=== PATIENT | male | born 1945 | race Caucasian/White ===

== ENCOUNTER 2016-11-15 14:59 | Inpatient (IN) | payer OTHER, MEDICARE ==
[~2016-11-15] VITALS: Ht 180.3 cm; Wt 62.0 kg
[~2016-11-15 14:59] MED LIST: ALBUAER19 INH; AZIT250T PO; CHOL100027 PO; DLR500 PO; MONT1TAB3 PO; OXGN; PANT40TA PO; SYMIN160 INH; TIOTCAP INH
[2016-11-15] MEDS ORDERED: ALBU18002 INH (15:41)
[2016-11-15] MEDS ORDERED: ESCI1TAB10 PO (15:41)
[2016-11-15] MEDS ORDERED: SPRIN/30 INH (15:41)
[2016-11-15] MEDS ORDERED: PRLSR20 PO (15:41)
[2016-11-15] MEDS ORDERED: CHN/1 PO (15:41)
[2016-11-15 15:47] LABS: BASO % 0.4 %; BASO ABS # 0.05 K/uL (0-0.2); COMPLETE YES; EOS % 1.1 %; HEMATOCRIT 39.4 % (42-52); IG% 0.3 %; LYMPH % 3.9 %; LYMPH ABS # 0.51 K/uL (1.2-3.4); MEAN CELL VOLUME 91.6 fL (80-100); MEAN CORPUSCULAR HEMOGLOBIN 30.7 pg (25-34); MEAN CORPUSCULAR HGB CONC 33.5 g/dl (32-36); MEAN PLATELET VOLUME 9.3 fL (7.4-10.4); MONO % 7.9 %; NEUT % 86.4 %; PLATELET COUNT 273 K/uL (130-400); WHITE BLOOD COUNT 12.97 K/uL (4.8-10.8)
--- NOTE | 2016-11-15 15:51 | EMERGENCY ROOM VISIT NOTE ---
History Report prepared by Scribe: Divine Hernandez Under the Supervision of: Dr. Caridad Moody D.O. First contact with patient: 15:18 Chief Complaint: WEAKNESS Stated Complaint: WEAKNESS,LACK OF BALANCE,COPD Nursing Triage Summary: Pt states his heart rate is always high in the 140s. "I went to get up this AM and couldnt get up. I was really really dizzy. I fell back down onto the bed. " B/L leg pain. Denies injury. "I get the shakes." Hx of COPD, denies cardiac history. History of Present Illness The patient is a 71 year old male who presents to the Emergency Room with complaints of worsening weakness. He is accompanied by his and daughter. He reports he got up to use the bathroom this morning and was so weak he was unable to get up. He felt dizzy and "fell back down onto the bed". The patient complains of "burning" bilateral leg pain. He denies any recent injury. He denies any difficulty urinating or recent constipation or diarrhea. His daughter reports his heart rate is "always fast" as it's 133 on exam. The patient is febrile on exam and his daughter states he has had cold symptoms for the past few days including a cough, but refused to go to the doctor. The patient also complains of a cough. He has a history of COPD and his family states he uses Oxygen at home. Source of History: patient, family Onset: [employer] Position: other (global) Quality: other (weakness) Timing: worsening Associated Symptoms: + fevers, + cough, No diarrhea, No urinary symptoms Review of Systems See HPI for pertinent positives & negatives. A total of 10 systems reviewed and were otherwise negative. Past Medical & Surgical Medical Problems: (1) COPD (chronic obstructive pulmonary disease) (2) COPD exacerbation Social History Smoking Status: Former Smoker Alcohol Use: occasionally Drug Use: none Marital Status: Housing Status: lives alone Occupation Status: employed Current/Historical Medications Scheduled Budesonide/Formoterol Fumarate (Symbicort 160/4.5 Inhaler), 2 PUFFS INH BID Escitalopram Oxalate (Lexapro), 20 MG PO DAILY Home O2 Therapy (Oxygen), 4 LITER NA PRN Montelukast Sodium (Singulair), 10 MG PO DAILY Omeprazole (Prilosec), 20 MG PO DAILY Roflumilast (Daliresp), 500 MCG PO DAILY Tiotropium [place] (Spiriva [place]), 1 CAP INH DAILY Varenicline (Chantix), 1 MG PO DAILY Scheduled PRN Albuterol Sulfate (Proair Respiclick), 2 PUFFS INH QID PRN for SOB/Wheezing Allergies Coded Allergies: No Known Allergies (Unverified , 07/28/15) Physical Exam Vital Signs Date Time Temp Pulse Resp B/P (MAP) Pulse Ox O2 Delivery O2 Flow Rate FiO2 11/15/16 18:38 105 25 93/51 97 Nasal Cannula 4.0 11/15/16 18:10 115 24 101/63 97 Nasal Cannula 4.0 11/15/16 18:03 Nasal Cannula 4.0 11/15/16 17:33 122 24 93/53 94 Nasal Cannula 4.0 11/15/16 15:55 95 Nasal Cannula 4.0 11/15/16 15:54 134 27 129/68 98 Nasal Cannula 4.0 11/15/16 15:33 135 25 114/80 96 Room Air 11/15/16 15:11 38.7 147 20 116/67 91 Nasal Cannula 4.0 Physical Exam HEENT: Head - normocephalic and atraumatic Pupils are equal, round, and reactive to light. Extraocular eye muscles are intact, and sclera are anicteric. Nose - moist nasal mucosa without discharge. Mouth - dry buccal mucosa. Oropharynx is nonerythematous and there is no tonsillar exudate or edema noted. Neck: Supple; no JVD, nuchal rigidity, cervical lymphadenopathy. Heart: Tachycardic heart rate, regular rhythm. There is a normal S1 and S2 with no murmurs, clicks, or gallops appreciated. Lungs: Very minimal air exchange in the lungs, no wheezes, rales, or rhonchi. Abdomen: Soft, completely nontender, nondistended, with good bowel sounds. There are no palpable pulsatile masses or hepatosplenomegaly. There is no guarding, rigidity, or rebound noted. Extremities: No evidence of cyanosis, clubbing, or edema. There are easily palpable peripheral pulses. Skin: Skin is dry with poor turgor. Warm, no rashes. Medical Decision & Procedures ER Provider Diagnostic Interpretation: Radiology results as stated below per my review and the radiologist's interpretation: CHEST ONE VIEW PORTABLE CLINICAL HISTORY: Sepsis COMPARISON STUDY: Chest radiograph February 21, 2016. FINDINGS: Severe emphysema is noted. Cardiomediastinal silhouette remains normal. There is no pneumothorax or pleural effusion. There may be minimal opacity within the medial right lung base. IMPRESSION: 1. Possible mild airspace opacity within the medial right lower lung. 2. Severe emphysema. Electronically signed by: Leonid Og M.D. 11/15/2016 5:01 PM Laboratory Results 11/15/16 15:35 Red Blood Count 4.30, Mean Corpuscular Volume 91.6, Mean Corpuscular Hemoglobin 30.7, Mean Corpuscular Hemoglobin Concent 33.5, Mean Platelet Volume 9.3, Neutrophils (%) (Auto) 86.4, Lymphocytes (%) (Auto) 3.9, Monocytes (%) (Auto) 7.9, Eosinophils (%) (Auto) 1.1, Basophils (%) (Auto) 0.4, Neutrophils # (Auto) 11.20, Lymphocytes # (Auto) 0.51, Monocytes # (Auto) 1.03, Eosinophils # (Auto) 0.14, Basophils # (Auto) 0.05 11/15/16 15:35 Test 11/15/16 15:35 11/15/16 15:46 White Blood Count 12.97 K/uL (4.8-10.8) Red Blood Count 4.30 M/uL (4.7-6.1) Hemoglobin 13.2 g/dL (14.0-18.0) Hematocrit 39.4 % (42-52) Mean Corpuscular Volume 91.6 fL (80-100) Mean Corpuscular Hemoglobin 30.7 pg (25-34) Mean Corpuscular Hemoglobin Concent 33.5 g/dl (32-36) Platelet Count 273 K/uL (130-400) Mean Platelet Volume 9.3 fL (7.4-10.4) Neutrophils (%) (Auto) 86.4 % Lymphocytes (%) (Auto) 3.9 % Monocytes (%) (Auto) 7.9 % Eosinophils (%) (Auto) 1.1 % Basophils (%) (Auto) 0.4 % Neutrophils # (Auto) 11.20 K/uL (1.4-6.5) Lymphocytes # (Auto) 0.51 K/uL (1.2-3.4) Monocytes # (Auto) 1.03 K/uL (0.11-0.59) Eosinophils # (Auto) 0.14 K/uL (0-0.5) Basophils # (Auto) 0.05 K/uL (0-0.2) RDW Standard Deviation 43.3 fL (36.4-46.3) RDW Coefficient of Variation 12.9 % (11.5-14.5) Immature Granulocyte % (Auto) 0.3 % Immature Granulocyte # (Auto) 0.04 K/uL (0.00-0.02) Prothrombin Time 10.6 SECONDS (9.0-12.0) Prothromb Time International Ratio 1.0 (0.9-1.1) Activated Partial Thromboplast Time 31.9 SECONDS (21.0-31.0) Partial Thromboplastin Ratio 1.2 Anion Gap 5.0 mmol/L (3-11) Est Creatinine Clear Calc Drug Dose 53.1 ml/min Estimated GFR () 77.9 Estimated GFR (Non- 67.2 BUN/Creatinine Ratio 13.0 (10-20) Calcium Level 9.2 mg/dl (8.5-10.1) Total Bilirubin 0.8 mg/dl (0.2-1) Aspartate Amino Transf (AST/SGOT) 9 U/L (15-37) Alanine Aminotransferase (ALT/SGPT) 16 U/L (12-78) Alkaline Phosphatase 69 U/L (45-117) Total Protein 6.9 gm/dl (6.4-8.2) Albumin 3.1 gm/dl (3.4-5.0) Globulin 3.8 gm/dl (2.5-4.0) Albumin/Globulin Ratio 0.8 (0.9-2) Bedside Lactic Acid Venous 1.57 mmol/L (0.90-1.70) Laboratory results per my review. Medications Administered Medications (Trade) Dose Ordered Sig/Suyapa Route Start Time Stop Time Status Last Admin Dose Admin Acetaminophen (Tylenol Tab) 1,000 mg NOW STAT PO 11/15/16 16:04 11/15/16 16:05 DC 11/15/16 16:53 1,000 MG Sodium Chloride 1,000 ml @ 250 mls/hr Q4H STAT IV 11/15/16 16:39 11/15/16 20:38 11/15/16 16:39 250 MLS/HR Sodium Chloride 500 ml @ 999 mls/hr Q31M STAT IV 11/15/16 16:39 11/15/16 17:09 DC 11/15/16 16:39 999 MLS/HR Piperacillin Sod/ Tazobactam Sod (Zosyn Iv) 3.375 gm NOW STAT IV 11/15/16 17:30 11/15/16 17:32 DC 11/15/16 18:08 3.375 GM Levofloxacin (Levaquin / D5W) 750 mg NOW ONCE IV 11/15/16 17:30 11/15/16 17:32 DC 11/15/16 18:37 750 MG Procedure Acetaminophen PO. NSS IV. Levaquin IV. Zosyn IV. ECG Indication: weakness Rate (beats per minute): 137 Rhythm: sinus tachycardia Findings: no acute ischemic change, no ectopy ED Course 1539: Past medical records reviewed. The patient was evaluated in room C7. A complete history and physical exam was performed. A septic protocol was performed. An IV lock was initiated. A twelve-lead EKG was obtained as described above. 1604: Acetaminophen 1000 mg PO. 1639: NSS 500 ml @ 999 mls/hr IV, NSS 1000 ml @ 250 mls/hr IV. 1710: I reevaluated the patient. He is asleep. His resting heart rate is down to 134. 1723: I discussed the patients case with Dr. Israel, [facility] Hospitalist. The patient will be further evaluated. 1728: The patient is awake and resting comfortably. I discussed my recommendation that he remain in the hospital for further evaluation and management and he and his family verbalized complete understanding and agreement. 1730: Levaquin 750 mg IV, Zosyn 3.375 gm IV. Medical Decision The patient is a 71 year old male who presents to the ED with weakness. The differential diagnoses considered include: COPD exacerbation, sepsis, pneumonia , bronchitis and UTI. Lab results show WBC is 12.9. Stable H&H. Glucose is 160. Normal renal function. Normal LFT's. Normal COAG's. Lactic acid is 1.5. This is a 71-year-old male patient who presents to the emergency department with fever and weakness. He has a history of COPD. He wears oxygen at home. He has had cold symptoms and a cough. Chest x-ray is concerning for a right- sided opacity. He does have leukocytosis, fever and tachycardia. He doesn't sepsis criteria. Otherwise, he seemed intimately stable. He appeared dehydrated on physical exam. He received IV crystalloid therapy. His resting heart rate came down nicely. He was started on IV antibiotics. The case is discussed with the [facility] Hospitalist and they will evaluate for further management. Medication Reconcilliation Current Medication List: was personally reviewed by me Blood Pressure Screening Patient's blood pressure: Normal blood pressure Blood pressure disposition: Did not require urgent referral Consults Time Called: 1715 Consulting Physician: Dr. Israel, [facility] Hospitalist Returned Call: 1723 I discussed the patients case with Dr. Israel [facility] Hospitalist. The patient will be further evaluated. Impression Primary Impression: Sepsis Additional Impression: Pneumonia involving right lung Scribe Attestation The scribe's documentation has been prepared under my direction and personally reviewed by me in its entirety. I confirm that the note above accurately reflects all work, treatment, procedures, and medical decision making performed by me. Departure Information Dispostion Being Evaluated By Hospitalist Referrals Bob Duke M.D. (PCP) Patient Instructions My [facility] Problem Qualifiers Primary Impression: Sepsis Sepsis type: sepsis due to unspecified organism Qualified Codes: A41.9 - Sepsis, unspecified organism Additional Impression: Pneumonia involving right lung Pneumonia type: due to unspecified organism Lung location: middle lobe of lung Qualified Codes: J18.1 - Lobar pneumonia, unspecified organism
[2016-11-15 15:56] LABS: PARTIAL THROMBOPLASTIN RATIO 1.2; PROTHROMBIN TIME (PATIENT) 10.6 SECONDS (9.0-12.0)
[2016-11-15 16:03] LABS: CALCIUM 9.2 mg/dl (8.5-10.1); CREATININE 1.1 mg/dl (0.60-1.40); POTASSIUM 3.9 mmol/L (3.5-5.1)
[2016-11-15] MEDS ORDERED: ACETAMINOPHEN 500 MG TAB PO STA (16:04)
[2016-11-15 16:06] LABS: ALB/GLOB RATIO 0.8 (0.9-2)
[2016-11-15] MEDS ORDERED: SODIUM CHLORIDE 0.9% 500ML 500 ML IV STA (16:39)
[2016-11-15] MEDS ORDERED: SODIUM CHLORIDE 0.9% 1000ML 1,000 ML IV STA (16:39)
--- NOTE | 2016-11-15 17:03 | DIAGNOSTIC IMAGING REPORT ---
CHEST ONE VIEW PORTABLE CLINICAL HISTORY: Sepsis COMPARISON STUDY: Chest radiograph February 21, 2016. FINDINGS: Severe emphysema is noted. Cardiomediastinal silhouette remains normal. There is no pneumothorax or pleural effusion. There may be minimal opacity within the medial right lung base. IMPRESSION: 1. Possible mild airspace opacity within the medial right lower lung. 2. Severe emphysema. Electronically signed by: Leonid Og M.D. 11/15/2016 5:01 PM Dictated Date/Time: 11/15/2016 4:59 PM
[2016-11-15] MEDS ORDERED: DAPTOmycin IV 400 MG in SODIUM CHLORIDE 0.9% 50ML 50 ML IV STA (17:06)
[2016-11-15] MEDS ORDERED: IMIPENEM/CILASTATIN IV 500 MG in DEXTROSE 5% 100ML 100 ML IV STA (17:06)
[2016-11-15] MEDS ORDERED: PIPERACILLIN/TAZOBACTAM 3.375 GM/100ML D5W IV STA (17:30)
[2016-11-15] MEDS ORDERED: LEVAQUIN 750MG / 150ML D5W IV ONE (17:30)
[2016-11-15 18:03] VITALS: BMI 18.8
[2016-11-15 20:29] VITALS: Ht 180.3 cm; Wt 62.0 kg
[2016-11-15] MEDS ORDERED: MAGNESIUM HYDROXIDE SUSP 30 ML UDC PO PRN (20:30)
[2016-11-15] MEDS ORDERED: ZOLPIDEM TARTRATE 5 MG TAB PO PRN (20:30)
[2016-11-15] MEDS ORDERED: ALUMINUM/MAGNESIUM/SIMETH (MAALOX MAX) 30 ML UDC PO PRN (20:30)
[2016-11-15] MEDS ORDERED: POLYETHYLENE (MIRALAX) 17 GM PACK PO PRN (20:30)
[2016-11-15 20:40] LABS: URINE APPEARANCE CLEAR (CLEAR); URINE BILIRUBIN NEG (NEG); URINE COLOR YELLOW; URINE EPITHELIAL CELL AUTO 0-5 /lpf (0-5); URINE NITRITE NEG (NEG); URINE PH 6.5 (4.5-7.5); URINE SPECIFIC GRAVITY 1.013 (1.000-1.030); UROBILINOGEN NEG (NEG); ZZUR CULT IF INDIC CLEAN CATCH NO
[2016-11-15 20:41] LABS: MANUAL MICROSCOPIC REQUIRED? NO; REVIEW REQ? NO
[2016-11-15] MEDS ORDERED: CEFTRIAXONE SOD INJ 1 GM ADDVIAL ONE (20:50)
[2016-11-15] MEDS ORDERED: AZITHROMYCIN 500 MG / D5W 250 ML IV STA ×2 (21:01)
[2016-11-15] MEDS: SODIUM CHLORIDE 0.9% 1000ML 1,000 ML IV SCH (22:13)
[2016-11-15] MEDS: BUDESONIDE/FORMOTEROL FUMARATE 160/4.5 60 PUFFS/INHALER INH SCH (22:14)
[2016-11-15] MEDS: HEPARIN SOD 5000 UNIT/0.5 ML CARP SQ SCH (22:27)
[2016-11-15] MEDS ORDERED: CEFTRIAXONE SOD INJ 1 GM in DEXTROSE 5% ADD-VANTAGE 50ML 50 ML IV SCH (22:30)
[2016-11-15 22:33] VITALS: O2SAT 91
[2016-11-15 22:34] VITALS: BP 122/73; PULSE 109; TEMP 36.9; O2SAT 91
[2016-11-15 22:42] LABS: URINE APPEARANCE CLEAR (CLEAR); URINE BILIRUBIN NEG (NEG); URINE COLOR YELLOW; URINE NITRITE NEG (NEG); URINE SPECIFIC GRAVITY 1.012 (1.000-1.030); UROBILINOGEN NEG (NEG); ZZUR CULT IF INDIC CLEAN CATCH NO
[2016-11-15 22:47] LABS: MANUAL MICROSCOPIC REQUIRED? NO; REVIEW REQ? NO
[2016-11-16] VITALS (16 sets, daily range): BP systolic 104–119; BP diastolic 61–69; PULSE 87–133; TEMP 36.8–39.5; O2SAT 88–99
--- NOTE | 2016-11-16 01:19 | HISTORY & PHYSICAL EXAMINATION ---
DATE OF ADMISSION: 11/15/2016 CHIEF COMPLAINT: Severe generalized weakness. HISTORY OF PRESENT ILLNESS: The patient is a 71-year-old man with a history of COPD, chronic respiratory failure on 4 liters oxygen at home, who presented to the ED with his and daughter. The patient reported that he went to sleep at night feeling good, but then when he woke up in the morning he could not get out of bed from generalized weakness. He stated that his had to assist him to go to the bathroom and keep walking with him to the bathroom. He denies any symptoms suggestive for an infection, denies any cough or wheezing, but yet in the ED his heart rate was about 130 and he had a temperature of 38.7. All his review of systems was negative except for generalized weakness. He also denied any fever or chills despite of this very high temperature which makes me question the validity of the review of systems with him. His chest x-ray though did show some possible airspace opacity within the medial right lower lung , also illustrated the severe emphysema. He will be admitted for further evaluation and management. REVIEW OF SYSTEMS: As per HPI, all systems have been reviewed and were negative except for generalized weakness. He denies any headache, double vision or blurry vision. Denies any chest pain or palpitations. Denies any cough, wheezing or shortness of breath. Denies any diarrhea or blood in the stool. Denies any burning sensation in the urine or blood. Denies any focal weakness, tingling or numbness. Rest of the review of systems is negative. PAST MEDICAL HISTORY: COPD, chronic respiratory failure on home oxygen, depression and GERD. SOCIAL HISTORY: Former smoker. He denies any current smoking or drinking. FAMILY HISTORY: Noncontributory. CURRENT MEDICATIONS: 1. Symbicort two puffs b.i.d. 2. Lexapro daily. 3. Home oxygen 4 liters. 4. Singulair 10 mg daily. 5. Omeprazole 20 mg daily. 6. Daliresp 500 mcg p.o. daily. 7. Spiriva 1 cap inhalation daily. 8. Chantix and p.r.n. albuterol ProAir inhaler. ALLERGIES: No known allergy. PHYSICAL EXAMINATION: VITAL SIGNS: Temperature 38.7; heart rate is 147 on admission, currently is about 110; respiration is 25; blood pressure 101/63 and pulse ox is 97% on 4 liters. GENERAL: The patient appears to be thin, not in acute distress. HEENT: No jaundice. No pallor with mucous membranes. NECK: Supple. HEART: S1, S2, tachycardic. No gallop, rub or murmur. LUNGS: Decreased air entry bilaterally due to his significant emphysema, but was not able to appreciate any active wheezing right now or rhonchi. ABDOMEN: Soft, nontender, nondistended, no swelling. No hernia. EXTREMITIES: No cyanosis, clubbing or edema. SKIN: No rash on exposed skin area. NEUROLOGIC: Awake, alert, oriented to time, place and person. Moves all extremities. Sensation is intact. Cranial nerves II-XII appear to be intact. PSYCHIATRIC: Very pleasant, normal process of thinking, appropriate affect. IMAGING: As mentioned in HPI. LABORATORY DATA: White blood cell count 12.9, hemoglobin 13.2 and platelets 273. BUN 14, creatinine 1.1. Sodium 136, potassium is 3.9. ASSESSMENT: A 71-year-old man, who presented to the ED with severe weakness and sepsis. Despite of completely negative review of systems he was found to have right lower lobe opacity. 1. Sepsis present on admission, secondary to below. 2. Right lower lobe opacity, possible pneumonia. 3. Sinus tachycardia, possibly secondary to the sepsis. 4. Severe chronic obstructive pulmonary disease. 5. Depression, currently stable on Lexapro. 6. Gastroesophageal reflux disease, on omeprazole. 7. Borderline hypotensive. PLAN: 1. Admit patient to telemetry. 2. Initiate ceftriaxone/azithromycin antibiotics. 3. Obtain procalcitonin to confirm bacterial infection. 4. Obtain urine legionella. Obtain sputum culture. If possible, the patient can be induced. 5. IV fluid hydration. 6. Obtain UA, urine culture and blood culture to rule out other underlying causes of the patient's sepsis. 7. Giving him his lack of any cough and lack of any shortness of breath more than his baseline, would like to proceed with CT of chest without contrast to rule out any mass at that site. Also, the patient is a former smoker and appears to be very thin and cachectic. 8. Obtain labs for a.m. 9. Continue home medications as appropriate. 10. We will use Xopenex and Atrovent inhalers due to the tachycardia. 11. GI and DVT prophylaxis. MTDD
[2016-11-16] MEDS: ACETAMINOPHEN 325 MG TAB PO PRN ×2 (04:26→14:50)
[2016-11-16] MEDS: LEVALBUTEROL 0.63MG/3 ML NEB INH SCH ×4 (07:21→22:30)
[2016-11-16] MEDS: IPRATROPIUM BROMIDE NEB SOLN 0.02% 2.5 ML VIAL INH SCH ×4 (07:21→22:30)
[2016-11-16 08:14] LABS: BASO % 0.3 %; BASO ABS # 0.03 K/uL (0-0.2); COMPLETE YES; EOS % 2.6 %; HEMATOCRIT 35.6 % (42-52); IG% 0.2 %; LYMPH % 7.5 %; LYMPH ABS # 0.81 K/uL (1.2-3.4); MEAN CELL VOLUME 92.2 fL (80-100); MEAN CORPUSCULAR HEMOGLOBIN 30.6 pg (25-34); MEAN CORPUSCULAR HGB CONC 33.1 g/dl (32-36); MEAN PLATELET VOLUME 9.6 fL (7.4-10.4); MONO % 8.9 %; NEUT % 80.5 %; PLATELET COUNT 226 K/uL (130-400); RED BLOOD COUNT 3.86 M/uL (4.7-6.1); WHITE BLOOD COUNT 10.83 K/uL (4.8-10.8)
[2016-11-16] MEDS: PANTOprazole SOD 40 MG TAB PO SCH (08:36)
[2016-11-16] MEDS: ESCITALOPRAM OXALATE 20 MG TAB PO SCH (08:36)
[2016-11-16] MEDS: ROFLUMILAST 500 MCG TAB PO SCH (08:36)
[2016-11-16] MEDS: MONTELUKAST SOD 10 MG TAB PO SCH (08:37)
[2016-11-16] MEDS: BUDESONIDE/FORMOTEROL FUMARATE 160/4.5 60 PUFFS/INHALER INH SCH ×2 (08:37→20:55)
[2016-11-16 08:38] LABS: BUN/CREATININE RATIO 13.4 (10-20); CALCIUM 8.7 mg/dl (8.5-10.1); CREATININE 0.86 mg/dl (0.60-1.40); MAGNESIUM 1.9 mg/dl (1.8-2.4); POTASSIUM 4.3 mmol/L (3.5-5.1)
[2016-11-16 08:41] LABS: ALB/GLOB RATIO 0.7 (0.9-2); PHOSPHORUS 2.9 mg/dl (2.5-4.9)
--- NOTE | 2016-11-16 09:34 | DIAGNOSTIC IMAGING REPORT ---
(CHEST) THORAX WITHOUT CT DOSE: 223.02 mGy.cm HISTORY: Emphysema RLL density without cough, possible mass TECHNIQUE: Multiaxial CT images of the chest were performed without contrast. A dose lowering technique was utilized adhering to the principles of ALARA. COMPARISON: 11/12/2015 FINDINGS: Diffuse emphysematous change. Fibrotic and interstitial changes throughout both mid to upper lungs. Potential developing right middle lobe and right perihilar bronchiectatic change. Trace amount of right basilar pleural fluid. Mildly progressive bibasilar atelectatic change. No significant mediastinal or hilar adenopathy. Interval focal consolidative infiltrate medial aspect right upper lobe adjacent to the anterior mediastinum measuring 4 x 2.5 cm. Follow-up to resolution is suggested. IMPRESSION: 1. Interval development of a consolidated infiltrate versus lesion right upper lobe immediately adjacent to the anterior mediastinum. 2. This measures 4 x 2.5 cm and potentially represents consolidative infiltrate versus developing mass. 3. Progressive bronchiectatic change medial aspect right upper lobe. 4. Small right pleural effusion with mildly progressive basilar segmental atelectatic change 5. Close follow-up to complete resolution is suggested to exclude any possibility of a neoplastic process. 6. Stable emphysematous change The above report was generated using voice recognition software. It may contain grammatical, syntax or spelling errors. Electronically signed by: El Ortega M.D. 11/16/2016 9:32 AM Dictated Date/Time: 11/16/2016 9:27 AM
[2016-11-16] MEDS: HEPARIN SOD 5000 UNIT/0.5 ML CARP SQ SCH ×2 (10:26→21:02)
[2016-11-16] MEDS: SODIUM CHLORIDE 0.9% 1000ML 1,000 ML IV SCH ×2 (13:21→22:11)
--- NOTE | 2016-11-16 15:00 | Pulmonary Consultation ---
History General Date of Service: Nov 16, 2016. Stated Complaint: Pneumonia Involving Right Lung HPI The patient is a 71 year old male who presents to [facility] with complaints of Pneumonia Involving Right Lung. The patient's primary care provider is Bob Duke M.D.. CC: Right upper lobe infiltrate vs. mass and COPD exacerbation HPI: 71-year-old gentleman with very severe COPD chronically on 4 L nasal oxygen and an FEV1 of 20% predicted. He was in his normal state of health when he went to sleep last night but upon awakening he was so weak he was unable to get out of bed. He currently denies any active signs of infection but in the emergency room his VS where: 38.7, Hr: 147, RR: 25 and SaO2: 97 on 4L. At the time of my interview the patient notes continued dyspnea at rest with mild increase in mucus production but no signs of acute infection. He denied: Fever, chills, hemoptysis, intentional weight loss, night sweats, pleurisy or classic cardiac chest pain. Current workup EKG: Sinus tachycardia: Rate 137 WBC: [id number] PLT: [id number] PT: 10.6 aPTT: 31.9 INR: 1.0 T Pro: 6.1 ALB: 2.5 UA: WNL BUN/Cr: 12/0.86 Troponin: <0.015 Pending: Legionella urine antigen Mycoplasma pneumonia Radiology CXR: opacification RLL medial segment, severe emphysematous changes, right hilar fullness CT Chest compared to 11/12/2015 and 07/29/15 Development of infiltrative process tight upper lobe anterior (RB3) subsegment Progressive posterior bilateral pleural thickening versus rounded atelectasis Decreased left sided pleural thickening from 07/29/2015 New small right-sided pleural effusion Mediastinal and left hemithorax intraparenchymal calcifications no acute changes Previous Work-Up Spirometry (10/13/16) Pre- Post % Change FEV1/FVC: 36 FEV1: 0.71/20% 0.92/26% +29 FVC: 1.96/42% 2.37/51% +21 Microbiology: Blood (07/24/2015) Coag-negative staph one out of 2 Expectorated sputum (02/21/16) no acid-fast bacilli (02/22/16) no acid-fast bacilli (02/23/16) no acid-fast bacilli QuantiFERON Gold a 08/10/2015 Positive Medications #1 Azithromycin 500 mg daily #2 Ceftriaxone 1 g daily #3 Montelukast 10 mg daily #4 Daliresp 500 g daily #5 Protonix 40 mg daily #6 Xopenex/Atrovent nebulizer every 8 hours #7 Heparin subcutaneous 5000 units twice daily #8 Symbicort 160/4.5 puffs twice a day Historian: patient, EMS Review of Systems Constitutional: reports: malaise, weakness Eyes: reports: no symptoms ENT: reports: no symptoms Cardiovascular: reports: as stated in HPI Respiratory: reports: as stated in HPI Gastrointestinal: reports: no symptoms, other (chronically poor appetite) Genitourinary - Male: reports: no symptoms Musculoskeletal: reports: no symptoms Integumentary: reports: no symptoms Neurologic: reports: no symptoms Psychiatric: reports: no symptoms Endocrine: no symptoms Hematologic / Lymphatic: no symptoms Allergic / Immunologic: no symptoms Past Medical History Past Medical History: 1. Abnormal weight loss 2. Allergic rhinitis 3. Benign prostatic hypertrophy without urinary obstruction 4. 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 Chronic respiratory failure 6. Esophageal reflux 7. Explosive personality disorder 8. Granulomatous lung disease 9. Hearing loss 10. Hypoxia 11. Increased urinary frequency 12. Irritability 13. Lightheadedness 14. Respiratory failure with hypoxia 15. Vitamin D deficiency 16. Ataxic gait 17. History of orthostatic hypotension 18. History of vertigo 19. Latent tuberculosis Past Surgical History: no surgical history Family History 1. Family history of Diverticulitis Of Colon 2. Family history of Hypertension Social History Tobacco: Recently quit currently using Chantix Marital History - Currently Hx Tobacco Use In Past Year?: No Smoking Status: Former Smoker Marital status: Housing status: lives with family Occupational Status: employed History of MDRO History of MDRO: No Allergies Coded Allergies: No Known Allergies (Unverified , 07/28/15) Current Medications Reported Home Medications Medications Dose Route/Sig Max Daily Dose Days Date Category Chantix (Varenicline) 1 Mg Tab 1 Mg PO DAILY 11/15/16 Reported Prilosec (Omeprazole) 20 Mg Capcr 20 Mg PO DAILY 11/15/16 Reported Lexapro (Escitalopram Oxalate) 20 Mg Tab 20 Mg PO DAILY 11/15/16 Reported Spiriva Handihaler (Tiotropium [place]) 30 Puff/540 Mcg Aerp 1 Cap INH DAILY 11/15/16 Reported Proair Respiclick (Albuterol Sulfate) 108 Mcg/Act Aer 2 Puffs INH QID PRN 11/15/16 Reported Daliresp (Roflumilast) 500 Mcg Tab 500 Mcg PO DAILY 07/31/15 Rx Oxygen Gas 4 Liter NA PRN 07/28/15 Reported Symbicort 160/4.5 Inhaler (Budesonide/Formoterol Fumarate) 120 Puffs/ Aero 2 Puffs INH BID 04/03/12 Reported Singulair (Montelukast Sodium) 10 Mg Tab 10 Mg PO DAILY 04/03/12 Reported Physical Physical Exam Vital Signs: Date Time Temp Pulse Resp B/P (MAP) Pulse Ox O2 Delivery O2 Flow Rate FiO2 11/16/16 12:00 98 Nasal Cannula 4.0 11/16/16 11:15 37.7 106 18 109/66 (80) 96 11/16/16 08:16 98 Nasal Cannula 4.0 11/16/16 08:16 98 Nasal Cannula 4.0 11/16/16 07:43 36.9 87 20 108/66 (80) 98 11/16/16 07:21 103 20 98 Nasal Cannula 4.0 11/16/16 05:50 36.9 11/16/16 04:18 37.9 110 20 106/67 (80) 99 Nasal Cannula 4.0 11/16/16 04:18 108 11/16/16 04:00 91 Nasal Cannula 4.0 11/16/16 03:01 37.2 122 11/16/16 00:00 91 Nasal Cannula 4.0 11/15/16 22:34 36.9 109 22 122/73 (89) 91 Nasal Cannula 4.0 11/15/16 22:33 91 Nasal Cannula 4.0 11/15/16 21:40 38.7 101 20 102/68 99 11/15/16 20:29 20 11/15/16 20:01 102/68 11/15/16 19:59 101 25 99 11/15/16 19:05 96/65 11/15/16 18:59 105 24 11/15/16 18:38 105 25 93/51 97 Nasal Cannula 4.0 11/15/16 18:10 115 24 101/63 97 Nasal Cannula 4.0 11/15/16 18:03 Nasal Cannula 4.0 11/15/16 17:33 122 24 93/53 94 Nasal Cannula 4.0 11/15/16 15:55 95 Nasal Cannula 4.0 11/15/16 15:54 134 27 129/68 98 Nasal Cannula 4.0 11/15/16 15:33 135 25 114/80 96 Room Air 11/15/16 15:11 38.7 147 20 116/67 91 Nasal Cannula 4.0 General Appearance: cachetic Head: NORMOCEPHALIC, ATRAUMATIC Eyes: PERRLA, NO DISCHARGE, EOMI, SCLERAE NORMAL ENT: NORMAL EAR EXAM, NORMAL NASAL EXAM, NORMAL MOUTH EXAM, NORMAL THROAT EXAM , NORMAL DENTAL EXAM Neck: NORMAL RANGE OF MOTION, NO TENDERNESS, TRACHEA MIDLINE, NO STRIDOR Respiratory: other (decreased breath sounds bilaterally minimal air movement) Cardiovasular: REGULAR RATE/RHYTHM, NORMAL S1S2, NO M/G/R, NO MURMUR Abdomen: NON TENDER, NORMAL BOWEL SOUNDS, NO REBOUND, NO MASSES, NO GUARDING, NO ORGANOMEGALY Genitourinary - Male: EXTERNAL GENITALIA NORMAL Back: NORMAL INSPECTION, NO MIDLINE TENDERNESS, NO CVA TENDERNESS, NO PARAVERTEBRAL TTP Upper Extremities: NO EDEMA, NO DEFORMITY, NORMAL ROM Lower Extremities: NO EDEMA, NO DEFORMITY, NORMAL ROM Pulses: carotid (R) (2+), carotid (L) (2+), posterior tibial (R) (2+), posterior tibial (L) Neuro: ALERT, ORIENTED x 3, NORMAL MOTOR EXAM Reflexes: biceps (R) (2+), bicpes (L) (2+), achilles (R) (2+), achilles (L) (2+ ) Babinski Testing: right (downgoing), left (downgoing) Psychiatric: NORMAL AFFECT, NO SUICIDAL IDEATION Diagnostics Labs Results Past 24 Hours Test 11/15/16 15:35 11/15/16 15:46 11/15/16 20:15 11/15/16 22:20 Range/Units White Blood Count 12.97 4.8-10.8 K/uL Red Blood Count 4.30 4.7-6.1 M/uL Hemoglobin 13.2 14.0-18.0 g/dL Hematocrit 39.4 42-52 % Mean Corpuscular Volume 91.6 80-100 fL Mean Corpuscular Hemoglobin 30.7 25-34 pg Mean Corpuscular Hemoglobin Concent 33.5 32-36 g/dl Platelet Count 273 130-400 K/uL Mean Platelet Volume 9.3 7.4-10.4 fL Neutrophils (%) (Auto) 86.4 % Lymphocytes (%) (Auto) 3.9 % Monocytes (%) (Auto) 7.9 % Eosinophils (%) (Auto) 1.1 % Basophils (%) (Auto) 0.4 % Neutrophils # (Auto) 11.20 1.4-6.5 K/uL Lymphocytes # (Auto) 0.51 1.2-3.4 K/uL Monocytes # (Auto) 1.03 0.11-0.59 K/uL Eosinophils # (Auto) 0.14 0-0.5 K/uL Basophils # (Auto) 0.05 0-0.2 K/uL RDW Standard Deviation 43.3 36.4-46.3 fL RDW Coefficient of Variation 12.9 11.5-14.5 % Immature Granulocyte % (Auto) 0.3 % Immature Granulocyte # (Auto) 0.04 0.00-0.02 K/uL Prothrombin Time 10.6 9.0-12.0 SECONDS Prothromb Time International Ratio 1.0 0.9-1.1 Activated Partial Thromboplast Time 31.9 21.0-31.0 SECONDS Partial Thromboplastin Ratio 1.2 Sodium Level 136 136-145 mmol/L Potassium Level 3.9 3.5-5.1 mmol/L Chloride Level 99 98-107 mmol/L Carbon Dioxide Level 32 21-32 mmol/L Anion Gap 5.0 3-11 mmol/L Blood Urea Nitrogen 14 7-18 mg/dl Creatinine 1.10 0.60-1.40 mg/dl Est Creatinine Clear Calc Drug Dose 53.1 ml/min Estimated GFR () 77.9 Estimated GFR (Non- 67.2 BUN/Creatinine Ratio 13.0 10-20 Random Glucose 160 70-99 mg/dl Calcium Level 9.2 8.5-10.1 mg/dl Total Bilirubin 0.8 0.2-1 mg/dl Aspartate Amino Transf (AST/SGOT) 9 15-37 U/L Alanine Aminotransferase (ALT/SGPT) 16 12-78 U/L Alkaline Phosphatase 69 45-117 U/L Troponin I < 0.015 0-0.045 ng/ml Total Protein 6.9 6.4-8.2 gm/dl Albumin 3.1 3.4-5.0 gm/dl Globulin 3.8 2.5-4.0 gm/dl Albumin/Globulin Ratio 0.8 0.9-2 Bedside Lactic Acid Venous 1.57 0.90-1.70 mmol/L Urine Color YELLOW YELLOW Urine Appearance CLEAR CLEAR CLEAR Urine pH 6.5 6.0 4.5-7.5 Urine Specific [place] 1.013 1.012 1.000-1.030 Urine Protein NEG NEG NEG Urine Glucose (UA) NEG NEG NEG Urine Ketones TRACE NEG NEG Urine Occult Blood NEG NEG NEG Urine Nitrite NEG NEG NEG Urine Bilirubin NEG NEG NEG Urine Urobilinogen NEG NEG NEG Urine Leukocyte Esterase NEG NEG NEG Urine WBC (Auto) 0 0-5 /hpf Urine RBC (Auto) 0-4 0-4 /hpf Urine Hyaline Casts (Auto) 0 0-5 /lpf Urine Epithelial Cells (Auto) 0-5 0-5 /lpf Urine Bacteria (Auto) NEG NEG Test 11/16/16 07:34 Range/Units White Blood Count 10.83 4.8-10.8 K/uL Red Blood Count 3.86 4.7-6.1 M/uL Hemoglobin 11.8 14.0-18.0 g/dL Hematocrit 35.6 42-52 % Mean Corpuscular Volume 92.2 80-100 fL Mean Corpuscular Hemoglobin 30.6 25-34 pg Mean Corpuscular Hemoglobin Concent 33.1 32-36 g/dl Platelet Count 226 130-400 K/uL Mean Platelet Volume 9.6 7.4-10.4 fL Neutrophils (%) (Auto) 80.5 % Lymphocytes (%) (Auto) 7.5 % Monocytes (%) (Auto) 8.9 % Eosinophils (%) (Auto) 2.6 % Basophils (%) (Auto) 0.3 % Neutrophils # (Auto) 8.73 1.4-6.5 K/uL Lymphocytes # (Auto) 0.81 1.2-3.4 K/uL Monocytes # (Auto) 0.96 0.11-0.59 K/uL Eosinophils # (Auto) 0.28 0-0.5 K/uL Basophils # (Auto) 0.03 0-0.2 K/uL RDW Standard Deviation 43.8 36.4-46.3 fL RDW Coefficient of Variation 12.8 11.5-14.5 % Immature Granulocyte % (Auto) 0.2 % Immature Granulocyte # (Auto) 0.02 0.00-0.02 K/uL Sodium Level 139 136-145 mmol/L Potassium Level 4.3 3.5-5.1 mmol/L Chloride Level 101 98-107 mmol/L Carbon Dioxide Level 31 21-32 mmol/L Anion Gap 7.0 3-11 mmol/L Blood Urea Nitrogen 12 7-18 mg/dl Creatinine 0.86 0.60-1.40 mg/dl Est Creatinine Clear Calc Drug Dose 68.0 ml/min Estimated GFR () 101.1 Estimated GFR (Non- 87.2 BUN/Creatinine Ratio 13.4 10-20 Random Glucose 102 70-99 mg/dl Lactic Acid Level 1.0 0.4-2.0 mmol/L Calcium Level 8.7 8.5-10.1 mg/dl Phosphorus Level 2.9 2.5-4.9 mg/dl Magnesium Level 1.9 1.8-2.4 mg/dl Total Bilirubin 0.6 0.2-1 mg/dl Aspartate Amino Transf (AST/SGOT) 16 15-37 U/L Alanine Aminotransferase (ALT/SGPT) 17 12-78 U/L Alkaline Phosphatase 55 45-117 U/L Total Protein 6.1 6.4-8.2 gm/dl Albumin 2.5 3.4-5.0 gm/dl Globulin 3.6 2.5-4.0 gm/dl Albumin/Globulin Ratio 0.7 0.9-2 Microbiology Results 11/15/16 Blood Culture, Received Pending 11/15/16 Blood Culture, Received Pending 11/15/16 Urine Culture - Preliminary, Resulted NO GROWTH - LESS THAN 1,000 COLONIES/... Diagnostic Radiology CXR: opacification RLL medial segment, severe emphysematous changes, right hilar fullness CT Chest compared to 11/12/2015 and 07/29/15 Development of infiltrative process tight upper lobe anterior (RB3) subsegment Progressive posterior bilateral pleural thickening versus rounded atelectasis Decreased left sided pleural thickening from 07/29/2015 New small right-sided pleural effusion Mediastinal and left hemithorax intraparenchymal calcifications no acute changes EKG Sinus tachycardia: Rate 137 Impression Assessment and Plan 71-year-old male with acute on chronic respiratory insufficiency: #1 Respiratory Insufficiency: Patient is having acute COPD flare with a baseline FEV1 of 20%. I agree with the patient's current medical regimen. Also agree with continue baseline oxygen support as he is showing no signs of active failure/respiratory failure at this time. We'll have to continue to monitor this patient and if the shows notable regression I would then suggest we initiate noninvasive ventilation with BiPAP. #2 Right Upper Lobe Infiltrate vs. Mass: This could be an acute pneumonia process or possibly even primary lung carcinoma and a high risk patient. At this time the patient is too ill to undergo definitive evaluation. This can be readdressed daily but it appears at this time the most reasonable course of action is to repeat a high-resolution noncontrast CT of the chest in the next 6- 8 weeks to reevaluate this particular mass/infiltrate. #3 TB: The patient does have a diagnosis of latent TB based off positive QuantiFERON Gold and 3 negative expectorated sputum's performed February 2016. This new upper lobe mass/infiltrate could be conversion to active tuberculosis but the patient is not describing any active clinical signs of tuberculosis. I suggest that this time continue to clinically monitor this patient. This patient is a a baseline slightly increased risk of conversion to active tuberculosis as he is underweight and will be considered an active smoker. I still believe at this time though his risk of hepatitis secondary to active treatment still outweighs his risk of conversion to active tuberculosis and we should monitor this patient clinically and radiographically.
--- NOTE | 2016-11-16 16:22 | Progress Note ---
Subjective Date of Service: Nov 16, 2016. Subjective Pt evaluation today including: conversation w/ patient, physical exam, review of studies, conversation w/ solutions architect consultant, review of inpatient medication list Pain: no pain PO Intake: poor intake for several days Voiding: no voiding problems patient has been feeling ill for several days, poor appetite, shortness of breath pneumonia RUL seen on CT reviewed lab work and imaging this AM appreciate consult from Dr. Perez HR back into the 130's will give fluid bolus oxygen saturation goal is 90-92% Problem List Medical Problems: (1) COPD exacerbation Status: Acute (2) Hypoxemia Status: Acute (3) Hypoxia Status: Acute (4) Influenza Status: Acute (5) Pneumonia involving right lung Status: Acute (6) Respiratory distress Status: Acute (7) Sepsis Status: Acute Review of Systems Constitutional: + fever, + chills, + sweats, + weakness, + fatigue Respiratory: + cough, + shortness of breath, + dyspnea on exertion, + dyspnea at rest Abdomen: + problem reported (poor appetite) All Other Systems: Reviewed and Negative Medications Current Inpatient Medications Medications (Trade) Dose Ordered Sig/[place] Route Start Time Stop Time Status Last Admin Dose Admin Budesonide/ Formoterol Fumarate (Symbicort 160/ 4.5 Inh) 2 puffs BID INH 11/15/16 21:00 12/15/16 20:59 11/16/16 08:37 2 PUFFS Escitalopram Oxalate (Lexapro Tab) 20 mg DAILY PO 11/16/16 09:00 12/16/16 08:59 11/16/16 08:36 20 MG Montelukast Sodium (Singulair Tab) 10 mg DAILY PO 11/16/16 09:00 12/16/16 08:59 11/16/16 08:37 10 MG Roflumilast (Daliresp Tab) 500 mcg DAILY PO 11/16/16 09:00 12/16/16 08:59 11/16/16 08:36 500 MCG Pantoprazole Sodium (Protonix Tab) 40 mg DAILY PO 11/16/16 09:00 12/16/16 08:59 11/16/16 08:36 40 MG Heparin Sodium (Porcine) (Heparin Sq 5000 Unit/0.5ml) 5,000 unit Q12H SQ 11/15/16 22:00 12/15/16 21:59 11/16/16 10:26 5,000 UNIT Sodium Chloride 1,000 ml @ 100 mls/hr Q10H IV 11/15/16 20:24 12/15/16 20:23 11/16/16 13:21 100 MLS/HR Acetaminophen (Tylenol Tab) 650 mg Q4H PRN PO 11/15/16 20:30 12/15/16 20:29 11/16/16 14:50 650 MG Al Hydrox/Mg Hydrox/Simethicone (Maalox Max Susp) 15 ml Q4H PRN PO 11/15/16 20:30 12/15/16 20:29 Magnesium Hydroxide (Milk Of Magnesia Susp) 30 ml Q12H PRN PO 11/15/16 20:30 12/15/16 20:29 Zolpidem Tartrate (Ambien Tab) 5 mg HSZ PRN PO 11/15/16 20:30 12/15/16 20:29 Polyethylene (Miralax Powder Packet) 17 gm DAILY PRN PO 11/15/16 20:30 12/15/16 20:29 Azithromycin 500 mg/Dextrose 255 ml @ 170 mls/hr Q24H IV 11/16/16 21:00 11/22/16 20:59 Ipratropium [place] (Atrovent 0.02% 0.5MG/2.5ML Neb) 0.5 mg Q8R INH 11/16/16 00:00 12/16/16 00:00 11/16/16 16:11 0.5 MG Levalbuterol (Xopenex 0.63 Mg/ 3 Ml Neb) 0.63 mg Q8R INH 11/16/16 00:00 12/16/16 00:00 11/16/16 16:11 0.63 MG Ceftriaxone Sodium 1 gm/ Dextrose 50 ml @ 100 mls/hr DAILY@1999 IV 11/16/16 20:00 11/23/16 19:59 Objective Vital Signs Date Time Temp Pulse Resp B/P (MAP) Pulse Ox O2 Delivery O2 Flow Rate FiO2 11/16/16 16:11 118 26 88 Nasal Cannula 4.0 11/16/16 14:45 39.5 133 28 119/69 (86) 98 Nasal Cannula 4.0 11/16/16 12:00 98 Nasal Cannula 4.0 11/16/16 11:15 37.7 106 18 109/66 (80) 96 11/16/16 08:16 98 Nasal Cannula 4.0 11/16/16 08:16 98 Nasal Cannula 4.0 11/16/16 07:43 36.9 87 20 108/66 (80) 98 11/16/16 07:21 103 20 98 Nasal Cannula 4.0 11/16/16 05:50 36.9 11/16/16 04:18 37.9 110 20 106/67 (80) 99 Nasal Cannula 4.0 11/16/16 04:18 108 11/16/16 04:00 91 Nasal Cannula 4.0 11/16/16 03:01 37.2 122 11/16/16 00:00 91 Nasal Cannula 4.0 11/15/16 22:34 36.9 109 22 122/73 (89) 91 Nasal Cannula 4.0 11/15/16 22:33 91 Nasal Cannula 4.0 11/15/16 21:40 38.7 101 20 102/68 99 11/15/16 20:29 20 11/15/16 20:01 102/68 11/15/16 19:59 101 25 99 11/15/16 19:05 96/65 11/15/16 18:59 105 24 11/15/16 18:38 105 25 93/51 97 Nasal Cannula 4.0 11/15/16 18:10 115 24 101/63 97 Nasal Cannula 4.0 11/15/16 18:03 Nasal Cannula 4.0 11/15/16 17:33 122 24 93/53 94 Nasal Cannula 4.0 Physical Exam General Appearance: no apparent distress, + thin Eyes: normal inspection, EOMI, sclerae normal ENT: normal ENT inspection, hearing grossly normal, pharynx normal Neck: supple, no adenopathy, no JVD, trachea midline Respiratory/Chest: chest non-tender, no respiratory distress, no accessory muscle use, + decreased breath sounds Cardiovascular: no edema, no gallop, no JVD, no murmur, + tachycardia Abdomen: normal bowel sounds, non tender, soft, no organomegaly Extremities: normal range of motion, non-tender, normal inspection, no pedal edema, no calf tenderness, pelvis stable Neurologic/Psychiatric: testing coordinator II-XII nml as tested, no motor/sensory deficits, alert, normal mood/affect, oriented x 3 Skin: normal color, warm/dry, no rash Laboratory Results Last 24 Hours Test 11/15/16 20:15 11/15/16 22:20 11/16/16 07:34 Urine Color YELLOW YELLOW Urine Appearance CLEAR CLEAR Urine pH 6.5 6.0 Urine Specific [place] 1.013 1.012 Urine Protein NEG NEG Urine Glucose (UA) NEG NEG Urine Ketones TRACE NEG Urine Occult Blood NEG NEG Urine Nitrite NEG NEG Urine Bilirubin NEG NEG Urine Urobilinogen NEG NEG Urine Leukocyte Esterase NEG NEG Urine WBC (Auto) 0 /hpf Urine RBC (Auto) 0-4 /hpf Urine Hyaline Casts (Auto) 0 /lpf Urine Epithelial Cells (Auto) 0-5 /lpf Urine Bacteria (Auto) NEG White Blood Count 10.83 K/uL Red Blood Count 3.86 M/uL Hemoglobin 11.8 g/dL Hematocrit 35.6 % Mean Corpuscular Volume 92.2 fL Mean Corpuscular Hemoglobin 30.6 pg Mean Corpuscular Hemoglobin Concent 33.1 g/dl Platelet Count 226 K/uL Mean Platelet Volume 9.6 fL Neutrophils (%) (Auto) 80.5 % Lymphocytes (%) (Auto) 7.5 % Monocytes (%) (Auto) 8.9 % Eosinophils (%) (Auto) 2.6 % Basophils (%) (Auto) 0.3 % Neutrophils # (Auto) 8.73 K/uL Lymphocytes # (Auto) 0.81 K/uL Monocytes # (Auto) 0.96 K/uL Eosinophils # (Auto) 0.28 K/uL Basophils # (Auto) 0.03 K/uL RDW Standard Deviation 43.8 fL RDW Coefficient of Variation 12.8 % Immature Granulocyte % (Auto) 0.2 % Immature Granulocyte # (Auto) 0.02 K/uL Sodium Level 139 mmol/L Potassium Level 4.3 mmol/L Chloride Level 101 mmol/L Carbon Dioxide Level 31 mmol/L Anion Gap 7.0 mmol/L Blood Urea Nitrogen 12 mg/dl Creatinine 0.86 mg/dl Est Creatinine Clear Calc Drug Dose 68.0 ml/min Estimated GFR () 101.1 Estimated GFR (Non- 87.2 BUN/Creatinine Ratio 13.4 Random Glucose 102 mg/dl Lactic Acid Level 1.0 mmol/L Calcium Level 8.7 mg/dl Phosphorus Level 2.9 mg/dl Magnesium Level 1.9 mg/dl Total Bilirubin 0.6 mg/dl Aspartate Amino Transf (AST/SGOT) 16 U/L Alanine Aminotransferase (ALT/SGPT) 17 U/L Alkaline Phosphatase 55 U/L Total Protein 6.1 gm/dl Albumin 2.5 gm/dl Globulin 3.6 gm/dl Albumin/Globulin Ratio 0.7 Assessment and Plan 71 yo male with h/o severe COPD FEV1 of <20% and chronic hypoxia, presents with fatigue, malaise, poor appetite, fever/chills. Infiltrate in RUL seen on CT chest consistent with pneumonia - Sepsis due to pneumonia: Rocephin and Zithromax IV NSS at 100cc/hr, clinically dry appreciate pulmonary consult, will need follow up in 6-8 weeks for resolution of infiltrate - COPD exacerbation: nebulizers, antibiotics, Solu medrol 60mg IV now and 30mg IV q12 starting tomorrow saturation goal should be 90-92% - Chronic respiratory failure: currently stable on 4L which he wears at home - H/o latent TB: + Quantiferon gold in the past with negative sputums has fever chills and poor appetite could infiltrate in RUL be conversion to active TB pulmonary suggests following clinically, high risk for hepatitis with treatment, outweighs benefit currently - Poor appetite: thin, ongoing issue Solu Medrol may help and appetite will likely improve with treating pneumonia follow for improvement - Depression: Lexapro - GERD: omeprazole DVT prophylaxis: heparin q12
[2016-11-16] MEDS ORDERED: METHYLPREDNISOLONE IV 60 MG in SYRINGE 0 ML IV ONE (16:30)
[2016-11-16] MEDS ORDERED: ONDANSETRON INJ 2 MG/ML 2 ML VIAL IV PRN (16:45)
[2016-11-16] MEDS ORDERED: NURSING VERBAL MED ORDER ONE (16:45)
[2016-11-16] MEDS ORDERED: ONDANSETRON INJ 2 MG/ML 2 ML VIAL ONE (16:45)
[2016-11-16] MEDS ORDERED: SODIUM CHLORIDE 0.9% 500ML 500 ML IV ONE (17:00)
[2016-11-16] MEDS: CEFTRIAXONE SOD INJ 1 GM in DEXTROSE 5% ADD-VANTAGE 50ML 50 ML IV SCH (20:03)
[2016-11-16] MEDS: AZITHROMYCIN IV 500 MG in DEXTROSE 5% 250ML 250 ML IV SCH (20:55)
[2016-11-17] VITALS (10 sets, daily range): BP systolic 105–118; BP diastolic 58–67; PULSE 78–113; TEMP 36.5–37.3; O2SAT 90–99
[2016-11-17] MEDS: LEVALBUTEROL 0.63MG/3 ML NEB INH SCH ×3 (07:27→23:27)
[2016-11-17] MEDS: IPRATROPIUM BROMIDE NEB SOLN 0.02% 2.5 ML VIAL INH SCH ×3 (07:27→23:27)
[2016-11-17] MEDS: SODIUM CHLORIDE 0.9% 1000ML 1,000 ML IV SCH ×2 (08:04→20:41)
[2016-11-17] MEDS: BUDESONIDE/FORMOTEROL FUMARATE 160/4.5 60 PUFFS/INHALER INH SCH ×2 (08:05→20:42)
[2016-11-17] MEDS: ESCITALOPRAM OXALATE 20 MG TAB PO SCH (08:05)
[2016-11-17] MEDS: MONTELUKAST SOD 10 MG TAB PO SCH (08:05)
[2016-11-17] MEDS: PANTOprazole SOD 40 MG TAB PO SCH (08:05)
[2016-11-17] MEDS: ROFLUMILAST 500 MCG TAB PO SCH (08:05)
[2016-11-17] MEDS: HEPARIN SOD 5000 UNIT/0.5 ML CARP SQ SCH ×2 (08:06→21:33)
[2016-11-17] MEDS: METHYLPREDNISOLONE IV 30 MG in SYRINGE 0 ML IV SCH ×2 (08:07→20:43)
--- NOTE | 2016-11-17 14:22 | Progress Note ---
Subjective Date of Service: Nov 17, 2016. Subjective Pt evaluation today including: conversation w/ patient, physical exam, chart review, lab review Problem List Medical Problems: (1) COPD exacerbation Status: Acute (2) Hypoxemia Status: Acute (3) Hypoxia Status: Acute (4) Influenza Status: Acute (5) Pneumonia involving right lung Status: Acute (6) Respiratory distress Status: Acute (7) Sepsis Status: Acute Review of Systems Constitutional: No see HPI, No fever, No chills, No sweats, No weight loss, No weakness, No fatigue, No problem reported Eyes: No see HPI, No worsening of vision, No eye pain, No redness, No discharge , No diplopia, No problem reported ENT: No see HPI, No hearing loss, No unusual epistaxis, No nasal symptoms, No sore throat, No tinnitus, No dental problems, No trouble swallowing, No problem reported Respiratory: + shortness of breath, + dyspnea on exertion, No see HPI, No cough , No sputum, No wheezing, No dyspnea at rest, No hemoptysis, No problem reported Cardiac: No see HPI, No chest pain, No orthopnea, No PND, No edema, No claudication, No palpitations, No problem reported Abdomen: No see HPI, No pain, No nausea, No vomiting, No diarrhea, No constipation, No GI bleeding, No problem reported Musculoskeletal: No see HPI, No joint pain, No muscle pain, No swelling, No calf pain, No problem reported Neurologic: No see HPI, No memory loss, No paralysis, No weakness, No numbness/ tingling, No vertigo, No balance problems, No problem reported Psychiatric: No see HPI, No depression symptoms, No anhedonism, No anxiety, No insomnia, No substance abuse, No problem reported Heme: No see HPI, No abnormal bleeding/bruising, No clotting problems, No swollen lymph nodes, No night sweats, No problem reported Endo: No see HPI, No fatigue, No excessive thirst, No excessive urination, No problem reported Skin: No see HPI, No rash, No itch, No new/changing skin lesions, No color change, No bleeding, No problem reported Medications Current Inpatient Medications Medications (Trade) Dose Ordered Sig/Suyapa Route Start Time Stop Time Status Last Admin Dose Admin Budesonide/ Formoterol Fumarate (Symbicort 160/ 4.5 Inh) 2 puffs BID INH 11/15/16 21:00 12/15/16 20:59 11/17/16 08:05 2 PUFFS Escitalopram Oxalate (Lexapro Tab) 20 mg DAILY PO 11/16/16 09:00 12/16/16 08:59 11/17/16 08:05 20 MG Montelukast Sodium (Singulair Tab) 10 mg DAILY PO 11/16/16 09:00 12/16/16 08:59 11/17/16 08:05 10 MG Roflumilast (Daliresp Tab) 500 mcg DAILY PO 11/16/16 09:00 12/16/16 08:59 11/17/16 08:05 500 MCG Pantoprazole Sodium (Protonix Tab) 40 mg DAILY PO 11/16/16 09:00 12/16/16 08:59 11/17/16 08:05 40 MG Heparin Sodium (Porcine) (Heparin Sq 5000 Unit/0.5ml) 5,000 unit Q12H SQ 11/15/16 22:00 12/15/16 21:59 11/17/16 08:06 5,000 UNIT Sodium Chloride 1,000 ml @ 100 mls/hr Q10H IV 11/15/16 20:24 12/15/16 20:23 11/17/16 08:04 100 MLS/HR Acetaminophen (Tylenol Tab) 650 mg Q4H PRN PO 11/15/16 20:30 12/15/16 20:29 11/16/16 14:50 650 MG Al Hydrox/Mg Hydrox/Simethicone (Maalox Max Susp) 15 ml Q4H PRN PO 11/15/16 20:30 12/15/16 20:29 Magnesium Hydroxide (Milk Of Magnesia Susp) 30 ml Q12H PRN PO 11/15/16 20:30 12/15/16 20:29 Zolpidem Tartrate (Ambien Tab) 5 mg HSZ PRN PO 11/15/16 20:30 12/15/16 20:29 Polyethylene (Miralax Powder Packet) 17 gm DAILY PRN PO 11/15/16 20:30 12/15/16 20:29 Azithromycin 500 mg/Dextrose 255 ml @ 170 mls/hr Q24H IV 11/16/16 21:00 11/22/16 20:59 11/16/16 20:55 170 MLS/HR Ipratropium [place] (Atrovent 0.02% 0.5MG/2.5ML Neb) 0.5 mg Q8R INH 11/16/16 00:00 12/16/16 00:00 11/17/16 07:27 0.5 MG Levalbuterol (Xopenex 0.63 Mg/ 3 Ml Neb) 0.63 mg Q8R INH 11/16/16 00:00 12/16/16 00:00 11/17/16 07:27 0.63 MG Ceftriaxone Sodium 1 gm/ Dextrose 50 ml @ 100 mls/hr DAILY@2000 IV 11/16/16 20:00 11/23/16 19:59 11/16/16 20:03 100 MLS/HR Methylprednisolone Sodium Succinate 30 mg/Syringe 0.48 ml @ 1.5 mls/min Q12 IV 11/17/16 09:00 12/17/16 08:59 11/17/16 08:07 1.5 MLS/MIN Ondansetron HCl (Zofran Inj) 4 mg Q4H PRN IV 11/16/16 16:45 12/16/16 16:44 Objective Vital Signs Date Time Temp Pulse Resp B/P (MAP) Pulse Ox O2 Delivery O2 Flow Rate FiO2 11/17/16 12:12 37.3 105 16 105/58 (74) 90 11/17/16 12:00 Nasal Cannula 4.0 11/17/16 08:00 Nasal Cannula 4.0 11/17/16 07:41 36.7 106 16 115/67 (83) 96 11/17/16 07:27 113 18 99 Nasal Cannula 4.0 11/17/16 04:00 36.5 78 18 107/61 (76) 98 Room Air 11/17/16 04:00 91 Nasal Cannula 4.0 11/17/16 00:00 91 Nasal Cannula 4.0 11/16/16 23:35 36.8 108 20 108/62 (77) 94 Nasal Cannula 4.0 11/16/16 22:30 103 18 91 Nasal Cannula 4.0 11/16/16 20:01 37.3 100 18 104/61 (75) 93 Nasal Cannula 4.0 11/16/16 20:00 Nasal Cannula 4.0 11/16/16 16:11 118 26 88 Nasal Cannula 4.0 11/16/16 16:00 Nasal Cannula 4.0 11/16/16 16:00 38.1 11/16/16 14:45 39.5 133 28 119/69 (86) 98 Nasal Cannula 4.0 Physical Exam General Appearance: WD/WN, no apparent distress Eyes: normal inspection, EOMI ENT: normal ENT inspection, hearing grossly normal Neck: supple, no adenopathy Respiratory/Chest: chest non-tender, lungs clear, no accessory muscle use, + decreased breath sounds Cardiovascular: regular rate, rhythm, no edema, no gallop, no JVD, no murmur Abdomen: normal bowel sounds, non tender, soft, no organomegaly Extremities: normal range of motion, non-tender, normal inspection, no pedal edema Neurologic/Psychiatric: automation analyst II-XII nml as tested, no motor/sensory deficits, alert, normal mood/affect, oriented x 3 Skin: normal color, warm/dry, no rash Assessment and Plan A 71-year-old man, who presented to the ED with severe weakness and sepsis. Despite of completely negative review of systems he was found to have right lower lobe opacity. Assessment: 1. Sepsis present on admission, secondary to below. 2. Right lower lobe opacity, possible pneumonia. (can not clinically determine ) 3. Sinus tachycardia, possibly secondary to the sepsis, resolved 4. Severe chronic obstructive pulmonary disease / chronic hypoxic respiratory failure, currently at baseline O2 4L 5. Depression, currently stable on Lexapro. 6. Gastroesophageal reflux disease, on omeprazole. 7. Borderline hypotensive. PLAN: 1. continue telemetry. 2. continue ceftriaxone/azithromycin antibiotics. 3. pending procalcitonin to confirm bacterial infection. 4. pending urine legionella ad Mycoplasma IGM. failed to Obtain sputum culture. but blood and UCx are negative 5. continue IV fluid hydration. 6. Continue Xopenex and Atrovent inhalers / Continue home medications as appropriate. 7. CT chest showed right upper consolidation, pneumonia versus developing mass 4X2.5 CM, repeat high resolution CT chest in 6-8 weeks is very important to R/O mass 8. GI and DVT prophylaxis.
--- NOTE | 2016-11-17 15:06 | Pulmonology Progress Note ---
Pulmonary Progress Note Date of Service Nov 17, 2016. Attending Dr. George Subjective Patient was seen and examined at bedside today. He denies any fever, chills, cough, hemoptysis, chest pain, or shortness of breath. He has generalized weakness. Objective Vital signs reviewed. MAXIMUM TEMPERATURE of 37.3, blood pressure 105/58 to 115/ 67, pulse 78-1 13 bpm, respiratory rate 16-18, pulse ox 90-99% on 4 L nasal cannula. General Appearance: cachetic Head: NORMOCEPHALIC, ATRAUMATIC Eyes: PERRLA, NO DISCHARGE, EOMI, SCLERAE NORMAL ENT: NORMAL EAR EXAM, NORMAL NASAL EXAM, NORMAL MOUTH EXAM, NORMAL THROAT EXAM , NORMAL DENTAL EXAM Neck: NORMAL RANGE OF MOTION, NO TENDERNESS, TRACHEA MIDLINE, NO STRIDOR Respiratory: Pursed lip breathing, decreased breath sounds bilaterally, barrel chest Cardiovasular: REGULAR RATE/RHYTHM, NORMAL S1S2, NO M/G/R, NO MURMUR Abdomen: NON TENDER, NORMAL BOWEL SOUNDS, NO REBOUND, NO MASSES, NO GUARDING, NO ORGANOMEGALY Back: NORMAL INSPECTION, NO MIDLINE TENDERNESS, NO CVA TENDERNESS, NO PARAVERTEBRAL TTP Upper Extremities: NO EDEMA, NO DEFORMITY, NORMAL ROM Lower Extremities: NO EDEMA, NO DEFORMITY, NORMAL ROM Pulses: Dorsalis pedis pulses bilaterally 2+ Neuro: ALERT, ORIENTED x 3, NORMAL MOTOR EXAM Psychiatric: NORMAL AFFECT, NO SUICIDAL IDEATION Medications Azithromycin 500 mg daily, Ceftriaxone 1 g daily, montelukast 10 mg daily, Daliresp 500 g daily, Protonix 40 mg daily, Xopenex/Atrovent nebulizer every 8 hours, Heparin subcutaneous 5000 units twice daily, Symbicort 160/4.5 puffs twice a day Blood cultures from 11/15/2016 shows no growth to date Urine Legionella antigen from 11/15/2016pending Mycoplasma pneumonia IgM from 11/15/2016pending Radiology CXR: opacification RLL medial segment, severe emphysematous changes, right hilar fullness CT Chest compared to 11/12/2015 and 07/29/15 Development of infiltrative process tight upper lobe anterior (RB3) subsegment. Progressive posterior bilateral pleural thickening versus rounded atelectasis. Decreased left sided pleural thickening from 07/29/2015. New small right-sided pleural effusion. Mediastinal and left hemithorax intraparenchymal calcifications no acute changes. Previous Work-Up Spirometry (10/13/16) Pre- Post % Change FEV1/FVC: 36 FEV1: 0.71/20% 0.92/26% +29 FVC: 1.96/42% 2.37/51% +21 Microbiology: Blood (07/24/2015) Coag-negative staph one out of 2 Expectorated sputum (02/21/16) no acid-fast bacilli (02/22/16) no acid-fast bacilli (02/23/16) no acid-fast bacilli QuantiFERON Gold 12/14/2015Positive Assessment & Plan 71-year-old male with acute on chronic respiratory insufficiency: Respiratory Insufficiency most likely secondary to COPD exacerbation Right Upper Lobe Infiltrate vs. Mass LTBI Respiratory Insufficiency most likely secondary to COPD exacerbation: (Baseline FEV1 20%severe COPD) Continue his supplemental oxygen to maintain an SaO2 between 80-92%. If his clinical status should decompensate he may benefit from a trial of noninvasive positive pressure ventilation. Continue with bronchodilators with Xopenex and albuterol every 8 hours, Roflumilast, Symbicort, Singulair and corticosteroids. Right Upper Lobe Infiltrate vs. Mass: Well continue to treat as an acute pneumonic process. This could be a primary lung mass as patient is high-risk for malignancy. Repeat CT chest without contrast in 6-8 weeks to evaluate for interval resolution. Otherwise a full work up is warranted. LTBI: QuantiFERON Gold on 12/14/2015 with positive however patient has 3 negative AFB sputum done in February 2016. At this time my clinical suspicion of active pulmonary TB. The patient should continue to show signs to suggest reactivation of disease will further evaluate. Data Medications: Current Inpatient Medications Medications (Trade) Dose Ordered Sig/[place] Route Start Time Stop Time Status Last Admin Dose Admin Budesonide/ Formoterol Fumarate (Symbicort 160/ 4.5 Inh) 2 puffs BID INH 11/15/16 21:00 12/15/16 20:59 11/17/16 08:05 2 PUFFS Escitalopram Oxalate (Lexapro Tab) 20 mg DAILY PO 11/16/16 09:00 12/16/16 08:59 11/17/16 08:05 20 MG Montelukast Sodium (Singulair Tab) 10 mg DAILY PO 11/16/16 09:00 12/16/16 08:59 11/17/16 08:05 10 MG Roflumilast (Daliresp Tab) 500 mcg DAILY PO 11/16/16 09:00 12/16/16 08:59 11/17/16 08:05 500 MCG Pantoprazole Sodium (Protonix Tab) 40 mg DAILY PO 11/16/16 09:00 12/16/16 08:59 11/17/16 08:05 40 MG Heparin Sodium (Porcine) (Heparin Sq 5000 Unit/0.5ml) 5,000 unit Q12H SQ 11/15/16 22:00 12/15/16 21:59 11/17/16 08:06 5,000 UNIT Sodium Chloride 1,000 ml @ 100 mls/hr Q10H IV 11/15/16 20:24 12/15/16 20:23 11/17/16 08:04 100 MLS/HR Acetaminophen (Tylenol Tab) 650 mg Q4H PRN PO 11/15/16 20:30 12/15/16 20:29 11/16/16 14:50 650 MG Al Hydrox/Mg Hydrox/Simethicone (Maalox Max Susp) 15 ml Q4H PRN PO 11/15/16 20:30 12/15/16 20:29 Magnesium Hydroxide (Milk Of Magnesia Susp) 30 ml Q12H PRN PO 11/15/16 20:30 12/15/16 20:29 Zolpidem Tartrate (Ambien Tab) 5 mg HSZ PRN PO 11/15/16 20:30 12/15/16 20:29 Polyethylene (Miralax Powder Packet) 17 gm DAILY PRN PO 11/15/16 20:30 12/15/16 20:29 Azithromycin 500 mg/Dextrose 255 ml @ 170 mls/hr Q24H IV 11/16/16 21:00 11/22/16 20:59 11/16/16 20:55 170 MLS/HR Ipratropium [place] (Atrovent 0.02% 0.5MG/2.5ML Neb) 0.5 mg Q8R INH 11/16/16 00:00 12/16/16 00:00 11/17/16 07:27 0.5 MG Levalbuterol (Xopenex 0.63 Mg/ 3 Ml Neb) 0.63 mg Q8R INH 11/16/16 00:00 12/16/16 00:00 11/17/16 07:27 0.63 MG Ceftriaxone Sodium 1 gm/ Dextrose 50 ml @ 100 mls/hr DAILY@2000 IV 11/16/16 20:00 11/23/16 19:59 11/16/16 20:03 100 MLS/HR Methylprednisolone Sodium Succinate 30 mg/Syringe 0.48 ml @ 1.5 mls/min Q12 IV 11/17/16 09:00 12/17/16 08:59 11/17/16 08:07 1.5 MLS/MIN Ondansetron HCl (Zofran Inj) 4 mg Q4H PRN IV 11/16/16 16:45 12/16/16 16:44 Vital Signs: Date Time Temp Pulse Resp B/P (MAP) Pulse Ox O2 Delivery O2 Flow Rate FiO2 11/17/16 12:12 37.3 105 16 105/58 (74) 90 11/17/16 12:00 Nasal Cannula 4.0 11/17/16 08:00 Nasal Cannula 4.0 11/17/16 07:41 36.7 106 16 115/67 (83) 96 11/17/16 07:27 113 18 99 Nasal Cannula 4.0 11/17/16 04:00 36.5 78 18 107/61 (76) 98 Room Air 11/17/16 04:00 91 Nasal Cannula 4.0 11/17/16 00:00 91 Nasal Cannula 4.0 11/16/16 23:35 36.8 108 20 108/62 (77) 94 Nasal Cannula 4.0 11/16/16 22:30 103 18 91 Nasal Cannula 4.0 11/16/16 20:01 37.3 100 18 104/61 (75) 93 Nasal Cannula 4.0 11/16/16 20:00 Nasal Cannula 4.0 11/16/16 16:11 118 26 88 Nasal Cannula 4.0 11/16/16 16:00 Nasal Cannula 4.0 11/16/16 16:00 38.1
[2016-11-17] MEDS: CEFTRIAXONE SOD INJ 1 GM in DEXTROSE 5% ADD-VANTAGE 50ML 50 ML IV SCH (20:41)
[2016-11-17] MEDS: AZITHROMYCIN IV 500 MG in DEXTROSE 5% 250ML 250 ML IV SCH (21:31)
[2016-11-18] VITALS (10 sets, daily range): BP systolic 123–159; BP diastolic 61–83; PULSE 59–123; TEMP 36.5–37; O2SAT 90–98
[2016-11-18] MEDS: SODIUM CHLORIDE 0.9% 1000ML 1,000 ML IV SCH ×2 (05:05→17:14)
[2016-11-18 07:03] LABS: BASO % 0.1 %; BASO ABS # 0.01 K/uL (0-0.2); COMPLETE YES; HEMATOCRIT 32.2 % (42-52); IG% 0.1 %; LYMPH % 4.7 %; LYMPH ABS # 0.67 K/uL (1.2-3.4); MEAN CELL VOLUME 91.2 fL (80-100); MEAN CORPUSCULAR HEMOGLOBIN 30.6 pg (25-34); MEAN CORPUSCULAR HGB CONC 33.5 g/dl (32-36); MEAN PLATELET VOLUME 9.4 fL (7.4-10.4); NEUT % 90.1 %; PLATELET COUNT 299 K/uL (130-400); RED BLOOD COUNT 3.53 M/uL (4.7-6.1); WHITE BLOOD COUNT 14.36 K/uL (4.8-10.8)
[2016-11-18] MEDS: IPRATROPIUM BROMIDE NEB SOLN 0.02% 2.5 ML VIAL INH SCH ×3 (07:36→23:56)
[2016-11-18] MEDS: LEVALBUTEROL 0.63MG/3 ML NEB INH SCH ×3 (07:36→23:56)
[2016-11-18 07:37] LABS: BUN/CREATININE RATIO 17.5 (10-20); CREATININE 0.81 mg/dl (0.60-1.40); MAGNESIUM 1.8 mg/dl (1.8-2.4); POTASSIUM 4.1 mmol/L (3.5-5.1)
[2016-11-18 07:39] LABS: ALB/GLOB RATIO 0.7 (0.9-2)
[2016-11-18] MEDS: METHYLPREDNISOLONE IV 30 MG in SYRINGE 0 ML IV SCH ×2 (07:46→19:47)
[2016-11-18] MEDS: MONTELUKAST SOD 10 MG TAB PO SCH (07:47)
[2016-11-18] MEDS: ROFLUMILAST 500 MCG TAB PO SCH (07:47)
[2016-11-18] MEDS: BUDESONIDE/FORMOTEROL FUMARATE 160/4.5 60 PUFFS/INHALER INH SCH ×2 (07:47→19:46)
[2016-11-18] MEDS: ESCITALOPRAM OXALATE 20 MG TAB PO SCH (07:47)
[2016-11-18] MEDS: PANTOprazole SOD 40 MG TAB PO SCH (07:47)
[2016-11-18] MEDS: HEPARIN SOD 5000 UNIT/0.5 ML CARP SQ SCH ×2 (07:52→19:54)
[2016-11-18 10:05] LABS: LEGIONELLA ANTIGEN NOT DETECTED (NOT DETECTED)
--- NOTE | 2016-11-18 16:06 | Pulmonology Progress Note ---
Pulmonary Progress Note Date of Service Nov 18, 2016. Attending Dr. George Subjective Patient seen and examined at bedside. He states that he is almost back to baseline. Still having intermittent shortness of breath, denies any cough, or any chest pain. He was able to ambulate in hallways with assistance. Objective Vital signs reviewed. Temperature 36.8 MAXIMUM TEMPERATURE, blood pressure 123/61 to 157/66, pulse 69- 123, respiratory rate 16-18, SaO2 90-98% on 4 L nasal cannula. His cumulative balance is 5 L positive. General Appearance: cachetic Head: NORMOCEPHALIC, ATRAUMATIC Eyes: PERRLA, NO DISCHARGE, EOMI, SCLERAE NORMAL ENT: NORMAL EAR EXAM, NORMAL NASAL EXAM, NORMAL MOUTH EXAM, NORMAL THROAT EXAM , NORMAL DENTAL EXAM Neck: NORMAL RANGE OF MOTION, NO TENDERNESS, TRACHEA MIDLINE, NO STRIDOR Respiratory: Pursed lip breathing, decreased breath sounds bilaterally, barrel chest Cardiovasular: REGULAR RATE/RHYTHM, NORMAL S1S2, NO M/G/R, NO MURMUR Abdomen: NON TENDER, NORMAL BOWEL SOUNDS, NO REBOUND, NO MASSES, NO GUARDING, NO ORGANOMEGALY Back: NORMAL INSPECTION, NO MIDLINE TENDERNESS, NO CVA TENDERNESS, NO PARAVERTEBRAL TTP Upper Extremities: NO EDEMA, NO DEFORMITY, NORMAL ROM Lower Extremities: NO EDEMA, NO DEFORMITY, NORMAL ROM Pulses: Dorsalis pedis pulses bilaterally 2+ Neuro: ALERT, ORIENTED x 3, NORMAL MOTOR EXAM Psychiatric: NORMAL AFFECT, NO SUICIDAL IDEATION Medications He continued to Solu-Medrol 30 mg every 12 hours, azithromycin 500 every 24 hours, ceftriaxone 1 g daily, Daliresp 500 g daily, montelukast 10 mg daily, Atrovent/Xopenex inhaler every 8 hours, Symbicort 160 over 4.52 puffs twice a day Microbiology Blood cultures from 11/15/2016 shows no growth to date Urine Legionella antigen from 11/15/2016 not detected Mycoplasma pneumonia IgM from 11/15/2016pending Radiology CXR: opacification RLL medial segment, severe emphysematous changes, right hilar fullness CT Chest compared to 11/12/2015 and 07/29/15 Development of infiltrative process tight upper lobe anterior (RB3) subsegment. Progressive posterior bilateral pleural thickening versus rounded atelectasis. Decreased left sided pleural thickening from 07/29/2015. New small right-sided pleural effusion. Mediastinal and left hemithorax intraparenchymal calcifications no acute changes. Previous Work-Up Spirometry (10/13/16) Pre- Post % Change FEV1/FVC: 36 FEV1: 0.71/20% 0.92/26% +29 FVC: 1.96/42% 2.37/51% +21 Microbiology: Blood (07/24/2015) Coag-negative staph one out of 2 Expectorated sputum (02/21/16) no acid-fast bacilli (02/22/16) no acid-fast bacilli (02/23/16) no acid-fast bacilli QuantiFERON Gold 12/14/2015Positive Assessment & Plan 71-year-old male with acute on chronic respiratory insufficiency: Respiratory Insufficiency most likely secondary to COPD exacerbation Right Upper Lobe Infiltrate vs. Mass LTBI He appears to be clinically improving Continue his supplemental oxygen to maintain an SaO2 between 80-92%. I Continue with bronchodilators with Xopenex and albuterol every 8 hours, Roflumilast, Symbicort, Singulair and corticosteroids. Will continue to treat as an acute pneumonic process. This could be a primary lung mass as patient is high-risk for malignancy. Repeat CT chest without contrast in 6-8 weeks to evaluate for interval resolution. Otherwise a full work up is warranted for tissue biopsy. QuantiFERON Gold on 12/14/2015 with positive however patient has 3 negative AFB sputum done in February 2016. At this time my clinical suspicion of active pulmonary TB is low. The patient should continue to show signs to suggest reactivation of disease will further evaluate. Will sign off case at this time as patient appears to be back to his baseline respiratory status. Please feel free to contact me any further questions or concerns. Data Medications: Current Inpatient Medications Medications (Trade) Dose Ordered Sig/[place] Route Start Time Stop Time Status Last Admin Dose Admin Budesonide/ Formoterol Fumarate (Symbicort 160/ 4.5 Inh) 2 puffs BID INH 11/15/16 21:00 12/15/16 20:59 11/18/16 07:47 2 PUFFS Escitalopram Oxalate (Lexapro Tab) 20 mg DAILY PO 11/16/16 09:00 12/16/16 08:59 11/18/16 07:47 20 MG Montelukast Sodium (Singulair Tab) 10 mg DAILY PO 11/16/16 09:00 12/16/16 08:59 11/18/16 07:47 10 MG Roflumilast (Daliresp Tab) 500 mcg DAILY PO 11/16/16 09:00 12/16/16 08:59 11/18/16 07:47 500 MCG Pantoprazole Sodium (Protonix Tab) 40 mg DAILY PO 11/16/16 09:00 12/16/16 08:59 11/18/16 07:47 40 MG Heparin Sodium (Porcine) (Heparin Sq 5000 Unit/0.5ml) 5,000 unit Q12H SQ 11/15/16 22:00 12/15/16 21:59 11/18/16 07:52 5,000 UNIT Sodium Chloride 1,000 ml @ 100 mls/hr Q10H IV 11/15/16 20:24 12/15/16 20:23 11/18/16 05:05 100 MLS/HR Acetaminophen (Tylenol Tab) 650 mg Q4H PRN PO 11/15/16 20:30 12/15/16 20:29 11/16/16 14:50 650 MG Al Hydrox/Mg Hydrox/Simethicone (Maalox Max Susp) 15 ml Q4H PRN PO 11/15/16 20:30 12/15/16 20:29 Magnesium Hydroxide (Milk Of Magnesia Susp) 30 ml Q12H PRN PO 11/15/16 20:30 12/15/16 20:29 Zolpidem Tartrate (Ambien Tab) 5 mg HSZ PRN PO 11/15/16 20:30 12/15/16 20:29 Polyethylene (Miralax Powder Packet) 17 gm DAILY PRN PO 11/15/16 20:30 12/15/16 20:29 Azithromycin 500 mg/Dextrose 255 ml @ 170 mls/hr Q24H IV 11/16/16 21:00 11/22/16 20:59 11/17/16 21:31 170 MLS/HR Ipratropium [place] (Atrovent 0.02% 0.5MG/2.5ML Neb) 0.5 mg Q8R INH 11/16/16 00:00 12/16/16 00:00 11/18/16 15:22 0.5 MG Levalbuterol (Xopenex 0.63 Mg/ 3 Ml Neb) 0.63 mg Q8R INH 11/16/16 00:00 12/16/16 00:00 11/18/16 15:22 0.63 MG Ceftriaxone Sodium 1 gm/ Dextrose 50 ml @ 100 mls/hr DAILY@2000 IV 11/16/16 20:00 11/23/16 19:59 11/17/16 20:41 100 MLS/HR Methylprednisolone Sodium Succinate 30 mg/Syringe 0.48 ml @ 1.5 mls/min Q12 IV 11/17/16 09:00 12/17/16 08:59 11/18/16 07:46 1.5 MLS/MIN Ondansetron HCl (Zofran Inj) 4 mg Q4H PRN IV 11/16/16 16:45 12/16/16 16:44 I & O: 24-Hour Column 11/19/16 08:00 Intake Total 983 ml Output Total 900 ml Balance 83 ml Vital Signs: Date Time Temp Pulse Resp B/P (MAP) Pulse Ox O2 Delivery O2 Flow Rate FiO2 11/18/16 15:56 37.0 110 16 146/83 (104) 90 11/18/16 15:22 88 18 96 Nasal Cannula 4.0 11/18/16 14:14 90 11/18/16 12:00 Room Air 11/18/16 11:26 36.8 123 16 135/72 (93) 90 Nasal Cannula 4.0 11/18/16 08:00 Room Air 11/18/16 07:37 94 18 98 Nasal Cannula 4.0 11/18/16 07:07 36.8 108 16 157/66 (96) 95 Room Air 11/18/16 04:05 Room Air 11/18/16 00:15 36.5 59 18 123/61 (81) 96 Room Air 11/18/16 00:15 Room Air 11/17/16 23:27 83 18 97 Nasal Cannula 4.0 11/17/16 20:00 92 Nasal Cannula 4.0 11/17/16 19:47 36.9 106 17 118/66 (83) 92 Mask 4.0 11/17/16 16:06 36.5 96 18 112/67 (82) 96 11/17/16 16:00 4.0 Laboratory Results: Last 24 Hours Test 11/18/16 06:46 White Blood Count 14.36 K/uL Red Blood Count 3.53 M/uL Hemoglobin 10.8 g/dL Hematocrit 32.2 % Mean Corpuscular Volume 91.2 fL Mean Corpuscular Hemoglobin 30.6 pg Mean Corpuscular Hemoglobin Concent 33.5 g/dl Platelet Count 299 K/uL Mean Platelet Volume 9.4 fL Neutrophils (%) (Auto) 90.1 % Lymphocytes (%) (Auto) 4.7 % Monocytes (%) (Auto) 5.0 % Eosinophils (%) (Auto) 0.0 % Basophils (%) (Auto) 0.1 % Neutrophils # (Auto) 12.94 K/uL Lymphocytes # (Auto) 0.67 K/uL Monocytes # (Auto) 0.72 K/uL Eosinophils # (Auto) 0.00 K/uL Basophils # (Auto) 0.01 K/uL RDW Standard Deviation 43.3 fL RDW Coefficient of Variation 13.0 % Immature Granulocyte % (Auto) 0.1 % Immature Granulocyte # (Auto) 0.02 K/uL Sodium Level 144 mmol/L Potassium Level 4.1 mmol/L Chloride Level 107 mmol/L Carbon Dioxide Level 31 mmol/L Anion Gap 6.0 mmol/L Blood Urea Nitrogen 14 mg/dl Creatinine 0.81 mg/dl Est Creatinine Clear Calc Drug Dose 75.4 ml/min Estimated GFR () 103.6 Estimated GFR (Non- 89.4 BUN/Creatinine Ratio 17.5 Random Glucose 120 mg/dl Calcium Level 9.0 mg/dl Phosphorus Level 3.0 mg/dl Magnesium Level 1.8 mg/dl Total Bilirubin 0.2 mg/dl Aspartate Amino Transf (AST/SGOT) 10 U/L Alanine Aminotransferase (ALT/SGPT) 18 U/L Alkaline Phosphatase 53 U/L Total Protein 5.6 gm/dl Albumin 2.3 gm/dl Globulin 3.3 gm/dl Albumin/Globulin Ratio 0.7
[2016-11-18] MEDS: CEFTRIAXONE SOD INJ 1 GM in DEXTROSE 5% ADD-VANTAGE 50ML 50 ML IV SCH (19:38)
--- NOTE | 2016-11-18 20:28 | Progress Note ---
Subjective Date of Service: Nov 18, 2016. Subjective Pt evaluation today including: conversation w/ patient, physical exam, chart review, lab review, review of inpatient medication list Problem List Medical Problems: (1) COPD exacerbation Status: Acute (2) Hypoxemia Status: Acute (3) Hypoxia Status: Acute (4) Influenza Status: Acute (5) Pneumonia involving right lung Status: Acute (6) Respiratory distress Status: Acute (7) Sepsis Status: Acute Review of Systems Constitutional: No see HPI, No fever, No chills, No sweats, No weight loss, No weakness, No fatigue, No problem reported Eyes: No see HPI, No worsening of vision, No eye pain, No redness, No discharge , No diplopia, No problem reported ENT: No see HPI, No hearing loss, No unusual epistaxis, No nasal symptoms, No sore throat, No tinnitus, No dental problems, No trouble swallowing, No problem reported Respiratory: + cough, + shortness of breath, No see HPI, No sputum, No wheezing , No dyspnea on exertion, No dyspnea at rest, No hemoptysis, No problem reported Cardiac: No see HPI, No chest pain, No orthopnea, No PND, No edema, No claudication, No palpitations, No problem reported Abdomen: No see HPI, No pain, No nausea, No vomiting, No diarrhea, No constipation, No GI bleeding, No problem reported Musculoskeletal: No see HPI, No joint pain, No muscle pain, No swelling, No calf pain, No problem reported Male : No see HPI, No dysuria, No urinary frequency, No incontinence, No nocturia more than once/night, No slowing stream, No hematuria, No sexual dysfunction, No problem reported Neurologic: No see HPI, No memory loss, No paralysis, No weakness, No numbness/ tingling, No vertigo, No balance problems, No problem reported Psychiatric: No see HPI, No depression symptoms, No anhedonism, No anxiety, No insomnia, No substance abuse, No problem reported Heme: No see HPI, No abnormal bleeding/bruising, No clotting problems, No swollen lymph nodes, No night sweats, No problem reported Endo: No see HPI, No fatigue, No excessive thirst, No excessive urination, No problem reported Skin: No see HPI, No rash, No itch, No new/changing skin lesions, No color change, No bleeding, No problem reported Objective Vital Signs Date Time Temp Pulse Resp B/P (MAP) Pulse Ox O2 Delivery O2 Flow Rate FiO2 11/18/16 20:06 36.6 103 18 138/64 (88) 92 Room Air 11/18/16 16:00 Nasal Cannula 4.0 11/18/16 15:56 37.0 110 16 146/83 (104) 90 11/18/16 15:22 88 18 96 Nasal Cannula 4.0 11/18/16 14:14 90 11/18/16 12:00 Room Air 11/18/16 11:26 36.8 123 16 135/72 (93) 90 Nasal Cannula 4.0 11/18/16 08:00 Room Air 11/18/16 07:37 94 18 98 Nasal Cannula 4.0 11/18/16 07:07 36.8 108 16 157/66 (96) 95 Room Air 11/18/16 04:05 Room Air 11/18/16 00:15 36.5 59 18 123/61 (81) 96 Room Air 11/18/16 00:15 Room Air 11/17/16 23:27 83 18 97 Nasal Cannula 4.0 Physical Exam General Appearance: WD/WN, no apparent distress Eyes: normal inspection, EOMI ENT: normal ENT inspection, hearing grossly normal Neck: supple Respiratory/Chest: chest non-tender, + respiratory distress, + decreased breath sounds, + crackles, + wheezing Cardiovascular: regular rate, rhythm, no edema, no gallop Abdomen: normal bowel sounds, non tender, soft, no organomegaly Extremities: normal range of motion, non-tender, normal inspection, no pedal edema Neurologic/Psychiatric: striker out II-XII nml as tested, no motor/sensory deficits, alert, normal mood/affect, oriented x 3 Skin: normal color, warm/dry, no rash Laboratory Results Last 24 Hours Test 11/18/16 06:46 White Blood Count 14.36 K/uL Red Blood Count 3.53 M/uL Hemoglobin 10.8 g/dL Hematocrit 32.2 % Mean Corpuscular Volume 91.2 fL Mean Corpuscular Hemoglobin 30.6 pg Mean Corpuscular Hemoglobin Concent 33.5 g/dl Platelet Count 299 K/uL Mean Platelet Volume 9.4 fL Neutrophils (%) (Auto) 90.1 % Lymphocytes (%) (Auto) 4.7 % Monocytes (%) (Auto) 5.0 % Eosinophils (%) (Auto) 0.0 % Basophils (%) (Auto) 0.1 % Neutrophils # (Auto) 12.94 K/uL Lymphocytes # (Auto) 0.67 K/uL Monocytes # (Auto) 0.72 K/uL Eosinophils # (Auto) 0.00 K/uL Basophils # (Auto) 0.01 K/uL RDW Standard Deviation 43.3 fL RDW Coefficient of Variation 13.0 % Immature Granulocyte % (Auto) 0.1 % Immature Granulocyte # (Auto) 0.02 K/uL Sodium Level 144 mmol/L Potassium Level 4.1 mmol/L Chloride Level 107 mmol/L Carbon Dioxide Level 31 mmol/L Anion Gap 6.0 mmol/L Blood Urea Nitrogen 14 mg/dl Creatinine 0.81 mg/dl Est Creatinine Clear Calc Drug Dose 75.4 ml/min Estimated GFR () 103.6 Estimated GFR (Non- 89.4 BUN/Creatinine Ratio 17.5 Random Glucose 120 mg/dl Calcium Level 9.0 mg/dl Phosphorus Level 3.0 mg/dl Magnesium Level 1.8 mg/dl Total Bilirubin 0.2 mg/dl Aspartate Amino Transf (AST/SGOT) 10 U/L Alanine Aminotransferase (ALT/SGPT) 18 U/L Alkaline Phosphatase 53 U/L Total Protein 5.6 gm/dl Albumin 2.3 gm/dl Globulin 3.3 gm/dl Albumin/Globulin Ratio 0.7 Assessment and Plan A 71-year-old man, who presented to the ED with severe weakness and sepsis. Despite of completely negative review of systems he was found to have right lower lobe opacity. today 11/18 with PT today walk test showed O2 dropped to 83% on 5 L, it took patient long time to recover, discharge was held, increased solu medrol to 60mg IV q6Hr Assessment: 1. Sepsis present on admission, secondary to below. 2. Right lower lobe opacity, possible pneumonia. (can not clinically determine ) 3. Sinus tachycardia, possibly secondary to the sepsis, resolved 4. Severe chronic obstructive pulmonary disease / chronic hypoxic respiratory failure, currently at baseline O2 4L 5. Depression, currently stable on Lexapro. 6. Gastroesophageal reflux disease, on omeprazole. 7. Borderline hypotensive. PLAN: 1. continue telemetry. 2. continue ceftriaxone/azithromycin antibiotics. 3. pending procalcitonin to confirm bacterial infection. 4. pending urine legionella ad Mycoplasma IGM. failed to Obtain sputum culture. but blood and UCx are negative 5. continue IV fluid hydration. 6. Continue Xopenex and Atrovent inhalers / Continue home medications as appropriate. 7. CT chest showed right upper consolidation, pneumonia versus developing mass 4X2.5 CM, repeat high resolution CT chest in 6-8 weeks is very important to R/O mass 8. GI and DVT prophylaxis. 9. QuantiFeron Gold was positive in the past but AFB sputum was negative to TB X 3 will consult ID
[2016-11-18] MEDS: AZITHROMYCIN IV 500 MG in DEXTROSE 5% 250ML 250 ML IV SCH (20:55)
[2016-11-19] VITALS (10 sets, daily range): BP systolic 133–157; BP diastolic 72–85; PULSE 102–115; TEMP 36.5–37.2; O2SAT 92–99
[2016-11-19] MEDS: SODIUM CHLORIDE 0.9% 1000ML 1,000 ML IV SCH ×3 (02:41→22:39)
[2016-11-19] MEDS: METHYLPREDNISOLONE IV 60 MG in SYRINGE 0 ML IV SCH ×4 (02:41→19:58)
[2016-11-19 05:45] LABS: BASO % 0.1 %; BASO ABS # 0.01 K/uL (0-0.2); COMPLETE YES; HEMATOCRIT 34.6 % (42-52); IG% 0.3 %; LYMPH % 3.8 %; LYMPH ABS # 0.44 K/uL (1.2-3.4); MEAN CELL VOLUME 91.3 fL (80-100); MEAN CORPUSCULAR HEMOGLOBIN 30.3 pg (25-34); MEAN CORPUSCULAR HGB CONC 33.2 g/dl (32-36); MEAN PLATELET VOLUME 9.3 fL (7.4-10.4); NEUT % 91.8 %; PLATELET COUNT 320 K/uL (130-400); RED BLOOD COUNT 3.79 M/uL (4.7-6.1); WHITE BLOOD COUNT 11.63 K/uL (4.8-10.8)
[2016-11-19 06:17] LABS: ALB/GLOB RATIO 0.8 (0.9-2); BUN/CREATININE RATIO 17.8 (10-20); CALCIUM 8.6 mg/dl (8.5-10.1); CREATININE 0.73 mg/dl (0.60-1.40); MAGNESIUM 1.9 mg/dl (1.8-2.4)
[2016-11-19 06:20] LABS: PHOSPHORUS 3.5 mg/dl (2.5-4.9)
[2016-11-19] MEDS: LEVALBUTEROL 0.63MG/3 ML NEB INH SCH ×3 (07:59→23:53)
[2016-11-19] MEDS: IPRATROPIUM BROMIDE NEB SOLN 0.02% 2.5 ML VIAL INH SCH ×3 (07:59→23:53)
[2016-11-19] MEDS: HEPARIN SOD 5000 UNIT/0.5 ML CARP SQ SCH ×2 (08:14→22:46)
[2016-11-19] MEDS: ESCITALOPRAM OXALATE 20 MG TAB PO SCH (08:28)
[2016-11-19] MEDS: PANTOprazole SOD 40 MG TAB PO SCH (08:28)
[2016-11-19] MEDS: MONTELUKAST SOD 10 MG TAB PO SCH (08:28)
[2016-11-19] MEDS: BUDESONIDE/FORMOTEROL FUMARATE 160/4.5 60 PUFFS/INHALER INH SCH ×2 (08:28→22:40)
[2016-11-19] MEDS: ROFLUMILAST 500 MCG TAB PO SCH (08:28)
[2016-11-19] MEDS: AZITHROMYCIN 250 MG TAB PO SCH (17:23)
[2016-11-19] MEDS: CEFTRIAXONE SOD INJ 1 GM in DEXTROSE 5% ADD-VANTAGE 50ML 50 ML IV SCH (19:58)
[2016-11-20] VITALS (8 sets, daily range): BP systolic 124–160; BP diastolic 75–90; PULSE 105–113; TEMP 36.4–36.8; O2SAT 90–99
[2016-11-20] MEDS: METHYLPREDNISOLONE IV 60 MG in SYRINGE 0 ML IV SCH ×3 (02:02→14:19)
--- NOTE | 2016-11-20 06:16 | Progress Note ---
Subjective Date of Service: Nov 19, 2016. Subjective Pt evaluation today including: conversation w/ patient, physical exam, chart review, lab review, review of studies (CT chest), review of inpatient medication list Pain: denies PO Intake: fair Voiding: no voiding problems tele stable overnight states he feels no different than yesterday still with considerable dyspnea mild cough but nonproductive has been on 4 L NC O2 at home for about 1 year Problem List Medical Problems: (1) COPD exacerbation Status: Acute (2) Hypoxemia Status: Acute (3) Hypoxia Status: Acute (4) Influenza Status: Acute (5) Pneumonia involving right lung Status: Acute (6) Respiratory distress Status: Acute (7) Sepsis Status: Acute Review of Systems Constitutional: No fever Respiratory: + cough Cardiac: No chest pain Abdomen: No pain Objective Vital Signs Date Time Temp Pulse Resp B/P (MAP) Pulse Ox O2 Delivery O2 Flow Rate FiO2 11/19/16 20:01 37.2 102 18 144/80 (101) 92 Nasal Cannula 4.0 11/19/16 20:00 Nasal Cannula 4.0 11/19/16 16:00 93 Nasal Cannula 4.0 11/19/16 15:55 36.7 115 20 143/76 (98) 93 Nasal Cannula 4.0 11/19/16 15:28 113 18 94 Nasal Cannula 4.0 11/19/16 12:00 Room Air 11/19/16 11:30 36.8 110 16 133/72 (92) 97 Nasal Cannula 4.0 11/19/16 08:00 Room Air 11/19/16 07:59 108 18 99 Nasal Cannula 4.0 11/19/16 07:50 36.5 112 16 140/83 (102) 95 Nasal Cannula 4.0 11/19/16 04:50 36.5 107 20 154/84 (107) 95 Nasal Cannula 4.0 11/19/16 04:00 Nasal Cannula 4.0 11/19/16 00:00 Nasal Cannula 4.0 11/18/16 23:57 111 24 97 Nasal Cannula 4.0 11/18/16 23:32 36.8 116 22 159/82 (107) 93 Nasal Cannula 4.0 Physical Exam General Appearance: no apparent distress, + thin ENT: pharynx normal Neck: no JVD Respiratory/Chest: no respiratory distress, no accessory muscle use, + decreased breath sounds, + wheezing Cardiovascular: no gallop, no murmur, + tachycardia Abdomen: normal bowel sounds, non tender, soft, no organomegaly Extremities: + pedal edema (trace b/l ) Neurologic/Psychiatric: alert, oriented x 3 Laboratory Results Last 24 Hours Test 11/19/16 05:16 White Blood Count 11.63 K/uL Red Blood Count 3.79 M/uL Hemoglobin 11.5 g/dL Hematocrit 34.6 % Mean Corpuscular Volume 91.3 fL Mean Corpuscular Hemoglobin 30.3 pg Mean Corpuscular Hemoglobin Concent 33.2 g/dl Platelet Count 320 K/uL Mean Platelet Volume 9.3 fL Neutrophils (%) (Auto) 91.8 % Lymphocytes (%) (Auto) 3.8 % Monocytes (%) (Auto) 4.0 % Eosinophils (%) (Auto) 0.0 % Basophils (%) (Auto) 0.1 % Neutrophils # (Auto) 10.67 K/uL Lymphocytes # (Auto) 0.44 K/uL Monocytes # (Auto) 0.47 K/uL Eosinophils # (Auto) 0.00 K/uL Basophils # (Auto) 0.01 K/uL RDW Standard Deviation 43.9 fL RDW Coefficient of Variation 13.1 % Immature Granulocyte % (Auto) 0.3 % Immature Granulocyte # (Auto) 0.04 K/uL Sodium Level 144 mmol/L Potassium Level 4.0 mmol/L Chloride Level 107 mmol/L Carbon Dioxide Level 32 mmol/L Anion Gap 5.0 mmol/L Blood Urea Nitrogen 13 mg/dl Creatinine 0.73 mg/dl Est Creatinine Clear Calc Drug Dose 83.6 ml/min Estimated GFR () 108.2 Estimated GFR (Non- 93.3 BUN/Creatinine Ratio 17.8 Random Glucose 126 mg/dl Calcium Level 8.6 mg/dl Phosphorus Level 3.5 mg/dl Magnesium Level 1.9 mg/dl Total Bilirubin 0.1 mg/dl Aspartate Amino Transf (AST/SGOT) 13 U/L Alanine Aminotransferase (ALT/SGPT) 21 U/L Alkaline Phosphatase 54 U/L Total Protein 5.3 gm/dl Albumin 2.3 gm/dl Globulin 3.0 gm/dl Albumin/Globulin Ratio 0.8 Assessment and Plan 71yo male: 1. COPD with exacerbation - ongoing; no change in steroids today. cont aggressive pulmonary treatment. cont nebs, daliresp, inhalers, etc. 2. RUL pneumonia (vs mass) - cont rocephin/zithromax. slow improvement with this. may need biopsy in future if the infiltrate does not clear. 3. chronic hypoxic respiratory failure - o2 requirement is similar to at home. 4. DVT proph - heparin BID. 5. mild-moderate protein calorie malnutrition - ongoing. add boost add MVI PT, OT Continued [facility] stay due to: multiple IV medications needed
[2016-11-20] MEDS: LEVALBUTEROL 0.63MG/3 ML NEB INH SCH ×2 (07:10→15:48)
[2016-11-20] MEDS: IPRATROPIUM BROMIDE NEB SOLN 0.02% 2.5 ML VIAL INH SCH ×2 (07:10→15:48)
[2016-11-20] MEDS: MONTELUKAST SOD 10 MG TAB PO SCH (07:28)
[2016-11-20] MEDS: PANTOprazole SOD 40 MG TAB PO SCH (07:28)
[2016-11-20] MEDS: ROFLUMILAST 500 MCG TAB PO SCH (07:29)
[2016-11-20] MEDS: ESCITALOPRAM OXALATE 20 MG TAB PO SCH (07:29)
[2016-11-20] MEDS: BUDESONIDE/FORMOTEROL FUMARATE 160/4.5 60 PUFFS/INHALER INH SCH ×2 (07:30→20:25)
[2016-11-20] MEDS: BOOST VANILLA PO SCH ×6 (07:31→17:32)
[2016-11-20] MEDS: HEPARIN SOD 5000 UNIT/0.5 ML CARP SQ SCH ×2 (07:32→22:16)
[2016-11-20] MEDS: CEROVITE ADV FORMULA TAB PO SCH (08:31)
[2016-11-20] MEDS ORDERED: BISACODYL 10 MG SUPP PR STA (08:42)
[2016-11-20] MEDS: POLYETHYLENE (MIRALAX) 17 GM PACK PO SCH (10:02)
[2016-11-20] MEDS: AZITHROMYCIN 250 MG TAB PO SCH (17:31)
[2016-11-20] MEDS: CEFTRIAXONE SOD INJ 1 GM in DEXTROSE 5% ADD-VANTAGE 50ML 50 ML IV SCH (20:25)
--- NOTE | 2016-11-20 21:31 | DIAGNOSTIC IMAGING REPORT ---
CHEST 2 VIEWS ROUTINE CLINICAL HISTORY: Right upper lobe pneumonia. COPD. COMPARISON STUDY: Chest x-ray dated 11/15/2016, CT scan dated 11/16/2016 FINDINGS: The chest has an emphysematous configuration. There is no focal pulmonary consolidation. There are small bilateral pleural effusions. There is no failure. There is a 33 mm masslike opacity visualized in the lateral view anterior to the aortic arch. This corresponds to the mass / focal area of consolidation described on the recent chest CT. IMPRESSION: 1. Severe emphysema 2. Small bilateral pleural effusions 3. 33 mm masslike opacity visualized on the lateral view anterior to the aortic arch Electronically signed by: Dino Lion M.D. 11/20/2016 9:30 PM Dictated Date/Time: 11/20/2016 9:27 PM
[2016-11-21] VITALS (13 sets, daily range): BP systolic 106–150; BP diastolic 64–86; PULSE 98–116; TEMP 36.4–37; O2SAT 91–99
[2016-11-21] MEDS: METHYLPREDNISOLONE IV 60 MG in SYRINGE 0 ML IV SCH ×2 (02:02→14:49)
--- NOTE | 2016-11-21 05:07 | Progress Note ---
Subjective Date of Service: late entry for visit on Nov 20, 2016. Subjective Pt evaluation today including: conversation w/ patient, conversation w/ family (multiple, at bedside), physical exam, chart review, lab review, review of studies (cxr), review of inpatient medication list Pain: denies PO Intake: good appetite Voiding: no voiding problems tele stable overnight he feels modestly better today still no significant sputum production no dyspnea at rest, just dyspnea with exertion - that, too, seems better today states he had 2 bowel movements today Problem List Medical Problems: (1) COPD exacerbation Status: Acute (2) Hypoxemia Status: Acute (3) Hypoxia Status: Acute (4) Influenza Status: Acute (5) Pneumonia involving right lung Status: Acute (6) Respiratory distress Status: Acute (7) Sepsis Status: Acute Review of Systems Constitutional: No fever Cardiac: No chest pain, No orthopnea Abdomen: No pain, No constipation Objective Vital Signs Date Time Temp Pulse Resp B/P (MAP) Pulse Ox O2 Delivery O2 Flow Rate FiO2 11/21/16 04:00 Nasal Cannula 4.0 11/21/16 00:00 36.7 107 20 142/86 (104) 98 Nasal Cannula 4.0 11/21/16 00:00 98 18 98 Nasal Cannula 4.0 11/21/16 00:00 Nasal Cannula 4.0 11/20/16 20:30 36.8 113 18 160/90 (113) 93 Nasal Cannula 4.0 11/20/16 20:00 Nasal Cannula 4.0 11/20/16 16:12 36.6 111 20 147/87 (107) 90 Nasal Cannula 4.0 11/20/16 16:00 93 Nasal Cannula 4.0 11/20/16 15:48 110 18 93 Nasal Cannula 4.0 11/20/16 12:00 Nasal Cannula 4.0 11/20/16 11:23 36.7 112 16 124/75 (91) 99 Nasal Cannula 4.0 11/20/16 08:00 Nasal Cannula 4.0 11/20/16 07:42 36.8 105 16 137/76 (96) 94 Nasal Cannula 4.0 11/20/16 07:10 113 18 97 Nasal Cannula 4.0 Physical Exam General Appearance: no apparent distress, + cachetic, + thin ENT: pharynx normal Neck: no JVD Respiratory/Chest: lungs clear, no respiratory distress, no accessory muscle use, + pertinent finding (no rales, rhonchi, or wheeze; just decreased throughout) Cardiovascular: no gallop, + tachycardia Abdomen: normal bowel sounds, non tender, soft, no organomegaly Extremities: + pedal edema (trace, in feet) Neurologic/Psychiatric: alert, oriented x 3 Assessment and Plan 71yo male: 1. COPD with exacerbation - slowly improving. wean steroids to q12h dosing. cont pulmonary toilet, nebs, abx, daliresp, etc. 2. RUL pneumonia (vs mass) - cont rocephin/zithromax. repeat cxr today stable. slow improvement with this. suspect we can switch to PO abx tomorrow. today is day #6 of IV abx therapy (started on 11/15). 3. chronic hypoxic respiratory failure - o2 requirement is similar to at home but oxygen needs w/ ambulation will need to be assessed at discharge. 4. DVT proph - heparin BID. 5. mild-moderate protein calorie malnutrition - ongoing. added boost and [facility]VI PT, OT - cleared to return home family updated at bedside today Continued [facility] stay due to: multiple IV medications needed Discharge planning: home
[2016-11-21] MEDS: LEVALBUTEROL 0.63MG/3 ML NEB INH SCH ×4 (07:22→23:29)
[2016-11-21] MEDS: IPRATROPIUM BROMIDE NEB SOLN 0.02% 2.5 ML VIAL INH SCH ×4 (07:22→23:29)
[2016-11-21] MEDS: BOOST VANILLA PO SCH ×6 (08:01→17:08)
[2016-11-21] MEDS: BUDESONIDE/FORMOTEROL FUMARATE 160/4.5 60 PUFFS/INHALER INH SCH ×2 (08:02→21:32)
[2016-11-21] MEDS: ESCITALOPRAM OXALATE 20 MG TAB PO SCH (08:03)
[2016-11-21] MEDS: MONTELUKAST SOD 10 MG TAB PO SCH (08:03)
[2016-11-21] MEDS: POLYETHYLENE (MIRALAX) 17 GM PACK PO SCH (08:03)
[2016-11-21] MEDS: ROFLUMILAST 500 MCG TAB PO SCH (08:03)
[2016-11-21] MEDS: PANTOprazole SOD 40 MG TAB PO SCH (08:03)
[2016-11-21] MEDS: CEROVITE ADV FORMULA TAB PO SCH (08:03)
[2016-11-21] MEDS: HEPARIN SOD 5000 UNIT/0.5 ML CARP SQ SCH ×2 (08:04→21:34)
[2016-11-21] MEDS: LEVOFLOXACIN 750 MG TAB PO SCH (12:22)
[2016-11-21] MEDS: GUAIFENESIN 600 MG TABCR PO SCH (21:32)
[2016-11-22] VITALS (12 sets, daily range): BP systolic 112–134; BP diastolic 68–81; PULSE 74–118; TEMP 36.4–37.1; O2SAT 90–98
[2016-11-22] MEDS ORDERED: METHYLPREDNISOLONE IV 30 MG in SYRINGE 0 ML IV SCH (02:00)
--- NOTE | 2016-11-22 06:42 | Progress Note ---
Subjective Date of Service: late entry for visit Nov 21, 2016. Subjective Pt evaluation today including: conversation w/ patient, physical exam, chart review Pain: none PO Intake: excellent Voiding: no voiding problems tele - sinus tach only "I feel better" anxious to go home essentially no cough no dyspnea at rest dyspnea with exertion is approaching is typical amount of PEÑA no new issues Problem List Medical Problems: (1) COPD exacerbation Status: Acute (2) Hypoxemia Status: Acute (3) Hypoxia Status: Acute (4) Influenza Status: Acute (5) Pneumonia involving right lung Status: Acute (6) Respiratory distress Status: Acute (7) Sepsis Status: Acute Review of Systems Constitutional: No fever Respiratory: No cough, No sputum Cardiac: No chest pain, No orthopnea Abdomen: No pain Objective Vital Signs Date Time Temp Pulse Resp B/P (MAP) Pulse Ox O2 Delivery O2 Flow Rate FiO2 11/22/16 04:31 36.7 74 16 134/76 (95) 96 11/22/16 04:00 Nasal Cannula 4.0 11/22/16 00:00 Nasal Cannula 4.0 11/21/16 23:29 101 16 96 Nasal Cannula 4.0 11/21/16 23:20 37.0 104 18 144/76 (98) 94 Nasal Cannula 4.0 11/21/16 20:00 Nasal Cannula 4.0 11/21/16 19:50 36.7 116 18 137/83 (101) 91 Nasal Cannula 4.0 11/21/16 16:00 95 Nasal Cannula 4.0 11/21/16 15:34 36.4 115 16 115/74 (88) 98 Room Air 11/21/16 15:11 110 18 96 Nasal Cannula 4.0 11/21/16 12:03 36.8 100 17 106/64 (78) 94 11/21/16 12:00 96 Nasal Cannula 4.0 11/21/16 08:07 36.5 99 17 131/76 (94) 93 11/21/16 08:00 98 Nasal Cannula 4.0 11/21/16 07:22 102 18 98 Nasal Cannula 4.0 Physical Exam General Appearance: no apparent distress, + cachetic ENT: pharynx normal (no thrush) Neck: no JVD Respiratory/Chest: no respiratory distress, no accessory muscle use, + wheezing (minimal, airation fair today) Cardiovascular: no edema, no gallop, no murmur, + tachycardia Abdomen: normal bowel sounds, non tender, soft, no organomegaly Extremities: no pedal edema Neurologic/Psychiatric: alert, oriented x 3 Assessment and Plan 71yo male: 1. COPD with exacerbation - improved. wean steroids to 30mg IV q12h; anticipate over to prednisone tomorrow. cont pulmonary toilet, nebs, abx, daliresp, etc. 2. RUL pneumonia (vs mass) - change to levaquin today. day #7/10 of abx. stable. cxr yesterday PM stable. will need repeat CT scan 4-6 weeks to reassess for malignancy. 3. chronic hypoxic respiratory failure - o2 requirement is similar to at home but oxygen needs w/ ambulation will need to be assessed at discharge. 4. DVT proph - heparin BID. 5. mild-moderate protein calorie malnutrition - ongoing. added boost and [facility] PT, OT - cleared to return home d/c tomorrow? Thursday? progressing Continued [facility] stay due to: multiple IV medications needed Discharge planning: home
[2016-11-22] MEDS: IPRATROPIUM BROMIDE NEB SOLN 0.02% 2.5 ML VIAL INH SCH ×3 (07:17→19:40)
[2016-11-22] MEDS: LEVALBUTEROL 0.63MG/3 ML NEB INH SCH ×3 (07:17→19:40)
[2016-11-22] MEDS: PANTOprazole SOD 40 MG TAB PO SCH (08:01)
[2016-11-22] MEDS: MONTELUKAST SOD 10 MG TAB PO SCH (08:01)
[2016-11-22] MEDS: BUDESONIDE/FORMOTEROL FUMARATE 160/4.5 60 PUFFS/INHALER INH SCH ×2 (08:01→21:23)
[2016-11-22] MEDS: ESCITALOPRAM OXALATE 20 MG TAB PO SCH (08:01)
[2016-11-22] MEDS: POLYETHYLENE (MIRALAX) 17 GM PACK PO SCH (08:01)
[2016-11-22] MEDS: ROFLUMILAST 500 MCG TAB PO SCH (08:01)
[2016-11-22] MEDS: CEROVITE ADV FORMULA TAB PO SCH (08:01)
[2016-11-22] MEDS: GUAIFENESIN 600 MG TABCR PO SCH ×2 (08:02→21:24)
[2016-11-22] MEDS: BOOST VANILLA PO SCH ×6 (08:13→17:42)
[2016-11-22] MEDS: LEVOFLOXACIN 750 MG TAB PO SCH (12:30)
[2016-11-22] MEDS: HEPARIN SOD 5000 UNIT/0.5 ML CARP SQ SCH ×2 (12:31→21:27)
[2016-11-22 13:28] LABS: URINE APPEARANCE CLEAR (CLEAR); URINE BILIRUBIN NEG (NEG); URINE COLOR YELLOW; URINE NITRITE NEG (NEG); URINE SPECIFIC GRAVITY 1.016 (1.000-1.030); UROBILINOGEN NEG (NEG)
[2016-11-22 13:35] LABS: MANUAL MICROSCOPIC REQUIRED? NO; REVIEW REQ? NO
--- NOTE | 2016-11-22 20:50 | Progress Note ---
Subjective Date of Service: Nov 22, 2016. Subjective Pt evaluation today including: conversation w/ patient, conversation w/ family ( by phone), physical exam, chart review, lab review, review of inpatient medication list Pain: dysuria - started today PO Intake: very good Voiding: no incontinence c/o urinary frequency, urgency, and dysuria but no foul-smelling urine was able to do his AM grooming without his O2 and felt ok denies any cough feels he is at baseline Problem List Medical Problems: (1) COPD exacerbation Status: Acute (2) Hypoxemia Status: Acute (3) Hypoxia Status: Acute (4) Influenza Status: Acute (5) Pneumonia involving right lung Status: Acute (6) Respiratory distress Status: Acute (7) Sepsis Status: Acute Review of Systems Constitutional: No fever, No chills Respiratory: + dyspnea on exertion, No cough, No sputum, No wheezing, No shortness of breath Cardiac: No chest pain, No orthopnea Abdomen: No pain, No nausea, No vomiting, No diarrhea Objective Vital Signs Date Time Temp Pulse Resp B/P (MAP) Pulse Ox O2 Delivery O2 Flow Rate FiO2 11/22/16 20:13 36.6 118 18 115/81 (92) 90 Nasal Cannula 4.0 11/22/16 20:00 96 Nasal Cannula 4.0 11/22/16 19:40 110 16 96 Nasal Cannula 4.0 11/22/16 16:00 95 Nasal Cannula 4.0 11/22/16 15:22 36.8 108 18 112/72 (85) 97 Nasal Cannula 4.0 11/22/16 14:33 114 16 96 Nasal Cannula 4.0 11/22/16 12:00 94 Nasal Cannula 4.0 11/22/16 11:01 36.4 112 18 123/68 (86) 94 Nasal Cannula 4.0 11/22/16 08:00 95 Nasal Cannula 4.0 11/22/16 07:22 37.1 118 18 127/79 (95) 98 Nasal Cannula 4.0 11/22/16 07:18 104 16 98 Nasal Cannula 4.0 11/22/16 04:31 36.7 74 16 134/76 (95) 96 11/22/16 04:00 Nasal Cannula 4.0 11/22/16 00:00 Nasal Cannula 4.0 11/21/16 23:29 101 16 96 Nasal Cannula 4.0 11/21/16 23:20 37.0 104 18 144/76 (98) 94 Nasal Cannula 4.0 Physical Exam General Appearance: no apparent distress, + cachetic, + thin ENT: pharynx normal Neck: no JVD Respiratory/Chest: no respiratory distress, no accessory muscle use, + pertinent finding (no rales or wheezes; airation improved) Cardiovascular: no gallop, no murmur, + tachycardia Abdomen: normal bowel sounds, non tender, soft, no organomegaly Extremities: no pedal edema Neurologic/Psychiatric: alert, oriented x 3 Laboratory Results Last 24 Hours Test 11/22/16 13:00 Urine Color YELLOW Urine Appearance CLEAR Urine pH 7.0 Urine Specific [place] 1.016 Urine Protein NEG Urine Glucose (UA) NEG Urine Ketones NEG Urine Occult Blood NEG Urine Nitrite NEG Urine Bilirubin NEG Urine Urobilinogen NEG Urine Leukocyte Esterase NEG Assessment and Plan 71yo male: 1. COPD with exacerbation - again improved. stop IV steroids; change to prednisone 40mg daily and taper over 2 weeks. cont pulmonary toilet, nebs, abx, daliresp, etc. 2. RUL pneumonia (vs mass) - continue levaquin. day #8/10 of abx. stable. will need repeat CT scan 4-6 weeks to reassess for malignancy. 3. chronic hypoxic respiratory failure - o2 requirement is similar to at home but oxygen needs w/ ambulation will need to be assessed at discharge. 4. DVT proph - heparin BID. 5. mild-moderate protein calorie malnutrition - ongoing. boost and MVI 6. dysuria/frequency/etc - u/a checked - normal. PVR checked - 42cc. will check RONNELL in am to r/o prostatitis. PT, OT - cleared to return home d/c tomorrow updated Discharge planning: home
[2016-11-22 21:58] LABS: BUN/CREATININE RATIO 23.7 (10-20); CALCIUM 8.8 mg/dl (8.5-10.1); CREATININE 1.2 mg/dl (0.60-1.40); MAGNESIUM 2.2 mg/dl (1.8-2.4); POTASSIUM 4.5 mmol/L (3.5-5.1)
[2016-11-23] VITALS (8 sets, daily range): BP systolic 105–112; BP diastolic 64–70; PULSE 102–111; TEMP 36.6–36.7; O2SAT 95–100
[2016-11-23] MEDS: IPRATROPIUM BROMIDE NEB SOLN 0.02% 2.5 ML VIAL INH SCH (07:15)
[2016-11-23] MEDS: LEVALBUTEROL 0.63MG/3 ML NEB INH SCH (07:15)
[2016-11-23] MEDS: BOOST VANILLA PO SCH ×2 (08:31)
[2016-11-23] MEDS: BUDESONIDE/FORMOTEROL FUMARATE 160/4.5 60 PUFFS/INHALER INH SCH (08:31)
[2016-11-23] MEDS: PANTOprazole SOD 40 MG TAB PO SCH (08:32)
[2016-11-23] MEDS: GUAIFENESIN 600 MG TABCR PO SCH (08:32)
[2016-11-23] MEDS: CEROVITE ADV FORMULA TAB PO SCH (08:32)
[2016-11-23] MEDS: ESCITALOPRAM OXALATE 20 MG TAB PO SCH (08:32)
[2016-11-23] MEDS: MONTELUKAST SOD 10 MG TAB PO SCH (08:32)
[2016-11-23] MEDS: ROFLUMILAST 500 MCG TAB PO SCH (08:32)
[2016-11-23] MEDS: POLYETHYLENE (MIRALAX) 17 GM PACK PO SCH (08:34)
[2016-11-23] MEDS ORDERED: CNT PO (10:28)
[2016-11-23] MEDS ORDERED: PRED10TA PO (10:28)
[2016-11-23] MEDS ORDERED: IPRASOL4 INH (10:28)
[2016-11-23] MEDS ORDERED: LVQ750 PO (10:28)
[2016-11-23] MEDS ORDERED: NYSS5 PO (10:46)
--- NOTE | 2016-11-23 10:53 | Discharge Instructions ---
Discharge Instructions Date of Service Nov 23, 2016. Admission Reason for Admission: Pneumonia Involving Right Lung Discharge Discharge Diagnosis / Problem: COPD exacerbation & right-sided pneumonia Discharge Goals Goal(s): Learn about illness, Diagnostic testing, Therapeutic intervention Activity Recommendations Activity Limitations: as noted below (as tolerated) As you recover from your hospitalization please avoid heavy exertional activity , exposure to hot weather outside, etc. . Instructions / Follow-Up Instructions / Follow-Up From Dr. Najera - 1. right-sided pneumonia - * you have 1 more day of antibiotics * please take levaquin (levofloxacin) on 11/24/16 - this is your final dose 2. COPD exacerbation/flare - * please take a 12-day prednisone taper * begin this on 11/24/16 * please use your nebulizer machine (duonebs) 4 times a day scheduled for the next week or so as you recover from your illness * you may take [id number] mucinex up to 1200mg twice a day as needed for cough/congestion * continue your oxygen - * 4 liters with sleep/rest * 5 liters with any activity 3. thrush (yeast infection in mouth) - * take nystatin solution - 5 cc 4 times a day for 10 days * swish, gargle, and then swallow each time 4. abnormal CAT scan of lungs - * you will need a repeat CAT scan of your lungs in about 6 weeks to ensure the right upper lobe lung abnormality (thought to be pneumonia) is fully resolved 5. Please DO NOT SMOKE with your oxygen at home !! 6. Follow-up - * see Dr. Duke as scheduled on 11/25/16 * see Dr. Packer, lung doctor, in about 1 week 7. Return to [facility] if - * you develop fever over 100.5 degrees * your breathing worsens despite antibiotics, steroids, your nebs, etc. * you are requiring more oxygen than typical * your oxygen levels are less than 88% despite your oxygen * you see blood in your spit Current Hospital Diet Patient's current hospital diet: Regular Diet Discharge Diet Recommended Diet: Regular Diet Procedures Procedures Performed: CAT scan of lung showing right upper lobe pneumonia (vs other process). Pending Studies Studies pending at discharge: no Medical Emergencies . Who to Call and When: Medical Emergencies: If at any time you feel your situation is an emergency, please call 911 immediately. . Non-Emergent Contact Non-Emergency issues call your: Primary Care Provider Call Non-Emergent contact if: temperature is above 100.5, you have any medication questions . . "Provider Documentation" section prepared by Josue Najera. . VTE Core Measure Inpt VTE Proph given/why not?: Unfractionated heparin SQ
[2016-11-23] MEDS: LEVOFLOXACIN 750 MG TAB PO SCH (11:57)
--- NOTE | 2016-11-26 23:41 | Discharge Summary ---
Discharge Summary Date of Service Nov 26, 2016. Discharge Summary Admission Date: Nov 15, 2016 at 20:31 Discharge Date: Nov 23, 2016 Discharge Disposition: Home Principal Diagnosis: COPD with exacerbation Problems/Secondary Diagnoses: 1. RUL pneumonia and/or mass 2. GERD 3. depression 4. chronic hypoxic respiratory failure on home O2 5. mild-moderate protein calorie malnutrition 6. thrush Procedures: 1. CT chest - IMPRESSION: 1. Interval development of a consolidated infiltrate versus lesion right upper lobe immediately adjacent to the anterior mediastinum. 2. This measures 4 x 2.5 cm and potentially represents consolidative infiltrate versus developing mass. 3. Progressive bronchiectatic change medial aspect right upper lobe. 4. Small right pleural effusion with mildly progressive basilar segmental atelectatic change 5. Close follow-up to complete resolution is suggested to exclude any possibility of a neoplastic process. 6. Stable emphysematous change Consultations: 1. PT, OT 2. pulmonary - Otf Perez MD Medication Reconciliation New Medications: Ipratropium-Albuterol (Duoneb) 3 Ml Nebu 1 TREATMENT INH Q6H, #1 BOX 2 Refills Nystatin (Nystatin) 5 Ml Susp 5 ML PO QID for 10 Days, #200 ML 1 Refill swish and swallow Prednisone Tab (Prednisone) 10 Mg Tab 10 MG PO DIRECTED, #30 TAB 0 Refills start 11/24/16: 4 tabs po QD x 3 days, then 3 tabs po QD x 3 days, 2 tabs po QD x 3 days, 1 tab po QD x 3 days. Levofloxacin (Levofloxacin) 750 Mg Tab 750 MG PO once on 11/24/16 for 1 Day, #1 TAB 0 Refills Multivitamins/Minerals (Certavite/Antioxidants) 1 Tab Tab 1 TAB PO QAM, #90 TAB 3 Refills Continued Medications: Albuterol Sulfate (Proair Respiclick) 108 Mcg/Act Aer 2 PUFFS INH QID PRN for SOB/Wheezing Budesonide/Formoterol Fumarate (Symbicort 160/4.5 Inhaler) 120 Puffs/ Aero 2 PUFFS INH BID, INHALER Escitalopram Oxalate (Lexapro) 20 Mg Tab 20 MG PO DAILY Home O2 Therapy (Oxygen) Gas 4 LITER NA PRN Montelukast Sodium (Singulair) 10 Mg Tab 10 MG PO DAILY, TAB Omeprazole (Prilosec) 20 Mg Capcr 20 MG PO DAILY Roflumilast (Daliresp) 500 Mcg Tab 500 MCG PO DAILY, #30 TAB Tiotropium [place] (Spiriva Handihaler) 30 Puff/540 Mcg Aerp 1 CAP INH DAILY Varenicline (Chantix) 1 Mg Tab 1 MG PO DAILY Referrals At Discharge Follow up Referrals: Flotation Tank Operator Referral - Within 1 Week with Jaden Packer, DO Discharge Exam Physical Exam: General Appearance: no apparent distress, + cachetic ENT: + pertinent finding (possible early thrush in oral cavity) Neck: no JVD Respiratory/Chest: no respiratory distress, no accessory muscle use, + pertinent finding (airation fair, decreased BS throughout; no crackles or rhonchi; minimal end-exp wheeze) Cardiovascular: no gallop, no murmur, normal peripheral pulses, + tachycardia Abdomen / GI: normal bowel sounds, non tender, soft, no organomegaly, + pertinent finding (RONNELL - prostate mildly enlarged but smooth, not boggy, not tender, no nodules) Extremities: + pedal edema (trace b/l ) Neurologic/Psychiatric: alert, oriented x 3 Skin: no rash Hospital Course HISTORY OF PRESENT ILLNESS: The patient is a 71-year-old man with a history of COPD, chronic respiratory failure on 4 liters oxygen at home, who presented to the ED with his and daughter. The patient reported that he went to sleep at night feeling good, but then when he woke up in the morning he could not get out of bed from generalized weakness. He stated that his had to assist him to go to the bathroom and keep walking with him to the bathroom. He denies any symptoms suggestive for an infection, denies any cough or wheezing, but yet in the ED his heart rate was about 130 and he had a temperature of 38.7. All his review of systems was negative except for generalized weakness. His chest x-ray showed some possible airspace opacity within the right lung along with emphysematous changes. HOSPITAL COURSE: The patient underwent a CT of the chest due to reported weight loss and progressive pulmonary symptoms. This demonstrated a large consolidated RUL pneumonia vs mass. He was treated for pneumonia with IV antibiotics, and his COPD flare was treated with IV steroids, nebs, and supportive care. He made gradual improvement in all pulmonary symptoms while hospitalized. At discharge his O2 sats were stable on NC O2. He will continue 4 liters of NC O2 at rest/sleep and 5 liters with activity. He was seen in consult by pulmonary who recommended a repeat CT chest in about 4 -6 weeks to ensure that the RUL lung findings are not due to malignancy. He follows with Dr. Jaden Packer from the pulmonary division for his chronic respiratory failure. At discharge he will complete 2 more days of oral antibiotic and take a prolonged prednisone taper. He was also advised to use his nebulizers more frequently as he transitions home. Close follow-up with his PCP and inletter is recommended as he remains at high risk of readmission. Other issues addressed - 1. thrush - will complete nystatin solution course. 2. complaint of dysuria - u/a and urine culture x 2 were both negative. RONNELL showed no evidence of prostatitis. Total Time Spent: Greater than 30 minutes This includes examination of the patient, discharge planning, medication reconciliation, and communication with other providers. Discharge Instructions Please refer to the electronic Patient Visit Report (Discharge Instructions) for additional information. Follow-Up 1. see Dr. Duke, PCP, within 3-[address] Packer, pulmonary, in 1-2 weeks Additional Copies To Jaden Packer DO; Bob Duke M.D.
== END 2016-11-23 12:30 | disposition home or self-care (01) | DRG 871 ==
LOC: C.EDB 15:01 → C.MED 20:31 → ENRESERV 20:44 → EDBEDREQ 20:49
PROVIDERS: ADMIT Internal Medicine; ATTEND Internal Medicine
DX: A41.9 Sepsis, unspecified organism (principal); J18.9 Pneumonia, unspecified organism; J44.1 Chronic obstructive pulmonary disease with (acute) exacerbation; J96.11 Chronic respiratory failure with hypoxia; B37.0 Candidal stomatitis; E44.0 Moderate protein-calorie malnutrition; F32.9 Major depressive disorder, single episode, unspecified; K21.9 Gastro-esophageal reflux disease without esophagitis; E55.9 Vitamin D deficiency, unspecified; R91.8 Other nonspecific abnormal finding of lung field; J30.9 Allergic rhinitis, unspecified; F60.3 Borderline personality disorder; Z86.11 Personal history of tuberculosis; Z83.79 Family history of other diseases of the digestive system; Z99.81 Dependence on supplemental oxygen; Z82.49 Family history of ischemic heart disease and other diseases of the circulatory system; R30.0 Dysuria

== ENCOUNTER → 2017-01-23 | Outpatient (CLI) | payer OTHER, MEDICARE ==
[~2017-01-23] MED LIST changes: +ALBU18002 INH; -ALBUAER19 INH; -AZIT250T PO; +CHN/1 PO; -CHOL100027 PO; +CNT PO; +ESCI1TAB10 PO; +IPRASOL4 INH; +LVQ750 PO; +NYSS5 PO; -PANT40TA PO; +PRED10TA PO; +PRLSR20 PO; +SPRIN/30 INH; -TIOTCAP INH
--- NOTE | 2017-01-23 10:10 | DIAGNOSTIC IMAGING REPORT ---
CT OF THE CHEST WITHOUT IV CONTRAST CLINICAL HISTORY: Abnormal CT scan. Community-acquired pneumonia. COMPARISON STUDY: Chest CTs July 29, 2015 and November 16, 2016. CT DOSE: 220.92 mGy.cm TECHNIQUE: Axial images of the chest were obtained without IV contrast. Images were reviewed in the axial, sagittal, and coronal planes. IV contrast was not administered for this examination. A dose lowering technique was utilized adhering to the principles of ALARA. FINDINGS: No enlarged axillary, mediastinal or hilar lymph nodes are present. A 2.6 x 1.5 cm water attenuation focus along the anterior pericardium anterior to the main pulmonary artery is unchanged since earlier studies. This may reflect a pericardial cyst and is benign. The central airways are patent. There is severe emphysema. No pneumothorax or pleural effusion is present. Biapical scarring is noted. There has been near complete resolution of the right upper lobe consolidation shown on exam of November 16, 2016 with minimal residual scarring. There are no suspicious pulmonary nodules. No pneumothorax or pleural effusion is present. Several hepatic cysts are noted. There are calcified granulomas within the spleen. IMPRESSION: 1. Near complete resolution of the right upper lobe consolidation since CT of November 16, 2016 with minimal residual opacity suggestive of scarring. 2. Severe emphysema. 3. No acute intrathoracic findings. Electronically signed by: Leonid Og M.D. 01/23/2017 10:08 AM Dictated Date/Time: 01/23/2017 9:54 AM
== END | disposition home or self-care (01) ==
LOC: C.CTS 08:48
PROVIDERS: ATTEND Internal Medicine Pulmonary Disease
DX: J18.9 Pneumonia, unspecified organism (principal); R93.8 Abnormal findings on diagnostic imaging of other specified body structures; J43.9 Emphysema, unspecified

== ENCOUNTER 2017-04-23 02:46 | Inpatient (IN) | payer OTHER, MEDICARE ==
[~2017-04-23] VITALS: Ht 175.3 cm; Wt 58.9 kg
[2017-04-23] VITALS (9 sets, daily range): BP systolic 111–132; BP diastolic 62–71; PULSE 84–147; TEMP 36.6–36.9; O2SAT 86–99; BMI 20.5
--- NOTE | 2017-04-23 02:58 | EMERGENCY ROOM VISIT NOTE ---
History Report prepared by Maggy: Ritchie Encarnacion Under the Supervision of: Dr. Mauro Ríos M.D. First contact with patient: 02:49 Chief Complaint: SHORTNESS OF BREATH Stated Complaint: SHORT OF BREATH History of Present Illness The patient is a 71 year old male with a history of COPD who presents to the Emergency Room via EMS with complaints of worsening shortness of breath over the past 2 days. He states that he has been having trouble catching his breath. Per the nursing staff, the patient was given Solu-Medrol, a nebulizer, and an albuterol on the way here, and the patient is feeling somewhat better. The patient adds that he has had a runny nose. He says that he has a bit of a cough. The patient notes that his has pneumonia. He denies any chest pain. Source of History: patient, nursing staff Onset: Over past 2 days Position: other (global - sob) Quality: other (has COPD) Timing: worsening Modifying Factors (Relieving): other (nebulizer, albuterol. Solu-Medrol) Associated Symptoms: + cough (mild), No chest pain Note: Associated symptoms: Runny nose. Review of Systems See HPI for pertinent positives & negatives. A total of 10 systems reviewed and were otherwise negative. Past Medical & Surgical Medical Problems: (1) COPD (chronic obstructive pulmonary disease) (2) COPD exacerbation (3) Respiratory infection Family History Family history omitted secondary to patient's advanced age. Social History Smoking Status: Former Smoker Alcohol Use: occasionally Drug Use: none Marital Status: Housing Status: lives alone Occupation Status: employed Current/Historical Medications Scheduled Budesonide/Formoterol Fumarate (Symbicort 160/4.5 Inhaler), 2 PUFFS INH BID Cholecalciferol (Vitamin D3), 2,000 UNITS PO DAILY Escitalopram Oxalate (Lexapro), 20 MG PO DAILY Home O2 Therapy (Oxygen), 4 LITER NA PRN Ipratropium-Albuterol (Duoneb), 1 TREATMENT INH Q6H Lorazepam (Lorazepam), 0.5 MG PO HS Montelukast Sodium (Singulair), 10 MG PO DAILY Multiple Vitamins W/ Minerals (Certavite/Antioxidants), 1 TAB PO DAILY Roflumilast (Daliresp), 500 MCG PO DAILY Tiotropium [place] (Spiriva Handihaler), 1 CAP INH DAILY Scheduled PRN Albuterol Sulfate (Proair Respiclick), 2 PUFFS INH QID PRN for SOB/Wheezing Allergies Coded Allergies: No Known Allergies (Unverified , 04/23/17) Physical Exam Vital Signs Date Time Temp Pulse Resp B/P (MAP) Pulse Ox O2 Delivery O2 Flow Rate FiO2 04/23/17 04:00 139/69 04/23/17 03:46 139 31 100 Nebulizer 7.0 04/23/17 03:16 131 29 98 Nebulizer 7.0 04/23/17 03:00 111/76 04/23/17 02:57 93 Nasal Cannula 4.0 04/23/17 02:54 143 04/23/17 02:54 131/77 04/23/17 02:53 37.2 138 27 131/77 93 Nasal Cannula 4.0 04/23/17 02:52 139/73 04/23/17 02:51 129/91 04/23/17 02:50 168/89 Physical Exam GENERAL: Patient is ill appearing and in moderate distress. HEENT: No acute trauma, normocephalic atraumatic, mucous membranes dry, no nasal congestion, no scleral icterus. NECK: No stridor, no adenopathy, no meningismus, trachea is midline. LUNGS: Dyspneic and tachypneic. Minimal air movement. Severe emphysematous chest. HEART: Tachycardic rate and regular rhythm. No murmurs, rubs, gallops appreciated. ABDOMEN: Soft, nontender, bowel sounds positive, no masses appreciated, no peritonitis. BACK: No midline tenderness, no CVA tenderness EXTREMITIES: Normal motion all extremities, no cyanosis, no edema. NEUROLOGIC: Alert and oriented, no acute motor or sensory deficits, no focal weakness, cranial nerves grossly intact. SKIN: No rash, no jaundice, no diaphoresis. Medical Decision & Procedures ER Provider Diagnostic Interpretation: X ray results are stated below per my interpretation: Chest: 1 view: Severe emphysematous changes, mild perihilar inflammation. Laboratory Results 04/23/17 03:11 Red Blood Count 4.21, Mean Corpuscular Volume 93.6, Mean Corpuscular Hemoglobin 31.4, Mean Corpuscular Hemoglobin Concent 33.5, Mean Platelet Volume 9.7, Neutrophils (%) (Auto) 83.7, Lymphocytes (%) (Auto) 5.6, Monocytes (%) (Auto) 10.0, Eosinophils (%) (Auto) 0.1, Basophils (%) (Auto) 0.2, Neutrophils # (Auto ) 13.16, Lymphocytes # (Auto) 0.88, Monocytes # (Auto) 1.57, Eosinophils # (Auto ) 0.01, Basophils # (Auto) 0.03 04/23/17 03:11 Test 04/23/17 03:00 04/23/17 03:11 Influenza Type A (RT-PCR) Neg for Influ A (NEG) Influenza Type A Antigen Neg for Influ A (NEG) Influenza Type B Antigen Neg for Influ B (NEG) Influenza Type B (RT-PCR) Neg for Influ B (NEG) White Blood Count 15.71 K/uL (4.8-10.8) Red Blood Count 4.21 M/uL (4.7-6.1) Hemoglobin 13.2 g/dL (14.0-18.0) Hematocrit 39.4 % (42-52) Mean Corpuscular Volume 93.6 fL (80-100) Mean Corpuscular Hemoglobin 31.4 pg (25-34) Mean Corpuscular Hemoglobin Concent 33.5 g/dl (32-36) Platelet Count 265 K/uL (130-400) Mean Platelet Volume 9.7 fL (7.4-10.4) Neutrophils (%) (Auto) 83.7 % Lymphocytes (%) (Auto) 5.6 % Monocytes (%) (Auto) 10.0 % Eosinophils (%) (Auto) 0.1 % Basophils (%) (Auto) 0.2 % Neutrophils # (Auto) 13.16 K/uL (1.4-6.5) Lymphocytes # (Auto) 0.88 K/uL (1.2-3.4) Monocytes # (Auto) 1.57 K/uL (0.11-0.59) Eosinophils # (Auto) 0.01 K/uL (0-0.5) Basophils # (Auto) 0.03 K/uL (0-0.2) RDW Standard Deviation 44.2 fL (36.4-46.3) RDW Coefficient of Variation 13.0 % (11.5-14.5) Immature Granulocyte % (Auto) 0.4 % Immature Granulocyte # (Auto) 0.06 K/uL (0.00-0.02) Arterial Blood pH 7.36 (7.35-7.45) Arterial Blood Partial Pressure CO2 54 mmHg (35-46) Arterial Blood Partial Pressure O2 67 mm/Hg (80-95) Arterial Blood HCO3 30 mmol/L (19-24) Arterial Blood Oxygen Saturation 93.0 % (90-95) Arterial Blood Base Excess 3.3 mEq/L (-9-1.8) Arterial Blood Gas Delivery 5 L Jethro Test POS (POS) Anion Gap 7.0 mmol/L (3-11) Est Creatinine Clear Calc Drug Dose 88.8 ml/min Estimated GFR () 111.4 Estimated GFR (Non- 96.1 BUN/Creatinine Ratio 24.5 (10-20) Calcium Level 8.9 mg/dl (8.5-10.1) Total Creatine Kinase 61 U/L (39-308) Creatine Kinase MB 1.3 ng/ml (0.5-3.6) Creatine Kinase MB Ratio 2.1 (0-3.0) Troponin I < 0.015 ng/ml (0-0.045) Laboratory results as reviewed by me. Medications Administered Medications (Trade) Dose Ordered Sig/[place] Route Start Time Stop Time Status Last Admin Dose Admin Albuterol/ Ipratropium (Duoneb) 12 ml ONE ONCE INH 04/23/17 03:00 04/23/17 03:01 DC 04/23/17 03:08 12 ML Sodium Chloride 500 ml @ 999 mls/hr Q31M STAT IV 04/23/17 03:00 04/23/17 03:30 DC 04/23/17 03:14 999 MLS/HR Levofloxacin (Levaquin / D5W) 750 mg NOW ONCE IV 04/23/17 04:00 04/23/17 04:01 DC 04/23/17 04:05 750 MG Acetaminophen (Tylenol Tab) 650 mg NOW STAT PO 04/23/17 04:42 04/23/17 05:17 DC 04/23/17 05:45 650 MG ECG Indication: SOB/dyspnea Rate (beats per minute): 137 Rhythm: sinus tachycardia Findings: no acute ischemic change, no ectopy, other (poor baseline) ED Course 0251: The patient was evaluated in room A11B. A complete history and physical exam was performed. 0333: I reevaluated the patient and he is still quite tachycardic though he notes that his heart rate periodically does run quite fast. 0335: Upon reevaluation, the patient is feeling much better but still has severely diminished lung sounds and is still persistently tachycardic. Discussed results and treatment plan with the patient. he verbalized understanding and agreement with the treatment plan. The patient will be evaluated for further management. 0426: I discussed the patient with Dr. Olivia JEFFERS rocket engine component mechanic - he will evaluate the patient for further treatment. Medical Decision Differential: Infectious, Reactive Airway Disease, Pneumonia, Pneumothorax, COPD , CHF, ACS, Pulmonary Embolism, MSK, GI, Dissection, amongst other etiologies entertained. 71 yr old male arrives for evaluation of shortness of breath. He has longstanding COPD/Emphysema with many previous admission. Admits is currently ill with pneumonia. On arrival he is dyspneic/tachypneic with minimal air movement. Noted to be quite tachy of uncertain etiology though review chart notes periodic episodes of tachycardia of uncertain etiology. May all be neb related but clearly requires nebulizer currently and with no cp. Given fluids without improvement in tachy. Afebrile. EKG looks like sinus tach. Avoid bblocker given hisbreathing issues. WBC mildly elevated but without fever nor clear infiltrate. Will treat empirically with Levaquin in case bacterial. Flu negative. Discussed with hospitalist who will monitor further. Medication Reconcilliation Current Medication List: was personally reviewed by me Blood Pressure Screening Patient's blood pressure: Elevated blood pressure Blood pressure disposition: Elevated BP felt to be situational Consults Time Called: [phone] Consulting Physician: Dr. Olivia JEFFERS rocket engine component mechanic Returned Call: [phone] I discussed the patient with Dr. Olivia JEFFERS rocket engine component mechanic - he will evaluate the patient for further treatment. Impression Primary Impression: COPD exacerbation Additional Impression: Tachycardia Scribe Attestation The scribe's documentation has been prepared under my direction and personally reviewed by me in its entirety. I confirm that the note above accurately reflects all work, treatment, procedures, and medical decision making performed by me. Departure Information Dispostion Being Evaluated By Hospitalist Referrals Bob Duke M.D. (PCP) Patient Instructions My [facility] Problem Qualifiers
[2017-04-23] MEDS ORDERED: SODIUM CHLORIDE 0.9% 500ML 500 ML IV STA (03:00)
[2017-04-23] MEDS ORDERED: ALBUT/IPRATROP 3MG/0.5MG NEB 3 ML VIAL INH ONE (03:00)
[2017-04-23 03:24] LABS: BASO % 0.2 %; BASO ABS # 0.03 K/uL (0-0.2); EOS % 0.1 %; EOS ABS # 0.01 K/uL (0-0.5); HEMATOCRIT 39.4 % (42-52); HEMOGLOBIN 13.2 g/dL (14.0-18.0); IG# 0.06 K/uL (0.00-0.02); LYMPH % 5.6 %; LYMPH ABS # 0.88 K/uL (1.2-3.4); MEAN CELL VOLUME 93.6 fL (80-100); MEAN CORPUSCULAR HEMOGLOBIN 31.4 pg (25-34); MEAN CORPUSCULAR HGB CONC 33.5 g/dl (32-36); MEAN PLATELET VOLUME 9.7 fL (7.4-10.4); MONO ABS # 1.57 K/uL (0.11-0.59); NEUT % 83.7 %; NEUT ABS # 13.16 K/uL (1.4-6.5); PLATELET COUNT 265 K/uL (130-400); RED CELL DISTRIBUTION WIDTH SD 44.2 fL (36.4-46.3); WHITE BLOOD COUNT 15.71 K/uL (4.8-10.8)
[2017-04-23] MEDS ORDERED: ROFL1TAB5 PO (03:33)
[2017-04-23] MEDS ORDERED: MULT-7 PO (03:33)
[2017-04-23] MEDS ORDERED: ATV5 PO (03:33)
[2017-04-23] MEDS ORDERED: CHOL2000 PO (03:33)
[2017-04-23] MEDS ORDERED: IPRASOL4 INH (03:33)
[2017-04-23 03:36] LABS: INFLUENZA B ANTIGEN Neg for Influ B (NEG)
[2017-04-23 03:45] LABS: BLOOD UREA NITROGEN 17 mg/dl (7-18); CALCIUM 8.9 mg/dl (8.5-10.1); CARBON DIOXIDE 29 mmol/L (21-32); CREATININE 0.68 mg/dl (0.60-1.40); GLUCOSE 147 mg/dl (70-99); SODIUM 134 mmol/L (136-145)
[2017-04-23 03:50] LABS: CKMB 1.3 ng/ml (0.5-3.6)
[2017-04-23] MEDS ORDERED: LEVAQUIN 750MG / 150ML D5W IV ONE (04:00)
[2017-04-23 04:10] LABS: INFLUENZA A PCR Neg for Influ A (NEG); INFLUENZA B PCR Neg for Influ B (NEG)
--- NOTE | 2017-04-23 04:14 | History and Physical ---
History & Physical Date & Time of Service: Apr 23, 2017 at 04:11 Chief Complaint: Short Of Breath Primary Care Physician: Bob Duke M.D. History of Present Illness Source: patient 71 y/o M Hx depression, GERD, 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 Pt presents with progressive SOB and cough over the course of 1 day. He states that his currently has pneumonia. He denies CP, N/V, diarrhea or dysuria and could not confirm fevers. Initial CXR does not support a pneumonia diagnosis. Leukocytosis is present on initial labs. The pt has additionally been markedly tachycardic, which may be due partially to an hour-long neb treatment. He denies any CP. Past Medical/Surgical History 1) COPD - end-stage 2) Depression 3) GERD Family History Noncontributory Social History Quit smoking 3 years ago Smoking Status: Former Smoker Drug Use: none Marital Status: Housing status: lives with family Occupational Status: employed Multi-Drug Resistant Organisms History of MDRO: No Allergies Coded Allergies: No Known Allergies (Unverified , 04/23/17) Home Medications Scheduled Budesonide/Formoterol Fumarate (Symbicort 160/4.5 Inhaler), 2 PUFFS INH BID Cholecalciferol (Vitamin D3), 2,000 UNITS PO DAILY Escitalopram Oxalate (Lexapro), 20 MG PO DAILY Home O2 Therapy (Oxygen), 4 LITER NA PRN Ipratropium-Albuterol (Duoneb), 1 TREATMENT INH Q6H Lorazepam (Lorazepam), 0.5 MG PO HS Montelukast Sodium (Singulair), 10 MG PO DAILY Multiple Vitamins W/ Minerals (Certavite/Antioxidants), 1 TAB PO DAILY Roflumilast (Daliresp), 500 MCG PO DAILY Tiotropium [place] (Spiriva Handihaler), 1 CAP INH DAILY Scheduled PRN Albuterol Sulfate (Proair Respiclick), 2 PUFFS INH QID PRN for SOB/Wheezing Review of Systems Constitutional: No fever, No chills, No sweats Eyes: No worsening of vision ENT: No hearing loss, No nasal symptoms Respiratory: + cough, + shortness of breath, + dyspnea on exertion, + dyspnea at rest, No wheezing Cardiovascular: No chest pain, No orthopnea, No PND Abdomen: No pain, No vomiting Musculoskeletal: No joint pain Genitourinary - Male: No hematuria, No dysuria Neurologic: + weakness, No memory loss Psychiatric: + depression symptoms Endocrine: No fatigue Hematologic / Lymphatic: No abnormal bleeding/bruising Integumentary: No rash Allergic / Immunologic: No environmental allergies Physical Exam Vital Signs Date Time Temp Pulse Resp B/P (MAP) Pulse Ox O2 Delivery O2 Flow Rate FiO2 04/23/17 02:57 93 Nasal Cannula 4.0 04/23/17 02:54 143 04/23/17 02:53 37.2 138 27 131/77 93 Nasal Cannula 4.0 General Appearance: + pertinent finding (Cachectic-appearing, elderly male - labored breathing against persed lips is noted ) Head: normocephalic Eyes: normal inspection ENT: normal ENT inspection, pharynx normal Neck: supple, no JVD Respiratory/Chest: chest non-tender, + pertinent finding (Poor b/l air movement - cannot discern wheezing or crackles) Cardiovascular: regular rate, rhythm, no edema, no gallop Abdomen/GI: normal bowel sounds, non tender, soft Back: normal inspection, no CVA tenderness Extremities/Musculoskelatal: normal inspection, no calf tenderness, normal capillary refill Neurologic/Psych: check services clerk II-XII nml as tested, no motor/sensory deficits, alert, oriented x 3 Skin: normal color Diagnostics Laboratory Results Results Past 24 Hours Test 04/23/17 03:00 04/23/17 03:11 Range/Units Influenza Type A (RT-PCR) Neg for Influ A NEG Influenza Type A Antigen Neg for Influ A NEG Influenza Type B Antigen Neg for Influ B NEG Influenza Type B (RT-PCR) Neg for Influ B NEG White Blood Count 15.71 4.8-10.8 K/uL Red Blood Count 4.21 4.7-6.1 M/uL Hemoglobin 13.2 14.0-18.0 g/dL Hematocrit 39.4 42-52 % Mean Corpuscular Volume 93.6 80-100 fL Mean Corpuscular Hemoglobin 31.4 25-34 pg Mean Corpuscular Hemoglobin Concent 33.5 32-36 g/dl Platelet Count 265 130-400 K/uL Mean Platelet Volume 9.7 7.4-10.4 fL Neutrophils (%) (Auto) 83.7 % Lymphocytes (%) (Auto) 5.6 % Monocytes (%) (Auto) 10.0 % Eosinophils (%) (Auto) 0.1 % Basophils (%) (Auto) 0.2 % Neutrophils # (Auto) 13.16 1.4-6.5 K/uL Lymphocytes # (Auto) 0.88 1.2-3.4 K/uL Monocytes # (Auto) 1.57 0.11-0.59 K/uL Eosinophils # (Auto) 0.01 0-0.5 K/uL Basophils # (Auto) 0.03 0-0.2 K/uL RDW Standard Deviation 44.2 36.4-46.3 fL RDW Coefficient of Variation 13.0 11.5-14.5 % Immature Granulocyte % (Auto) 0.4 % Immature Granulocyte # (Auto) 0.06 0.00-0.02 K/uL Arterial Blood pH 7.36 7.35-7.45 Arterial Blood Partial Pressure CO2 54 35-46 mmHg Arterial Blood Partial Pressure O2 67 80-95 mm/Hg Arterial Blood HCO3 30 19-24 mmol/L Arterial Blood Oxygen Saturation 93.0 90-95 % Arterial Blood Base Excess 3.3 -9-1.8 mEq/L Arterial Blood Gas Delivery 5 L Jethro Test POS POS Sodium Level 134 136-145 mmol/L Potassium Level 4.0 3.5-5.1 mmol/L Chloride Level 98 98-107 mmol/L Carbon Dioxide Level 29 21-32 mmol/L Anion Gap 7.0 3-11 mmol/L Blood Urea Nitrogen 17 7-18 mg/dl Creatinine 0.68 0.60-1.40 mg/dl Est Creatinine Clear Calc Drug Dose 88.8 ml/min Estimated GFR () 111.4 Estimated GFR (Non- 96.1 BUN/Creatinine Ratio 24.5 10-20 Random Glucose 147 70-99 mg/dl Calcium Level 8.9 8.5-10.1 mg/dl Total Creatine Kinase 61 39-308 U/L Creatine Kinase MB 1.3 0.5-3.6 ng/ml Creatine Kinase MB Ratio 2.1 0-3.0 Troponin I < 0.015 0-0.045 ng/ml Microbiology Results 04/23/17 Blood Culture, Received Pending 04/23/17 Blood Culture, Received Pending Diagnostic Radiology CXR is consistent with COPD - no acute infiltrates EKG Sinus tach - 150 BPM Impression Assessment and Plan 71 y/o M Hx depression, GERD, 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 Pt presents with progressive SOB and cough over the course of 1 day. He states that his currently has pneumonia. He denies CP, N/V, diarrhea or dysuria and could not confirm fevers. Initial CXR does not support a pneumonia diagnosis. Leukocytosis is present on initial labs. The pt has additionally been markedly tachycardic, which may be due partially to an hour-long neb treatment. He denies any CP. 1) COPD exacerbation - placed on scheduled nebs, steroids, 02 protocol, Abx 2) Tachycardia - may be owing to COPD exacerbation and Albuterol use - we will assign the pt to telemetry and provide IVF - would hesitate to slow rate as rhythm is sinus and tachycardia is at least partially compensatory. 3) GERD - cont PPi Full code - Heparin prophylaxis Total time for this admit including review of labs, meds, imaging - discussion with pt and ER attending - 38 min Level of Care Telemetry Resuscitation Status FULL RESUSCITATION VTE Prophylaxis Given or contraindicated: Unfractionated heparin SQ
[2017-04-23] MEDS ORDERED: ACETAMINOPHEN 325 MG TAB PO PRN (04:15)
[2017-04-23] MEDS ORDERED: MAGNESIUM HYDROXIDE SUSP 30 ML UDC PO PRN (04:15)
[2017-04-23] MEDS ORDERED: ONDANSETRON INJ 2 MG/ML 2 ML VIAL IV PRN (04:15)
[2017-04-23] MEDS ORDERED: POLYETHYLENE (MIRALAX) 17 GM PACK PO PRN (04:15)
[2017-04-23] MEDS ORDERED: ALBUTEROL 0.083% NEBU SOLN 3 ML VIAL INH PRN (04:15)
[2017-04-23] MEDS ORDERED: ACETAMINOPHEN 325 MG TAB PO STA (04:42)
--- NOTE | 2017-04-23 06:31 | DIAGNOSTIC IMAGING REPORT ---
CHEST ONE VIEW PORTABLE CLINICAL HISTORY: SHOB dyspnea. Chest pain. COMPARISON STUDY: 11/20/2016 FINDINGS: Emphysematous change. No focal infiltrate. Mild chronic interstitial and/or fibrotic change considered stable. Diaphragms smooth but somewhat flattened. IMPRESSION: Emphysematous change. No acute infiltrate. The above report was generated using voice recognition software. It may contain grammatical, syntax or spelling errors. Electronically signed by: El Ortega M.D. 04/23/2017 6:29 AM Dictated Date/Time: 04/23/2017 6:28 AM
[2017-04-23] MEDS ORDERED: LEVOFLOXACIN CONSULT ACTIVE PRN (07:30)
[2017-04-23] MEDS ORDERED: METHYLPREDNISOLONE IV 60 MG in SYRINGE 0 ML IV SCH (08:00)
[2017-04-23] MEDS: SODIUM CHLORIDE 0.9% 1000ML 1,000 ML IV SCH ×2 (08:06→13:11)
[2017-04-23] MEDS: ESCITALOPRAM OXALATE 20 MG TAB PO SCH (08:07)
[2017-04-23] MEDS: BUDESONIDE/FORMOTEROL FUMARATE 160/4.5 60 PUFFS/INHALER INH SCH ×2 (08:07→20:53)
[2017-04-23] MEDS: ROFLUMILAST 500 MCG TAB PO SCH (08:07)
--- NOTE | 2017-04-23 08:50 | Hospitalist Progress Note ---
Hospitalist Progress Note Date of Service Apr 23, 2017. (Cheri Craig PA-C) Subjective Pt evaluation today including: conversation w/ patient, physical exam, chart review, lab review, review of studies Pain: None PO Intake: Fair Voiding: no voiding problems The patient was seen and examined this morning. Pt reports his breathing is improved. He still has cough which is productive of yellow/brown sputum. He was asked to expectorate into a sputum cup for culture. Pt reports he typically wears 4 L at home with exertion, and sometimes while he sleeps but not at all times. The patients , Anni, is at home with pneumonia and is being treated with antibiotics. He reports they have also had sick family visiting over the holidays and have young grandchildren who they watch occasionally. He denies any chest pain, shortness of breath, abdominal pain, n/ v/d/c, fever, chills or sweats. ROS: 6 point ROS reviewed and otherwise negative. (Cheri Craig PA-C) Objective Vital Signs Date Time Temp Pulse Resp B/P (MAP) Pulse Ox O2 Delivery O2 Flow Rate FiO2 04/23/17 06:50 36.6 147 24 125/70 (88) 91 Mask 4.0 04/23/17 06:33 36.8 125 23 137/70 95 04/23/17 06:08 125 23 95 Nasal Cannula 5.0 04/23/17 06:02 135 04/23/17 06:02 135 137/70 100 Oxymask 4.0 04/23/17 05:50 36.8 136 23 111/70 Nasal Cannula 4.0 04/23/17 04:00 139/69 04/23/17 03:46 139 31 100 Nebulizer 7.0 04/23/17 03:16 131 29 98 Nebulizer 7.0 04/23/17 03:00 111/76 04/23/17 02:57 93 Nasal Cannula 4.0 04/23/17 02:54 143 04/23/17 02:54 131/77 04/23/17 02:53 37.2 138 27 131/77 93 Nasal Cannula 4.0 04/23/17 02:52 139/73 04/23/17 02:51 129/91 04/23/17 02:50 168/89 (Cheri Craig PA-C) Physical Exam General Appearance: WD/WN, no apparent distress, + thin Eyes: PERRL, EOMI ENT: hearing grossly normal, pharynx normal, + pertinent finding (endentulous, MMM) Neck: supple, no JVD Respiratory/Chest: + pertinent finding (on 4L via NC, barrel chested, diminished breath sounds throughout, faint exp wheeze. No crackles or rales. ) Cardiovascular: no murmur, + tachycardia (HR in 130s) Abdomen: normal bowel sounds, non tender, soft Extremities: non-tender, normal inspection, no pedal edema Neurologic/Psychiatric: alert, normal mood/affect, oriented x 3 Skin: normal color, warm/dry (Cheri Craig PA-C) Laboratory Results Last 24 Hours Test 04/23/17 03:00 04/23/17 03:11 Influenza Type A (RT-PCR) Neg for Influ A Influenza Type A Antigen Neg for Influ A Influenza Type B Antigen Neg for Influ B Influenza Type B (RT-PCR) Neg for Influ B White Blood Count 15.71 K/uL Red Blood Count 4.21 M/uL Hemoglobin 13.2 g/dL Hematocrit 39.4 % Mean Corpuscular Volume 93.6 fL Mean Corpuscular Hemoglobin 31.4 pg Mean Corpuscular Hemoglobin Concent 33.5 g/dl Platelet Count 265 K/uL Mean Platelet Volume 9.7 fL Neutrophils (%) (Auto) 83.7 % Lymphocytes (%) (Auto) 5.6 % Monocytes (%) (Auto) 10.0 % Eosinophils (%) (Auto) 0.1 % Basophils (%) (Auto) 0.2 % Neutrophils # (Auto) 13.16 K/uL Lymphocytes # (Auto) 0.88 K/uL Monocytes # (Auto) 1.57 K/uL Eosinophils # (Auto) 0.01 K/uL Basophils # (Auto) 0.03 K/uL RDW Standard Deviation 44.2 fL RDW Coefficient of Variation 13.0 % Immature Granulocyte % (Auto) 0.4 % Immature Granulocyte # (Auto) 0.06 K/uL Arterial Blood pH 7.36 Arterial Blood Partial Pressure CO2 54 mmHg Arterial Blood Partial Pressure O2 67 mm/Hg Arterial Blood HCO3 30 mmol/L Arterial Blood Oxygen Saturation 93.0 % Arterial Blood Base Excess 3.3 mEq/L Arterial Blood Gas Delivery 5 L Jethro Test POS Sodium Level 134 mmol/L Potassium Level 4.0 mmol/L Chloride Level 98 mmol/L Carbon Dioxide Level 29 mmol/L Anion Gap 7.0 mmol/L Blood Urea Nitrogen 17 mg/dl Creatinine 0.68 mg/dl Est Creatinine Clear Calc Drug Dose 88.8 ml/min Estimated GFR () 111.4 Estimated GFR (Non- 96.1 BUN/Creatinine Ratio 24.5 Random Glucose 147 mg/dl Calcium Level 8.9 mg/dl Total Creatine Kinase 61 U/L Creatine Kinase MB 1.3 ng/ml Creatine Kinase MB Ratio 2.1 Troponin I < 0.015 ng/ml (Cheri Craig PA-C) Assessment and Plan 71 y/o M Hx depression, GERD, 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 Pt presents with progressive SOB and cough over the course of 1 day. He states that his currently has pneumonia. He denies CP, N/V, diarrhea or dysuria and could not confirm fevers. Initial CXR does not support a pneumonia diagnosis. Leukocytosis is present on initial labs. The pt has additionally been markedly tachycardic, which may be due partially to an hour-long neb treatment. COPD exacerbation - Continue on tele for tachycardia - Switched duonebs to xopenex nebs to decrease amount of albuterol possibly contributing to tachycardia - Continue solumedrol 60 mg Q8H - Continue levaquin day # 1 - Wears 4L O2 with exertion and QHS at baseline. 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 Tachycardia - Xopenex nebs on board - d/c IVF after total of 2L, pt with fair PO intake. GERD - cont PPI DVT ppx: lovenox 40 mg subq daily CODE STATUS: Full code Disposition: From home, lives with , possible d/c in ~ 2 days. (Cheri Craig PA-C) DEVANG Physician Supervision Note: I interviewed and examined the patient. Discussed with Cheri Craig PAC and agree with findings and plan as documented in the note. Any exceptions or clarifications are listed here: None Patient admitted with a COPD exacerbation he has significant barrel chest. Luckily his has influenza but he does not. He feels somewhat better but still has some purse lipped breathing and mild to moderate respiratory distress The patient has been tachycardic likely due to his distress but we will change his albuterol levalbuterol continuing nebulizers Pulmonary exam shows very poor air movement in all lung burch, his tachycardia seems sinus COPD exacerbation treated with intravenous steroids frequent nebulized medication, tachycardia likely situational as the patient did have an hour-long nebulizer will attempt to reduce this by changing medications Documented By: Otf Mendoza (Otf Mendoza M.D.)
[2017-04-23] MEDS ORDERED: ALBUT/IPRATROP 3MG/0.5MG NEB 3 ML VIAL INH SCH (09:00)
[2017-04-23] MEDS ORDERED: *BENZOCAINE/MENTHOL 18 LOZ/1 BOX MT PRN (10:00)
[2017-04-23] MEDS ORDERED: COUGH DROP (SUGAR FREE) LOZ 24 LOZ/1 BOX PO PRN (10:00)
[2017-04-23] MEDS ORDERED: CHLORASEPTIC 1.4% SOLN 180 ML BTL MT PRN (10:00)
[2017-04-23] MEDS ORDERED: LEVALBUTEROL 1.25MG/3ML NEB INH PRN (10:30)
[2017-04-23] MEDS: ENOXAPARIN 40 MG/0.4 ML SYR SC SCH (13:11)
[2017-04-23] MEDS: LEVALBUTEROL 1.25MG/0.5ML NEB INH SCH ×2 (15:13→19:01)
[2017-04-23] MEDS: IPRATROPIUM BROMIDE NEB SOLN 0.02% 2.5 ML VIAL INH SCH ×2 (15:13→19:01)
[2017-04-23] MEDS: METHYLPREDNISOLONE IV 40 MG in SYRINGE 0 ML IV SCH (16:22)
[2017-04-23] MEDS: ALUMINUM/MAGNESIUM/SIMETH (MAALOX MAX) 30 ML UDC PO PRN (19:36)
[2017-04-23] MEDS: LORAZEPAM 0.5 MG TAB PO SCH (20:52)
[2017-04-23] MEDS: MONTELUKAST SOD 10 MG TAB PO SCH (20:54)
[2017-04-24] VITALS (10 sets, daily range): BP systolic 111–162; BP diastolic 68–82; PULSE 105–126; TEMP 36.4–37; O2SAT 90–98; Ht 175.3 cm; Wt 58.9 kg
[2017-04-24] MEDS: METHYLPREDNISOLONE IV 40 MG in SYRINGE 0 ML IV SCH ×3 (00:07→20:43)
[2017-04-24] MEDS: IPRATROPIUM BROMIDE NEB SOLN 0.02% 2.5 ML VIAL INH SCH ×4 (01:42→20:04)
[2017-04-24] MEDS: LEVALBUTEROL 1.25MG/0.5ML NEB INH SCH ×4 (01:42→20:04)
[2017-04-24] MEDS: ALUMINUM/MAGNESIUM/SIMETH (MAALOX MAX) 30 ML UDC PO PRN ×2 (01:53→20:51)
[2017-04-24] MEDS: LEVOFLOXACIN / D5W 750 MG in PREMIXED IN D5W 150 ML IV SCH (04:02)
--- NOTE | 2017-04-24 06:19 | Clinical Documentation Query ---
CLINICAL DOCUMENTATION QUERY 71 year old male with a history of O2 dependent COPD who presents to the Emergency Room via EMS with complaints of worsening shortness of breath In your clinical opinion is this patient being managed for: ( x ) Acute and chronic respiratory failure in setting of COPD exacerbation treated with BiPAP, IV Solumedrol, and Nebs. ( ) Not Agree ( ) Other explanation of clinical findings (Please Explain) ( ) Unable to determine (Please Define) ( ) Need to Discuss The medical record reflects the following clinical findings, treatment, and risk factors. Clinical Indicators: Patient per ED physician described as in moderate distress. Dyspneic and tachypneic. Minimal air movement. Severe emphysematous chest. Tachycardia 143, Tachypnea 31. ABG showed hypercapnia and hypoxia. 7.36/54/67/30 Treatment: O2, BiPAP, IV Solumedrol, IV Levofloxacin, Duonebs, Risk Factors: Age, end stage O2 dependent COPD, Please clarify and document your clinical opinion in the progress notes and discharge summary. Terms such as "probable", "suspected", "likely", "questionable", "possible", or "still to be ruled out" are acceptable. IF IN AGREEMENT, YOU MUST DOCUMENT ABOVE DIAGNOSTIC STATEMENT IN DAILY PROGRESS NOTES AND DISCHARGE SUMMARY. This document is not part of the patient's record. Thank You, Demar Steven, RN [phone]
[2017-04-24 07:42] LABS: HEMATOCRIT 34.8 % (42-52); HEMOGLOBIN 11.6 g/dL (14.0-18.0); MEAN CELL VOLUME 91.6 fL (80-100); MEAN CORPUSCULAR HEMOGLOBIN 30.5 pg (25-34); MEAN CORPUSCULAR HGB CONC 33.3 g/dl (32-36); MEAN PLATELET VOLUME 9.9 fL (7.4-10.4); PLATELET COUNT 303 K/uL (130-400); RED CELL DISTRIBUTION WIDTH CV 12.8 % (11.5-14.5); RED CELL DISTRIBUTION WIDTH SD 43.1 fL (36.4-46.3)
[2017-04-24] MEDS: BUDESONIDE/FORMOTEROL FUMARATE 160/4.5 60 PUFFS/INHALER INH SCH ×2 (08:04→20:44)
[2017-04-24] MEDS: ROFLUMILAST 500 MCG TAB PO SCH (08:04)
[2017-04-24] MEDS: ESCITALOPRAM OXALATE 20 MG TAB PO SCH (08:04)
--- NOTE | 2017-04-24 08:11 | Hospitalist Progress Note ---
Hospitalist Progress Note Date of Service Apr 24, 2017. (Cheri Craig PA-C) Subjective Pt evaluation today including: conversation w/ patient, physical exam, chart review, lab review, review of studies Pain: None PO Intake: Fair Voiding: no voiding problems The patient was seen and examined this morning. Pt reports doing ok this morning. He has not been up moving much since being in the hospital due to coughing fits. He is bringing up sputum with the hard cough and was able to supple a sputum culture. He has a fan running beside him at bedside as he reports warm air makes his ability to breath harder, and prefers the very cold weather. He denies fever, chills or sweats. Pt is requesting boost, as he normally drinks one with breakfast, and ate minimally this morning. He denies any chest pain, sob with rest. ROS: 6 point ROS reviewed and otherwise negative. (Cheri Craig PA-C) Objective Vital Signs Date Time Temp Pulse Resp B/P (MAP) Pulse Ox O2 Delivery O2 Flow Rate FiO2 04/24/17 07:59 36.8 105 18 128/73 (91) 98 5.0 04/24/17 07:31 118 18 98 Nasal Cannula 5.0 04/24/17 04:30 Nasal Cannula 5.0 04/24/17 04:16 37.0 108 18 131/71 (91) 95 Nasal Cannula 5.0 04/24/17 01:44 112 20 97 Nasal Cannula 5.0 04/24/17 00:15 Nasal Cannula 5.0 04/23/17 23:07 36.9 84 20 122/64 (83) 94 Nasal Cannula 5.0 04/23/17 20:00 Nasal Cannula 6.0 04/23/17 19:42 36.9 91 22 132/71 (91) 94 Nasal Cannula 5.0 04/23/17 19:03 118 20 86 Nasal Cannula 4.0 04/23/17 16:00 Nasal Cannula 4.0 04/23/17 15:14 114 20 92 Nasal Cannula 3.0 04/23/17 14:01 115 28 123/66 (85) 99 Nasal Cannula 4.0 04/23/17 12:00 Nasal Cannula 4.0 04/23/17 11:41 36.8 120 20 119/62 (81) 93 Nasal Cannula 4.0 (Cheri Craig PA-C) Physical Exam Notes: General Appearance: WD/WN, no apparent distress, + thin Eyes: PERRL, EOMI ENT: hearing grossly normal, pharynx normal, + pertinent finding (endentulous - dental plates in place, MMM) Neck: supple, no JVD Respiratory/Chest: + pertinent finding (on 4L via NC, barrel chested, diminished breath sounds throughout, no exp wheeze. No crackles or rales. ) Cardiovascular: no murmur, RRR, mildly tachy with rates in low 100s. Abdomen: normal bowel sounds, non tender, soft Extremities: non-tender, normal inspection, no pedal edema Neurologic/Psychiatric: alert, normal mood/affect, oriented x 3 Skin: normal color, warm/dry (Cheri Craig, BRANDIE) Laboratory Results Last 24 Hours Test 04/23/17 09:58 04/24/17 06:52 Prothrombin Time 10.4 SECONDS Prothromb Time International Ratio 1.0 Activated Partial Thromboplast Time 31.0 SECONDS Partial Thromboplastin Ratio 1.2 White Blood Count 16.20 K/uL Red Blood Count 3.80 M/uL Hemoglobin 11.6 g/dL Hematocrit 34.8 % Mean Corpuscular Volume 91.6 fL Mean Corpuscular Hemoglobin 30.5 pg Mean Corpuscular Hemoglobin Concent 33.3 g/dl RDW Standard Deviation 43.1 fL RDW Coefficient of Variation 12.8 % Platelet Count 303 K/uL Mean Platelet Volume 9.9 fL (Cheri Craig PA-C) Assessment and Plan 71 y/o M Hx depression, GERD, 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 Pt presents with progressive SOB and cough over the course of 1 day. He states that his currently has pneumonia. He denies CP, N/V, diarrhea or dysuria and could not confirm fevers. Initial CXR does not support a pneumonia diagnosis. Leukocytosis is present on initial labs. The pt has additionally been markedly tachycardic, which may be due partially to an hour-long neb treatment. Acute and chronic respiratory failure in setting of COPD exacerbation - Moved off tele to med surg on 1/4 - Switched duonebs to xopenex nebs to decrease amount of albuterol possibly contributing to tachycardia - Continue solumedrol 40 mg Q8H - decrease as tolerated. - Continue levaquin day # 2 - Wears 4L O2 with exertion and QHS at baseline. 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 - Has pulm f/u with Dr. Packer scheduled for Thursday 04/27 Tachycardia- improving - Xopenex nebs on board - d/c IVF after total of 2L, pt with fair PO intake. GERD - cont PPI DVT ppx: lovenox 40 mg subq daily CODE STATUS: Full code Disposition: From home, lives with , possible d/c in ~ 2 days. (Cheri Craig, LUCAC) PA Physician Supervision Note: I interviewed and examined the patient. Discussed with Cheri Craig PAC and agree with findings and plan as documented in the note. Any exceptions or clarifications are listed here: None Patient has had some improvement with his acute on chronic respiratory failure from underlying COPD however he remains significantly dyspneic with oxygen requirements and purse lipped breathing Patient is mostly bothered by significant coughing will try some codeine cough medication this evening addition to his cough drops will maintain antibiotic treatment for a coexisting bronchitis as well as steroid taper Patient's vitals show him to be with slightly improved tachycardia after changing to leave albuterol, he also is requiring 4 L nasal cannula Lungs have extremely poor air movement in all lung burch no focal air loss or wheezing Acute on chronic respiratory failure with hypoxia continued therapy with nebulized medications oxygen supplementation and steroid treatment Documented By: Otf Mendoza (Otf Mendoza M.D.)
[2017-04-24 09:15] LABS: CALCIUM 8.9 mg/dl (8.5-10.1); CREATININE 0.76 mg/dl (0.60-1.40); POTASSIUM 3.7 mmol/L (3.5-5.1)
[2017-04-24] MEDS: ENOXAPARIN 40 MG/0.4 ML SYR SC SCH (13:51)
[2017-04-24] MEDS ORDERED: GUAIFENESIN/CODEINE 100MG/10MG 5ML UDC PO PRN (15:00)
[2017-04-24] MEDS: MONTELUKAST SOD 10 MG TAB PO SCH (20:44)
[2017-04-24] MEDS: LORAZEPAM 0.5 MG TAB PO SCH (20:44)
[2017-04-25] VITALS (11 sets, daily range): BP systolic 123–146; BP diastolic 67–83; PULSE 100–127; TEMP 36.7–37.1; O2SAT 90–98
[2017-04-25] MEDS: LEVALBUTEROL 1.25MG/0.5ML NEB INH SCH ×4 (02:16→20:19)
[2017-04-25] MEDS: IPRATROPIUM BROMIDE NEB SOLN 0.02% 2.5 ML VIAL INH SCH ×4 (02:16→20:19)
[2017-04-25] MEDS: LEVOFLOXACIN / D5W 750 MG in PREMIXED IN D5W 150 ML IV SCH (03:53)
[2017-04-25] MEDS: METHYLPREDNISOLONE IV 40 MG in SYRINGE 0 ML IV SCH ×2 (07:40→19:39)
[2017-04-25] MEDS: BUDESONIDE/FORMOTEROL FUMARATE 160/4.5 60 PUFFS/INHALER INH SCH ×2 (07:42→20:51)
[2017-04-25] MEDS: ESCITALOPRAM OXALATE 20 MG TAB PO SCH (07:43)
[2017-04-25] MEDS: ROFLUMILAST 500 MCG TAB PO SCH (07:43)
[2017-04-25] MEDS: BOOST VANILLA PO SCH (07:44)
--- NOTE | 2017-04-25 08:19 | Hospitalist Progress Note ---
Hospitalist Progress Note Date of Service Apr 25, 2017. (Cheri Craig PA-C) Subjective Pt evaluation today including: conversation w/ patient, physical exam, chart review, lab review, review of studies Pain: None PO Intake: Good Voiding: no voiding problems The patient was seen and examined this morning. Pt reports doing well, his breathing is about 90% back to normal per his report. He is coughing occasionally with no sputum production. He hasn't been up ambulating much, so was encouraged to do so. Pt appetite is good, bowels moving. Pt had episode of substernal cp after breakfast this morning which was resolved with a GI cocktail. Pt notes he takes pepcid at home and this pain felt the same. Pt denies any other acute complaints. ROS: 6 point ROS reviewed and negative otherwise. (Cheri Craig PA-C) Objective Vital Signs Date Time Temp Pulse Resp B/P (MAP) Pulse Ox O2 Delivery O2 Flow Rate FiO2 04/25/17 07:20 106 18 98 Room Air 04/25/17 07:13 36.9 112 16 129/79 (96) 98 Nasal Cannula 4.0 04/25/17 05:22 37.1 114 22 126/67 (86) 98 Nasal Cannula 4.0 04/25/17 04:00 Nasal Cannula 4.0 04/25/17 02:16 119 18 94 Nasal Cannula 4.0 04/25/17 00:00 Nasal Cannula 4.0 04/24/17 23:45 36.9 117 21 131/82 (98) 95 Nasal Cannula 4.0 04/24/17 20:04 120 20 90 Nasal Cannula 4.0 04/24/17 19:46 36.4 115 24 162/81 (108) 91 Nasal Cannula 4.0 04/24/17 19:44 Nasal Cannula 4.0 04/24/17 16:00 Nasal Cannula 4.0 04/24/17 15:21 36.8 122 22 111/68 (82) 92 4.0 04/24/17 14:17 126 20 97 Nasal Cannula 4.0 04/24/17 12:17 36.5 117 20 123/70 (87) 92 4.0 04/24/17 12:00 Nasal Cannula 5.0 (Cheri Craig PA-C) Physical Exam Notes: General Appearance: WD/WN, no apparent distress, + thin Eyes: PERRL, EOMI ENT: hearing grossly normal, pharynx normal, + pertinent finding (edentulous - dental plates in place, MMM) Neck: supple, no JVD Respiratory/Chest: + pertinent finding (on 4L via NC, barrel chested, improved aeration throughout, no exp wheeze. No crackles or rales. ) Cardiovascular: no murmur, RRR. 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 Pt presents with progressive SOB and cough over the course of 1 day. He states that his currently has pneumonia. He denies CP, N/V, diarrhea or dysuria and could not confirm fevers. Initial CXR does not support a pneumonia diagnosis. Leukocytosis is present on initial labs. The pt has additionally been markedly tachycardic, which may be due partially to an hour-long neb treatment. Acute and chronic respiratory failure in setting of COPD exacerbation - Moved off tele to med surg on 04/23 - Switched duonebs to xopenex nebs to decrease amount of albuterol possibly contributing to tachycardia - Continue solumedrol 40 mg Q12H - likely can transition to PO prednisone tomorrow morning - Continue levaquin day # 3 - Wears 4L O2 with exertion and QHS at baseline. - Currently on 4 but has not been ambulating - encouraged ambulation today. 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 - Has pulm f/u with Dr. Packer scheduled for Thursday 04/27 Tachycardia- improving - Xopenex nebs on board - d/c IVF after total of 2L, pt with fair PO intake. GERD - cont PPI DVT ppx: lovenox 40 mg subq daily CODE STATUS: Full code Disposition: From home, lives with , possible d/c tomorrow (Cheri Craig PA-C) PA Physician Supervision Note: I interviewed and examined the patient. Discussed with Cheri Craig PAC and agree with findings and plan as documented in the note. Any exceptions or clarifications are listed here: None Patient states his COPD is improving but not quite at his baseline yet he has less cough and episodes of epigastric discomfort which improved with GI cocktail Vital sign review shows persistent tachycardia Cardiac exam is tachycardic regular lungs are decreased breath sounds poor air movement but no wheezes or egophony COPD exacerbation with tachycardia from physiological stress continue to maintain steroids and levalbuterol and ipratropium nebs continue cough suppression and antibiotic therapy for possible bronchitis/pneumonia Documented By: Otf Mendoza (Otf Mendoza M.D.)
[2017-04-25] MEDS ORDERED: BOOST VANILLA PO SCH (09:00)
[2017-04-25] MEDS: ALUMINUM/MAGNESIUM/SIMETH (MAALOX MAX) 30 ML UDC PO PRN (09:47)
[2017-04-25] MEDS ORDERED: GI COCKTAIL PO PRN (10:15)
[2017-04-25] MEDS ORDERED: ALUMINUM/MAGNESIUM SUSP 72 ML, LIDOCAINE HCL 2% VISCOUS SOLN 24 ML, BARCODE IDENTIFIER ... PO PRN ×2 (10:15)
[2017-04-25] MEDS: PANTOprazole SOD 40 MG TAB PO SCH (10:58)
[2017-04-25] MEDS: ENOXAPARIN 40 MG/0.4 ML SYR SC SCH (13:44)
[2017-04-25] MEDS: LORAZEPAM 0.5 MG TAB PO SCH (20:51)
[2017-04-25] MEDS: MONTELUKAST SOD 10 MG TAB PO SCH (20:54)
[2017-04-26 02:14] VITALS: PULSE 102; O2SAT 95
[2017-04-26] MEDS: IPRATROPIUM BROMIDE NEB SOLN 0.02% 2.5 ML VIAL INH SCH ×2 (02:14→07:18)
[2017-04-26] MEDS: LEVALBUTEROL 1.25MG/0.5ML NEB INH SCH ×2 (02:14→07:18)
[2017-04-26] MEDS ORDERED: LEVOFLOXACIN / D5W 500 MG in PREMIXED IN D5W 100 ML IV SCH (04:00)
[2017-04-26 04:50] VITALS: BP 115/69; PULSE 96; TEMP 36.9; O2SAT 98
[2017-04-26 07:05] LABS: HEMATOCRIT 35.6 % (42-52); HEMOGLOBIN 11.6 g/dL (14.0-18.0); MEAN CELL VOLUME 94.4 fL (80-100); MEAN CORPUSCULAR HEMOGLOBIN 30.8 pg (25-34); MEAN CORPUSCULAR HGB CONC 32.6 g/dl (32-36); MEAN PLATELET VOLUME 9.9 fL (7.4-10.4); PLATELET COUNT 291 K/uL (130-400); RED CELL DISTRIBUTION WIDTH SD 45.2 fL (36.4-46.3); WHITE BLOOD COUNT 15.99 K/uL (4.8-10.8)
[2017-04-26 07:18] VITALS: PULSE 101; O2SAT 99
[2017-04-26 07:19] VITALS: BP 111/69; PULSE 104; TEMP 36.9; O2SAT 98
[2017-04-26 07:31] VITALS: BP 124/69; PULSE 67; TEMP 37.1; O2SAT 95
[2017-04-26 07:40] LABS: CALCIUM 8.8 mg/dl (8.5-10.1); CREATININE 0.72 mg/dl (0.60-1.40); POTASSIUM 4.3 mmol/L (3.5-5.1)
[2017-04-26] MEDS: BOOST VANILLA PO SCH (09:01)
[2017-04-26] MEDS: METHYLPREDNISOLONE IV 40 MG in SYRINGE 0 ML IV SCH (09:04)
[2017-04-26] MEDS: BUDESONIDE/FORMOTEROL FUMARATE 160/4.5 60 PUFFS/INHALER INH SCH (09:06)
[2017-04-26] MEDS: ROFLUMILAST 500 MCG TAB PO SCH (09:07)
[2017-04-26] MEDS: PANTOprazole SOD 40 MG TAB PO SCH (09:07)
[2017-04-26] MEDS: ESCITALOPRAM OXALATE 20 MG TAB PO SCH (09:07)
[2017-04-26] MEDS ORDERED: PRED10TA PO (10:46)
[2017-04-26] MEDS ORDERED: IPRASOL4 INH (10:46)
[2017-04-26] MEDS ORDERED: LEVO1TAB33 PO (10:46)
--- NOTE | 2017-04-26 10:48 | Discharge Instructions ---
Discharge Instructions Date of Service Apr 26, 2017. Admission Reason for Admission: Copd Exacerbation, Respiratory Infection Discharge Discharge Diagnosis / Problem: copd exacerbation, bronchitis Discharge Goals Goal(s): Diagnostic testing, Therapeutic intervention Activity Recommendations Activity Limitations: as noted below Lifting Limitations: gradually increase as tolerated Please avoid the cold air as much as able begin your medicines on thursday morning 04/27 See you lung specialist this week . Current Hospital Diet Patient's current hospital diet: Regular Diet Discharge Diet Recommended Diet: Regular Diet Pending Studies Studies pending at discharge: no Medical Emergencies . Who to Call and When: Medical Emergencies: If at any time you feel your situation is an emergency, please call 911 immediately. . Non-Emergent Contact Non-Emergency issues call your: Primary Care Provider, Dials Supervisor Call Non-Emergent contact if: temperature is above 101, your pain is unusual for you . . "Provider Documentation" section prepared by Otf Mendoza. . VTE Core Measure Inpt VTE Proph given/why not?: Unfractionated heparin SQ
[2017-04-26 11:58] VITALS: BP 111/69; PULSE 104; TEMP 36.9; O2SAT 98
--- NOTE | 2017-04-26 14:53 | Discharge Summary ---
Discharge Summary Date of Service Apr 26, 2017. Discharge Summary Admission Date: Apr 23, 2017 at 04:17 Discharge Date: Apr 26, 2017 Discharge Disposition: Home Principal Diagnosis: copd exacerbation and bronchitis Medication Reconciliation New Medications: Levofloxacin (Levaquin) 500 Mg Tab 500 MG PO DAILY for 7 Days, #7 TAB Prednisone Tab (Prednisone) 10 Mg Tab 10 MG PO UD, #42 TAB 4 pills a day x 4 days then 3 pills a day x 4 days then 2 pills a day x 4 days then 1 pill a day Continued Medications: Albuterol Sulfate (Proair Respiclick) 108 Mcg/Act Aer 2 PUFFS INH QID PRN for SOB/Wheezing Budesonide/Formoterol Fumarate (Symbicort 160/4.5 Inhaler) 120 Puffs/ Aero 2 PUFFS INH BID, INHALER Cholecalciferol (Vitamin D3) 2,000 Unit Cap 2000 UNITS PO DAILY for 90 Days, CAP 3 Refills Escitalopram Oxalate (Lexapro) 20 Mg Tab 20 MG PO DAILY Home O2 Therapy (Oxygen) Gas 4 LITER NA PRN Ipratropium-Albuterol (Duoneb) 3 Ml Nebu 1 TREATMENT INH Q6H, #120 INHA (This prescription has been renewed) Lorazepam (Lorazepam) 0.5 Mg Tab 0.5 MG PO HS Montelukast Sodium (Singulair) 10 Mg Tab 10 MG PO DAILY, TAB Multiple Vitamins W/ Minerals (Certavite/Antioxidants) 1 Tab Tab 1 TAB PO DAILY Roflumilast (Daliresp) 500 Mcg Tab 500 MCG PO DAILY for 30 Days, #30 TAB 5 Refills Tiotropium Mize (Spiriva Handihaler) 30 Puff/540 Mcg Aerp 1 CAP INH DAILY Discharge Exam Review of Systems: Constitutional: No fever, No chills Respiratory: + cough, + shortness of breath, + dyspnea on exertion, No sputum Cardiovascular: No chest pain, No orthopnea, No edema Abdomen: No pain, No nausea, No diarrhea, No constipation Physical Exam: General Appearance: WD/WN, + mild distress Respiratory/Chest: chest non-tender, + decreased breath sounds, + rhonchi Cardiovascular: regular rate, rhythm, no murmur Abdomen / GI: normal bowel sounds, non tender, soft Hospital Course 71 y/o M Hx of oxygen requiring copd presents with exacerbation and bronchitis, h/o depression, GERD, his currently has pneumonia at home. Acute and chronic respiratory failure in setting of COPD exacerbation tapering steroids and completing levaquin symbicort inh and daliresp inh - Has pulm f/u with Dr. Packer scheduled for Thursday 04/27 Tachycardia- improved with overall improvement in disease course GERD - cont PPI DVT ppx: lovenox 40 mg subq daily CODE STATUS: Full code Disposition: From home, lives with Total Time Spent: Greater than 30 minutes This includes examination of the patient, discharge planning, medication reconciliation, and communication with other providers. Discharge Instructions Please refer to the electronic Patient Visit Report (Discharge Instructions) for additional information.
== END 2017-04-26 14:00 | disposition home or self-care (01) | DRG 189 ==
LOC: C.EDA 02:46 → EDBD 02:46 → C.MSICU 04:17 → CANRESERV 06:21 → ENRESERV 06:21 → EDBEDREQSVC 14:10 → ENRESERV 14:36 → C.MED 15:00
PROVIDERS: ADMIT Internal Medicine; ATTEND Internal Medicine
DX: J96.20 Acute and chronic respiratory failure, unspecified whether with hypoxia or hypercapnia (principal); J44.1 Chronic obstructive pulmonary disease with (acute) exacerbation; J44.0 Chronic obstructive pulmonary disease with (acute) lower respiratory infection; J40 Bronchitis, not specified as acute or chronic; R00.0 Tachycardia, unspecified; F32.9 Major depressive disorder, single episode, unspecified; K21.9 Gastro-esophageal reflux disease without esophagitis; Z79.899 Other long term (current) drug therapy; Z87.891 Personal history of nicotine dependence; Z99.81 Dependence on supplemental oxygen

== ENCOUNTER → 2017-06-02 | Outpatient (CLI) | payer OTHER, MEDICARE ==
[~2017-06-02] MED LIST changes: +ATV5 PO; -CHN/1 PO; +CHOL2000 PO; -CNT PO; -DLR500 PO; -LVQ750 PO; +MULT-7 PO; -NYSS5 PO; -PRLSR20 PO; +ROFL1TAB5 PO
[2017-06-02 10:17] LABS: BASO % 0.6 %; BASO ABS # 0.06 K/uL (0-0.2); EOS % 1.9 %; EOS ABS # 0.19 K/uL (0-0.5); HEMATOCRIT 40.4 % (42-52); IG# 0.09 K/uL (0.00-0.02); LYMPH % 13.9 %; LYMPH ABS # 1.38 K/uL (1.2-3.4); MEAN CELL VOLUME 93.5 fL (80-100); MEAN CORPUSCULAR HEMOGLOBIN 30.1 pg (25-34); MEAN CORPUSCULAR HGB CONC 32.2 g/dl (32-36); MEAN PLATELET VOLUME 9.2 fL (7.4-10.4); MONO % 5.8 %; MONO ABS # 0.57 K/uL (0.11-0.59); NEUT % 76.9 %; NEUT ABS # 7.62 K/uL (1.4-6.5); PLATELET COUNT 532 K/uL (130-400); RED CELL DISTRIBUTION WIDTH CV 13.2 % (11.5-14.5); RED CELL DISTRIBUTION WIDTH SD 45.7 fL (36.4-46.3); WHITE BLOOD COUNT 9.91 K/uL (4.8-10.8)
[2017-06-02 10:26] LABS: HEMOGLOBIN A1C 5.7 % (4.5-5.6)
[2017-06-02 10:47] LABS: ALBUMIN 3.3 gm/dl (3.4-5.0); ALT/SGPT 17 U/L (12-78); AST/SGOT 11 U/L (15-37); BLOOD UREA NITROGEN 12 mg/dl (7-18); CALCIUM 10.1 mg/dl (8.5-10.1); CARBON DIOXIDE 33 mmol/L (21-32); CREATININE 0.87 mg/dl (0.60-1.40); GLUCOSE 99 mg/dl (70-99); POTASSIUM 3.9 mmol/L (3.5-5.1); SODIUM 142 mmol/L (136-145)
[2017-06-02 10:55] LABS: ALKALINE PHOSPHATASE 70 U/L (45-117); TOTAL PROTEIN 7.4 gm/dl (6.4-8.2)
== END | disposition home or self-care (01) ==
LOC: C.LAB1850 09:25
PROVIDERS: ATTEND Internal Medicine
DX: J44.9 Chronic obstructive pulmonary disease, unspecified (principal); E55.9 Vitamin D deficiency, unspecified; J96.91 Respiratory failure, unspecified with hypoxia; J96.10 Chronic respiratory failure, unspecified whether with hypoxia or hypercapnia; R73.9 Hyperglycemia, unspecified; E46 Unspecified protein-calorie malnutrition; D64.9 Anemia, unspecified

== ENCOUNTER → 2017-06-02 | Outpatient (CLI) | payer OTHER, MEDICARE ==
--- NOTE | 2017-06-02 10:44 | DIAGNOSTIC IMAGING REPORT ---
CHEST 2 VIEWS ROUTINE HISTORY: J20.9 Acute bronchitis with bronchospasm COMPARISON: Chest 04/23/2017. FINDINGS: Severe emphysema is again noted. No focal lung consolidations to suggest pneumonia. No evidence for pulmonary edema. The heart is normal in size. No pleural effusions. No pneumothorax. IMPRESSION: Severe emphysema. No acute process within the chest. Electronically signed by: Sanjay Sullivan M.D. 06/02/2017 10:43 AM Dictated Date/Time: 06/02/2017 10:42 AM
--- NOTE | 2017-06-02 12:00 | DIAGNOSTIC IMAGING REPORT ---
ABDOMEN FOR HERNIA CLINICAL HISTORY: RT ING SWELLING pain. Edema. TECHNIQUE: Ultrasound COMPARISON STUDY: None FINDINGS: Findings consistent with a nonreducible fat-containing right inguinal hernia. Small amount of reactive surrounding fluid. No significant bowel containment. IMPRESSION: Nonreducible fat containing right inguinal hernia with a small amount of reactive surrounding fluid. The above report was generated using voice recognition software. It may contain grammatical, syntax or spelling errors. Electronically signed by: El Ortega M.D. 06/02/2017 11:59 AM Dictated Date/Time: 06/02/2017 11:57 AM
== END | disposition home or self-care (01) ==
LOC: C.ULTRBC 10:07
PROVIDERS: ATTEND Internal Medicine
DX: R10.31 Right lower quadrant pain (principal); J20.9 Acute bronchitis, unspecified

== ENCOUNTER 2017-07-09 20:00 | Inpatient (IN) | payer OTHER, MEDICARE ==
[~2017-07-09] VITALS: Ht 175.3 cm; Wt 57.9 kg
[2017-07-09] MEDS ORDERED: SODIUM CHLORIDE 0.9% 1000ML 1,000 ML IV STA (20:28)
[2017-07-09] MEDS ORDERED: METHYLPREDNISOLONE 125 MG VIAL IV STA (20:28)
[2017-07-09] MEDS ORDERED: ALBUT/IPRATROP 3MG/0.5MG NEB 3 ML VIAL INH ONE (20:30)
--- NOTE | 2017-07-09 20:48 | DIAGNOSTIC IMAGING REPORT ---
CHEST ONE VIEW PORTABLE CLINICAL HISTORY: Pt c/o SOB dyspnea COMPARISON STUDY: 06/02/2017 FINDINGS: Stable emphysematous change. Linear scarring right base considered chronic. No focal infiltrate. IMPRESSION: Emphysematous change. Mild chronic interstitial change. No acute process. The above report was generated using voice recognition software. It may contain grammatical, syntax or spelling errors. Electronically signed by: El Ortega M.D. 07/09/2017 8:46 PM Dictated Date/Time: 07/09/2017 8:45 PM
--- NOTE | 2017-07-09 21:20 | EMERGENCY ROOM VISIT NOTE ---
History Report prepared by Maggy: Josephine Abernathy Under the Supervision of: Dr. Lauro Cardona M.D. First contact with patient: 20:23 Chief Complaint: SHORTNESS OF BREATH Stated Complaint: SOB Nursing Triage Summary: Pt arrives ALS for evaluation arrives of sudden onset of sob. Pt reports he reports he had the chills and body aches most of today. Became very warm, sob, spo2 70s. Called 911. Reports saw PCP a few days ago and is being treated for a sinus infection with Z-glory. Pt reports he is to do duonebs qid and did not do any today. HX: Severe COPD. Smokes. Chronic O2 4/l. History of Present Illness The patient is a 72 year old male who presents to the Emergency Room with complaints of an episode of shortness of breath occurring prior to arrival. The patient states that he is on 4-5 L of O2 at home. He states that the breathing treatment he was given in the ambulance was helpful. The patient states that he has increased difficulty breathing when he is hot. He states that he became hot tonight and couldn't breathe at all. He reports that he began to shake with it. The patient notes that he has a sinus infection that is being treated with Azithromycin since Thursday. Source of History: patient Onset: prior to arrival Position: other (global) Quality: other (short of breath) Timing: other (episode) Modifying Factors (Worsening): other (when hot) Modifying Factors (Relieving): other (breathing treatment) Note: The patient complains of shaking with his episode tonight. Review of Systems See HPI for pertinent positives & negatives. A total of 10 systems reviewed and were otherwise negative. Past Medical & Surgical Medical Problems: (1) COPD (chronic obstructive pulmonary disease) (2) COPD exacerbation (3) Respiratory infection Family History Patient reports no known family medical history. Social History Smoking Status: Current Every Day Smoker Alcohol Use: occasionally Drug Use: none Marital Status: Housing Status: lives alone Occupation Status: employed Current/Historical Medications Scheduled Budesonide/Formoterol Fumarate (Symbicort 160/4.5 Inhaler), 2 PUFFS INH BID Cholecalciferol (Vitamin D3), 2,000 UNITS PO DAILY Escitalopram Oxalate (Lexapro), 20 MG PO DAILY Home O2 Therapy (Oxygen), 4 LITER NA PRN Ipratropium-Albuterol (Duoneb), 1 TREATMENT INH Q6H Montelukast Sodium (Singulair), 10 MG PO DAILY Multiple Vitamins W/ Minerals (Certavite/Antioxidants), 1 TAB PO DAILY Prednisone (Prednisone Tab), 0 PO DAILY Tiotropium [place] (Spiriva Handihaler), 1 CAP INH DAILY Scheduled PRN Albuterol Sulfate (Proair Respiclick), 2 PUFFS INH QID PRN for SOB/Wheezing Ibuprofen (Motrin), 800 MG PO DAILY PRN for Pain or Fever Allergies Coded Allergies: No Known Allergies (Unverified , 07/09/17) Physical Exam Vital Signs Date Time Temp Pulse Resp B/P (MAP) Pulse Ox O2 Delivery O2 Flow Rate FiO2 07/10/17 00:58 120 07/10/17 00:56 120 27 95 BiPAP/CPAP 30 07/10/17 00:54 120 95 30 07/10/17 00:39 121 22 144/77 88 Nasal Cannula 5.0 07/09/17 23:17 36.6 123 22 134/81 97 Nasal Cannula 5.0 07/09/17 22:27 117 23 134/83 97 Nasal Cannula 5.0 07/09/17 21:23 103 16 96 Nasal Cannula 4.0 07/09/17 20:45 88 07/09/17 20:10 99 Nasal Cannula 5.0 07/09/17 20:10 Nasal Cannula 5.0 07/09/17 20:10 99 Nasal Cannula 5.0 07/09/17 20:08 36.4 100 22 114/84 98 Nasal Cannula 5.0 Physical Exam GENERAL: Awake, alert, cachetic-appearing, in no acute distress HENT: Normocephalic, atraumatic. Oropharynx unremarkable. EYES: Normal conjunctiva. Sclera non-icteric. NECK: Supple. No nuchal rigidity. FROM. No JVD. RESPIRATORY: Very little lung sounds can be heard on exam. CARDIAC: Regular rate, normal rhythm. Extremities warm and well perfused. Pulses equal. ABDOMEN: Soft, non-distended. No tenderness to palpation. No rebound or guarding. No masses. RECTAL: Deferred. MUSCULOSKELETAL: Chest examination reveals no tenderness. The back is symmetrical on inspection without obvious abnormality. There is no CVA tenderness to palpation. No joint edema. LOWER EXTREMITIES: Calves are equal size bilaterally and non-tender. No edema. No discoloration. NEURO: Normal sensorium. No sensory or motor deficits noted. SKIN: No rash or jaundice noted. Medical Decision & Procedures ER Provider Diagnostic Interpretation: Radiology results as stated below per my review and radiologist interpretation: CHEST ONE VIEW PORTABLE CLINICAL HISTORY: Pt c/o SOB dyspnea COMPARISON STUDY: 06/02/2017 FINDINGS: Stable emphysematous change. Linear scarring right base considered chronic. No focal infiltrate. IMPRESSION: Emphysematous change. Mild chronic interstitial change. No acute process. The above report was generated using voice recognition software. It may contain grammatical, syntax or spelling errors. Electronically signed by: El Ortega M.D. 07/09/2017 8:46 PM Dictated Date/Time: 07/09/2017 8:45 PM Laboratory Results Test 07/09/17 21:00 07/09/17 21:15 Influenza Type A Antigen Neg for Influ A (NEG) Influenza Type B Antigen Neg for Influ B (NEG) Immature Granulocyte % (Auto) 0.4 % White Blood Count 11.42 K/uL (4.8-10.8) Red Blood Count 4.15 M/uL (4.7-6.1) Hemoglobin 12.7 g/dL (14.0-18.0) Hematocrit 39.5 % (42-52) Mean Corpuscular Volume 95.2 fL (80-100) Mean Corpuscular Hemoglobin 30.6 pg (25-34) Mean Corpuscular Hemoglobin Concent 32.2 g/dl (32-36) Platelet Count 246 K/uL (130-400) Mean Platelet Volume 9.7 fL (7.4-10.4) Neutrophils (%) (Auto) 86.0 % Lymphocytes (%) (Auto) 6.8 % Monocytes (%) (Auto) 3.9 % Eosinophils (%) (Auto) 2.5 % Basophils (%) (Auto) 0.4 % Neutrophils # (Auto) 9.82 K/uL (1.4-6.5) Lymphocytes # (Auto) 0.78 K/uL (1.2-3.4) Monocytes # (Auto) 0.45 K/uL (0.11-0.59) Eosinophils # (Auto) 0.28 K/uL (0-0.5) Basophils # (Auto) 0.05 K/uL (0-0.2) Immature Granulocyte # (Auto) 0.04 K/uL (0.00-0.02) Total Bilirubin 0.3 mg/dl (0.2-1) Aspartate Amino Transf (AST/SGOT) 13 U/L (15-37) Alanine Aminotransferase (ALT/SGPT) 17 U/L (12-78) Alkaline Phosphatase 58 U/L (45-117) Total Creatine Kinase 74 U/L (39-308) Creatine Kinase MB 3.1 ng/ml (0.5-3.6) Creatine Kinase MB Ratio 4.2 (0-3.0) Troponin I < 0.015 ng/ml (0-0.045) Total Protein 6.8 gm/dl (6.4-8.2) Albumin 3.6 gm/dl (3.4-5.0) Globulin 3.2 gm/dl (2.5-4.0) Albumin/Globulin Ratio 1.1 (0.9-2) Labs reviewed by ED physician. Medications Administered Medications (Trade) Dose Ordered Sig/[place] Route Start Time Stop Time Status Last Admin Dose Admin Methylprednisolone Sodium Succinate (Solu-Medrol IV) 60 mg NOW STAT IV 07/09/17 20:28 07/09/17 20:30 DC 07/09/17 21:11 60 MG Albuterol/ Ipratropium (Duoneb) 12 ml ONE ONCE INH 07/09/17 20:30 07/09/17 20:31 DC 07/09/17 21:23 12 ML Sodium Chloride 1,000 ml @ 999 mls/hr Q1H1M STAT IV 07/09/17 20:28 07/09/17 21:28 DC 07/09/17 21:12 999 MLS/HR Albuterol (Ventolin Hfa Inhaler) 2 puffs NOW STAT INH 07/09/17 23:05 07/09/17 23:06 DC 07/09/17 23:18 2 PUFFS Albuterol/ Ipratropium (Duoneb) 12 ml ONE ONCE INH 07/10/17 00:30 07/10/17 00:31 DC 07/10/17 00:52 12 ML Magnesium Sulfate (Magnesium Sulfate) 1 gm NOW STAT IV 07/10/17 00:25 07/10/17 00:27 DC 07/10/17 01:11 1 GM ECG Per My Interpretation Indication: SOB/dyspnea Rate (beats per minute): 105 Rhythm: sinus tachycardia Findings: other (normal axis, no ST elevation or depression) ED Course 2024: Past medical records reviewed. The patient was evaluated in room B9. A complete history and physical examination was performed. 2027: Ordered NSS 1000 ml @ 999 mls/hr IV, Solu-Medrol 60 mg IV. 2029: Ordered Duoneb 12 ml INH. 2258: Upon reexamination the patient is resting comfortably. I discussed results and treatment plan with the patient. He verbalizes agreement and understanding. The patient is ready for discharge. 2304: Ordered Albuterol 2 puffs INH. 0022: The patient states that he made it to the waiting room and felt short of breath with his home O2 on. He states that his O2 saturation was 67%. He states that he does not think he can go home. 5: Ordered Magnesium Sulfate 1 gm IV. 0: Ordered Duoneb 12 ml INH. 0042: I discussed the patient's case with Dr. Mahad JEFFERS Hospitalist, he has agreed to evaluate the patient for further management and care. Medical Decision Etiologies such as infections, reactive airway disease, pneumonia, pneumothorax , COPD, CHF, cardiac ischemia, pulmonary embolism, musculoskeletal, gastrointestinal, as well as others were entertained. This is a 72-year-old male who presents emergency department complaining of shortness of breath. He received breathing treatments via ambulance. In addition the patient also received an hour-long breathing treatment along with Solu-Medrol. After somebody decide to stop in for today just the patient began feeling better. I offered admission to the patient however he wished to go home. He was ambulated around the emergency department by nursing staff. The patient then made it as far as the waiting room when he had to return to the emergency department. He was placed in his room as he was hypoxic and short of breath. He was again placed on BiPAP. Medication Reconcilliation Current Medication List: was personally reviewed by me Blood Pressure Screening Patient's blood pressure: Normal blood pressure Blood pressure disposition: Did not require urgent referral Consults Time Called: 24 Consulting Physician: Dr. Mahad JEFFERS Hospitalist Returned Call: [phone] I discussed the patient's case with Dr. Tobin - [facility] Hospitalist, he has agreed to evaluate the patient for further management and care. Impression Primary Impression: COPD exacerbation Scribe Attestation The scribe's documentation has been prepared under my direction and personally reviewed by me in its entirety. I confirm that the note above accurately reflects all work, treatment, procedures, and medical decision making performed by me. Departure Information Dispostion Being Evaluated By Hospitalist Prescriptions Prednisone (Prednisone Tab) 20 Mg Tab 0 PO DAILY, #7 TAB 2 TABS DAILY FOR 2 DAYS, THEN 1 TAB DAILY FOR 2 DAYS, THEN 1/2 TAB DAILY FOR 2 DAYS. Prov: Lauro Cardona MD 07/09/17 Referrals Bob Duke M.D. (PCP) Forms HOME CARE DOCUMENTATION FORM, IMPORTANT VISIT INFORMATION Patient Instructions My [facility] Additional Instructions Use inhaler twice every 6 hours You have been examined and treated today on an emergency basis only. This is not a substitute for, or an effort to provide, complete comprehensive medical care. It is impossible to recognize and treat all injuries or illnesses in a single emergency department visit. It is therefore important that you follow up closely with Dr Duke. Call as soon as possible for an appointment. Thank you for your time and consideration. I look forward to speaking with you again soon. Please don't hesitate to call us if you have any questions.
[2017-07-09 21:23] VITALS: PULSE 103; O2SAT 96
[2017-07-09 21:45] LABS: INFLUENZA B ANTIGEN Neg for Influ B (NEG)
[2017-07-09 21:51] LABS: ALBUMIN 3.6 gm/dl (3.4-5.0); ALT/SGPT 17 U/L (12-78); BLOOD UREA NITROGEN 12 mg/dl (7-18); CALCIUM 9.2 mg/dl (8.5-10.1); CARBON DIOXIDE 38 mmol/L (21-32); CREATININE 0.73 mg/dl (0.60-1.40); GLUCOSE 112 mg/dl (70-99); POTASSIUM 4.4 mmol/L (3.5-5.1); SODIUM 141 mmol/L (136-145)
[2017-07-09 21:55] LABS: BASO % 0.4 %; BASO ABS # 0.05 K/uL (0-0.2); EOS % 2.5 %; EOS ABS # 0.28 K/uL (0-0.5); HEMATOCRIT 39.5 % (42-52); HEMOGLOBIN 12.7 g/dL (14.0-18.0); IG# 0.04 K/uL (0.00-0.02); LYMPH % 6.8 %; LYMPH ABS # 0.78 K/uL (1.2-3.4); MEAN CELL VOLUME 95.2 fL (80-100); MEAN CORPUSCULAR HEMOGLOBIN 30.6 pg (25-34); MEAN CORPUSCULAR HGB CONC 32.2 g/dl (32-36); MEAN PLATELET VOLUME 9.7 fL (7.4-10.4); MONO % 3.9 %; MONO ABS # 0.45 K/uL (0.11-0.59); NEUT ABS # 9.82 K/uL (1.4-6.5); PLATELET COUNT 246 K/uL (130-400); RED CELL DISTRIBUTION WIDTH CV 13.4 % (11.5-14.5); RED CELL DISTRIBUTION WIDTH SD 46.8 fL (36.4-46.3); WHITE BLOOD COUNT 11.42 K/uL (4.8-10.8)
[2017-07-09 21:56] LABS: ALKALINE PHOSPHATASE 58 U/L (45-117); AST/SGOT 13 U/L (15-37); CKMB 3.1 ng/ml (0.5-3.6); TOTAL PROTEIN 6.8 gm/dl (6.4-8.2)
[2017-07-09] MEDS ORDERED: IBUP-1428 PO (22:34)
[2017-07-09] MEDS ORDERED: PRED20TA2 PO (23:03)
[2017-07-09] MEDS ORDERED: ALBUTEROL HFA 8 GM INHALER INH STA (23:05)
[2017-07-10] VITALS (13 sets, daily range): BP systolic 108–134; BP diastolic 64–79; PULSE 114–150; TEMP 36.7–37.4; O2SAT 92–100; Ht 175.3 cm; Wt 57.9 kg
[2017-07-10] MEDS ORDERED: MAGNESIUM SULFATE 1GM / D5W 1 GM BAG IV STA (00:25)
[2017-07-10] MEDS ORDERED: ALBUT/IPRATROP 3MG/0.5MG NEB 3 ML VIAL INH ONE (00:30)
--- NOTE | 2017-07-10 00:55 | History and Physical ---
History & Physical Date & Time of Service: Jul 10, 2017 at 00:52 Chief Complaint: SOB Primary Care Physician: Bob Duke M.D. History of Present Illness Source: patient, hospital records 71 y/o pMHx depression, GERD, end-stage COPD dependent on 5L 02. Patient presents with progressive SOB and with worsened cough over the course of 1 day. He has chronic intermittent chest pain but otherwise denies fevers/chills, headaches, palpitations, abdominal pain, lower extremity swelling or rashes. He admits to diminished appetite although he has not had nausea or vomiting. He denies issues ambulation. He states no issues with voiding or stooling. In the ED, patient was given IV methylprednisone, magnesium sulfate, and multiple DuoNeb treatments. He felt better, but desaturated to the 60s with ambulation. He was started on BiPap, but could not tolerate, and thus switched to CPAP. Saturations improved. ROS is unremarkable except as noted above. Past Medical/Surgical History Medical Problems: (1) COPD (chronic obstructive pulmonary disease) (2) COPD exacerbation (3) COPD exacerbation (4) Hypoxemia (5) Hypoxia (6) Influenza (7) Pneumonia involving right lung (8) Respiratory distress (9) Respiratory infection (10) Sepsis (11) Tachycardia Family History Patient reports no known family medical history. non contributory Social History Smoking Status: Current Every Day Smoker Smokeless Tobacco Use: No Alcohol Use: none Drug Use: none Marital Status: Housing status: lives with family Occupational Status: employed Immunizations History of Influenza Vaccine: Unknown History of Tetanus Vaccine?: Unknown History of Pneumococcal: Unknown History of Hepatitis B Vaccine: Unknown Allergies Coded Allergies: No Known Allergies (Unverified , 07/09/17) Home Medications Scheduled Budesonide/Formoterol Fumarate (Symbicort 160/4.5 Inhaler), 2 PUFFS INH BID Cholecalciferol (Vitamin D3), 2,000 UNITS PO DAILY Escitalopram Oxalate (Lexapro), 20 MG PO DAILY Home O2 Therapy (Oxygen), 4 LITER NA PRN Ipratropium-Albuterol (Duoneb), 1 TREATMENT INH Q6H Montelukast Sodium (Singulair), 10 MG PO DAILY Multiple Vitamins W/ Minerals (Certavite/Antioxidants), 1 TAB PO DAILY Prednisone (Prednisone Tab), 0 PO DAILY Tiotropium [place] (Spiriva Handihaler), 1 CAP INH DAILY Scheduled PRN Albuterol Sulfate (Proair Respiclick), 2 PUFFS INH QID PRN for SOB/Wheezing Ibuprofen (Motrin), 800 MG PO DAILY PRN for Pain or Fever Physical Exam Vital Signs Date Time Temp Pulse Resp B/P (MAP) Pulse Ox O2 Delivery O2 Flow Rate FiO2 07/10/17 00:39 121 22 144/77 88 Nasal Cannula 5.0 07/09/17 23:17 36.6 123 22 134/81 97 Nasal Cannula 5.0 07/09/17 22:27 117 23 134/83 97 Nasal Cannula 5.0 07/09/17 21:23 103 16 96 Nasal Cannula 4.0 07/09/17 20:45 88 07/09/17 20:10 99 Nasal Cannula 5.0 07/09/17 20:10 Nasal Cannula 5.0 07/09/17 20:10 99 Nasal Cannula 5.0 07/09/17 20:08 36.4 100 22 114/84 98 Nasal Cannula 5.0 General Appearance: WD/WN, no apparent distress Head: normocephalic, atraumatic Eyes: normal inspection ENT: hearing grossly normal Neck: supple Respiratory/Chest: no respiratory distress, no accessory muscle use, + decreased breath sounds, + wheezing (scattered) Cardiovascular: regular rate, rhythm, normal peripheral pulses Abdomen/GI: normal bowel sounds, non tender, soft Back: normal inspection, no CVA tenderness Extremities/Musculoskelatal: no calf tenderness, no pedal edema Neurologic/Psych: alert, oriented x 3 Skin: normal color, warm/dry, no rash Diagnostics Laboratory Results Results Past 24 Hours Test 07/09/17 21:00 07/09/17 21:15 Range/Units Influenza Type A Antigen Neg for Influ A NEG Influenza Type B Antigen Neg for Influ B NEG White Blood Count 11.42 4.8-10.8 K/uL Red Blood Count 4.15 4.7-6.1 M/uL Hemoglobin 12.7 14.0-18.0 g/dL Hematocrit 39.5 42-52 % Mean Corpuscular Volume 95.2 80-100 fL Mean Corpuscular Hemoglobin 30.6 25-34 pg Mean Corpuscular Hemoglobin Concent 32.2 32-36 g/dl Platelet Count 246 130-400 K/uL Mean Platelet Volume 9.7 7.4-10.4 fL Neutrophils (%) (Auto) 86.0 % Lymphocytes (%) (Auto) 6.8 % Monocytes (%) (Auto) 3.9 % Eosinophils (%) (Auto) 2.5 % Basophils (%) (Auto) 0.4 % Neutrophils # (Auto) 9.82 1.4-6.5 K/uL Lymphocytes # (Auto) 0.78 1.2-3.4 K/uL Monocytes # (Auto) 0.45 0.11-0.59 K/uL Eosinophils # (Auto) 0.28 0-0.5 K/uL Basophils # (Auto) 0.05 0-0.2 K/uL RDW Standard Deviation 46.8 36.4-46.3 fL RDW Coefficient of Variation 13.4 11.5-14.5 % Immature Granulocyte % (Auto) 0.4 % Immature Granulocyte # (Auto) 0.04 0.00-0.02 K/uL Sodium Level 141 136-145 mmol/L Potassium Level 4.4 3.5-5.1 mmol/L Chloride Level 99 98-107 mmol/L Carbon Dioxide Level 38 21-32 mmol/L Anion Gap 4.0 3-11 mmol/L Blood Urea Nitrogen 12 7-18 mg/dl Creatinine 0.73 0.60-1.40 mg/dl Est Creatinine Clear Calc Drug Dose 74.1 ml/min Estimated GFR () 107.4 Estimated GFR (Non- 92.7 BUN/Creatinine Ratio 15.9 10-20 Random Glucose 112 70-99 mg/dl Calcium Level 9.2 8.5-10.1 mg/dl Total Bilirubin 0.3 0.2-1 mg/dl Aspartate Amino Transf (AST/SGOT) 13 15-37 U/L Alanine Aminotransferase (ALT/SGPT) 17 12-78 U/L Alkaline Phosphatase 58 45-117 U/L Total Creatine Kinase 74 39-308 U/L Creatine Kinase MB 3.1 0.5-3.6 ng/ml Creatine Kinase MB Ratio 4.2 0-3.0 Troponin I < 0.015 0-0.045 ng/ml Total Protein 6.8 6.4-8.2 gm/dl Albumin 3.6 3.4-5.0 gm/dl Globulin 3.2 2.5-4.0 gm/dl Albumin/Globulin Ratio 1.1 0.9-2 Diagnostic Radiology CHEST ONE VIEW PORTABLE CLINICAL HISTORY: Pt c/o SOB dyspnea COMPARISON STUDY: 06/02/2017 FINDINGS: Stable emphysematous change. Linear scarring right base considered chronic. No focal infiltrate. IMPRESSION: Emphysematous change. Mild chronic interstitial change. No acute process. Impression Assessment and Plan 71 y/o pMHx depression, GERD, end-stage COPD dependent on 5L 02. Patient presents with progressive SOB and with worsened cough over the course of 1 day. In the ED, patient was given IV methylprednisone, magnesium sulfate, and multiple DuoNeb treatments. He felt better, but desaturated to the 60s with ambulation. He was started on BiPap, but could not tolerate, and thus switched to CPAP. Saturations improved. COPD exacerbation - Continue CPAP as unable to tolerate BiPap - Patient on 5L O2 via NC at baseline - Continue home inhaler regimen - IV methylprednisone 40mg q12h - Empiric doxycycline ordered - Duoneb q4h or q2h PRN dyspnea Depression/anxiety - Continue escitalopram GERD - Not on any meds at home - Pantoprazole ordered VTE ppx - SCDs DO NOT RESUSCITATE Attending addendum: I have physically seen this patient, have supervised the medical residents activities, and agree with the H&P unless as otherwise noted. Assessment and Plan: Acute respiratory failure with hypoxia and hypercapnia/COPD exacerbation-- Doxycycline 100 mg p.o. twice daily Solu-Medrol 40 mg IV every 12 hours Guaifenesin extended release 600 mg by mouth twice a day Duonebs every 4 hours while awake and every 2 hours when necessary. Continue CPAP 8 cm of water until able to be converted back to nasal cannula. Target is nasal cannula 4-5 L of oxygen titrating to keep pulse ox around 88%. Monitor closely for CO2 narcosis Advanced Directives Existing Advance Directive: Yes Existing Living Will: Yes Existing Power of Energy Trading Analyst: No Resuscitation Status DNR VTE Prophylaxis Will order VTE Prophylaxis: Yes Social Service Consult None Apply Resident Tracking Resident Involvement: Resident Care Provided Care Provided: Adult Hospital Medicine
[2017-07-10] MEDS ORDERED: MAGNESIUM HYDROXIDE SUSP 30 ML UDC PO PRN (01:30)
[2017-07-10] MEDS ORDERED: ALUMINUM/MAGNESIUM/SIMETH (MAALOX MAX) 30 ML UDC PO PRN (01:30)
[2017-07-10] MEDS ORDERED: POLYETHYLENE (MIRALAX) 17 GM PACK PO PRN (01:30)
[2017-07-10] MEDS ORDERED: NITROGLYCERIN 0.4 MG SL PER TAB CHARGE SL PRN (01:30)
[2017-07-10] MEDS ORDERED: ONDANSETRON INJ 2 MG/ML 2 ML VIAL IV PRN (01:30)
[2017-07-10] MEDS ORDERED: ACETAMINOPHEN 325 MG TAB PO PRN (01:30)
[2017-07-10] MEDS ORDERED: IV FLUIDS COMPLETED PRN (03:15)
[2017-07-10] MEDS ORDERED: ALBUT/IPRATROP 3MG/0.5MG NEB 3 ML VIAL INH SCH (08:00)
[2017-07-10] MEDS: CEROVITE ADV FORMULA TAB PO SCH (08:30)
[2017-07-10] MEDS: PANTOprazole SOD 40 MG TAB PO SCH (08:31)
[2017-07-10] MEDS: MONTELUKAST SOD 10 MG TAB PO SCH (08:31)
[2017-07-10] MEDS: ESCITALOPRAM OXALATE 20 MG TAB PO SCH (08:31)
[2017-07-10] MEDS: DOXYCYCLINE HYCLATE 100 MG CAP PO SCH ×2 (08:31→21:17)
[2017-07-10] MEDS: TIOTROPIUM BROMIDE 5 PUFF/90 MCG INH INH SCH (08:32)
[2017-07-10] MEDS: BUDESONIDE/FORMOTEROL FUMARATE 160/4.5 60 PUFFS/INHALER INH SCH ×2 (08:34→21:17)
[2017-07-10] MEDS: METHYLPREDNISOLONE IV 40 MG in SYRINGE 0 ML IV SCH ×2 (08:36→21:17)
[2017-07-10 08:58] LABS: HEMATOCRIT 36.2 % (42-52); HEMOGLOBIN 11.7 g/dL (14.0-18.0); MEAN CELL VOLUME 92.8 fL (80-100); MEAN CORPUSCULAR HGB CONC 32.3 g/dl (32-36); MEAN PLATELET VOLUME 9.2 fL (7.4-10.4); PLATELET COUNT 239 K/uL (130-400); RED CELL DISTRIBUTION WIDTH CV 13.6 % (11.5-14.5); RED CELL DISTRIBUTION WIDTH SD 46.4 fL (36.4-46.3); WHITE BLOOD COUNT 7.31 K/uL (4.8-10.8)
[2017-07-10] MEDS ORDERED: LEVALBUTEROL/IPRATROPIUM NEB INH SCH (09:00)
[2017-07-10 09:30] LABS: CALCIUM 9.3 mg/dl (8.5-10.1); CREATININE 1.02 mg/dl (0.60-1.40); POTASSIUM 3.8 mmol/L (3.5-5.1)
[2017-07-10] MEDS ORDERED: COUGH DROP (SUGAR FREE) LOZ 24 LOZ/1 BOX LOZ PRN (10:15)
--- NOTE | 2017-07-10 10:22 | Progress Note ---
Progress Note Date of Service Jul 10, 2017. (Mercedez Almendarez ., BRANDIE) Progress Note Patient admitted after midnight, seen and examined by me this morning. Patient denies shortness of breath at rest but complains of significant dyspnea with minimal exertion. He also reports a productive cough and wheezing. He states he has an intermittent chest pressure. He reports feeling weak and fatigued. The patient had presented to the ED and was originally discharged home. Just after leaving, however, he developed SOB and O2 sat was in 60s and not coming back up. Patient returned to the ED and was then admitted. The patient received 2 nearly back to back hour long DuoNebs in the ED and has been tachycardic all night/morning. Per patient, he is always tachycardic at home as he checks his pulse ox often. He has chronic palpitations. The patient denies fevers, chills, sweats, claudication,nausea, vomiting, abdominal pain, dysuria, hematuria, urinary retention, paralysis, focal motor weakness, numbness and tingling. Physical exam positive for diffusely diminished breath sounds. Pt has barrel chest. Currently on 4L O2, pt has been wearing 5L at home. Lower sternum and epigastric area of abdomen TTP. Physical exam otherwise unremarkable. A/P: COPD exacerbation, end stage COPD--stable - Admit to telemetry. Pt in sinus tach with HR in 130s, up to 150. Pt receive 2 consecutive hour long DuoNebs in ED - O2 by protocol, keep SpO2 88-92%. Currently on 4L, wears 5L at baseline - Cannot tolerate CPAP or BiPAP. Pt c/o sore throat from BiPAP, will order prn lozenges - Continue Symbicort and Spiriva, Singulair - Solu-Medrol 40 mg IV q12h - Empiric doxycycline 100 mg PO BID, day #2 - Change DuoNeb to Xopenex/Atrovent due to tachycardia, although this is apparently chronic at home Depression/anxiety - Continue escitalopram 20 mg PO qd GERD - Pantoprazole ordered DVT prophylaxis - SCDs Code Status -Level V, DO NOT RESUSCITATE (Mercedez Almendarez ., BRANDIE) PA Physician Supervision Note: I interviewed and examined the patient. Discussed with Mercedez Almendarez PAC and agree with findings and plan as documented in the note. Any exceptions or clarifications are listed here: None Patient feels slightly improved. He still is reasonably significantly short of breath. He has a resting tachycardia which is typical from his previous admissions his cough is productive of a yellow mucus Vital signs show temperature 36 8 pulse is 111 respiration rate 27 and blood pressure is 120/73 his cardiac exam is tachycardic but sounds regular his lungs with poor air movement with rhonchi and wheezing through most lung burch he has pursed lipped breathing Patient is here with a COPD exacerbation we will continue with nebulized medications intravenous steroids typically his heart rate improves as his exacerbation remits will continue to follow this on telemetry Documented By: Otf Mendoza (Otf Mendoza M.D.)
[2017-07-10] MEDS: LEVALBUTEROL 1.25MG/0.5ML NEB INH SCH ×3 (11:27→19:47)
[2017-07-10] MEDS: IPRATROPIUM BROMIDE NEB SOLN 0.02% 2.5 ML VIAL INH SCH ×3 (11:27→19:47)
[2017-07-10] MEDS ORDERED: SODIUM CHLORIDE 0.65% NA SOLN 45 ML (OCEAN) ONE (16:07)
[2017-07-11] VITALS (10 sets, daily range): BP systolic 120–150; BP diastolic 65–81; PULSE 101–123; TEMP 36.4–37.3; O2SAT 91–98
[2017-07-11] MEDS: LEVALBUTEROL 1.25MG/0.5ML NEB INH SCH ×2 (01:39→06:57)
[2017-07-11] MEDS: IPRATROPIUM BROMIDE NEB SOLN 0.02% 2.5 ML VIAL INH SCH ×2 (01:40→06:57)
[2017-07-11 07:53] LABS: HEMATOCRIT 36.8 % (42-52); HEMOGLOBIN 12.2 g/dL (14.0-18.0); MEAN CORPUSCULAR HEMOGLOBIN 30.5 pg (25-34); MEAN CORPUSCULAR HGB CONC 33.2 g/dl (32-36); MEAN PLATELET VOLUME 9.4 fL (7.4-10.4); PLATELET COUNT 241 K/uL (130-400); RED CELL DISTRIBUTION WIDTH CV 13.9 % (11.5-14.5); RED CELL DISTRIBUTION WIDTH SD 46.5 fL (36.4-46.3); WHITE BLOOD COUNT 9.59 K/uL (4.8-10.8)
--- NOTE | 2017-07-11 08:05 | Progress Note ---
Subjective Date of Service: Jul 11, 2017. Subjective pt states he feels significantly short of breath and full of mucus, he has difficulty expectorating any mucus at all and speaks in short sentences due to dyspnea Problem List Medical Problems: (1) COPD exacerbation Status: Acute (2) Hypoxemia Status: Acute (3) Hypoxia Status: Acute (4) Influenza Status: Acute (5) Pneumonia involving right lung Status: Acute (6) Respiratory distress Status: Acute (7) Sepsis Status: Acute (8) Tachycardia Status: Acute Review of Systems Constitutional: + weakness, No fever, No chills Respiratory: + cough, + wheezing, + shortness of breath, + dyspnea on exertion Cardiac: No chest pain, No edema Abdomen: No pain, No vomiting, No diarrhea Musculoskeletal: No joint pain, No muscle pain, No swelling Psychiatric: No depression symptoms, No anxiety Objective Vital Signs Date Time Temp Pulse Resp B/P (MAP) Pulse Ox O2 Delivery O2 Flow Rate FiO2 07/11/17 07:49 37.1 107 22 123/68 (86) 97 4.0 07/11/17 06:58 109 20 98 Nasal Cannula 4.0 07/11/17 04:14 Nasal Cannula 4.0 07/11/17 03:44 36.4 116 20 129/77 (94) 95 Nasal Cannula 4.0 07/11/17 01:41 114 22 96 Nasal Cannula 4.0 07/11/17 00:15 Nasal Cannula 4.0 07/10/17 23:48 37.4 116 20 128/79 (95) 97 Nasal Cannula 5.0 07/10/17 20:30 Nasal Cannula 4.0 07/10/17 20:19 36.7 114 24 134/77 (96) 100 Nasal Cannula 4.0 07/10/17 19:48 115 20 98 Nasal Cannula 4.0 07/10/17 16:00 97 Nasal Cannula 4.0 07/10/17 14:42 36.7 129 22 109/64 (79) 97 Nasal Cannula 4.0 07/10/17 13:35 119 27 98 Nasal Cannula 4.0 07/10/17 12:00 Nasal Cannula 5.0 07/10/17 12:00 36.9 132 32 125/73 (90) 95 Nasal Cannula 5.0 07/10/17 11:28 119 27 95 Nasal Cannula 30 Physical Exam General Appearance: + moderate distress, + thin Eyes: normal inspection, sclerae normal Neck: supple, no JVD Respiratory/Chest: + respiratory distress, + decreased breath sounds, + accessory muscle use, + rhonchi Cardiovascular: no murmur, + tachycardia Abdomen: normal bowel sounds, non tender, soft Extremities: no pedal edema, no calf tenderness Neurologic/Psychiatric: alert, oriented x 3 Laboratory Results Last 24 Hours Test 07/10/17 08:33 07/10/17 09:15 07/11/17 07:38 White Blood Count 7.31 K/uL 9.59 K/uL Red Blood Count 3.90 M/uL 4.00 M/uL Hemoglobin 11.7 g/dL 12.2 g/dL Hematocrit 36.2 % 36.8 % Mean Corpuscular Volume 92.8 fL 92.0 fL Mean Corpuscular Hemoglobin 30.0 pg 30.5 pg Mean Corpuscular Hemoglobin Concent 32.3 g/dl 33.2 g/dl RDW Standard Deviation 46.4 fL 46.5 fL RDW Coefficient of Variation 13.6 % 13.9 % Platelet Count 239 K/uL 241 K/uL Mean Platelet Volume 9.2 fL 9.4 fL Sodium Level 139 mmol/L Potassium Level 3.8 mmol/L Chloride Level 98 mmol/L Carbon Dioxide Level 35 mmol/L Anion Gap 6.0 mmol/L Blood Urea Nitrogen 12 mg/dl Creatinine 1.02 mg/dl Est Creatinine Clear Calc Drug Dose 56.2 ml/min Estimated GFR () 84.7 Estimated GFR (Non- 73.1 BUN/Creatinine Ratio 12.1 Random Glucose 156 mg/dl Calcium Level 9.3 mg/dl Urine Color YELLOW Urine Appearance CLEAR Urine pH 8.0 Urine Specific [place] 1.016 Urine Protein NEG Urine Glucose (UA) NEG Urine Ketones 1+ Urine Occult Blood NEG Urine Nitrite NEG Urine Bilirubin NEG Urine Urobilinogen NEG Urine Leukocyte Esterase NEG Assessment and Plan COPD exacerbation, end stage COPD, still moderate dyspnea without improvement COPD Symbicort and Spiriva, Singulair, since cannot inhale well change to dounebs and formoterol Solu-Medrol 40 mg IV q12h, adding mucinex and chest PT, if not helping consider pulmonary intervention Bronchitis, Empiric doxycycline 100 mg PO BID, day #2 Depression/anxiety escitalopram 20 mg PO qd GERD Pantoprazole ordered DVT prophylaxis - SCDs Code Status -Level V, DO NOT RESUSCITATE
[2017-07-11] MEDS: BUDESONIDE/FORMOTEROL FUMARATE 160/4.5 60 PUFFS/INHALER INH SCH ×2 (08:07→21:09)
[2017-07-11] MEDS: DOXYCYCLINE HYCLATE 100 MG CAP PO SCH ×2 (08:09→21:09)
[2017-07-11] MEDS: TIOTROPIUM BROMIDE 5 PUFF/90 MCG INH INH SCH (08:09)
[2017-07-11] MEDS: METHYLPREDNISOLONE IV 40 MG in SYRINGE 0 ML IV SCH ×2 (08:09→21:09)
[2017-07-11] MEDS: PANTOprazole SOD 40 MG TAB PO SCH (08:10)
[2017-07-11] MEDS: CEROVITE ADV FORMULA TAB PO SCH (08:10)
[2017-07-11] MEDS: ESCITALOPRAM OXALATE 20 MG TAB PO SCH (08:10)
[2017-07-11] MEDS: MONTELUKAST SOD 10 MG TAB PO SCH (08:10)
[2017-07-11 08:22] LABS: CREATININE 0.87 mg/dl (0.60-1.40); POTASSIUM 4.2 mmol/L (3.5-5.1)
[2017-07-11] MEDS ORDERED: LEVALBUTEROL 1.25MG/0.5ML NEB INH PRN (13:45)
[2017-07-11] MEDS ORDERED: IPRATROPIUM BROMIDE NEB SOLN 0.02% 2.5 ML VIAL INH PRN (14:00)
[2017-07-11] MEDS: GUAIFENESIN 600 MG TABCR PO SCH ×2 (14:20→21:09)
[2017-07-11] MEDS: ALBUT/IPRATROP 3MG/0.5MG NEB 3 ML VIAL NEB SCH ×2 (16:09→19:29)
[2017-07-11] MEDS: FORMOTEROL FUMA NEBULIZER SOLN 20 MCG/2 ML VIAL INH SCH (19:30)
[2017-07-12] VITALS (15 sets, daily range): BP systolic 115–153; BP diastolic 67–83; PULSE 105–131; TEMP 36.5–37.2; O2SAT 90–98
[2017-07-12] MEDS: ALBUT/IPRATROP 3MG/0.5MG NEB 3 ML VIAL NEB SCH ×4 (02:23→19:37)
[2017-07-12] MEDS: FORMOTEROL FUMA NEBULIZER SOLN 20 MCG/2 ML VIAL INH SCH ×2 (07:18→19:40)
[2017-07-12] MEDS: GUAIFENESIN 600 MG TABCR PO SCH ×2 (07:28→20:56)
[2017-07-12] MEDS: DOXYCYCLINE HYCLATE 100 MG CAP PO SCH ×2 (07:29→20:56)
[2017-07-12] MEDS: PANTOprazole SOD 40 MG TAB PO SCH (07:29)
[2017-07-12] MEDS: ESCITALOPRAM OXALATE 20 MG TAB PO SCH (07:30)
[2017-07-12] MEDS: MONTELUKAST SOD 10 MG TAB PO SCH (07:30)
[2017-07-12] MEDS: CEROVITE ADV FORMULA TAB PO SCH (07:30)
[2017-07-12] MEDS: BUDESONIDE/FORMOTEROL FUMARATE 160/4.5 60 PUFFS/INHALER INH SCH ×2 (07:33→20:55)
[2017-07-12] MEDS: METHYLPREDNISOLONE IV 40 MG in SYRINGE 0 ML IV SCH ×2 (07:34→20:56)
[2017-07-12 07:40] LABS: HEMATOCRIT 36.9 % (42-52); HEMOGLOBIN 12.1 g/dL (14.0-18.0); MEAN CELL VOLUME 92.7 fL (80-100); MEAN CORPUSCULAR HEMOGLOBIN 30.4 pg (25-34); MEAN CORPUSCULAR HGB CONC 32.8 g/dl (32-36); MEAN PLATELET VOLUME 9.5 fL (7.4-10.4); PLATELET COUNT 246 K/uL (130-400); RED CELL DISTRIBUTION WIDTH CV 14.1 % (11.5-14.5); WHITE BLOOD COUNT 14.02 K/uL (4.8-10.8)
[2017-07-12 08:07] LABS: CALCIUM 8.9 mg/dl (8.5-10.1); CREATININE 0.79 mg/dl (0.60-1.40); POTASSIUM 4.1 mmol/L (3.5-5.1)
--- NOTE | 2017-07-12 14:19 | Progress Note ---
Subjective Date of Service: Jul 12, 2017. Subjective pt states he feels slightly better with some changes made 07/11, feels flutter valve has helped expectoration, still with a lot of congestion Problem List Medical Problems: (1) COPD exacerbation Status: Acute (2) Hypoxemia Status: Acute (3) Hypoxia Status: Acute (4) Influenza Status: Acute (5) Pneumonia involving right lung Status: Acute (6) Respiratory distress Status: Acute (7) Sepsis Status: Acute (8) Tachycardia Status: Acute Review of Systems Constitutional: + weakness, + fatigue, No fever, No chills Respiratory: + cough, + sputum, + shortness of breath, + dyspnea on exertion Cardiac: No chest pain, No edema Abdomen: No pain, No nausea, No vomiting Psychiatric: No depression symptoms, No anxiety Objective Vital Signs Date Time Temp Pulse Resp B/P (MAP) Pulse Ox O2 Delivery O2 Flow Rate FiO2 07/12/17 11:19 Nasal Cannula 4.0 07/12/17 11:08 37.0 131 20 149/83 (105) 90 07/12/17 08:08 109 20 91 Nasal Cannula 3.0 07/12/17 07:38 Nasal Cannula 3.0 07/12/17 07:35 36.5 111 18 122/67 (85) 98 07/12/17 07:18 105 20 95 Nasal Cannula 3.5 07/12/17 04:00 96 Nasal Cannula 4.0 30 07/12/17 03:50 36.8 110 22 115/68 (84) 96 Nasal Cannula 4.0 30 07/12/17 02:23 114 20 94 Nasal Cannula 4.0 07/12/17 00:00 95 Nasal Cannula 4.0 07/11/17 23:43 37.3 120 20 133/78 (96) 95 Nasal Cannula 4.0 07/11/17 20:00 91 Nasal Cannula 4.0 07/11/17 19:35 37.2 123 22 143/80 (101) 91 Nasal Cannula 4.0 07/11/17 19:35 118 20 91 Nasal Cannula 4.0 07/11/17 16:09 101 20 98 Nasal Cannula 4.0 07/11/17 16:00 Nasal Cannula 4.0 07/11/17 15:57 36.7 119 22 150/81 (104) 92 Nasal Cannula 4.0 Physical Exam General Appearance: + moderate distress, + thin Neck: supple, no JVD Respiratory/Chest: chest non-tender, + decreased breath sounds, + accessory muscle use, + rhonchi, + wheezing Cardiovascular: regular rate, rhythm, no murmur Abdomen: normal bowel sounds, non tender, soft Extremities: no pedal edema, no calf tenderness Neurologic/Psychiatric: alert, oriented x 3 Laboratory Results Last 24 Hours Test 07/12/17 07:25 White Blood Count 14.02 K/uL Red Blood Count 3.98 M/uL Hemoglobin 12.1 g/dL Hematocrit 36.9 % Mean Corpuscular Volume 92.7 fL Mean Corpuscular Hemoglobin 30.4 pg Mean Corpuscular Hemoglobin Concent 32.8 g/dl RDW Standard Deviation 48.0 fL RDW Coefficient of Variation 14.1 % Platelet Count 246 K/uL Mean Platelet Volume 9.5 fL Sodium Level 142 mmol/L Potassium Level 4.1 mmol/L Chloride Level 104 mmol/L Carbon Dioxide Level 35 mmol/L Anion Gap 3.0 mmol/L Blood Urea Nitrogen 24 mg/dl Creatinine 0.79 mg/dl Est Creatinine Clear Calc Drug Dose 68.1 ml/min Estimated GFR () 104.0 Estimated GFR (Non- 89.7 BUN/Creatinine Ratio 30.0 Random Glucose 118 mg/dl Calcium Level 8.9 mg/dl Assessment and Plan COPD exacerbation, end stage COPD, still moderate dyspnea without improvement COPD Symbicort Spiriva are held, since cannot inhale well, changed to dounebs and formoterol 07/12 has some tachycardia with nebs Solu-Medrol 40 mg IV q12h, adding mucinex and chest PT, consider pulmonary intervention does usually see Dr Packer Bronchitis, Empiric doxycycline 100 mg PO BID Depression/anxiety escitalopram 20 mg PO qd tachycardia, has tried xopenex without much change, add prn metoprolol if needed GERD Pantoprazole ordered DVT prophylaxis - SCDs Code Status -Level V, DO NOT RESUSCITATE
[2017-07-12] MEDS ORDERED: METOPROLOL TARTRATE 1 MG/ML VIAL IV PRN (15:15)
[2017-07-13] VITALS (14 sets, daily range): BP systolic 119–148; BP diastolic 62–81; PULSE 101–124; TEMP 36.5–37.2; O2SAT 93–99
[2017-07-13] MEDS: ALBUT/IPRATROP 3MG/0.5MG NEB 3 ML VIAL NEB SCH ×4 (01:55→19:52)
[2017-07-13 06:57] LABS: HEMATOCRIT 37.3 % (42-52); HEMOGLOBIN 12.1 g/dL (14.0-18.0); MEAN CELL VOLUME 93.7 fL (80-100); MEAN CORPUSCULAR HEMOGLOBIN 30.4 pg (25-34); MEAN CORPUSCULAR HGB CONC 32.4 g/dl (32-36); MEAN PLATELET VOLUME 9.6 fL (7.4-10.4); PLATELET COUNT 244 K/uL (130-400); RED CELL DISTRIBUTION WIDTH SD 48.1 fL (36.4-46.3); WHITE BLOOD COUNT 11.44 K/uL (4.8-10.8)
[2017-07-13] MEDS: FORMOTEROL FUMA NEBULIZER SOLN 20 MCG/2 ML VIAL INH SCH ×2 (07:00→19:52)
[2017-07-13] MEDS: BUDESONIDE/FORMOTEROL FUMARATE 160/4.5 60 PUFFS/INHALER INH SCH ×2 (07:24→20:58)
[2017-07-13] MEDS: GUAIFENESIN 600 MG TABCR PO SCH ×2 (07:25→20:58)
[2017-07-13] MEDS: ESCITALOPRAM OXALATE 20 MG TAB PO SCH (07:25)
[2017-07-13] MEDS: MONTELUKAST SOD 10 MG TAB PO SCH (07:25)
[2017-07-13] MEDS: PANTOprazole SOD 40 MG TAB PO SCH (07:25)
[2017-07-13] MEDS: CEROVITE ADV FORMULA TAB PO SCH (07:25)
[2017-07-13] MEDS: METHYLPREDNISOLONE IV 40 MG in SYRINGE 0 ML IV SCH ×2 (07:25→20:59)
[2017-07-13] MEDS: DOXYCYCLINE HYCLATE 100 MG CAP PO SCH ×2 (07:26→20:58)
[2017-07-13 07:33] LABS: CALCIUM 8.8 mg/dl (8.5-10.1); CREATININE 0.87 mg/dl (0.60-1.40)
--- NOTE | 2017-07-13 08:20 | Clinical Documentation Query ---
CLINICAL DOCUMENTATION QUERY 72 year old male with home O2 dependent end stage CODP who presents to the Emergency Room with complaints of an episode of shortness of breath. H&P state patient as being in acute hypercarbic and hypoxic respiratory failure. This documentation has not been maintained in record and may not be coded by a photo lab technician at this institution. In your clinical opinion is this patient being managed for: ( ) Acute and chronic hypercarbic and hypoxic respiratory failure in setting of COPD exacerbation treated with O2, Nebs, and IV solumedrol. ( ) Not Agree ( ) Other explanation of clinical findings (Please Explain) ( ) Unable to determine (Please Define) ( ) Need to Discuss The medical record reflects the following clinical findings, treatment, and risk factors. Clinical Indicators: Home O2 dependent, reported spO2 of 70% at home, daily progress notes assessments have included, "pt states he feels significantly short of breath and full of mucus, he has difficulty expectorating any mucus at all and speaks in short sentences due to dyspnea. Respiratory/Chest: chest non-tender, + decreased breath sounds, + accessory muscle use, + rhonchi, + wheezing." Treatment: O2, Nebs, IV Solumedrol, Risk Factors: Age, end stage COPD, COPD exacerbation. Please clarify and document your clinical opinion in the progress notes and discharge summary. Terms such as "probable", "suspected", "likely", "questionable", "possible", or "still to be ruled out" are acceptable. IF IN AGREEMENT, YOU MUST DOCUMENT ABOVE DIAGNOSTIC STATEMENT IN DAILY PROGRESS NOTES AND DISCHARGE SUMMARY. This document is not part of the patient's record. Thank You, Demar Setven, RN [phone]
--- NOTE | 2017-07-13 08:58 | Hospitalist Progress Note ---
Hospitalist Progress Note Date of Service Jul 13, 2017. (Cheri Craig PA-C) Subjective Pt evaluation today including: conversation w/ patient, physical exam, chart review, lab review, review of studies Pain: None PO Intake: Good Voiding: no voiding problems The patient was seen and examined this morning. Pt reports having an episode of severe shortness of breath this morning. He required a nebulizer treatment and felt much improved afterwards. He has been attempting to take off his oxygen while sitting in bed, and checking to see how long it takes for his pulse ox to drop. He denies chest tightness or shortness of breath at this time. Additional Comments: Constitutional: No fever, sweats or chills Eyes: No diplopia, no worsening or blurred vision ENT: normal hearing, no trouble swallowing Respiratory: See HPI Cardiovascular: No chest pain, tightness or palpitations Abdomen: No pain, nausea, vomiting, diarrhea or constipation Musculoskeletal: No joint pain, calf pain, swelling Neurologic: No weakness, numbness/tingling, or balance problems Psychiatric: + mild anxiety, no depression Skin: No rash or itch (Cheri Craig PA-C) Objective Vital Signs Date Time Temp Pulse Resp B/P (MAP) Pulse Ox O2 Delivery O2 Flow Rate FiO2 07/13/17 07:30 94 Nasal Cannula 4.0 07/13/17 07:14 36.5 102 20 136/81 (99) 99 Nasal Cannula 4.0 07/13/17 07:09 106 20 98 Nasal Cannula 4.0 07/13/17 04:07 36.5 110 18 131/75 (93) 94 Nasal Cannula 07/13/17 04:00 94 Nasal Cannula 4.0 07/13/17 01:55 103 20 94 Nasal Cannula 4.0 07/13/17 00:00 94 Nasal Cannula 4.0 07/12/17 23:55 37.2 105 18 138/74 (95) 94 Nasal Cannula 4.0 Humidified Oxygen 07/12/17 20:00 95 Nasal Cannula 4.0 07/12/17 19:41 106 20 97 Nasal Cannula 4.0 07/12/17 19:33 36.8 114 22 153/72 (99) 95 Nasal Cannula 4.0 07/12/17 16:00 95 Nasal Cannula 4.0 07/12/17 15:37 36.7 107 20 141/78 (99) 95 Nasal Cannula 4.0 07/12/17 14:16 120 20 94 Nasal Cannula 4.0 07/12/17 11:19 Nasal Cannula 4.0 07/12/17 11:08 37.0 131 20 149/83 (105) 90 (Cheri Craig PA-C) Physical Exam General Appearance: WD/WN, no apparent distress Eyes: PERRL, EOMI ENT: hearing grossly normal, pharynx normal Neck: supple, no JVD Respiratory/Chest: chest non-tender, no respiratory distress, no accessory muscle use, + pertinent finding (barrel chested, on 4L via NC at 94% on pulse ox , anterior insp and exp wheeze, diminished breath sounds throughout in posterior burch. ) Cardiovascular: regular rate, rhythm, no murmur Abdomen: normal bowel sounds, non tender, soft Extremities: non-tender, normal inspection, no pedal edema, no calf tenderness Neurologic/Psychiatric: alert, normal mood/affect, oriented x 3 Skin: normal color, warm/dry (Cheri Craig PA-C) Laboratory Results Last 24 Hours Test 07/13/17 06:44 White Blood Count 11.44 K/uL Red Blood Count 3.98 M/uL Hemoglobin 12.1 g/dL Hematocrit 37.3 % Mean Corpuscular Volume 93.7 fL Mean Corpuscular Hemoglobin 30.4 pg Mean Corpuscular Hemoglobin Concent 32.4 g/dl RDW Standard Deviation 48.1 fL RDW Coefficient of Variation 14.0 % Platelet Count 244 K/uL Mean Platelet Volume 9.6 fL Sodium Level 141 mmol/L Potassium Level 5.0 mmol/L Chloride Level 102 mmol/L Carbon Dioxide Level 38 mmol/L Anion Gap 1.0 mmol/L Blood Urea Nitrogen 21 mg/dl Creatinine 0.87 mg/dl Est Creatinine Clear Calc Drug Dose 61.9 ml/min Estimated GFR () 99.9 Estimated GFR (Non- 86.2 BUN/Creatinine Ratio 23.8 Random Glucose 111 mg/dl Calcium Level 8.8 mg/dl (Cheri Craig PA-C) Assessment and Plan COPD exacerbation, end stage COPD, still moderate dyspnea without improvement COPD - Continue Symbicort, - Spiriva held since cannot inhale well. Cont formoterol since has some tachycardia with nebs - Solu-Medrol 40 mg IV q12h - continue with decreased breath sounds, - will need prolonged prednisone taper - Continue mucinex and chest PT, consider pulmonary intervention - follows with Dr Packer as outpt Bronchitis - Empiric doxycycline 100 mg PO BID (started 07/10) Depression/anxiety - escitalopram 20 mg PO qd Tachycardia - has tried xopenex without much change - continue formoterol as above. add prn metoprolol if needed - elevated in the 110s overnight - no acute events on tele overnight. GERD - PPI DVT prophylaxis- SCDs Code Status: DNR Disposition: From home, lives with , PT/OT YUNIEL hanna to assist with dc planning. (Cheri Craig, PASusannah) Supervising Note Dr. Johnson I performed a history and physical examination on the patient. I reviewed above note and agree with it. I discussed plan with APC and patient. During my face to face encounter with the patient, I answered all of the patient's questions. will continue steroid taper. will discuss transfer to med/surg in AM. (Oscar Johnson M.D.)
[2017-07-14] VITALS (14 sets, daily range): BP systolic 116–136; BP diastolic 68–79; PULSE 84–128; TEMP 36.6–37.3; O2SAT 92–99
[2017-07-14] MEDS: ALBUT/IPRATROP 3MG/0.5MG NEB 3 ML VIAL NEB SCH ×2 (02:10→07:03)
[2017-07-14] MEDS: FORMOTEROL FUMA NEBULIZER SOLN 20 MCG/2 ML VIAL INH SCH ×2 (07:03→20:12)
[2017-07-14] MEDS: DOXYCYCLINE HYCLATE 100 MG CAP PO SCH ×2 (08:04→20:16)
[2017-07-14] MEDS: METHYLPREDNISOLONE IV 40 MG in SYRINGE 0 ML IV SCH ×2 (08:04→20:15)
[2017-07-14] MEDS: GUAIFENESIN 600 MG TABCR PO SCH ×2 (08:05→20:16)
[2017-07-14] MEDS: CEROVITE ADV FORMULA TAB PO SCH (08:05)
[2017-07-14] MEDS: MONTELUKAST SOD 10 MG TAB PO SCH (08:05)
[2017-07-14] MEDS: ESCITALOPRAM OXALATE 20 MG TAB PO SCH (08:05)
--- NOTE | 2017-07-14 11:15 | Hospitalist Progress Note ---
Hospitalist Progress Note Date of Service Jul 14, 2017. (Cheri Craig PA-C) Subjective Pt evaluation today including: conversation w/ patient, physical exam, chart review, lab review, review of studies Pain: none PO Intake: good Voiding: no voiding problems The patient was seen and examined this morning. Patient reports feeling to improve his breathing. He did walk with physical therapy better today compared to yesterday. He feels that his breathing is much improved. He denies any chest tightness or pain today. He still has a slight cough but reports that is not productive at this point. Patient has not required an extra DuoNebs. Pt worked with PT/OT and walked to the bathroom today and work to put on his own socks which he feels improved/nearly back to his baseline. He continues to feel short of breath because he "moves too quickly" and feels as if he needs to try to slow down when he is walking. He denies any fevers or chills overnight. He does complain of chronic sweats intermittently which have been ongoing for at least one year at this point in time. Additional Comments: Constitutional: No fever, sweats or chills Eyes: No diplopia, no worsening or blurred vision ENT: normal hearing, no trouble swallowing Respiratory: See HPI Cardiovascular: No chest pain, tightness or palpitations Abdomen: No pain, nausea, vomiting, diarrhea or constipation Musculoskeletal: No joint pain, calf pain, swelling Neurologic: No weakness, numbness/tingling, or balance problems Psychiatric: No anxiety or depression Skin: No rash or itch (Cheri Craig PA-C) Objective Vital Signs Date Time Temp Pulse Resp B/P (MAP) Pulse Ox O2 Delivery O2 Flow Rate FiO2 07/14/17 08:00 37.1 99 18 131/73 (92) 99 Room Air 07/14/17 08:00 92 Nasal Cannula 4.0 07/14/17 07:06 111 18 97 Nasal Cannula 4.0 07/14/17 04:00 92 Nasal Cannula 4.0 07/14/17 03:54 36.6 114 22 116/68 (84) 92 Nasal Cannula 4.0 07/14/17 02:10 84 18 94 Nasal Cannula 4.0 07/14/17 00:00 95 Nasal Cannula 4.0 07/13/17 23:45 36.6 101 21 124/69 (87) 95 Nasal Cannula 4.0 07/13/17 20:15 36.9 112 22 148/62 (90) 96 Nasal Cannula 4.0 07/13/17 20:00 96 Nasal Cannula 4.0 07/13/17 19:54 116 20 93 Nasal Cannula 4.0 07/13/17 16:20 Nasal Cannula 4.0 07/13/17 15:38 37.2 124 26 119/64 (82) 94 Nasal Cannula 4.0 07/13/17 14:15 118 20 94 Nasal Cannula 4.0 07/13/17 12:10 Nasal Cannula 4.0 07/13/17 12:00 Nasal Cannula 4.0 (Cheri Craig PA-C) Physical Exam Notes: General: awake, alert, no apparent distress, sitting up at bedside Head: Normocephalic, atraumatic ENT: PERRL, EOMI, no pharyngeal exudate, mucous membranes moist Chest: barrel chested, on 4L via NC, no wheezing, improved breath sounds throughout in posterior burch. Cardiac: Slightly tachycardic, heart rate in the 110s, no murmur, no JVD, normal peripheral pulses, good capillary refill Abdominal: NABS x 4 quadrants, soft, nontender to palpation, no rebound, guarding or tenderness Extremities: Normal inspection, no peripheral edema or erythema, calfs nontender to palpation Psych: Normal mood and affect Neuro: AAO x 3, strength intact bilaterally and related 5/5, no motor deficits, speech is clear, no peripheral sensory deficits (Cheri Craig, DEVANG-C) Assessment and Plan COPD exacerbation, end stage COPD, still moderate dyspnea without improvement COPD - Continue Symbicort, - Spiriva held since cannot inhale well. Cont formoterol since has some tachycardia with nebs - Solu-Medrol 40 mg IV q12h -breath sounds are much improved today.- will start the patient on 60 mg of prednisone starting tomorrow morning. Patient will need prolonged taper. - Continue mucinex and chest PT, consider pulmonary intervention - follows with Dr Packer as outpt - Will add vibration vest today - On review of outpatient records: PFTs from [facility] 14 2016: FVC= 63, FEV1=32, FEV1/FVC=52, SVC = 66%, TLC= 111% , DLCOunc= 19% PFTs from October 13, 2016: FVC= 42, FEV1=20, FEV1/FVC=47. No lung capacities done during this visit. FVC= 51, FEV1=26, FEV1/FVC=50%. with minimal correction with bronchodilators. Bronchitis - Empiric doxycycline 100 mg PO BID (started 07/10) Depression/anxiety - escitalopram 20 mg PO qd Tachycardia - has tried xopenex without much change - continue formoterol as above. IV metoprolol 5 mg prn for tachycardia > 120, has not been this high but remains in the 110s. - no acute events on tele overnight. Will check a echocardiogram today to determine if any acute changes in the past year. Last echo here is from 2002. No outpatient ones seen in [facility]. GERD - PPI DVT prophylaxis- SCDs Code Status: DNR Disposition: From home, lives with , PT/OT YUNIEL hanna to assist with dc planning. Patient possible discharge tomorrow. (Cheri Craig, PAJessieC) Supervising Note Dr. Johnson I performed a history and physical examination on the patient. I reviewed above note and agree with it. I discussed plan with APC and patient. During my face to face encounter with the patient, I answered all of the patient's questions. will initiate PO prednisone in AM. (Oscar Johnson M.D.)
[2017-07-14] MEDS ORDERED: LEVALBUTEROL 1.25MG/3ML NEB INH PRN (12:15)
[2017-07-14] MEDS: LEVALBUTEROL 1.25MG/3ML NEB INH SCH ×2 (13:58→19:20)
--- NOTE | 2017-07-14 14:34 | ECHOCARDIOGRAM REPORT ---
*NOTICE TO RECEIVING DEMOCRAT AGENCY This information is strictly Confidential and protected under [place] law. [place] law prohibits you from making any further disclosure of this information unless further disclosure is expressly permitted by the written consent of the person to whom it pertains or is authorized by law. A general authorization for the release of medical or other information is not sufficient for this purpose. Hospital accepts no responsibility if the information is made available to any other person, INCLUDING THE PATIENT. Interpretation Summary * Name: FRANCO WATERS Study Date: 07/14/2017 12:36 PM BP: 136/76 mmHg * Patient Location: C.2T\S\E221\S\1 HR: 118 * : 1945 (M/d/yyyy) Gender: Male Height: 69 in * Age: 72 yrs Ethnicity: CA Weight: 125 lb * Ordering Physician: Cheri Craig * Referring Physician: Self, Referred * Performed By: Judy Gallagher, [facility] * * Reason For Study: TACHYCARDIA * BSA: 1.7 m2 * -- Conclusions -- * Left ventricular systolic function is normal. * Grade I diastolic dysfunction, (abnormal relaxation pattern). * Right ventricular systolic pressure is normal. Procedure Details * A complete two-dimensional transthoracic echocardiogram was performed (2D, M-mode, Doppler and color flow Doppler). * There were technical limitations due to patient'sPoor acoustic windows secondary to severe lung disease. Left Ventricle * The left ventricle is grossly normal size. * There is borderline concentric left ventricular hypertrophy. * Left ventricular systolic function is normal. * Ejection Fraction = 55-60%. * Grade I diastolic dysfunction, (abnormal relaxation pattern). * The left ventricular wall motion is normal. Right Ventricle * The right ventricle is normal in size and function. Atria * The left atrial size is normal. * Right atrial size is normal. Mitral Valve * The mitral valve is grossly normal. * Significant mitral regurgitation is absent. Tricuspid Valve * The tricuspid valve is not well visualized, but is grossly normal. * There is trace tricuspid regurgitation. * Right ventricular systolic pressure is normal. Aortic Valve * The aortic valve is not well visualized. * Not assessed * There is no significant aortic regurgitation. Pulmonic Valve * The pulmonic valve is not well visualized. Great Vessels * The aortic root is normal size. Pericardium/Pleural * Trace pericardial effusion Great Vessels * Normal inferior vena cava diameter and respiratory variation suggests normal central venous pressure. MMode 2D Measurements and Calculations IVSd 1.4 cm IVSs 1.5 cm LVIDd 2.7 cm LVIDs 2.5 cm LVPWd 1.2 cm LVPWs 1.2 cm IVS/LVPW 1.2 FS 8.4 % EDV(Teich) 28.0 ml ESV(Teich) 22.5 ml EF(Teich) 19.5 % EDV(cubed) 20.5 ml ESV(cubed) 15.8 ml EF(cubed) 23.1 % % IVS thick 6.2 % % LVPW thick 8.4 % LV mass(C)d 105.6 grams LV mass(C)dI 62.4 grams/m\S\2 LV mass(C)s 106.3 grams LV mass(C)sI 62.8 grams/m\S\2 SV(Teich) 5.5 ml SI(Teich) 3.2 ml/m\S\2 SV(cubed) 4.7 ml SI(cubed) 2.8 ml/m\S\2 Ao root diam 3.1 cm Ao root area 7.4 cm\S\2 LA dimension 3.7 cm LA/Ao 1.2 LVOT diam 2.0 cm LVOT area 3.0 cm\S\2 Doppler Measurements and Calculations LV V1 max PG 3.7 mmHg LV V1 max 95.8 cm/sec PA V2 max 113.9 cm/sec PA max PG 5.2 mmHg TR max [place]ka 210.5 cm/sec
[2017-07-14] MEDS: BUDESONIDE/FORMOTEROL FUMARATE 160/4.5 60 PUFFS/INHALER INH SCH (20:15)
[2017-07-15] MEDS: LEVALBUTEROL 1.25MG/3ML NEB INH SCH ×2 (01:46→06:55)
[2017-07-15 01:47] VITALS: PULSE 107; O2SAT 98
[2017-07-15 03:55] VITALS: BP 112/64; PULSE 107; TEMP 36.7; O2SAT 93
[2017-07-15 06:57] VITALS: PULSE 111; O2SAT 97
[2017-07-15] MEDS: FORMOTEROL FUMA NEBULIZER SOLN 20 MCG/2 ML VIAL INH SCH (06:57)
[2017-07-15 07:41] LABS: HEMATOCRIT 37.2 % (42-52); HEMOGLOBIN 12.3 g/dL (14.0-18.0); MEAN CELL VOLUME 92.3 fL (80-100); MEAN CORPUSCULAR HEMOGLOBIN 30.5 pg (25-34); MEAN CORPUSCULAR HGB CONC 33.1 g/dl (32-36); MEAN PLATELET VOLUME 9.4 fL (7.4-10.4); PLATELET COUNT 267 K/uL (130-400); RED CELL DISTRIBUTION WIDTH CV 14.1 % (11.5-14.5); RED CELL DISTRIBUTION WIDTH SD 47.6 fL (36.4-46.3); WHITE BLOOD COUNT 11.54 K/uL (4.8-10.8)
[2017-07-15 07:43] VITALS: BP 107/64; PULSE 104; TEMP 36.6; O2SAT 92
[2017-07-15] MEDS: BUDESONIDE/FORMOTEROL FUMARATE 160/4.5 60 PUFFS/INHALER INH SCH (07:46)
[2017-07-15] MEDS: GUAIFENESIN 600 MG TABCR PO SCH (07:47)
[2017-07-15] MEDS: MONTELUKAST SOD 10 MG TAB PO SCH (07:47)
[2017-07-15] MEDS: DOXYCYCLINE HYCLATE 100 MG CAP PO SCH (07:47)
[2017-07-15] MEDS: CEROVITE ADV FORMULA TAB PO SCH (07:48)
[2017-07-15] MEDS: ESCITALOPRAM OXALATE 20 MG TAB PO SCH (07:48)
[2017-07-15 08:07] LABS: CREATININE 0.84 mg/dl (0.60-1.40); POTASSIUM 4.4 mmol/L (3.5-5.1)
[2017-07-15] MEDS ORDERED: DXY100 PO (10:09)
[2017-07-15] MEDS ORDERED: PRED20TA2 PO (10:09)
--- NOTE | 2017-07-15 10:17 | Discharge Instructions ---
Discharge Instructions Date of Service Jul 15, 2017. Admission Reason for Admission: Copd Exacerbation Discharge Discharge Diagnosis / Problem: COPD Exacerbation Discharge Goals Goal(s): Decrease discomfort, Improve function, Increase independence, Improve disease control Activity Recommendations Activity Limitations: resume your previous activity Lifting Limitations: no more than 25 pounds, gradually increase as tolerated Exercise/Sports Limitations: rest today, gradually increase as tolerated May Resume Sexual Activity: when tolerated Shower/Bathe: no limitations Driving or Machine Use: resume 1 day after discharge . Instructions / Follow-Up Instructions / Follow-Up You were admitted to [facility] with shortness of breath and diagnosed with COPD exacerbation. During your stay here you were treated with intravenous steroids, antibiotics, supportive care with mucinex, oxygen, vibration vest, etc. You were tolerating oxygen at your normal 4L and had adequate oxygen saturations. An echocardiogram was completed for tachycardia - this was essentially normal with a mildly reduced relaxation function. Tachycardia improved with change of nebulizer treatments. Please follow up with your PCP regarding this. Medications: Continue taking your medications as prescribed. Continue the prednisone taper as follows: 60 mg (3 tabs) x 1 day starting on 07/16, then 40 mg (2 tabs) x 2 days, then 20 mg ( 1 tab) x 2 days, then 10 mg ( 1/2 tab) x 2 days. Finish on 07/22. Continue taking doxycycline 100 mg twice daily for 1 more day, next dose tonight. Appointments: Follow up with PCP within 1 week. Current Hospital Diet Patient's current hospital diet: Regular Diet Discharge Diet Recommended Diet: Regular Diet Pending Studies Studies pending at discharge: no Laboratory Results Hemoglobin A1c Test 06/02/17 09:30 Range/Units Estimated Average Glucose 117 mg/dl Hemoglobin A1c 5.7 H 4.5-5.6 % Medical Emergencies . Who to Call and When: Medical Emergencies: If at any time you feel your situation is an emergency, please call 911 immediately. . Non-Emergent Contact Non-Emergency issues call your: Primary Care Provider Call Non-Emergent contact if: you have a fever, temperature is above 100.5, your pain is not controlled, your pain is worsening, your pain is unusual for you, your pain is concerning you, you have any medication questions other concerns with your health. Call 911 or go directly to the Emergency Department if you experience any of the following: Chest pain, chest tightness, shortness of breath, abdominal pain , lightheadedness, dizziness, gastrointestinal bleeding, or have any other concerns regarding your health. . Past History Medical & Surgical History: (1) COPD exacerbation . "Provider Documentation" section prepared by Izzy Craig. . [place] Drug Monitoring Program Search Results: no issues identified
[2017-07-15 10:39] VITALS: BP 107/64; PULSE 104; TEMP 36.6; O2SAT 92
--- NOTE | 2017-07-15 15:31 | Discharge Summary ---
Discharge Summary Date of Service Jul 15, 2017. Discharge Summary Admission Date: Jul 11, 2017 at 15:26 Discharge Date: Jul 15, 2017 Discharge Disposition: Home Principal Diagnosis: COPD exacerbation Problems/Secondary Diagnoses: COPD exacerbation Acute on chronic hypercapnic and hypoxic respiratory failure in setting of COPD Bronchitis Depression/anxiety Tachycardia GERD Immunizations: Have You Had Influenza Vaccine: Unknown History of Tetanus Vaccine?: Unknown History of Pneumococcal: Unknown History of Hepatitis B Vaccine: Unknown Procedures: CHEST ONE VIEW PORTABLE 07/09/17 IMPRESSION: Emphysematous change. Mild chronic interstitial change. No acute process. Echocardiogram 07/14/17 * -- Conclusions -- * Left ventricular systolic function is normal. * Grade I diastolic dysfunction, (abnormal relaxation pattern). * Right ventricular systolic pressure is normal. Consultations: None Medication Reconciliation New Medications: Doxycycline Hyclate (Doxycycline Hyclate) 100 Mg Cap 100 MG PO BID for 1 Day, #3 CAP Take next dose tonight. Finish 7 day course on 07/16. Changed Medications: Prednisone (Prednisone Tab) 20 Mg Tab 20 MG PO UD for 7 Days, #12 TAB (Changed from: 0 ; DAILY; 7; 2 TABS DAILY FOR 2 DAYS, THEN 1 TAB DAILY FOR 2 DAYS, THEN 1/2 TAB DAILY FOR 2 DAYS.) 3 TABS DAILY FOR 1 DAYS, THEN 2 TAB DAILY FOR 2 DAYS, THEN 1 TAB DAILY FOR 2 DAYS, then 1/2 tab x 2 days. Continued Medications: Albuterol Sulfate (Proair Respiclick) 108 Mcg/Act Aer 2 PUFFS INH QID PRN for SOB/Wheezing Budesonide/Formoterol Fumarate (Symbicort 160/4.5 Inhaler) 120 Puffs/ Aero 2 PUFFS INH BID, INHALER Cholecalciferol (Vitamin D3) 2,000 Unit Cap 2000 UNITS PO DAILY for 90 Days, CAP 3 Refills Escitalopram Oxalate (Lexapro) 20 Mg Tab 20 MG PO DAILY Home O2 Therapy (Oxygen) Gas 4 LITER NA PRN Ibuprofen (Motrin) 800 Mg Tab 800 MG PO DAILY PRN for Pain or Fever, TAB Ipratropium-Albuterol (Duoneb) 3 Ml Nebu 1 TREATMENT INH Q6H, #120 INHA Montelukast Sodium (Singulair) 10 Mg Tab 10 MG PO DAILY, TAB Multiple Vitamins W/ Minerals (Certavite/Antioxidants) 1 Tab Tab 1 TAB PO DAILY Tiotropium [place] (Spiriva Handihaler) 30 Puff/540 Mcg Aerp 1 CAP INH DAILY Discharge Exam The patient was seen and examined this morning. Pt reports doing better today than yesterday and notes his breathing feels back to baseline. He reports no sputum production with the vibration vest yesterday. He has a mild cough but reports this is also getting better. No issues with chills or sweats overnight. Patient also notes that he has been able to ambulate without feeling as short of breath on his regular 4 L of O2 via NC. ROS: Constitutional: No fever, sweats or chills Eyes: No diplopia, no worsening or blurred vision ENT: normal hearing, no trouble swallowing Respiratory: No cough, sputum, dyspnea at rest or on exertion Cardiovascular: No chest pain, tightness or palpitations Abdomen: No pain, nausea, vomiting, diarrhea or constipation Musculoskeletal: No joint pain, calf pain, swelling Neurologic: No weakness, numbness/tingling, or balance problems Psychiatric: No anxiety or depression Skin: No rash or itch PE: General: awake, alert, no apparent distress, thin Head: Normocephalic, atraumatic ENT: PERRL, EOMI, no pharyngeal exudate, mucous membranes moist Chest: barrel chested, on 4L via NC, no wheezing, improved breath sounds throughout in posterior burhc. Cardiac: Regular rate and rhythm, no murmur, no JVD, normal peripheral pulses, good capillary refill Abdominal: NABS x 4 quadrants, soft, nontender to palpation, no rebound, guarding or tenderness Extremities: Normal inspection, no peripheral edema or erythema, calfs nontender to palpation Psych: Normal mood and affect Neuro: AAO x 3, strength intact bilaterally and related 5/5, no motor deficits, speech is clear, no peripheral sensory deficits Hospital Course COPD exacerbation, end stage COPD, still moderate dyspnea without improvement COPD exacerbation Acute on chronic hypercapnic and hypoxic respiratory failure in setting of COPD - Continue Symbicort, - Spiriva held since cannot inhale well. Cont formoterol since has some tachycardia with nebs - Solu-Medrol 40 mg IV q12h -breath sounds are much improved today.- will start the patient on 60 mg of prednison on 07/15 and taper down as follows: 60 mg (3 tabs) x 1 day starting on 07/16, then 40 mg (2 tabs) x 2 days, then 20 mg ( 1 tab) x 2 days, then 10 mg ( 1/2 tab) x 2 days. Finish on 07/22. - Continue mucinex and chest PT with vibration vest, no further production of sputum. - Patient can follow-up with pulmonology as regularly scheduled. - On review of outpatient records: PFTs from August 02 2015: FVC= 63, FEV1=32, FEV1/FVC=52, SVC = 66%, TLC= 111% , DLCOunc= 19% PFTs from October 13, 2016: FVC= 42, FEV1=20, FEV1/FVC=47. No lung capacities done during this visit. FVC= 51, FEV1=26, FEV1/FVC=50%. with minimal correction with bronchodilators. Bronchitis - Empiric doxycycline 100 mg PO BID (started 07/10) -finish 7d course on 07/16. Depression/anxiety - escitalopram 20 mg PO qd Tachycardia - has tried xopenex without much change - continue formoterol as above. IV metoprolol 5 mg prn for tachycardia > 120, has not been this high but remains in the 110s. - no acute events on tele overnight. -echocardiogram 07/14 negative for any acute emboli. * -- Conclusions -- * Left ventricular systolic function is normal. * Grade I diastolic dysfunction, (abnormal relaxation pattern). * Right ventricular systolic pressure is normal. -Improved prior to discharge down to near the 100s. GERD - PPI DVT prophylaxis- SCDs Code Status: DNR Disposition: From home, lives with , PT/OT evals. Discharge to home today. Supervising Note Dr. Johnson I performed a history and physical examination on the patient. I reviewed above note and agree with it. I discussed plan with APC and patient. During my face to face encounter with the patient, I answered all of the patient's questions. Continue Prednisone taper as outpatient and doxycycline as noted above. Total Time Spent: Greater than 30 minutes This includes examination of the patient, discharge planning, medication reconciliation, and communication with other providers. Discharge Instructions Please refer to the electronic Patient Visit Report (Discharge Instructions) for additional information. Follow-Up Follow up with your Primary Care Provider within 1 week. Additional Copies To Bob Duke M.D.
== END 2017-07-15 13:19 | disposition home or self-care (01) | DRG 189 ==
LOC: EDBD 20:00 → C.EDB 20:01 → C.2T 07-10 01:38 → ENRESERV 07-10 01:53 → OBSVTOIN 07-11 15:26
PROVIDERS: ADMIT Hospitalist; ATTEND Internal Medicine Sports Medicine
DX: J96.01 Acute respiratory failure with hypoxia (principal); J44.1 Chronic obstructive pulmonary disease with (acute) exacerbation; J44.0 Chronic obstructive pulmonary disease with (acute) lower respiratory infection; J96.02 Acute respiratory failure with hypercapnia; J40 Bronchitis, not specified as acute or chronic; R00.0 Tachycardia, unspecified; F17.200 Nicotine dependence, unspecified, uncomplicated; F32.9 Major depressive disorder, single episode, unspecified; K21.9 Gastro-esophageal reflux disease without esophagitis; F41.9 Anxiety disorder, unspecified; Z66 Do not resuscitate; Z79.52 Long term (current) use of systemic steroids; Z79.899 Other long term (current) drug therapy; Z99.81 Dependence on supplemental oxygen

== ENCOUNTER 2017-07-22 23:03 | Inpatient (IN) | payer OTHER, MEDICARE ==
[~2017-07-22] VITALS: Ht 175.3 cm; Wt 53.7 kg
[~2017-07-22 23:03] MED LIST changes: -ATV5 PO; +DXY100 PO; +IBUP-1428 PO; -PRED10TA PO; +PRED20TA2 PO; -ROFL1TAB5 PO
[2017-07-22] MEDS ORDERED: ALBUT/IPRATROP 3MG/0.5MG NEB 3 ML VIAL INH STA (23:40)
[2017-07-22] MEDS ORDERED: METHYLPREDNISOLONE 125 MG VIAL IV STA (23:40)
[2017-07-22] MEDS ORDERED: ALBUT/IPRATROP 3MG/0.5MG NEB 3 ML VIAL ONE (23:42)
[2017-07-22 23:44] LABS: BASO % 0.1 %; BASO ABS # 0.01 K/uL (0-0.2); EOS % 4.5 %; EOS ABS # 0.62 K/uL (0-0.5); HEMATOCRIT 43.4 % (42-52); HEMOGLOBIN 13.9 g/dL (14.0-18.0); IG# 0.12 K/uL (0.00-0.02); LYMPH % 7.3 %; LYMPH ABS # 1.01 K/uL (1.2-3.4); MEAN CELL VOLUME 96.2 fL (80-100); MEAN CORPUSCULAR HEMOGLOBIN 30.8 pg (25-34); MEAN PLATELET VOLUME 9.2 fL (7.4-10.4); MONO % 7.8 %; MONO ABS # 1.08 K/uL (0.11-0.59); NEUT % 79.4 %; NEUT ABS # 11.06 K/uL (1.4-6.5); PLATELET COUNT 260 K/uL (130-400); RED CELL DISTRIBUTION WIDTH CV 14.5 % (11.5-14.5); RED CELL DISTRIBUTION WIDTH SD 51.3 fL (36.4-46.3)
[2017-07-22 23:50] VITALS: PULSE 137; O2SAT 94
[2017-07-22 23:59] LABS: INR 0.9 (0.9-1.1); PTT PATIENT 23.1 SECONDS (21.0-31.0)
[2017-07-23] VITALS (13 sets, daily range): BP systolic 114–159; BP diastolic 68–95; PULSE 105–136; TEMP 36.5–37; O2SAT 87–97; Ht 175.3 cm; Wt 53.7 kg
[2017-07-23 00:07] LABS: ALBUMIN 3.5 gm/dl (3.4-5.0); CALCIUM 8.5 mg/dl (8.5-10.1); CREATININE 0.95 mg/dl (0.60-1.40); POTASSIUM 4.7 mmol/L (3.5-5.1)
--- NOTE | 2017-07-23 00:09 | EMERGENCY ROOM VISIT NOTE ---
History Report prepared by Mauriibdarell: Deidre Vicente Under the Supervision of: Dr. Kristel Ring D.O. First contact with patient: 23:35 Chief Complaint: SHORTNESS OF BREATH Stated Complaint: SHORTNESS OF BREATH Nursing Triage Summary: PT presents via EMS for SOB. HX of COPD. PT does smoke currently. PT was here last week and admitted for exacerbation of COPD. PT has SOB that started earlier today. PT upon arrival has auditory wheezing, with intercostal retractions. PT has increased labor of breathing also. PT lungs decreased in all lung burch with wheezing. PT has increased respiratory rate also. PT is oxygen dependent at 5 liters all the time. History of Present Illness The patient is a 72 year old male who presents to the Emergency Room with complaints of persistent general shortness of breath since this afternoon. He notes that he was recently seen in the ED July 11, 2017 for COPD exacerbation. He has a history of COPD. He wears at home oxygen at 5 L via NC. He notes his oxygen saturation level dropped to 70%. He has been using nebulizer treatments every four hours. He notes that he was on a tapered dose of steroids, though he has completed the treatment. He reports dry mouth. He denies any fevers, nausea , vomiting, diarrhea, or leg swelling. He denies any cardiac problems. He denies any bloody or green mucus. He denies any BiPAP use. Source of History: patient Onset: since this afternoon Position: other (general) Symptom Intensity: oxygen saturation of 70% Quality: other (shortness of breath) Timing: other (persistent) Associated Symptoms: No fevers, No nausea, No vomiting, No diarrhea Note: He notes dry mouth. He denies any leg swelling. He denies any bloody or green mucus. Review of Systems See HPI for pertinent positives & negatives. A total of 10 systems reviewed and were otherwise negative. Past Medical & Surgical Medical Problems: (1) Acute and chronic respiratory failure with hypoxia (2) COPD (chronic obstructive pulmonary disease) (3) COPD exacerbation (4) Respiratory infection Family History Patient reports no known family medical history. Social History Smoking Status: Current Every Day Smoker Alcohol Use: occasionally Drug Use: none Marital Status: Housing Status: lives alone Occupation Status: employed Current/Historical Medications Scheduled Budesonide/Formoterol Fumarate (Symbicort 160/4.5 Inhaler), 2 PUFFS INH BID Cholecalciferol (Vitamin D3), 2,000 UNITS PO DAILY Escitalopram Oxalate (Lexapro), 20 MG PO DAILY Montelukast Sodium (Singulair), 10 MG PO DAILY Multiple Vitamins W/ Minerals (Certavite/Antioxidants), 1 TAB PO DAILY Prednisone (Prednisone), 20 MG PO DAILY/UD Roflumilast (Daliresp), 500 MCG PO DAILY Tiotropium [place] (Spiriva Handihaler), 1 CAP INH DAILY Scheduled PRN Albuterol Sulfate (Proventil Hfa), 2 PUFFS INH Q4H PRN for SOB/Wheezing Ipratropium-Albuterol (Duoneb), 3 ML INH Q4H PRN for SOB/Wheezing Allergies Coded Allergies: No Known Allergies (Unverified , 07/09/17) Physical Exam Vital Signs Date Time Temp Pulse Resp B/P (MAP) Pulse Ox O2 Delivery O2 Flow Rate FiO2 07/23/17 00:41 137 26 101/64 98 BiPAP 07/22/17 23:50 137 94 30 07/22/17 23:30 91 Nasal Cannula 5.0 07/22/17 23:29 91 Nasal Cannula 5.0 07/22/17 23:29 91 Nasal Cannula 5.0 07/22/17 23:15 133 07/22/17 23:13 37.2 132 33 145/78 91 Nasal Cannula 6.0 Physical Exam GENERAL: alert, well appearing, well nourished, no distress, non-toxic EYE EXAM: normal conjunctiva, PERRL and EOM's grossly intact OROPHARYNX: no exudate, no erythema, lips, buccal mucosa, and tongue normal and mucous membranes are moist NECK: supple, no nuchal rigidity, no adenopathy, non-tender LUNGS: Lung sounds diminished with scattered expiratory wheeze. Significant increased work of breathing. Retractions. Pursed lip breathing. HEART: Tachycardic rate, but regular rhythm ABDOMEN: abdomen soft, non-tender, normo-active bowel sounds, no masses, no rebound or guarding. BACK: Back is symmetrical on inspection and there is no deformity, no midline tenderness, no CVA tenderness. SKIN: no rashes and no bruising UPPER EXTREMITIES: upper extremities are grossly normal. LOWER EXTREMITIES: No pitting edema. NEURO EXAM: Normal sensorium, cranial nerves II-XII grossly intact, normal speech, no gross weakness of arms, no gross weakness of legs. Medical Decision & Procedures ER Provider Diagnostic Interpretation: Radiology results have been interpreted and reviewed by me. X-ray: I interpreted the following studies. Chest: A single view study of the chest was reviewed and was negative for cardiomegaly, focal consolidation, effusion, or wide mediastinum. Unchanged compared to prior. Laboratory Results 07/22/17 23:15 Red Blood Count 4.51, Mean Corpuscular Volume 96.2, Mean Corpuscular Hemoglobin 30.8, Mean Corpuscular Hemoglobin Concent 32.0, Mean Platelet Volume 9.2, Neutrophils (%) (Auto) 79.4, Lymphocytes (%) (Auto) 7.3, Monocytes (%) (Auto) 7.8, Eosinophils (%) (Auto) 4.5, Basophils (%) (Auto) 0.1, Neutrophils # (Auto) 11.06, Lymphocytes # (Auto) 1.01, Monocytes # (Auto) 1.08, Eosinophils # (Auto) 0.62, Basophils # (Auto) 0.01 07/22/17 23:15 Test 07/22/17 23:15 07/22/17 23:27 07/23/17 00:30 White Blood Count 13.90 K/uL (4.8-10.8) Red Blood Count 4.51 M/uL (4.7-6.1) Hemoglobin 13.9 g/dL (14.0-18.0) Hematocrit 43.4 % (42-52) Mean Corpuscular Volume 96.2 fL (80-100) Mean Corpuscular Hemoglobin 30.8 pg (25-34) Mean Corpuscular Hemoglobin Concent 32.0 g/dl (32-36) Platelet Count 260 K/uL (130-400) Mean Platelet Volume 9.2 fL (7.4-10.4) Neutrophils (%) (Auto) 79.4 % Lymphocytes (%) (Auto) 7.3 % Monocytes (%) (Auto) 7.8 % Eosinophils (%) (Auto) 4.5 % Basophils (%) (Auto) 0.1 % Neutrophils # (Auto) 11.06 K/uL (1.4-6.5) Lymphocytes # (Auto) 1.01 K/uL (1.2-3.4) Monocytes # (Auto) 1.08 K/uL (0.11-0.59) Eosinophils # (Auto) 0.62 K/uL (0-0.5) Basophils # (Auto) 0.01 K/uL (0-0.2) RDW Standard Deviation 51.3 fL (36.4-46.3) RDW Coefficient of Variation 14.5 % (11.5-14.5) Immature Granulocyte % (Auto) 0.9 % Immature Granulocyte # (Auto) 0.12 K/uL (0.00-0.02) Prothrombin Time 9.5 SECONDS (9.0-12.0) Prothromb Time International Ratio 0.9 (0.9-1.1) Activated Partial Thromboplast Time 23.1 SECONDS (21.0-31.0) Partial Thromboplastin Ratio 0.9 Anion Gap 3.0 mmol/L (3-11) Est Creatinine Clear Calc Drug Dose 62.1 ml/min Estimated GFR () 92.3 Estimated GFR (Non- 79.7 BUN/Creatinine Ratio 20.8 (10-20) Calcium Level 8.5 mg/dl (8.5-10.1) Total Bilirubin 0.3 mg/dl (0.2-1) Aspartate Amino Transf (AST/SGOT) 18 U/L (15-37) Alanine Aminotransferase (ALT/SGPT) 37 U/L (12-78) Alkaline Phosphatase 63 U/L (45-117) Pro-B-Type Natriuretic Peptide 69 pg/ml (0-900) Total Protein 7.0 gm/dl (6.4-8.2) Albumin 3.5 gm/dl (3.4-5.0) Globulin 3.5 gm/dl (2.5-4.0) Albumin/Globulin Ratio 1.0 (0.9-2) Bedside Lactic Acid Venous 1.33 mmol/L (0.90-1.70) Arterial Blood pH 7.37 (7.35-7.45) Arterial Blood Partial Pressure CO2 64 mmHg (35-46) Arterial Blood Partial Pressure O2 72 mm/Hg (80-95) Arterial Blood HCO3 36 mmol/L (19-24) Arterial Blood Oxygen Saturation 93.7 % (90-95) Arterial Blood Base Excess 8.9 mEq/L (-9-1.8) Arterial Blood Gas Delivery 30% Jethro Test POS (POS) Laboratory results per my review. Medications Administered Medications (Trade) Dose Ordered Sig/[place]uyapa Route Start Time Stop Time Status Last Admin Dose Admin Albuterol/ Ipratropium (Duoneb) 3 ml NOW STAT INH 07/22/17 23:40 07/22/17 23:42 DC 07/22/17 23:46 3 ML Methylprednisolone Sodium Succinate (Solu-Medrol IV) 125 mg NOW STAT IV 07/22/17 23:40 07/22/17 23:42 DC 07/22/17 23:47 125 MG Sodium Chloride 1,000 ml @ 125 mls/hr Q8H STAT IV 07/23/17 00:30 07/23/17 08:29 07/23/17 00:37 125 MLS/HR ECG Per My Interpretation Indication: SOB/dyspnea Rate (beats per minute): 133 Rhythm: sinus tachycardia Findings: no acute ischemic change, no ectopy, other (Normal axis. Normal intervals. ) ED Course 2335: The patient was evaluated in room A3. A complete history and physical exam was performed. 2340: Ordered Solu-Medrol 125 mg IV and DuoNeb 3 ml INH 0005: Patient states feeling slightly better. Patient with decreased work of breathing while on BiPAP. Now able to rest in the bed slightly better. Patient still tachycardic. Oxygen saturations in the low 90s. 0030: Ordered Sodium Chloride 1,000 ml @ 125 mls/hr IV 0055: I spoke with Dr. Tobin, [facility] hospitalist. We discussed the patient' s case. The patient will be evaluated by the [facility] for further management. Medical Decision Prior records/ancillary studies reviewed. Triage Nursing notes reviewed. The patient's history was concerning for respiratory difficulties. Differential diagnosis: Etiologies such as infections, reactive airway disease, pneumonia, pneumothorax , COPD, CHF, cardiac ischemia, pulmonary embolism, musculoskeletal, gastrointestinal, as well as others were entertained. Patient with significant history of COPD and recent admission 2 weeks ago with similar presentation. Patient states he has been wearing his home O2 daily as prescribed as well as using his nebulizer treatments every 4 hours. Patient states he only recently finished his taper of steroids from the last admission. Patient denies any fevers, denies any change in his cough or sputum. Patient states that his breathing slowly began to be more labored and continued to wear while turning up his home oxygen and he checked his pulse ox and it was in the 70s. Patient called 911 and presented to the emergency room. Patient improved here with initiation of BiPAP. Patient given dose of IV steroids. No focal consolidation noted, no fever, no leukocytosis. Blood cultures drawn, however antibiotics not empirically started. No evidence of bacteremia/sepsis. No evidence of concurrent cardiac pathology. I do not suspect PE. I do not suspect congestive heart failure, ACS. Patient persistently tachycardic on telemetry, however appears to be a sinus tach. No evidence of atrial fibrillation or other dysrhythmia. No evidence of pneumothorax. Case discussed with hospitalist for additional evaluation in light of significant respiratory distress despite stated compliance with prior treatment therapies. Medication Reconcilliation Current Medication List: was personally reviewed by me Blood Pressure Screening Patient's blood pressure: Elevated blood pressure referred to hospitalist Consults Time Called: 54 Consulting Physician: Dr. Tobin [facility] hospitalist I spoke with Dr. Tobin [facility] hospitalist. We discussed the patient's case. The patient will be evaluated by the [facility] for further management. Impression Primary Impression: COPD exacerbation Additional Impressions: Hypoxia Dyspnea Critical Care I have personally spent greater than 35 minutes of critical care time in the direct management of this patient. This includes bedside care, interpretation of diagnostic studies, and testing, discussion with consultants, patient, and family members, and other required patient management activities. This 35 minutes is in excess of all separately billable procedures. Scribe Attestation The scribe's documentation has been prepared under my direction and personally reviewed by me in its entirety. I confirm that the note above accurately reflects all work, treatment, procedures, and medical decision making performed by me. Departure Information Dispostion Being Evaluated By Hospitalist Referrals Bob Duke M.D. (PCP) Patient Instructions [facility] Problem Qualifiers Additional Impressions: Dyspnea Dyspnea type: shortness of breath Qualified Codes: R06.02 - Shortness of breath
[2017-07-23] MEDS ORDERED: SODIUM CHLORIDE 0.9% 1000ML 1,000 ML IV STA (00:30)
[2017-07-23] MEDS ORDERED: PRED20TA PO (00:59)
[2017-07-23] MEDS ORDERED: IPRASOL4 INH (01:07)
[2017-07-23] MEDS ORDERED: ROFL1TAB5 PO (01:08)
[2017-07-23] MEDS ORDERED: POLYETHYLENE (MIRALAX) 17 GM PACK PO PRN (01:15)
[2017-07-23] MEDS ORDERED: MAGNESIUM HYDROXIDE SUSP 30 ML UDC PO PRN (01:15)
[2017-07-23] MEDS ORDERED: METHYLPREDNISOLONE IV 60 MG in SYRINGE 0 ML IV SCH ×2 (01:15→08:00)
[2017-07-23] MEDS ORDERED: ONDANSETRON 8MG OD TAB PO PRN (01:15)
[2017-07-23] MEDS ORDERED: ALBUAER INH (01:15)
[2017-07-23] MEDS ORDERED: ACETAMINOPHEN 325 MG TAB PO PRN (01:15)
[2017-07-23] MEDS ORDERED: ALUMINUM/MAGNESIUM/SIMETH (MAALOX MAX) 30 ML UDC PO PRN (01:15)
[2017-07-23] MEDS: LEVALBUTEROL 1.25MG/0.5ML NEB INH SCH ×4 (02:33→18:55)
[2017-07-23] MEDS: IPRATROPIUM BROMIDE NEB SOLN 0.02% 2.5 ML VIAL INH SCH ×4 (02:33→18:55)
[2017-07-23] MEDS ORDERED: LEVALBUTEROL/IPRATROPIUM NEB INH SCH (03:00)
[2017-07-23] MEDS ORDERED: IV FLUIDS COMPLETED PRN (04:30)
--- NOTE | 2017-07-23 05:54 | History and Physical ---
History & Physical Date & Time of Service: Jul 23, 2017 at 05:44 Chief Complaint: Acute And Chronic Respiratory Failure With Hypoxi Primary Care Physician: Bob Duke M.D. History of Present Illness Source: patient, hospital records The patient is a 72-year-old male with most recent [facility] admission from July 11 - July 15, who presents to the emergency department with similar symptoms, with severe shortness of breath in spite of using his 5 L of nasal cannula oxygen and nebulizers. He reports that these symptoms developed when he gets anxious, and he became anxious today due to worry regarding getting food that he was dependent upon receiving from other people due to his having a leg fracture and being unable to cook. He does continue to smoke tobacco in spite of previous hospitalizations and recommendations to cease tobacco use. Past Medical/Surgical History Medical Problems: (1) Acute and chronic respiratory failure with hypoxia (2) COPD (chronic obstructive pulmonary disease) (3) COPD exacerbation (4) Hypoxemia (5) Hypoxia (6) Hypoxia (7) Influenza (8) Pneumonia involving right lung (9) Respiratory distress (10) Respiratory infection (11) Sepsis (12) Tachycardia Family History Patient reports no known family medical history. Social History Smoking Status: Current Every Day Smoker Smokeless Tobacco Use: No Alcohol Use: none Drug Use: none Marital Status: Housing status: lives with family Occupational Status: employed Immunizations History of Influenza Vaccine: Unknown History of Tetanus Vaccine?: Unknown History of Pneumococcal: Unknown History of Hepatitis B Vaccine: Unknown Allergies Coded Allergies: No Known Allergies (Unverified , 07/09/17) Home Medications Scheduled Budesonide/Formoterol Fumarate (Symbicort 160/4.5 Inhaler), 2 PUFFS INH BID Cholecalciferol (Vitamin D3), 2,000 UNITS PO DAILY Escitalopram Oxalate (Lexapro), 20 MG PO DAILY Montelukast Sodium (Singulair), 10 MG PO DAILY Multiple Vitamins W/ Minerals (Certavite/Antioxidants), 1 TAB PO DAILY Prednisone (Prednisone), 20 MG PO DAILY/UD Roflumilast (Daliresp), 500 MCG PO DAILY Tiotropium [place] (Spiriva Handihaler), 1 CAP INH DAILY Scheduled PRN Albuterol Sulfate (Proventil Hfa), 2 PUFFS INH Q4H PRN for SOB/Wheezing Ipratropium-Albuterol (Duoneb), 3 ML INH Q4H PRN for SOB/Wheezing Review of Systems The patient denies chest pain, palpitations, cough, lower extremity swelling, sore throat, fevers, chills, sweats, nausea, vomiting, diarrhea , constipation , abdominal pain, pelvic pain, blood in urine or stool, dysuria, urinary frequency or urgency, lightheadedness , dizziness, headache, memory loss, loss of consciousness, rash, abnormal bruising or bleeding, imbalance, focal weakness, numbness or tingling in arms or legs, back or neck pain, or night sweats. The review of systems is otherwise negative other than for that already noted above, and at least 10 systems have been reviewed. Physical Exam Vital Signs Date Time Temp Pulse Resp B/P (MAP) Pulse Ox O2 Delivery O2 Flow Rate FiO2 07/23/17 05:42 112 94 30 07/23/17 03:00 36.6 132 28 159/95 93 BiPAP 07/23/17 02:21 136 91 30 07/23/17 01:45 131 20 104/67 97 BiPAP 07/23/17 00:41 137 26 101/64 98 BiPAP 07/22/17 23:50 137 94 30 07/22/17 23:30 91 Nasal Cannula 5.0 07/22/17 23:29 91 Nasal Cannula 5.0 07/22/17 23:29 91 Nasal Cannula 5.0 07/22/17 23:15 133 07/22/17 23:13 37.2 132 33 145/78 91 Nasal Cannula 6.0 The patient is awake, alert and oriented 3, appears cachectic, normocephalic and atraumatic, lying in bed with BiPAP mask in place. HEENT--PERRL, EOMI, mucous membranes and oropharynx dry. Neck--supple. No JVD. No bruits. Thyroid normal, trachea midline, no adenopathy. Heart--normal S1 and S2. No murmurs, rubs or gallops. Lungs--decreased breath sounds throughout, moderate respiratory distress and accessory muscle use. Abdomen--normal bowel sounds and soft. Nontender. Nondistended, no hernias or masses, no organomegaly. Extremities--no cyanosis or clubbing. No edema. There are good distal pulses b/ l. Dermatologic--normal skin turgor, normal color, no abnormal lymph nodes, no rash. Neurologic--cranial nerves II through XII grossly intact. Rheumatologic--normal range of motion. Psychiatric--mildly anxious. Diagnostics Laboratory Results Results Past 24 Hours Test 07/22/17 23:15 07/22/17 23:27 07/23/17 00:30 Range/Units White Blood Count 13.90 4.8-10.8 K/uL Red Blood Count 4.51 4.7-6.1 M/uL Hemoglobin 13.9 14.0-18.0 g/dL Hematocrit 43.4 42-52 % Mean Corpuscular Volume 96.2 80-100 fL Mean Corpuscular Hemoglobin 30.8 25-34 pg Mean Corpuscular Hemoglobin Concent 32.0 32-36 g/dl Platelet Count 260 130-400 K/uL Mean Platelet Volume 9.2 7.4-10.4 fL Neutrophils (%) (Auto) 79.4 % Lymphocytes (%) (Auto) 7.3 % Monocytes (%) (Auto) 7.8 % Eosinophils (%) (Auto) 4.5 % Basophils (%) (Auto) 0.1 % Neutrophils # (Auto) 11.06 1.4-6.5 K/uL Lymphocytes # (Auto) 1.01 1.2-3.4 K/uL Monocytes # (Auto) 1.08 0.11-0.59 K/uL Eosinophils # (Auto) 0.62 0-0.5 K/uL Basophils # (Auto) 0.01 0-0.2 K/uL RDW Standard Deviation 51.3 36.4-46.3 fL RDW Coefficient of Variation 14.5 11.5-14.5 % Immature Granulocyte % (Auto) 0.9 % Immature Granulocyte # (Auto) 0.12 0.00-0.02 K/uL Prothrombin Time 9.5 9.0-12.0 SECONDS Prothromb Time International Ratio 0.9 0.9-1.1 Activated Partial Thromboplast Time 23.1 21.0-31.0 SECONDS Partial Thromboplastin Ratio 0.9 Sodium Level 140 136-145 mmol/L Potassium Level 4.7 3.5-5.1 mmol/L Chloride Level 97 98-107 mmol/L Carbon Dioxide Level 40 21-32 mmol/L Anion Gap 3.0 3-11 mmol/L Blood Urea Nitrogen 20 7-18 mg/dl Creatinine 0.95 0.60-1.40 mg/dl Est Creatinine Clear Calc Drug Dose 62.1 ml/min Estimated GFR () 92.3 Estimated GFR (Non- 79.7 BUN/Creatinine Ratio 20.8 10-20 Random Glucose 128 70-99 mg/dl Calcium Level 8.5 8.5-10.1 mg/dl Total Bilirubin 0.3 0.2-1 mg/dl Aspartate Amino Transf (AST/SGOT) 18 15-37 U/L Alanine Aminotransferase (ALT/SGPT) 37 12-78 U/L Alkaline Phosphatase 63 45-117 U/L Pro-B-Type Natriuretic Peptide 69 0-900 pg/ml Total Protein 7.0 6.4-8.2 gm/dl Albumin 3.5 3.4-5.0 gm/dl Globulin 3.5 2.5-4.0 gm/dl Albumin/Globulin Ratio 1.0 0.9-2 Bedside Lactic Acid Venous 1.33 0.90-1.70 mmol/L Arterial Blood pH 7.37 7.35-7.45 Arterial Blood Partial Pressure CO2 64 35-46 mmHg Arterial Blood Partial Pressure O2 72 80-95 mm/Hg Arterial Blood HCO3 36 19-24 mmol/L Arterial Blood Oxygen Saturation 93.7 90-95 % Arterial Blood Base Excess 8.9 -9-1.8 mEq/L Arterial Blood Gas Delivery 30% Jethro Test POS POS Microbiology Results 07/22/17 Blood Culture, Received Pending 07/22/17 Blood Culture, Received Pending EKG EKG shows normal sinus rhythm 130 bpm, previously noted fusion complexes and PVCs of earlier EKGs are resolved, no acute ST-T changes. Impression Assessment and Plan Acute on chronic respiratory failure with hypoxia/end-stage COPD/continued tobacco use-- Given Solu-Medrol 125 mg IV in the ED, continue 60 mg IV every 8 hours. Pulmicort Respules 0.5 mg inhaled twice daily. Xopenex/Atrovent nebulizer every 6 hours while awake and every 2 hours as needed. Would avoid albuterol due to tachycardia. Guaifenesin extended release 600 mg p.o. twice daily. Continue Daliresp 500 mcg p.o. daily and montelukast 10 mg daily. Hold prednisone, Symbicort and Spiriva. Tobacco cessation. Should likely be discharged on BiPAP to be used as needed. Consult social insurance administrator regarding helping to meet home needs such as food availability etc. Anxiety with depression-- continue Lexapro 20 mg p.o. daily. Advanced Directives Existing Advance Directive: No Existing Living Will: No Existing Power of Wax Pattern Assembler: No Resuscitation Status VTE Prophylaxis Will order VTE Prophylaxis: Yes
[2017-07-23] MEDS: BUDESONIDE 0.5 MG/2 ML VIAL (PULMICORT) INH SCH ×2 (07:08→18:55)
[2017-07-23] MEDS: GUAIFENESIN 200 MG TAB PO SCH ×2 (08:08→19:50)
[2017-07-23] MEDS: ENOXAPARIN 40 MG/0.4 ML SYR SC SCH (08:08)
--- NOTE | 2017-07-23 08:38 | DIAGNOSTIC IMAGING REPORT ---
CHEST ONE VIEW PORTABLE CLINICAL HISTORY: Shortness of breath COMPARISON STUDY: 07/09/2017 FINDINGS: There is pulmonary emphysema. The heart is normal in size. There is no focal pulmonary consolidation. There are no pleural effusions. There is no failure. There is a linear area of scar/atelectasis at the right lung base.[ IMPRESSION: Emphysema. No acute findings. Electronically signed by: Dino Lion M.D. 07/23/2017 6:38 AM Dictated Date/Time: 07/23/2017 6:37 AM
--- NOTE | 2017-07-23 10:15 | Hospitalist Progress Note ---
Hospitalist Progress Note Date of Service Jul 23, 2017. (Hermes Gaspar, EUGENIO) Subjective Pt evaluation today including: conversation w/ patient, physical exam, chart review, lab review, review of studies, review of inpatient medication list (Hermes Gaspar CRNP) Objective Vital Signs Date Time Temp Pulse Resp B/P (MAP) Pulse Ox O2 Delivery O2 Flow Rate FiO2 07/23/17 08:10 36.7 120 20 114/68 (83) 96 07/23/17 07:10 114 20 95 BiPAP/CPAP 30 07/23/17 05:42 112 94 30 07/23/17 03:00 36.6 132 28 159/95 93 BiPAP 07/23/17 02:21 136 91 30 07/23/17 01:45 131 20 104/67 97 BiPAP 07/23/17 00:41 137 26 101/64 98 BiPAP 07/22/17 23:50 137 94 30 07/22/17 23:30 91 Nasal Cannula 5.0 07/22/17 23:29 91 Nasal Cannula 5.0 07/22/17 23:29 91 Nasal Cannula 5.0 07/22/17 23:15 133 07/22/17 23:13 37.2 132 33 145/78 91 Nasal Cannula 6.0 (Hermes Gaspar CRNP) Laboratory Results Last 24 Hours Test 07/22/17 23:15 07/22/17 23:27 07/23/17 00:30 White Blood Count 13.90 K/uL Red Blood Count 4.51 M/uL Hemoglobin 13.9 g/dL Hematocrit 43.4 % Mean Corpuscular Volume 96.2 fL Mean Corpuscular Hemoglobin 30.8 pg Mean Corpuscular Hemoglobin Concent 32.0 g/dl Platelet Count 260 K/uL Mean Platelet Volume 9.2 fL Neutrophils (%) (Auto) 79.4 % Lymphocytes (%) (Auto) 7.3 % Monocytes (%) (Auto) 7.8 % Eosinophils (%) (Auto) 4.5 % Basophils (%) (Auto) 0.1 % Neutrophils # (Auto) 11.06 K/uL Lymphocytes # (Auto) 1.01 K/uL Monocytes # (Auto) 1.08 K/uL Eosinophils # (Auto) 0.62 K/uL Basophils # (Auto) 0.01 K/uL RDW Standard Deviation 51.3 fL RDW Coefficient of Variation 14.5 % Immature Granulocyte % (Auto) 0.9 % Immature Granulocyte # (Auto) 0.12 K/uL Prothrombin Time 9.5 SECONDS Prothromb Time International Ratio 0.9 Activated Partial Thromboplast Time 23.1 SECONDS Partial Thromboplastin Ratio 0.9 Sodium Level 140 mmol/L Potassium Level 4.7 mmol/L Chloride Level 97 mmol/L Carbon Dioxide Level 40 mmol/L Anion Gap 3.0 mmol/L Blood Urea Nitrogen 20 mg/dl Creatinine 0.95 mg/dl Est Creatinine Clear Calc Drug Dose 62.1 ml/min Estimated GFR () 92.3 Estimated GFR (Non- 79.7 BUN/Creatinine Ratio 20.8 Random Glucose 128 mg/dl Calcium Level 8.5 mg/dl Total Bilirubin 0.3 mg/dl Aspartate Amino Transf (AST/SGOT) 18 U/L Alanine Aminotransferase (ALT/SGPT) 37 U/L Alkaline Phosphatase 63 U/L Pro-B-Type Natriuretic Peptide 69 pg/ml Total Protein 7.0 gm/dl Albumin 3.5 gm/dl Globulin 3.5 gm/dl Albumin/Globulin Ratio 1.0 Bedside Lactic Acid Venous 1.33 mmol/L Arterial Blood pH 7.37 Arterial Blood Partial Pressure CO2 64 mmHg Arterial Blood Partial Pressure O2 72 mm/Hg Arterial Blood HCO3 36 mmol/L Arterial Blood Oxygen Saturation 93.7 % Arterial Blood Base Excess 8.9 mEq/L Arterial Blood Gas Delivery 30% Jethro Test POS (Hermes Gaspar, EUGENIO) Assessment and Plan 1. Acute on chronic respiratory failure with hypoxia/end-stage COPD/continued tobacco use-- - patient feels much better. continue solumedrol 60 mg IV every 8 hours. - Pulmicort Respules 0.5 mg inhaled twice daily. - Xopenex/Atrovent nebulizer every 6 hours while awake and every 2 hours as needed. Would avoid albuterol due to tachycardia. -Guaifenesin extended release 600 mg p.o. twice daily. -Continue Daliresp 500 mcg p.o. daily and montelukast 10 mg daily. -Tobacco cessation. 2. CM - anxiety associated with breathing seems to worsen situation. - continue Lexapro -add Lorazepam - would benefit from home prescription - 3. DVT prophylaxis with Lovenox 4. Disposition - move to tele unit - I suspect will be here another 2 days, continue IV solumedrol. Continued [facility] stay due to: multiple IV medications needed Discharge planning: home with home health (Hermes Gaspar ., EUGENIO) EUGENIO Physician Supervision Note: I interviewed and examined the patient. Discussed with Hermes BECKER and agree with findings and plan as documented in the note. Any exceptions or clarifications are listed here: None This pt is about the same still with shortness of breath and has had increased tachycardia and some bouts of SVT vitals show tachycardia, lungs with prolongued Exp phase and cough, seemingly at the baseline Chronic respiratory failure with hypoxia continues with support with bronchodilators SVT and tachyarrhythmia the patient has been having occasional improvement with IV metoprolol cardiology has seen and will add scheduled metoprolol Case management will need to help him situation as the patient's is also been medically incapacitated and they are having difficulties at home Documented By: Otf Mendoza (Otf Mendoza M.D.)
[2017-07-23] MEDS: IPRATROPIUM BROMIDE NEB SOLN 0.02% 2.5 ML VIAL INH PRN (11:44)
[2017-07-23] MEDS: LEVALBUTEROL 1.25MG/0.5ML NEB INH PRN (11:44)
[2017-07-23] MEDS ORDERED: METOPROLOL TARTRATE 1 MG/ML VIAL IV PRN (12:00)
[2017-07-23] MEDS ORDERED: LORAZEPAM 2 MG/ML 1 ML VIAL ONE (12:08)
[2017-07-23] MEDS ORDERED: METOPROLOL TARTRATE 1 MG/ML VIAL ONE (12:09)
--- NOTE | 2017-07-23 13:35 | Pulmonary Consultation ---
History General Date of Service: Jul 23, 2017. Stated Complaint: Acute And Chronic Respiratory Failure With Hypoxi HPI Dear Dr. Prieto: Thank you for your kind referral of Mr. Zelaya to pulmonary service. This is a 72-year-old gentleman active smoker with a history of COPD, gold level 3, on home O2 at 5 L/min, does have multiple modalities treated for COPD, recent admission to the hospital with COPD exacerbation, he continued to smoke cigarettes occasionally, presented to the hospital with increasing shortness of breath accompanied with wheezing, he claimed that his anxiety is affecting his respiratory status. He denies any cough or sputum production. No hemoptysis. He does have significant weight loss due to COPD according to him. His poor appetite also due to shortness of breath with meals. His level of activity is around 10-30 feet only. He uses oxygen which has been increased to 5 L. The patient has been on prednisone in addition to Daliresp, is being treated with Singulair, bronchodilators, Pulmicort, Symbicort, he has been followed as an outpatient with pulmonary as well. The patient started on Solu-Medrol as well as bronchodilators. And he was placed on the BiPAP location D. When I interviewed him, he appeared very anxious and his respiratory status appeared to be compromised by his level of anxiety as well. Sure enough he denies any chest pain, no epigastric pain, no nausea or vomiting, no increased edema in the lower extremities. Historian: patient, other (Medical records) Complaint Status: persistent Review of Systems Constitutional: denies: no symptoms, as stated in HPI, chills, diaphoresis, fever, malaise, weakness, weight gain, weight loss, other Eyes: denies: no symptoms, as stated in HPI, eye pain, tearing, itching, redness, discharge, double vision, visual changes, blurred vision, photophobia, other ENT: denies: no symptoms, as stated in HPI, ear pain, ear discharge, loss of hearing, tinnitus, nasal pain, nasal congestion, rhinorrhea, epistaxis, sore throat, stridor, throat swelling, mouth pain, mouth swelling, dental pain, gum swelling, other Cardiovascular: denies: no symptoms, as stated in HPI, chest pain, chest pressure, chest tightness, diaphoresis, edema, intermittent claudication, orthopnea, palpitations, syncope, other Respiratory: reports: cough, shortness of breath Gastrointestinal: denies: no symptoms, as stated in HPI, abdominal pain, constipation, diarrhea, nausea, vomiting, hematemesis, hematochezia, hemorrhoids , anorexia, appetite changes, stool changes, flatulence, belching, food intolerance, jaundice, other Musculoskeletal: denies: no symptoms, as stated in HPI, arthralgias, neck pain , back pain, joint pain, joint swelling, deformity, myalgias, muscle spasms, other Integumentary: denies: no symptoms, as stated in HPI, rash, redness, warmth, itching, dryness, lesions, lumps, change in color, change in hair/nails, other Neurologic: denies: no symptoms, as stated in HPI, headache, dizziness, general weakness, focal weakness, numbness, tingling, paresthesia, pre-existing deficit, tremors, tics, vertigo, seizure, lethargy, memory loss, other Past Medical History Past Medical History: As above including advanced COPD, gold level 3, home O2 dependent, with chronic respiratory failure. Active smoker. Anxiety. Past Surgical History: no surgical history Family History Patient reports no known family medical history. Social History Hx Tobacco Use In Past Year?: Yes Smoking Status: Current Every Day Smoker Marital status: Housing status: lives with family Occupational Status: employed Immunizations History of Influenza Vaccine: Unknown History of Tetanus Vaccine?: Unknown History of Pneumococcal: Unknown History of Hepatitis B Vaccine: Unknown History of MDRO History of MDRO: No Allergies Coded Allergies: No Known Allergies (Unverified , 07/09/17) Current Medications Reported Home Medications Medications Dose Route/Sig Max Daily Dose Days Date Category Dose Instructions Proventil Hfa (Albuterol Sulfate) 108 Mcg/Act Aer 2 Puffs INH Q4H PRN 07/23/17 Reported Daliresp (Roflumilast) 500 Mcg Tab 500 Mcg PO DAILY 07/23/17 Reported Duoneb (Ipratropium-Albuterol) 3 Ml Nebu 3 Ml INH Q4H PRN 07/23/17 Reported Prednisone 20 Mg Tab 20 Mg PO DAILY/UD 07/23/17 Reported BGEGIN 07/15/17 :TAKE 3 TABS DAILY X ONE DAY,THEN TAKE 2 TABS DAILY X TWO DAYS, THEN TAKE 1 TAB DAILY X TWO DAYS, THEN TAKE 1/2 TAB DAILY X TWO DAYS. Vitamin D3 (Cholecalciferol) 2,000 Unit Cap 2,000 Units PO DAILY 04/23/17 Reported Certavite/Antioxidants (Multiple Vitamins W/ Minerals) 1 Tab Tab 1 Tab PO DAILY 04/23/17 Reported Lexapro (Escitalopram Oxalate) 20 Mg Tab 20 Mg PO DAILY 11/15/16 Reported Spiriva Handihaler (Tiotropium [place]) 30 Puff/540 Mcg Aerp 1 Cap INH DAILY 11/15/16 Reported Symbicort 160/4.5 Inhaler (Budesonide/Formoterol Fumarate) 120 Puffs/ Aero 2 Puffs INH BID 04/03/12 Reported Singulair (Montelukast Sodium) 10 Mg Tab 10 Mg PO DAILY 04/03/12 Reported Physical Physical Exam Vital Signs: Date Time Temp Pulse Resp B/P (MAP) Pulse Ox O2 Delivery O2 Flow Rate FiO2 07/23/17 12:26 132 129/84 07/23/17 12:00 Nasal Cannula 4.0 07/23/17 11:58 37.0 119 22 145/84 (104) 94 07/23/17 11:44 105 20 94 Nasal Cannula 5.0 07/23/17 08:10 36.7 120 20 114/68 (83) 96 07/23/17 08:00 Nasal Cannula 4.0 07/23/17 07:10 114 20 95 BiPAP/CPAP 30 07/23/17 05:42 112 94 30 07/23/17 03:00 36.6 132 28 159/95 93 BiPAP 07/23/17 02:21 136 91 30 07/23/17 01:45 131 20 104/67 97 BiPAP 07/23/17 00:41 137 26 101/64 98 BiPAP 07/22/17 23:50 137 94 30 07/22/17 23:30 91 Nasal Cannula 5.0 07/22/17 23:29 91 Nasal Cannula 5.0 07/22/17 23:29 91 Nasal Cannula 5.0 07/22/17 23:15 133 07/22/17 23:13 37.2 132 33 145/78 91 Nasal Cannula 6.0 General Appearance: uncomfortable Eyes: EOMI ENT: NORMAL NASAL EXAM, NORMAL MOUTH EXAM, NORMAL THROAT EXAM Neck: TRACHEA MIDLINE Respiratory: accessory muscle use, rhonchi Cardiovasular: NORMAL S1S2, NO M/G/R, NO MURMUR Abdomen: NO REBOUND, NO MASSES, NO GUARDING Lower Extremities: NO EDEMA Neuro: ALERT, ORIENTED x 3, NORMAL MOTOR EXAM, other (Anxiety) Diagnostics Labs Results Past 24 Hours Test 07/22/17 23:15 07/22/17 23:27 07/23/17 00:30 Range/Units White Blood Count 13.90 4.8-10.8 K/uL Red Blood Count 4.51 4.7-6.1 M/uL Hemoglobin 13.9 14.0-18.0 g/dL Hematocrit 43.4 42-52 % Mean Corpuscular Volume 96.2 80-100 fL Mean Corpuscular Hemoglobin 30.8 25-34 pg Mean Corpuscular Hemoglobin Concent 32.0 32-36 g/dl Platelet Count 260 130-400 K/uL Mean Platelet Volume 9.2 7.4-10.4 fL Neutrophils (%) (Auto) 79.4 % Lymphocytes (%) (Auto) 7.3 % Monocytes (%) (Auto) 7.8 % Eosinophils (%) (Auto) 4.5 % Basophils (%) (Auto) 0.1 % Neutrophils # (Auto) 11.06 1.4-6.5 K/uL Lymphocytes # (Auto) 1.01 1.2-3.4 K/uL Monocytes # (Auto) 1.08 0.11-0.59 K/uL Eosinophils # (Auto) 0.62 0-0.5 K/uL Basophils # (Auto) 0.01 0-0.2 K/uL RDW Standard Deviation 51.3 36.4-46.3 fL RDW Coefficient of Variation 14.5 11.5-14.5 % Immature Granulocyte % (Auto) 0.9 % Immature Granulocyte # (Auto) 0.12 0.00-0.02 K/uL Prothrombin Time 9.5 9.0-12.0 SECONDS Prothromb Time International Ratio 0.9 0.9-1.1 Activated Partial Thromboplast Time 23.1 21.0-31.0 SECONDS Partial Thromboplastin Ratio 0.9 Sodium Level 140 136-145 mmol/L Potassium Level 4.7 3.5-5.1 mmol/L Chloride Level 97 98-107 mmol/L Carbon Dioxide Level 40 21-32 mmol/L Anion Gap 3.0 3-11 mmol/L Blood Urea Nitrogen 20 7-18 mg/dl Creatinine 0.95 0.60-1.40 mg/dl Est Creatinine Clear Calc Drug Dose 62.1 ml/min Estimated GFR () 92.3 Estimated GFR (Non- 79.7 BUN/Creatinine Ratio 20.8 10-20 Random Glucose 128 70-99 mg/dl Calcium Level 8.5 8.5-10.1 mg/dl Total Bilirubin 0.3 0.2-1 mg/dl Aspartate Amino Transf (AST/SGOT) 18 15-37 U/L Alanine Aminotransferase (ALT/SGPT) 37 12-78 U/L Alkaline Phosphatase 63 45-117 U/L Pro-B-Type Natriuretic Peptide 69 0-900 pg/ml Total Protein 7.0 6.4-8.2 gm/dl Albumin 3.5 3.4-5.0 gm/dl Globulin 3.5 2.5-4.0 gm/dl Albumin/Globulin Ratio 1.0 0.9-2 Bedside Lactic Acid Venous 1.33 0.90-1.70 mmol/L Arterial Blood pH 7.37 7.35-7.45 Arterial Blood Partial Pressure CO2 64 35-46 mmHg Arterial Blood Partial Pressure O2 72 80-95 mm/Hg Arterial Blood HCO3 36 19-24 mmol/L Arterial Blood Oxygen Saturation 93.7 90-95 % Arterial Blood Base Excess 8.9 -9-1.8 mEq/L Arterial Blood Gas Delivery 30% Jethro Test POS POS Microbiology Results 07/22/17 Blood Culture, Received Pending 07/22/17 Blood Culture, Received Pending Diagnostic Radiology His labs were reviewed which showed acute on chronic hypercapnic respiratory failure, chest x-ray showed hyperinflated lungs without infiltrate. Both were reviewed personally. Impression Assessment and Plan 1. COPD, gold level 3 and exacerbation, grade C. Bounce back admission to the hospital since last month. 2. Cor pulmonale. 3. Anxiety, Daliresp probably playing a role as well. 4. Chronic hypercapnic and hypoxic respiratory failure with acute component. Plan: 1. Agree with steroids, I have increased the frequency and decrease the dose to 40 mg every 6. 2. Stop Daliresp. It will increase his level of anxiety without improving his respiratory status. 3. Continue Symbicort and bronchodilators. 4. Oxygen 5 L/min on 24/7 basis. 5. Change BiPAP to as needed during the daytime and on standing basis at night. 6. Start Xanax 0.25 mg p.o. 3 times daily. The dose can be increased accordingly. 7. Smoking cessation counseling. 8. Address CODE STATUS with the patient. Thank you, will follow.
[2017-07-23] MEDS: ALPRAZOLAM 0.25 MG TAB PO SCH ×2 (14:00→19:50)
[2017-07-23] MEDS ORDERED: METOPROLOL TARTRATE 25 MG TAB PO ONE (15:27)
--- NOTE | 2017-07-23 16:02 | CARDIOLOGY CONSULTATION ---
DATE OF CONSULTATION: 07/23/2017 TIME: 16:18 p.m. CONSULTING PHYSICIAN: Dr. Mendoza. REASON FOR CONSULTATION: Tachyarrhythmia. HISTORY OF PRESENT ILLNESS: Mr. Quigley is a pleasant 72-year-old gentleman with a history significant for end-stage COPD/emphysema with chronic respiratory failure and hypoxia, who presented to [facility] with shortness of breath. He was recently hospitalized and discharged on July 15, where he was treated for a COPD exacerbation. He represented on 07/22/2017 due to similar symptoms of shortness of breath. He has had some chest discomfort only when coughing and states that he coughs only occasionally. He denies angina. He denies syncope, near syncope, or edema. He has had no palpitations, but states that he knows his heart rate has been fast in the 120s to 130s on telemetry. He also has noted that telemetry has shown more elevated heart rates intermittently. When reviewing old records, he has chronically been tachycardic, but seems to be more tachycardic throughout this hospitalization with once again resting heart rates lying in bed in the 120s to 130s more consistently. He is asymptomatic in this regard. He uses 4 or 5 liters of supplemental oxygen via nasal cannula. He also uses nebulizers. He follows with Dr. Packer in the outpatient setting. He was seen earlier today by Dr. Stout of pulmonology, who has adjusted some of his medications by discontinuing Daliresp. He also increased the frequency, but while decreasing the dose of steroid treatment. He has started low-dose Xanax as well for the anxiety. He denies melena, hematochezia, or hematuria. He denies stroke or stroke-like symptoms. He denies abdominal pain, nausea, vomiting or fever. REVIEW OF SYSTEMS: As above and review of systems otherwise negative/unremarkable. PAST MEDICAL HISTORY: 1. Severe COPD/emphysema. 2. Chronic respiratory failure with hypoxia. 3. History of pneumonia. 4. History of sepsis. 5. Chronic sinus tachycardia. CURRENT MEDICATIONS: Include: 1. Xanax 0.25 mg p.o. t.i.d. 2. Lovenox 40 mg subQ q. 24 hours. 3. Ipratropium inhalers. 4. Xopenex inhaler. 5. Methylprednisolone 40 mg IV q. 6 hours. 6. Metoprolol tartrate 5 mg IV p.r.n., which he tolerated well. ALLERGIES: No known drug allergies. SOCIAL HISTORY: He has smoked 4 packs per day for 50 years. He has recently quit smoking. No alcohol or drugs. Lives at home with his . They do have a daughter, who helps take care of them more recently. They have grandchildren. He is a former overhauler bus truck. He is unaccompanied in his hospital room. FAMILY HISTORY: No known premature CAD. PHYSICAL EXAMINATION: VITAL SIGNS: Temperature 37 degrees, heart rate is currently in the 120s, respiratory rate 20, blood pressure 129/84 mmHg, and oxygen saturation is 97% on 5 liters per nasal cannula. Weight is 58.5 kg. GENERAL: In no acute distress. He is alert and oriented. HEENT: Anicteric sclerae. NECK: No appreciable JVD. No bruits. Normal carotid upstrokes bilaterally. CARDIAC EXAMINATION: PMI was nonpalpable. There was no ventricular heave. Distant heart sounds. There were no audible murmurs or rubs or gallops. LUNGS: Significantly reduced lung sounds throughout. There is expiratory wheezing. ABDOMEN: Soft, nontender, and nondistended. Normoactive bowel sounds. No bruits noted. EXTREMITIES: No cyanosis or edema. 2+ radial pulses bilaterally. 2+ dorsalis pedis pulses bilaterally. No palpable cords. PSYCHIATRIC: Affect appears appropriate. LABORATORY DATA: White blood cell count is 13.9, hemoglobin is also 13.9, and platelets 260. Sodium 140, potassium 4.7, BUN 20, and creatinine 0.95. AST 18 and ALT 37. Albumin 3.5. INR 0.9. Most recent TSH on 06/02/2017 was 1.79. ProBNP 69. Chest x-ray image personally reviewed. Chest x-ray on 07/22/2017 appeared clear. Radiology has interpreted this as emphysema with no acute findings. Echocardiogram on 07/14/2017 reported as normal LV systolic function. Type 1 diastolic dysfunction. Normal RVSP per report. Telemetry personally reviewed as noted above. ECG personally reviewed on 07/22/2017, sinus tachycardia at 133 beats per minute. ASSESSMENT AND PLAN: 1. Sinus tachycardia: Likely secondary to his significant pulmonary issues. There was also thought to be an anxiety component when talking to other providers. We will start low dose beta mena in the form of metoprolol tartrate 25 mg twice daily as he also has been experiencing some supraventricular tachycardia on telemetry. He has tolerated IV metoprolol. Beta mena was also discussed with Dr. Stout of pulmonary medicine. Would accept tachycardia, but would like to improve his heart rate somewhat given the degree of tachycardia currently while lying in bed. 2. Paroxysmal supraventricular tachycardia: He is asymptomatic. This was noted on telemetry. It was nonsustained. Beta mena initiated as above. 3. Acute on chronic respiratory failure with hypoxia: This appears to be secondary to his known pulmonary issues in the form of advanced chronic obstructive pulmonary disease/emphysema. We will defer to pulmonology and primary team. He appears euvolemic. 4. Disposition: Cardiology will continue to follow. The patient's care has been discussed with Dr. Stout of pulmonary consultation as well as Dr. Mendoza of the primary hospitalist service. Thank you for allowing me to participate in the care of Mr. Quigley. Sincerely,
[2017-07-23] MEDS: METHYLPREDNISOLONE IV 40 MG in SYRINGE 0 ML IV SCH ×2 (16:21→22:35)
[2017-07-24] VITALS (15 sets, daily range): BP systolic 117–172; BP diastolic 74–101; PULSE 85–132; TEMP 36.6–37; O2SAT 83–100
[2017-07-24] MEDS: LEVALBUTEROL 1.25MG/0.5ML NEB INH SCH ×4 (01:49→19:31)
[2017-07-24] MEDS: IPRATROPIUM BROMIDE NEB SOLN 0.02% 2.5 ML VIAL INH SCH ×4 (01:49→19:31)
[2017-07-24] MEDS: LORAZEPAM 2 MG/ML 1 ML VIAL IV PRN ×2 (02:29→07:36)
[2017-07-24] MEDS: METHYLPREDNISOLONE IV 40 MG in SYRINGE 0 ML IV SCH ×4 (04:52→21:23)
[2017-07-24 06:54] LABS: HEMATOCRIT 39.1 % (42-52); HEMOGLOBIN 12.4 g/dL (14.0-18.0); MEAN CELL VOLUME 95.8 fL (80-100); MEAN CORPUSCULAR HEMOGLOBIN 30.4 pg (25-34); MEAN CORPUSCULAR HGB CONC 31.7 g/dl (32-36); MEAN PLATELET VOLUME 9.5 fL (7.4-10.4); PLATELET COUNT 226 K/uL (130-400); RED CELL DISTRIBUTION WIDTH CV 14.1 % (11.5-14.5); RED CELL DISTRIBUTION WIDTH SD 49.6 fL (36.4-46.3)
[2017-07-24] MEDS: BUDESONIDE 0.5 MG/2 ML VIAL (PULMICORT) INH SCH ×2 (06:54→19:31)
[2017-07-24 07:17] LABS: BASO % 0.1 %; BASO ABS # 0.02 K/uL (0-0.2); IG# 0.11 K/uL (0.00-0.02); LYMPH % 1.7 %; LYMPH ABS # 0.39 K/uL (1.2-3.4); MONO % 3.8 %; MONO ABS # 0.88 K/uL (0.11-0.59); NEUT % 93.9 %
[2017-07-24] MEDS: GUAIFENESIN 200 MG TAB PO SCH ×2 (07:24→20:43)
[2017-07-24] MEDS: ALPRAZOLAM 0.25 MG TAB PO SCH ×2 (07:24→12:05)
[2017-07-24] MEDS: METOPROLOL TARTRATE 25 MG TAB PO SCH ×2 (07:24→20:40)
[2017-07-24] MEDS: ENOXAPARIN 40 MG/0.4 ML SYR SC SCH (07:25)
[2017-07-24 07:26] LABS: CALCIUM 8.7 mg/dl (8.5-10.1); CREATININE 0.75 mg/dl (0.60-1.40); POTASSIUM 4.3 mmol/L (3.5-5.1)
--- NOTE | 2017-07-24 10:57 | Pulmonology Progress Note ---
Pulmonary Progress Note Date of Service Jul 24, 2017. Attending Dr. Stout Subjective The patient seems to be tachypnea, although more lethargic, labored breathing, requiring the BiPAP more often, I saw him today in the morning and he could not give me review of system, the patient received Xanax on sending doses as well as Ativan was added. Did not have any pain reported. His respiratory status is very fragile. The patient remains full code and just being changed to DNR, appreciate Dr. Mendoza help in confirming his CODE STATUS. Objective Physical exam on 07/24/2017 revealed lethargy, respiratory rate of 32, hyperinflated chest, distant breath sounds bilaterally, no wheezing or stridor, abdomen is benign, no edema, heart rate is 120 normal sinus rhythm, placed on the BiPAP at this point. Assessment & Plan 1. Acute on chronic hypoxic and hypercapnic respiratory failure. 2. Advanced COPD, gold level 3, grade C. 3. Cor pulmonale. 4. SVT requiring low-dose of beta-mena, he seems to tolerate it. Plan: 1. Continue with IV Solu-Medrol. 2. I would decrease his Xanax only to nocturnal. 3. Give the patient on the BiPAP as needed during the daytime and on standing basis at night. 4. He will need to go on a BiPAP even at home when he is discharged. 5. Current bronchodilators. 6. Appreciate cardiology consult. 7. The patient now is DNR, appreciate Dr. Mendoza input. 8. DVT prophylaxis. 9. Seems to tolerate beta-blockers for RVR, SVT. Thank you, will follow. Data Medications: Current Inpatient Medications Medications (Trade) Dose Ordered Sig/Suyapa Route Start Time Stop Time Status Last Admin Dose Admin Enoxaparin Sodium (Lovenox Inj) 40 mg Q24H SC 07/23/17 09:00 08/22/17 08:59 07/24/17 07:25 40 MG Acetaminophen (Tylenol Tab) 650 mg Q4H PRN PO 07/23/17 01:15 08/22/17 01:14 Al Hydrox/Mg Hydrox/Simethicone (Maalox Max Susp) 15 ml Q4H PRN PO 07/23/17 01:15 08/22/17 01:14 Magnesium Hydroxide (Milk Of Magnesia Susp) 30 ml Q12H PRN PO 07/23/17 01:15 08/22/17 01:14 Polyethylene (Miralax Powder Packet) 17 gm DAILY PRN PO 07/23/17 01:15 08/22/17 01:14 Ondansetron HCl (Zofran Odt) 8 mg Q6H PRN PO 07/23/17 01:15 08/22/17 01:14 Guaifenesin (Organidin Nr Tab) 600 mg BID PO 07/23/17 09:00 08/22/17 08:59 07/24/17 07:24 600 MG Budesonide (Pulmicort Respules 0.5MG/ 2ML Neb Soln) 0.5 mg BIDR INH 07/23/17 08:00 08/22/17 07:59 07/24/17 06:54 0.5 MG Ipratropium [place] (Atrovent 0.02% 0.5MG/2.5ML Neb) 0.5 mg Q6R INH 07/23/17 03:00 08/22/17 02:59 07/24/17 06:53 0.5 MG Levalbuterol (Xopenex 1.25MG/ 0.5ML Neb) 1.25 mg Q6R INH 07/23/17 03:00 08/22/17 02:59 07/24/17 06:53 1.25 MG Ipratropium [place] (Atrovent 0.02% 0.5MG/2.5ML Neb) 0.5 mg Q2H PRN INH 07/23/17 01:30 08/22/17 01:29 07/23/17 11:44 0.5 MG Levalbuterol (Xopenex 1.25MG/ 0.5ML Neb) 1.25 mg Q2H PRN INH 07/23/17 01:30 08/22/17 01:29 07/23/17 11:44 1.25 MG Miscellaneous (Iv Fluids Completed) 1 ea PRN PRN N/A 07/23/17 04:30 07/23/18 04:29 Lorazepam (Ativan Tab) 0.5 mg Q4H PRN PO 07/23/17 10:15 08/22/17 10:14 Lorazepam (Ativan Inj) 0.5 mg Q4H PRN IV 07/23/17 12:00 5/5/18 11:59 07/24/17 07:36 0.5 MG Metoprolol Tartrate (Lopressor Iv) 5 mg Q4 PRN IV 07/23/17 12:00 08/22/17 11:59 Methylprednisolone Sodium Succinate 40 mg/Syringe 0.64 ml @ 1.5 mls/min Q6H IV 07/23/17 16:00 08/22/17 15:59 07/24/17 09:41 1.5 MLS/MIN Alprazolam (Xanax Tab) 0.25 mg TID PO 07/23/17 14:00 08/22/17 13:59 07/24/17 07:24 0.25 MG Metoprolol Tartrate (Lopressor Tab) 25 mg BID PO 07/24/17 09:00 08/23/17 08:59 07/24/17 07:24 25 MG Vital Signs: Date Time Temp Pulse Resp B/P (MAP) Pulse Ox O2 Delivery O2 Flow Rate FiO2 07/24/17 08:05 103 93 Nasal Cannula 4.5 07/24/17 08:00 Nasal Cannula 4.0 07/24/17 07:31 36.6 114 26 145/87 (106) 83 Nasal Cannula 4.5 07/24/17 07:27 100 20 96 Nasal Cannula 3.0 07/24/17 04:00 89 Nasal Cannula 4.0 07/24/17 03:00 120 28 131/78 (95) 90 Nasal Cannula 4.0 07/24/17 01:49 108 20 96 Nasal Cannula 4.0 07/24/17 00:05 93 Nasal Cannula 4.0 07/23/17 23:00 36.5 106 26 131/82 (98) 93 Nasal Cannula 4.0 07/23/17 20:30 87 Nasal Cannula 5.0 07/23/17 19:40 36.5 119 27 130/75 (93) 87 Nasal Cannula 5.0 07/23/17 18:55 109 24 97 Nasal Cannula 5.0 07/23/17 16:08 36.8 119 29 139/95 (110) 96 Nasal Cannula 5.0 07/23/17 16:00 Nasal Cannula 4.0 07/23/17 14:10 115 20 97 Nasal Cannula 5.0 07/23/17 12:26 132 129/84 07/23/17 12:00 Nasal Cannula 4.0 07/23/17 11:58 37.0 119 22 145/84 (104) 94 07/23/17 11:44 105 20 94 Nasal Cannula 5.0 Laboratory Results: Last 24 Hours Test 07/24/17 06:11 White Blood Count 22.90 K/uL Red Blood Count 4.08 M/uL Hemoglobin 12.4 g/dL Hematocrit 39.1 % Mean Corpuscular Volume 95.8 fL Mean Corpuscular Hemoglobin 30.4 pg Mean Corpuscular Hemoglobin Concent 31.7 g/dl Platelet Count 226 K/uL Mean Platelet Volume 9.5 fL Neutrophils (%) (Auto) 93.9 % Lymphocytes (%) (Auto) 1.7 % Monocytes (%) (Auto) 3.8 % Eosinophils (%) (Auto) 0.0 % Basophils (%) (Auto) 0.1 % Neutrophils # (Auto) 21.50 K/uL Lymphocytes # (Auto) 0.39 K/uL Monocytes # (Auto) 0.88 K/uL Eosinophils # (Auto) 0.00 K/uL Basophils # (Auto) 0.02 K/uL RDW Standard Deviation 49.6 fL RDW Coefficient of Variation 14.1 % Immature Granulocyte % (Auto) 0.5 % Immature Granulocyte # (Auto) 0.11 K/uL Sodium Level 139 mmol/L Potassium Level 4.3 mmol/L Chloride Level 98 mmol/L Carbon Dioxide Level 36 mmol/L Anion Gap 5.0 mmol/L Blood Urea Nitrogen 23 mg/dl Creatinine 0.75 mg/dl Est Creatinine Clear Calc Drug Dose 71.4 ml/min Estimated GFR () 106.2 Estimated GFR (Non- 91.6 BUN/Creatinine Ratio 30.6 Random Glucose 140 mg/dl Calcium Level 8.7 mg/dl
--- NOTE | 2017-07-24 14:09 | Hospitalist Progress Note ---
Hospitalist Progress Note Date of Service Jul 24, 2017. (Hermes Gaspar, EUGENIO) Subjective Pt evaluation today including: conversation w/ patient, physical exam, lab review, review of studies, review of inpatient medication list Pain: denies pain PO Intake: poor oral intake Voiding: no voiding problems more lethargic this AM. he did not have a good night. respirations/accessory muscle use more labored. Constitutional: No see HPI, No fever, No chills, No sweats, No weight loss, No weakness, No fatigue, No problem reported ENT: No see HPI, No hearing loss, No unusual epistaxis, No nasal symptoms, No sore throat, No tinnitus, No dental problems, No trouble swallowing, No problem reported Respiratory: + cough, + wheezing, + shortness of breath, + dyspnea on exertion, + dyspnea at rest Cardiovascular: No see HPI, No chest pain, No orthopnea, No PND, No edema, No claudication, No palpitations, No problem reported Abdomen: No see HPI, No pain, No nausea, No vomiting, No diarrhea, No constipation, No GI bleeding, No problem reported Musculoskeletal: No see HPI, No joint pain, No muscle pain, No swelling, No calf pain, No problem reported Neurologic: + problem reported (lethargic this am) Skin: No see HPI, No rash, No itch, No new/changing skin lesions, No color change, No bleeding, No problem reported (Hermes Gaspar CRNP) Medications reviewed medications (Hermes Gaspar CRNP) Objective Vital Signs Date Time Temp Pulse Resp B/P (MAP) Pulse Ox O2 Delivery O2 Flow Rate FiO2 07/24/17 13:55 102 20 91 Mask 5.0 07/24/17 12:00 Nasal Cannula 4.0 07/24/17 11:38 37.0 94 18 132/85 (101) 100 BiPAP 07/24/17 08:05 103 93 Nasal Cannula 4.5 07/24/17 08:00 Nasal Cannula 4.0 07/24/17 07:31 36.6 114 26 145/87 (106) 83 Nasal Cannula 4.5 07/24/17 07:27 100 20 96 Nasal Cannula 3.0 07/24/17 04:00 89 Nasal Cannula 4.0 07/24/17 03:00 120 28 131/78 (95) 90 Nasal Cannula 4.0 07/24/17 01:49 108 20 96 Nasal Cannula 4.0 07/24/17 00:05 93 Nasal Cannula 4.0 07/23/17 23:00 36.5 106 26 131/82 (98) 93 Nasal Cannula 4.0 07/23/17 20:30 87 Nasal Cannula 5.0 07/23/17 19:40 36.5 119 27 130/75 (93) 87 Nasal Cannula 5.0 07/23/17 18:55 109 24 97 Nasal Cannula 5.0 07/23/17 16:08 36.8 119 29 139/95 (110) 96 Nasal Cannula 5.0 07/23/17 16:00 Nasal Cannula 4.0 07/23/17 14:10 115 20 97 Nasal Cannula 5.0 (Hermes Gaspar, EUGENIO) Physical Exam General Appearance: + moderate distress Eyes: normal inspection ENT: hearing grossly normal, pharynx normal Neck: supple, no JVD Respiratory/Chest: + respiratory distress, + decreased breath sounds, + accessory muscle use, + wheezing Cardiovascular: + tachycardia Abdomen: normal bowel sounds, non tender, soft Extremities: normal inspection, no pedal edema Neurologic/Psychiatric: no motor/sensory deficits, alert, oriented x 3 Skin: normal color (Hermes Gaspar, EUGENIO) Laboratory Results Last 24 Hours Test 07/24/17 06:11 White Blood Count 22.90 K/uL Red Blood Count 4.08 M/uL Hemoglobin 12.4 g/dL Hematocrit 39.1 % Mean Corpuscular Volume 95.8 fL Mean Corpuscular Hemoglobin 30.4 pg Mean Corpuscular Hemoglobin Concent 31.7 g/dl Platelet Count 226 K/uL Mean Platelet Volume 9.5 fL Neutrophils (%) (Auto) 93.9 % Lymphocytes (%) (Auto) 1.7 % Monocytes (%) (Auto) 3.8 % Eosinophils (%) (Auto) 0.0 % Basophils (%) (Auto) 0.1 % Neutrophils # (Auto) 21.50 K/uL Lymphocytes # (Auto) 0.39 K/uL Monocytes # (Auto) 0.88 K/uL Eosinophils # (Auto) 0.00 K/uL Basophils # (Auto) 0.02 K/uL RDW Standard Deviation 49.6 fL RDW Coefficient of Variation 14.1 % Immature Granulocyte % (Auto) 0.5 % Immature Granulocyte # (Auto) 0.11 K/uL Sodium Level 139 mmol/L Potassium Level 4.3 mmol/L Chloride Level 98 mmol/L Carbon Dioxide Level 36 mmol/L Anion Gap 5.0 mmol/L Blood Urea Nitrogen 23 mg/dl Creatinine 0.75 mg/dl Est Creatinine Clear Calc Drug Dose 71.4 ml/min Estimated GFR () 106.2 Estimated GFR (Non- 91.6 BUN/Creatinine Ratio 30.6 Random Glucose 140 mg/dl Calcium Level 8.7 mg/dl (Hermes Gaspar CRNP) Assessment and Plan 1. Acute on chronic respiratory failure with hypoxia/end-stage COPD/continued tobacco use - worse today - respirations more labored. Accessory muscle usage. - continue solumedrol 60 mg IV every 8 hours. - Pulmicort Respules 0.5 mg inhaled twice daily. - Xopenex/Atrovent nebulizer every 6 hours while awake and every 2 hours as needed. Would avoid albuterol due to tachycardia. -Guaifenesin extended release 600 mg p.o. twice daily. -Continue Daliresp 500 mcg p.o. daily and montelukast 10 mg daily. -Tobacco cessation. 2. CM - anxiety associated with breathing seems to worsen situation. - continue Lexapro -added Lorazepam - would benefit from home prescription - 3. tachycardia with brief episode of SVT - tolerating low dose BB. Heart rate still in the low 100s 4. DVT prophylaxis with Lovenox 5. Disposition - Dr. Mendoza had discussion with patient and family - patient is not doing well. He is now a DNR. - appreciate cardiology and pulm input. Continued [facility] stay due to: multiple IV medications needed, other (condition worsening) Discharge planning: uncertain (Hermes Gaspar CRNP) EUGENIO Physician Supervision Note: I interviewed and examined the patient. Discussed with Hermes BECKER and agree with findings and plan as documented in the note. Any exceptions or clarifications are listed here: None This pt is worse with shortness of breath and acute respiratory failure with hypoxia and probably hypercarbia, I spoke to his as he was lethargic and unable to converse and she confirmed to me that he does not wish to be coded or intubated if worsens, this is a reasonable decision based on his severe lung disease. He was changed to DNR today. vitals show tachycardia, lungs with poor air movement, concern for decline Chronic respiratory failure with hypoxia continues with support with Bipap and bronchodilators SVT and tachyarrhythmia the patient has been having occasional improvement with IV metoprolol cardiology has seen and will add scheduled metoprolol, will follow to see how responds to supportive care Documented By: Otf Mendoza (Otf Mendoza M.D.) (Otf Mendoza M.D.)
--- NOTE | 2017-07-24 19:04 | CARDIOLOGY PROGRESS NOTE ---
DATE: 07/24/2017 SUBJECTIVE: Mr. Quigley was seen earlier this morning at approximately 9:10 a.m. He had become more somnolent and was being placed on BiPAP when I entered the room. When asked if his breathing has gotten worse, he acknowledged yes. He denied chest pain. He otherwise did not provide much history. OBJECTIVE: VITAL SIGNS: Temperature was 36.6 degrees, his heart rate was 114 beats per minute, respiration rate was 26, blood pressure was 145/87 mmHg, oxygen saturation was 83% on 4.5 liters per nasal cannula. GENERAL: He was somnolent but did respond to verbal stimuli. NECK: No appreciable JVD. CARDIAC: No ventricular heave. Regular. Distant heart sounds. There were no audible murmurs, rubs or gallops. LUNGS: Significantly reduced lung sounds bilaterally. Less expiratory wheezing today. ABDOMEN: Soft, nontender, nondistended. Normoactive bowel sounds. EXTREMITIES: No cyanosis or edema. MEDICATIONS: Include metoprolol 25 mg twice daily, Lovenox 40 mg subcu daily, Pulmicort, Atrovent, Xopenex, Ativan 0.5 mg IV was given at 7:36 a.m., methylprednisolone 40 mg IV q. 6 hours, Xanax 0.25 mg was also given at 7:24 a.m. LABORATORY DATA: White blood cell count is 22.9, hemoglobin 12.4, platelets 226. Sodium 139, potassium 4.3, BUN 23, creatinine 0.075, glucose 140. Telemetry personally reviewed. Heart rate trend has improved. Sinus rhythm. No further SVT. ASSESSMENT AND PLAN: 1. Sinus tachycardia: He chronically has sinus tachycardia and it is likely related at least in some degree to his severe chronic obstructive pulmonary disease/emphysema and issues with chronic respiratory failure with hypoxia. The aim is not to suppress his physiologic response but to improve his heart rate as he was having heart rates in the 120s to 130s while lying in bed. His heart rate has improved and we would not further adjust beta blockers at this time. If there is concern in the future that beta blockers would worsen his pulmonary status, could discontinue and replace with calcium channel blockers if necessary. 2. Paroxysmal supraventricular tachycardia: No further episode. He has been placed on beta mena as noted above as he would not likely tolerate prolonged significant tachycardia with supraventricular tachycardia. No changes made today. 3. Acute on chronic respiratory failure with hypoxia: Will defer to pulmonology and primary team. Appreciate their input. He was being placed on BiPAP. This is likely secondary to his severe chronic obstructive pulmonary disease/emphysema. He appears euvolemic. 4. Disposition: Cardiology will sign off at this time. Dr. Menjivar will be available over the weekend if there are any other questions or concerns. Poor prognosis.
[2017-07-24] MEDS: LORAZEPAM 0.5 MG TAB PO PRN (20:42)
[2017-07-25] VITALS (13 sets, daily range): BP systolic 123–163; BP diastolic 71–90; PULSE 87–113; TEMP 36.2–36.9; O2SAT 95–100
[2017-07-25] MEDS: IPRATROPIUM BROMIDE NEB SOLN 0.02% 2.5 ML VIAL INH SCH ×4 (02:20→19:15)
[2017-07-25] MEDS: LEVALBUTEROL 1.25MG/0.5ML NEB INH SCH ×4 (02:20→19:15)
[2017-07-25] MEDS: METHYLPREDNISOLONE IV 40 MG in SYRINGE 0 ML IV SCH ×3 (04:25→22:18)
[2017-07-25 06:34] LABS: HEMATOCRIT 40.7 % (42-52); HEMOGLOBIN 12.6 g/dL (14.0-18.0); MEAN CELL VOLUME 98.1 fL (80-100); MEAN CORPUSCULAR HEMOGLOBIN 30.4 pg (25-34); MEAN PLATELET VOLUME 9.5 fL (7.4-10.4); PLATELET COUNT 203 K/uL (130-400); RED CELL DISTRIBUTION WIDTH CV 14.1 % (11.5-14.5); RED CELL DISTRIBUTION WIDTH SD 50.5 fL (36.4-46.3)
[2017-07-25] MEDS: BUDESONIDE 0.5 MG/2 ML VIAL (PULMICORT) INH SCH ×2 (07:09→19:15)
[2017-07-25 07:16] LABS: CALCIUM 9.1 mg/dl (8.5-10.1); CREATININE 0.86 mg/dl (0.60-1.40); POTASSIUM 4.9 mmol/L (3.5-5.1)
[2017-07-25] MEDS: GUAIFENESIN 200 MG TAB PO SCH ×2 (09:32→20:34)
[2017-07-25] MEDS: METOPROLOL TARTRATE 25 MG TAB PO SCH ×2 (09:32→20:34)
[2017-07-25] MEDS: ENOXAPARIN 40 MG/0.4 ML SYR SC SCH (09:32)
--- NOTE | 2017-07-25 10:52 | Pulmonology Progress Note ---
Pulmonary Progress Note Date of Service Jul 25, 2017. Attending Dr. Stout Subjective The patient continued to have shortness of breath, he is currently on the BiPAP , appeared somewhat better than yesterday, he could not have a good night sleep due to respiratory status. Objective Physical exam on 07/24/2017 revealed lethargy, respiratory rate of 32, hyperinflated chest, distant breath sounds bilaterally, no wheezing or stridor, abdomen is benign, no edema, heart rate is 120 normal sinus rhythm, placed on the BiPAP at this point. Physical exam of 07/25/2017 revealed, the patient continued to be on a BiPAP. Less tachypneic. O2 saturation 100%. Using accessory muscles. His labs were reviewed showing leukocytosis. No new imaging. Assessment & Plan 1. Acute on chronic hypoxic and hypercapnic respiratory failure. So far he plateaued, not improving, it is expected and advanced COPD patients. 2. Advanced COPD, gold level 3, grade C. 3. Cor pulmonale. 4. SVT requiring low-dose of beta-mena, he seems to tolerate it. Plan: 1. Continue with IV Solu-Medrol. Continue the current dose. 2. I would decrease his Xanax only to nocturnal. 3. Give the patient on the BiPAP as needed during the daytime. 5. Current bronchodilators. 4. Start the patient on high flow heated oxygen 50 L and 50% titrated to O2 sat above then 85%. 6. Appreciate cardiology consult. 7. The patient now is DNR, appreciate Dr. Mendoza input. 8. DVT prophylaxis. 9. Seems to tolerate beta-blockers for RVR, SVT. Thank you, will follow. Data Medications: Current Inpatient Medications Medications (Trade) Dose Ordered Sig/Suy[place] Route Start Time Stop Time Status Last Admin Dose Admin Enoxaparin Sodium (Lovenox Inj) 40 mg Q24H SC 07/23/17 09:00 08/22/17 08:59 07/25/17 09:32 40 MG Acetaminophen (Tylenol Tab) 650 mg Q4H PRN PO 07/23/17 01:15 08/22/17 01:14 Al Hydrox/Mg Hydrox/Simethicone (Maalox Max Susp) 15 ml Q4H PRN PO 07/23/17 01:15 08/22/17 01:14 Magnesium Hydroxide (Milk Of Magnesia Susp) 30 ml Q12H PRN PO 07/23/17 01:15 08/22/17 01:14 Polyethylene (Miralax Powder Packet) 17 gm DAILY PRN PO 07/23/17 01:15 08/22/17 01:14 Ondansetron HCl (Zofran Odt) 8 mg Q6H PRN PO 07/23/17 01:15 08/22/17 01:14 Guaifenesin (Organidin Nr Tab) 600 mg BID PO 07/23/17 09:00 08/22/17 08:59 07/25/17 09:32 600 MG Budesonide (Pulmicort Respules 0.5MG/ 2ML Neb Soln) 0.5 mg BIDR INH 07/23/17 08:00 08/22/17 07:59 07/25/17 07:09 0.5 MG Ipratropium [place] (Atrovent 0.02% 0.5MG/2.5ML Neb) 0.5 mg Q6R INH 07/23/17 03:00 08/22/17 02:59 07/25/17 07:09 0.5 MG Levalbuterol (Xopenex 1.25MG/ 0.5ML Neb) 1.25 mg Q6R INH 07/23/17 03:00 08/22/17 02:59 07/25/17 07:09 1.25 MG Ipratropium [place] (Atrovent 0.02% 0.5MG/2.5ML Neb) 0.5 mg Q2H PRN INH 07/23/17 01:30 08/22/17 01:29 07/23/17 11:44 0.5 MG Levalbuterol (Xopenex 1.25MG/ 0.5ML Neb) 1.25 mg Q2H PRN INH 07/23/17 01:30 08/22/17 01:29 07/23/17 11:44 1.25 MG Miscellaneous (Iv Fluids Completed) 1 ea PRN PRN N/A 07/23/17 04:30 07/23/18 04:29 Lorazepam (Ativan Tab) 0.5 mg Q4H PRN PO 07/23/17 10:15 08/22/17 10:14 07/24/17 20:42 0.5 MG Lorazepam (Ativan Inj) 0.5 mg Q4H PRN IV 07/23/17 12:00 08/22/17 11:59 07/24/17 07:36 0.5 MG Metoprolol Tartrate (Lopressor Iv) 5 mg Q4 PRN IV 07/23/17 12:00 08/22/17 11:59 Methylprednisolone Sodium Succinate 40 mg/Syringe 0.64 ml @ 1.5 mls/min Q6H IV 07/23/17 16:00 08/22/17 15:59 07/25/17 09:32 1.5 MLS/MIN Metoprolol Tartrate (Lopressor Tab) 25 mg BID PO 07/24/17 09:00 08/23/17 08:59 07/25/17 09:32 25 MG Vital Signs: Date Time Temp Pulse Resp B/P (MAP) Pulse Ox O2 Delivery O2 Flow Rate FiO2 07/25/17 08:00 BiPAP 50 07/25/17 07:56 36.4 113 25 149/80 (103) 98 BiPAP 07/25/17 07:11 87 21 98 BiPAP/CPAP 50 07/25/17 04:00 100 BiPAP 07/25/17 04:00 36.2 87 19 132/85 (101) 100 BiPAP 07/25/17 02:22 98 96 50 07/25/17 02:21 98 23 96 BiPAP/CPAP 50 07/25/17 00:40 36.9 90 20 123/84 (97) 99 BiPAP 07/25/17 00:00 99 BiPAP 07/24/17 23:37 85 99 50 07/24/17 20:38 130 148/101 (117) 07/24/17 20:02 132 91 50 07/24/17 20:00 Oxymask 5.0 07/24/17 19:55 36.7 126 31 172/101 (124) 94 Oxymask 5.0 07/24/17 19:32 118 22 92 Mask 7.0 07/24/17 16:00 Nasal Cannula 4.0 07/24/17 15:20 36.6 112 26 117/74 (88) 92 BiPAP 07/24/17 13:55 102 20 91 Mask 5.0 07/24/17 12:00 Nasal Cannula 4.0 07/24/17 11:38 37.0 94 18 132/85 101) 100 BiPAP Laboratory Results: Last 24 Hours Test 07/25/17 06:19 White Blood Count 22.60 K/uL Red Blood Count 4.15 M/uL Hemoglobin 12.6 g/dL Hematocrit 40.7 % Mean Corpuscular Volume 98.1 fL Mean Corpuscular Hemoglobin 30.4 pg Mean Corpuscular Hemoglobin Concent 31.0 g/dl RDW Standard Deviation 50.5 fL RDW Coefficient of Variation 14.1 % Platelet Count 203 K/uL Mean Platelet Volume 9.5 fL Sodium Level 140 mmol/L Potassium Level 4.9 mmol/L Chloride Level 98 mmol/L Carbon Dioxide Level 40 mmol/L Anion Gap 2.0 mmol/L Blood Urea Nitrogen 31 mg/dl Creatinine 0.86 mg/dl Est Creatinine Clear Calc Drug Dose 63.5 ml/min Estimated GFR () 100.4 Estimated GFR (Non- 86.6 BUN/Creatinine Ratio 35.7 Random Glucose 135 mg/dl Calcium Level 9.1 mg/dl
[2017-07-25] MEDS: LORAZEPAM 0.5 MG TAB PO PRN ×2 (12:12→20:34)
--- NOTE | 2017-07-25 14:18 | Progress Note ---
Subjective Date of Service: Jul 25, 2017. Problem List Medical Problems: (1) COPD exacerbation Status: Acute (2) Hypoxemia Status: Acute (3) Hypoxia Status: Acute (4) Hypoxia Status: Acute (5) Influenza Status: Acute (6) Pneumonia involving right lung Status: Acute (7) Respiratory distress Status: Acute (8) Sepsis Status: Acute (9) Tachycardia Status: Acute Objective Vital Signs Date Time Temp Pulse Resp B/P (MAP) Pulse Ox O2 Delivery O2 Flow Rate FiO2 07/25/17 12:00 BiPAP 50 07/25/17 11:46 36.8 96 22 125/71 (89) 96 High Flow Oxygen 07/25/17 08:00 BiPAP 50 07/25/17 07:56 36.4 113 25 149/80 (103) 98 BiPAP 07/25/17 07:11 87 21 98 BiPAP/CPAP 50 07/25/17 04:00 100 BiPAP 07/25/17 04:00 36.2 87 19 132/85 (101) 100 BiPAP 07/25/17 02:22 98 96 50 07/25/17 02:21 98 23 96 BiPAP/CPAP 50 07/25/17 00:40 36.9 90 20 123/84 (97) 99 BiPAP 07/25/17 00:00 99 BiPAP 07/24/17 23:37 85 99 50 07/24/17 20:38 130 148/101 (117) 07/24/17 20:02 132 91 50 07/24/17 20:00 Oxymask 5.0 07/24/17 19:55 36.7 126 31 172/101 (124) 94 Oxymask 5.0 07/24/17 19:32 118 22 92 Mask 7.0 07/24/17 16:00 Nasal Cannula 4.0 07/24/17 15:20 36.6 112 26 117/74 (88) 92 BiPAP Laboratory Results Last 24 Hours Test 07/25/17 06:19 White Blood Count 22.60 K/uL Red Blood Count 4.15 M/uL Hemoglobin 12.6 g/dL Hematocrit 40.7 % Mean Corpuscular Volume 98.1 fL Mean Corpuscular Hemoglobin 30.4 pg Mean Corpuscular Hemoglobin Concent 31.0 g/dl RDW Standard Deviation 50.5 fL RDW Coefficient of Variation 14.1 % Platelet Count 203 K/uL Mean Platelet Volume 9.5 fL Sodium Level 140 mmol/L Potassium Level 4.9 mmol/L Chloride Level 98 mmol/L Carbon Dioxide Level 40 mmol/L Anion Gap 2.0 mmol/L Blood Urea Nitrogen 31 mg/dl Creatinine 0.86 mg/dl Est Creatinine Clear Calc Drug Dose 63.5 ml/min Estimated GFR () 100.4 Estimated GFR (Non- 86.6 BUN/Creatinine Ratio 35.7 Random Glucose 135 mg/dl Calcium Level 9.1 mg/dl Assessment and Plan Acute on chronic respiratory failure with hypoxia/end-stage COPD/continued tobacco use this is severe now requiring high flow oxygen, appreciate Dr Stout input, did make pt DNR - continue solumedrol 60 mg IV every 8 hours. - Pulmicort Respules 0.5 mg inhaled twice daily. - Xopenex/Atrovent nebulizer every 6 hours while awake and every 2 hours as needed. -Continue Daliresp 500 mcg p.o. daily and montelukast 10 mg daily. -outlook is guarded and progress in little to none CM - anxiety associated with breathing seems to worsen situation. - continue Lexapro-added Lorazepam using HS at this time to avoid daytime sleepiness tachycardia with brief episode of SVT -cardiology supportive of starting B mena which he is tolerating DVT prophylaxis with Lovenox discussion with did make pt DNR Continued [facility] stay due to: multiple IV medications needed, other (condition worsening) Discharge planning: uncertain
[2017-07-25] MEDS ORDERED: SODIUM CHLORIDE 0.65% NA SOLN 45 ML (OCEAN) ONE (18:41)
[2017-07-26] VITALS (18 sets, daily range): BP systolic 134–159; BP diastolic 79–95; PULSE 82–110; TEMP 36.5–37; O2SAT 85–100
[2017-07-26] MEDS: IPRATROPIUM BROMIDE NEB SOLN 0.02% 2.5 ML VIAL INH SCH ×4 (01:44→19:08)
[2017-07-26] MEDS: LEVALBUTEROL 1.25MG/0.5ML NEB INH SCH ×4 (01:44→19:08)
[2017-07-26] MEDS: METHYLPREDNISOLONE IV 40 MG in SYRINGE 0 ML IV SCH ×3 (05:37→21:30)
[2017-07-26] MEDS: BUDESONIDE 0.5 MG/2 ML VIAL (PULMICORT) INH SCH ×2 (07:28→20:00)
[2017-07-26] MEDS: GUAIFENESIN 200 MG TAB PO SCH ×2 (07:43→20:22)
[2017-07-26] MEDS: METOPROLOL TARTRATE 25 MG TAB PO SCH ×2 (07:43→20:23)
[2017-07-26] MEDS: ENOXAPARIN 40 MG/0.4 ML SYR SC SCH (07:43)
--- NOTE | 2017-07-26 08:27 | Progress Note ---
Subjective Date of Service: Jul 26, 2017. Subjective this pt is fatigued and tired he states that he cannot go on living like this, he did agree to speak to our palliative care nurses this week Problem List Medical Problems: (1) COPD exacerbation Status: Acute (2) Hypoxemia Status: Acute (3) Hypoxia Status: Acute (4) Hypoxia Status: Acute (5) Influenza Status: Acute (6) Pneumonia involving right lung Status: Acute (7) Respiratory distress Status: Acute (8) Sepsis Status: Acute (9) Tachycardia Status: Acute Review of Systems Constitutional: + weakness, + fatigue, No fever, No chills Respiratory: + cough, + shortness of breath, + dyspnea on exertion, + dyspnea at rest Cardiac: + chest pain, No edema Abdomen: No pain, No nausea, No vomiting, No diarrhea Neurologic: + weakness, No memory loss Psychiatric: + depression symptoms, + anxiety Objective Vital Signs Date Time Temp Pulse Resp B/P (MAP) Pulse Ox O2 Delivery O2 Flow Rate FiO2 07/26/17 07:54 37.0 96 21 153/85 (107) 99 High Flow Oxygen 07/26/17 07:32 104 26 92 Nasal Cannula 50.0 50 07/26/17 04:20 36.9 91 21 151/79 (103) 100 07/26/17 04:00 99 BiPAP 50 07/26/17 01:46 87 98 50 07/26/17 01:45 87 23 98 BiPAP/CPAP 50 07/26/17 00:15 36.5 103 22 159/95 (116) 85 High Flow Oxygen 07/26/17 00:00 99 BiPAP 50 07/25/17 20:00 95 BiPAP 07/25/17 20:00 36.6 92 18 163/90 (114) 95 BiPAP 07/25/17 19:17 94 99 50 07/25/17 19:16 93 24 100 BiPAP/CPAP 50 07/25/17 16:00 BiPAP 50 07/25/17 15:45 36.6 93 22 146/79 (101) 100 High Flow Oxygen 07/25/17 14:16 97 25 100 BiPAP/CPAP 50 07/25/17 12:00 BiPAP 50 07/25/17 11:46 36.8 96 22 125/71 (89) 96 High Flow Oxygen Physical Exam General Appearance: + moderate distress, + thin Eyes: normal inspection, sclerae normal Respiratory/Chest: + decreased breath sounds, + accessory muscle use, + rhonchi , + wheezing Cardiovascular: no murmur, + tachycardia Abdomen: normal bowel sounds, non tender, soft Neurologic/Psychiatric: alert, + depressed affect, + disoriented Assessment and Plan 72 M with Acute on chronic respiratory failure with hypoxia/end-stage COPD/ continued tobacco use, this pt is in severe decompensation and is now considering palliative care Severe copd with acute and chronic respiratory failure with hypoxia, now requiring high flow oxygen - continue solumedrol 60 mg IV every 8 hours. - Pulmicort Respules 0.5 mg inhaled twice daily. - Xopenex/Atrovent nebulizer every 6 hours while awake and every 2 hours as needed. -Continue Daliresp 500 mcg p.o. daily and montelukast 10 mg daily. -outlook is guarded and progress in little to none, I phoned his , left messange that the hsband is ready to consider hospice and will have palliative care consult this week CM - anxiety associated with breathing seems to worsen situation, he however now is very tired and weak. - continue Lexapro-added Lorazepam using HS at this time to avoid daytime sleepiness tachycardia -cardiology supportive of starting B mena Tobacco abuse did [place] about stopping, but as we approach palliative care situation, if survives hospital stay is not a realistic goal DVT prophylaxis with Lovenox Prior discussion with did make pt DNR, will have palliative care this week Continued [facility] stay due to: multiple IV medications needed, other (condition worsening) Discharge planning: uncertain
[2017-07-26] MEDS: LORAZEPAM 2 MG/ML 1 ML VIAL IV PRN (14:58)
[2017-07-26] MEDS: LORAZEPAM 0.5 MG TAB PO PRN (20:22)
[2017-07-26] MEDS: MoRPHine SULFATE 2 MG/ML CARP IV PRN (21:29)
[2017-07-27] VITALS (15 sets, daily range): BP systolic 145–155; BP diastolic 80–110; PULSE 74–134; TEMP 36–36.8; O2SAT 88–99
[2017-07-27] MEDS: LORAZEPAM 2 MG/ML 1 ML VIAL IV PRN ×2 (01:13→19:53)
[2017-07-27] MEDS: LEVALBUTEROL 1.25MG/0.5ML NEB INH SCH ×4 (01:48→18:59)
[2017-07-27] MEDS: IPRATROPIUM BROMIDE NEB SOLN 0.02% 2.5 ML VIAL INH SCH ×4 (01:48→18:59)
[2017-07-27] MEDS: METHYLPREDNISOLONE IV 40 MG in SYRINGE 0 ML IV SCH ×3 (05:40→19:55)
[2017-07-27] MEDS: BUDESONIDE 0.5 MG/2 ML VIAL (PULMICORT) INH SCH ×2 (07:26→18:59)
[2017-07-27] MEDS: GUAIFENESIN 200 MG TAB PO SCH ×2 (07:53→21:09)
[2017-07-27] MEDS: ENOXAPARIN 40 MG/0.4 ML SYR SC SCH (07:53)
[2017-07-27] MEDS: METOPROLOL TARTRATE 25 MG TAB PO SCH ×2 (07:54→21:09)
--- NOTE | 2017-07-27 08:06 | Clinical Documentation Query ---
CLINICAL DOCUMENTATION QUERY 72 year old male who presents to the Emergency Room with complaints of persistent general shortness of breath. He has severe end stage COPD with acute on chronic hypoxic and hypercarbic respiratory failure. In your clinical opinion is this patient being managed for: ( x ) Severe protein-calorie malnutrition in setting of end stage COPD and chronic respiratory failure ( ) Not Agree ( ) Other explanation of clinical findings (Please Explain) ( ) Unable to determine (Please Define) ( ) Need to Discuss The medical record reflects the following clinical findings, treatment, and risk factors. Clinical Indicators: Cachexia, 58.8 Kg, BMI 18.5. RD consult he is only 80% of ideal BW. Meal intake is only 25-50% of estimated needs. Treatment: serial labs, daily weights, PO intake monitoring, Boost BID, RD consult Risk Factors: Age, severe COPD, chronic hypoxia and hypocapnia, too SOB to eat. Please clarify and document your clinical opinion in the progress notes and discharge summary. Terms such as "probable", "suspected", "likely", "questionable", "possible", or "still to be ruled out" are acceptable. IF IN AGREEMENT, YOU MUST DOCUMENT ABOVE DIAGNOSTIC STATEMENT IN DAILY PROGRESS NOTES AND DISCHARGE SUMMARY. This document is not part of the patient's record. Malnutrition Characteristics (2 of 6) in Chronic Illness CHARACTERISTICS MODERATE MALNUTRITION SEVERE MALNUTRITION ENERGY INTAKE <75% of estimated energyrequirement for >1 month <75% of estimated energyrequirement for >1 month WEIGHT LOSS 5%/1 month 7.5%/3 months 10%/6 months 20%/1 year > 5%/1 month >7.5%/3 months >10%/6 months >20%/1 year BODY FAT*loss of SQ fat from the orbits,triceps, or fat overlying the ribs MILD SEVERE MUSCLE MASS*muscle wasting at the temples,clavicles, shoulders, interosseousspaces,scapula, thigh, calf MILD SEVERE FLUID ACCUMULATION*localized or generalized edemaof the extremities, vulva, scrotumweight loss may be masked byedema MILD SEVERE CHARGE ACCOUNT CLERK STRENGTH N/A measurably decreased perthe device's standards Thank You, Demar Steven, RN [phone]
--- NOTE | 2017-07-27 11:24 | Progress Note ---
Subjective Date of Service: Jul 27, 2017. Subjective Pt evaluation today including: conversation w/ patient, conversation w/ family , physical exam, chart review, lab review, review of studies, review of inpatient medication list Pain: adequate PO Intake: adequate Voiding: no voiding problems currently on BIPAP following all commands Problem List Medical Problems: (1) COPD exacerbation Status: Acute (2) Hypoxemia Status: Acute (3) Hypoxia Status: Acute (4) Hypoxia Status: Acute (5) Influenza Status: Acute (6) Pneumonia involving right lung Status: Acute (7) Respiratory distress Status: Acute (8) Sepsis Status: Acute (9) Tachycardia Status: Acute Review of Systems Review of system Constitutional: No fever / no chills / no sweats / no weakness / no fatigue Eyes: no blurring of vision / no eye pain / no discharge / no redness ENT: no hearing loss / no epistaxis /no swallowing problems Respiratory: Severe shortness of breath, cough, no hemoptysis Cardiovascular: no Chest pain / no lower extremity edema / no palpitation Abdomen: no pain / no nausea / no vomiting / no constipation Musculoskeletal: no joint pain / no muscle pain / no joint swelling Genitourinary: no dysuria / no incontinence / no urinary retention Neurologic: no focal weakness / no numbness/tingling / no ataxia Psychiatric: no depression symptoms / no anxiety / no insomnia Endocrine: no excessive thirst / no excessive urination Hematologic: no abnormal bleeding / no bruising / no LN swelling Skin: No rash / no pallor Objective Vital Signs Date Time Temp Pulse Resp B/P (MAP) Pulse Ox O2 Delivery O2 Flow Rate FiO2 07/27/17 07:59 36.6 100 20 152/88 (109) 98 High Flow Oxygen 07/27/17 07:50 BiPAP 40 07/27/17 07:26 97 20 96 BiPAP/CPAP 65 07/27/17 04:00 36.0 84 18 153/80 (104) 98 07/27/17 04:00 98 BiPAP 40 07/27/17 01:48 74 99 40 07/27/17 01:48 74 20 99 BiPAP/CPAP 40 07/27/17 00:11 36.4 84 22 155/95 (115) 98 BiPAP 07/27/17 00:00 98 BiPAP 40 07/26/17 23:48 84 98 40 07/26/17 20:29 101 95 40 4/8/18 20:00 98 BiPAP 40 07/26/17 19:48 36.6 110 25 140/85 (103) 98 BiPAP 07/26/17 19:09 107 96 40 07/26/17 19:08 107 26 96 BiPAP/CPAP 40 07/26/17 16:00 BiPAP 50 07/26/17 15:55 36.6 84 19 134/83 (100) 96 BiPAP 07/26/17 14:15 84 100 50 07/26/17 14:14 82 20 100 BiPAP/CPAP 50 07/26/17 12:00 BiPAP 50 07/26/17 11:45 36.5 84 17 141/80 (100) 100 BiPAP Physical Exam Comments: Physical examination General patient appears to be comfortable, not in acute distress HEENT: Atraumatic , normocephalic /no jaundice /no pallor /anicteric /no dry mucous membrane /normal external ear inspection Neck: Supple /no swelling /central trach Heart: S1/S2 normal/regular rate and rhythm/no gallop /no rub /no murmur Lungs: Severe decreased air entry bilaterally, decreased chest wall expansion, bilateral wheezing no use of accessory muscles of respiration currently on the BiPAP Abdomen: Soft/nontender/no guarding/no rebound/no organomegaly/no pulsatile mass Musculoskeletal: No swelling/no edema/no tenderness/normal range of motion Neuro exam: Awake alert oriented 3/cranial nerves II through XII appear to be intact/sensation intact/moves all extremities/no abnormal movements Psychiatric evaluation: No depressed mood/normal affect Skin: No rash on exposed skin area/no erythema Extremity: Normal pulse/no pitting edema/no clubbing or cyanosis Endocrine/lymphatic: No obvious lymphadenopathy /no lymphedema Assessment and Plan 72-year-old man with 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 presented to the hospital with acute on chronic respiratory failure secondary to COPD exacerbation Assessment Acute on chronic hypoxic hypercapnic respiratory failure secondary to below Severe COPD exacerbation Tobacco abuse SVT secondary to lung disease plus bronchodilators/beta agonist General anxiety disorder Plan Continue patient to telemetry Continue patient on bronchodilators, Xopenex/Atrovent 1.2 inhalation nebulizer 4 times daily Continue patient on steroids, Solu-Medrol 40 mg IV every 6 hours Chest imaging reviewed, showed no active pneumonia but likely bacterial bronchitis EKG reviewed, no QTc prolongation, will start patient on azithromycin 500 mg IV daily which will have also anti-inflammatory benefit for COPD Add probiotic for C. difficile prevention Pulmonary consultation appreciated Pepcid for GI prophylaxis Heparin subcu for DVT prophylaxis Beta-mena for SVT Continued [facility] stay due to: multiple IV medications needed, other (condition worsening) Discharge planning: uncertain
[2017-07-27] MEDS ORDERED: FAMOTIDINE 20MG/5ML IV PUSH IV STA (11:29)
[2017-07-27] MEDS ORDERED: FAMOTIDINE IV INJ 20 MG in SYRINGE 3 ML IV ONE (12:00)
[2017-07-27] MEDS: LACTOBACILLUS ACIDOPHILUS (FLORANEX) TAB PO SCH ×2 (12:06→16:21)
[2017-07-27] MEDS: AZITHROMYCIN IV 500 MG in DEXTROSE 5% 250ML 250 ML IV SCH (12:42)
[2017-07-27] MEDS: MoRPHine SULFATE 2 MG/ML CARP IV PRN (19:30)
[2017-07-28] VITALS (17 sets, daily range): BP systolic 136–168; BP diastolic 77–98; PULSE 78–132; TEMP 36.1–36.7; O2SAT 83–100
[2017-07-28] MEDS: LORAZEPAM 2 MG/ML 1 ML VIAL IV PRN ×2 (00:27→05:48)
[2017-07-28] MEDS: METHYLPREDNISOLONE IV 40 MG in SYRINGE 0 ML IV SCH ×4 (01:25→19:44)
[2017-07-28] MEDS: IPRATROPIUM BROMIDE NEB SOLN 0.02% 2.5 ML VIAL INH SCH ×4 (01:59→19:17)
[2017-07-28] MEDS: LEVALBUTEROL 1.25MG/0.5ML NEB INH SCH ×4 (01:59→19:17)
[2017-07-28] MEDS: MoRPHine SULFATE 2 MG/ML CARP IV PRN ×3 (05:22→19:43)
[2017-07-28 06:37] LABS: EOS % 0.1 %; EOS ABS # 0.01 K/uL (0-0.5); HEMATOCRIT 44.5 % (42-52); HEMOGLOBIN 14.2 g/dL (14.0-18.0); IG# 0.03 K/uL (0.00-0.02); LYMPH % 3.9 %; LYMPH ABS # 0.48 K/uL (1.2-3.4); MEAN CELL VOLUME 94.5 fL (80-100); MEAN CORPUSCULAR HEMOGLOBIN 30.1 pg (25-34); MEAN CORPUSCULAR HGB CONC 31.9 g/dl (32-36); MONO % 4.9 %; NEUT % 90.9 %; NEUT ABS # 11.12 K/uL (1.4-6.5); PLATELET COUNT 221 K/uL (130-400); RED CELL DISTRIBUTION WIDTH CV 13.3 % (11.5-14.5); RED CELL DISTRIBUTION WIDTH SD 46.3 fL (36.4-46.3); WHITE BLOOD COUNT 12.24 K/uL (4.8-10.8)
[2017-07-28] MEDS: BUDESONIDE 0.5 MG/2 ML VIAL (PULMICORT) INH SCH ×2 (07:12→19:18)
[2017-07-28 07:13] LABS: ALBUMIN 3.5 gm/dl (3.4-5.0); CALCIUM 9.1 mg/dl (8.5-10.1); CREATININE 0.65 mg/dl (0.60-1.40); POTASSIUM 4.5 mmol/L (3.5-5.1); TOTAL PROTEIN 6.6 gm/dl (6.4-8.2)
[2017-07-28] MEDS: METOPROLOL TARTRATE 25 MG TAB PO SCH ×2 (07:49→21:27)
[2017-07-28] MEDS: ENOXAPARIN 40 MG/0.4 ML SYR SC SCH (07:49)
[2017-07-28] MEDS: LACTOBACILLUS ACIDOPHILUS (FLORANEX) TAB PO SCH ×3 (07:50→16:31)
[2017-07-28] MEDS: GUAIFENESIN 200 MG TAB PO SCH ×2 (07:50→21:27)
[2017-07-28] MEDS: PANTOprazole INJ 40 MG in SYRINGE 0 ML IV SCH (10:47)
[2017-07-28] MEDS ORDERED: PANTOprazole INJ 40 MG in SYRINGE 0 ML IV SCH (11:00)
[2017-07-28] MEDS: IPRATROPIUM BROMIDE NEB SOLN 0.02% 2.5 ML VIAL INH PRN (11:10)
[2017-07-28] MEDS: LEVALBUTEROL 1.25MG/0.5ML NEB INH PRN (11:10)
[2017-07-28] MEDS: AZITHROMYCIN IV 500 MG in DEXTROSE 5% 250ML 250 ML IV SCH (11:57)
[2017-07-28] MEDS ORDERED: NURSING VERBAL MED ORDER ONE (15:30)
--- NOTE | 2017-07-28 15:48 | DIAGNOSTIC IMAGING REPORT ---
CHEST ONE VIEW PORTABLE CLINICAL HISTORY: 72 years-old Male presenting with SOB. TECHNIQUE: Portable upright AP view of the chest was obtained. COMPARISON: 07/22/2017. FINDINGS: Atherosclerosis of the aortic arch. Cardiac silhouette normal in size. Lungs are hyperinflated. No focal opacity. No large effusion or pneumothorax. Osseous structures normal. IMPRESSION: 1. Findings suggest emphysema. No focal infiltrate to suggest pneumonia. Electronically signed by: Bob Claire M.D. 07/28/2017 3:46 PM Dictated Date/Time: 07/28/2017 3:45 PM
--- NOTE | 2017-07-28 20:19 | Progress Note ---
Subjective Date of Service: Jul 28, 2017. Subjective Pt evaluation today including: conversation w/ patient, physical exam, chart review, lab review Pain: controlled PO Intake: adequate appears depressed. Problem List Medical Problems: (1) COPD exacerbation Status: Acute (2) Hypoxemia Status: Acute (3) Hypoxia Status: Acute (4) Hypoxia Status: Acute (5) Influenza Status: Acute (6) Pneumonia involving right lung Status: Acute (7) Respiratory distress Status: Acute (8) Sepsis Status: Acute (9) Tachycardia Status: Acute Review of Systems Constitutional: No see HPI, No fever, No chills, No sweats, No weight loss, No weakness, No fatigue, No problem reported Eyes: No see HPI, No worsening of vision, No eye pain, No redness, No discharge , No diplopia, No problem reported ENT: No see HPI, No hearing loss, No unusual epistaxis, No nasal symptoms, No sore throat, No tinnitus, No dental problems, No trouble swallowing, No problem reported Respiratory: + wheezing, + shortness of breath, + dyspnea on exertion, + dyspnea at rest, No see HPI, No cough, No sputum, No hemoptysis, No problem reported Cardiac: No see HPI, No chest pain, No orthopnea, No PND, No edema, No claudication, No palpitations, No problem reported Abdomen: No see HPI, No pain, No nausea, No vomiting, No diarrhea, No constipation, No GI bleeding, No problem reported Musculoskeletal: No see HPI, No joint pain, No muscle pain, No swelling, No calf pain, No problem reported Male : No see HPI, No dysuria, No urinary frequency, No incontinence, No nocturia more than once/night, No slowing stream, No hematuria, No sexual dysfunction, No problem reported Neurologic: No see HPI, No memory loss, No paralysis, No weakness, No numbness/ tingling, No vertigo, No balance problems, No problem reported Psychiatric: No see HPI, No depression symptoms, No anhedonism, No anxiety, No insomnia, No substance abuse, No problem reported Heme: No see HPI, No abnormal bleeding/bruising, No clotting problems, No swollen lymph nodes, No night sweats, No problem reported Endo: No see HPI, No fatigue, No excessive thirst, No excessive urination, No problem reported Skin: No see HPI, No rash, No itch, No new/changing skin lesions, No color change, No bleeding, No problem reported Objective Vital Signs Date Time Temp Pulse Resp B/P (MAP) Pulse Ox O2 Delivery O2 Flow Rate FiO2 07/28/17 19:19 122 24 158/91 (113) 91 High Flow Oxygen 07/28/17 19:18 113 24 90 Nasal Cannula 50.0 50 07/28/17 16:00 High Flow Oxygen 07/28/17 15:40 91 21 168/96 (120) 94 High Flow Oxygen 07/28/17 14:17 102 90 30 07/28/17 14:16 103 26 90 BiPAP/CPAP 30 07/28/17 11:49 36.7 78 28 152/92 (112) 98 High Flow Oxygen 55 79 07/28/17 11:30 High Flow Oxygen 07/28/17 11:11 89 26 98 Nasal Cannula 50 07/28/17 08:00 High Flow Oxygen 07/28/17 07:13 132 93 30 07/28/17 07:00 36.5 119 24 146/84 (104) 83 High Flow Oxygen 07/28/17 05:03 106 90 30 07/28/17 04:00 95 BiPAP 30 07/28/17 03:39 36.7 97 22 142/77 (98) 95 BiPAP 07/28/17 02:02 103 94 30 07/28/17 02:01 102 24 94 BiPAP/CPAP 30 07/28/17 00:15 36.1 84 18 140/98 (112) 95 BiPAP 07/28/17 00:00 BiPAP 30 07/27/17 22:04 106 97 40 07/27/17 20:50 88 30 Physical Exam General Appearance: WD/WN, no apparent distress Eyes: normal inspection, EOMI ENT: normal ENT inspection, hearing grossly normal Neck: supple Respiratory/Chest: chest non-tender, + decreased breath sounds, + accessory muscle use, + crackles, + rales, + rhonchi, + wheezing Cardiovascular: regular rate, rhythm, no edema, no gallop, no JVD, no murmur Abdomen: normal bowel sounds, non tender, soft, no organomegaly, no pulsatile mass Extremities: normal range of motion, non-tender, normal inspection, no pedal edema, no calf tenderness 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, no motor/sensory deficits, alert, normal mood/affect, oriented x 3 Skin: normal color, warm/dry, no rash Laboratory Results Last 24 Hours Test 07/28/17 06:16 White Blood Count 12.24 K/uL Red Blood Count 4.71 M/uL Hemoglobin 14.2 g/dL Hematocrit 44.5 % Mean Corpuscular Volume 94.5 fL Mean Corpuscular Hemoglobin 30.1 pg Mean Corpuscular Hemoglobin Concent 31.9 g/dl Platelet Count 221 K/uL Mean Platelet Volume 10.0 fL Neutrophils (%) (Auto) 90.9 % Lymphocytes (%) (Auto) 3.9 % Monocytes (%) (Auto) 4.9 % Eosinophils (%) (Auto) 0.1 % Basophils (%) (Auto) 0.0 % Neutrophils # (Auto) 11.12 K/uL Lymphocytes # (Auto) 0.48 K/uL Monocytes # (Auto) 0.60 K/uL Eosinophils # (Auto) 0.01 K/uL Basophils # (Auto) 0.00 K/uL RDW Standard Deviation 46.3 fL RDW Coefficient of Variation 13.3 % Immature Granulocyte % (Auto) 0.2 % Immature Granulocyte # (Auto) 0.03 K/uL Sodium Level 137 mmol/L Potassium Level 4.5 mmol/L Chloride Level 92 mmol/L Carbon Dioxide Level 45 mmol/L Anion Gap 0.0 mmol/L Blood Urea Nitrogen 26 mg/dl Creatinine 0.65 mg/dl Est Creatinine Clear Calc Drug Dose 79.8 ml/min Estimated GFR () 112.7 Estimated GFR (Non- 97.2 BUN/Creatinine Ratio 40.3 Random Glucose 154 mg/dl Calcium Level 9.1 mg/dl Magnesium Level 2.4 mg/dl Total Bilirubin 0.6 mg/dl Aspartate Amino Transf (AST/SGOT) 9 U/L Alanine Aminotransferase (ALT/SGPT) 31 U/L Alkaline Phosphatase 56 U/L Total Protein 6.6 gm/dl Albumin 3.5 gm/dl Globulin 3.1 gm/dl Albumin/Globulin Ratio 1.1 Assessment and Plan 72-year-old man with 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 presented to the hospital with acute on chronic respiratory failure secondary to COPD exacerbation Assessment Acute on chronic hypoxic hypercapnic respiratory failure secondary to below Severe COPD exacerbation Tobacco abuse SVT secondary to lung disease plus bronchodilators/beta agonist General anxiety disorder Plan Continue patient to telemetry Continue patient on bronchodilators, Xopenex/Atrovent 1.2 inhalation nebulizer 4 times daily Continue patient on steroids, Solu-Medrol 40 mg IV every 6 hours Chest imaging reviewed, showed no active pneumonia but likely bacterial bronchitis EKG reviewed, no QTc prolongation, will start patient on azithromycin 500 mg IV daily which will have also anti-inflammatory benefit for COPD Add probiotic for C. difficile prevention add lasix 40mg IV BID, calculate I/Os Pulmonary consultation appreciated Pepcid for GI prophylaxis Heparin subcu for DVT prophylaxis Beta-mena for SVT family meeting tomorrow to discuss Hospice Continued [facility] stay due to: multiple IV medications needed, other (condition worsening) Discharge planning: uncertain
[2017-07-28] MEDS: LORAZEPAM 0.5 MG TAB PO PRN (21:27)
[2017-07-28] MEDS: FUROSEMIDE INJ 40 MG in SYRINGE 0 ML IV SCH (22:07)
[2017-07-29] VITALS (10 sets, daily range): BP systolic 117–153; BP diastolic 78–102; PULSE 0–133; TEMP 36.5–37.3; O2SAT 91–100
[2017-07-29] MEDS: METHYLPREDNISOLONE IV 40 MG in SYRINGE 0 ML IV SCH ×4 (02:16→20:54)
[2017-07-29] MEDS: LEVALBUTEROL 1.25MG/0.5ML NEB INH SCH ×4 (02:42→19:08)
[2017-07-29] MEDS: IPRATROPIUM BROMIDE NEB SOLN 0.02% 2.5 ML VIAL INH SCH ×4 (02:42→19:08)
[2017-07-29] MEDS: BUDESONIDE 0.5 MG/2 ML VIAL (PULMICORT) INH SCH (07:10)
[2017-07-29 07:48] LABS: HEMATOCRIT 45.4 % (42-52); HEMOGLOBIN 14.5 g/dL (14.0-18.0); IG# 0.05 K/uL (0.00-0.02); LYMPH % 3.1 %; LYMPH ABS # 0.48 K/uL (1.2-3.4); MEAN CELL VOLUME 94.8 fL (80-100); MEAN CORPUSCULAR HEMOGLOBIN 30.3 pg (25-34); MEAN CORPUSCULAR HGB CONC 31.9 g/dl (32-36); MEAN PLATELET VOLUME 10.1 fL (7.4-10.4); MONO % 5.3 %; MONO ABS # 0.83 K/uL (0.11-0.59); NEUT % 91.3 %; NEUT ABS # 14.36 K/uL (1.4-6.5); PLATELET COUNT 216 K/uL (130-400); RED CELL DISTRIBUTION WIDTH CV 13.2 % (11.5-14.5); RED CELL DISTRIBUTION WIDTH SD 45.9 fL (36.4-46.3); WHITE BLOOD COUNT 15.72 K/uL (4.8-10.8)
[2017-07-29] MEDS: FUROSEMIDE INJ 40 MG in SYRINGE 0 ML IV SCH ×2 (08:17→17:21)
[2017-07-29] MEDS: MoRPHine SULFATE 2 MG/ML CARP IV PRN ×4 (08:17→20:54)
[2017-07-29] MEDS: LACTOBACILLUS ACIDOPHILUS (FLORANEX) TAB PO SCH ×3 (08:18→15:15)
[2017-07-29] MEDS: GUAIFENESIN 200 MG TAB PO SCH (08:18)
[2017-07-29] MEDS: METOPROLOL TARTRATE 25 MG TAB PO SCH ×2 (08:18→20:33)
[2017-07-29] MEDS: ENOXAPARIN 40 MG/0.4 ML SYR SC SCH (08:18)
[2017-07-29 08:20] LABS: ALBUMIN 3.6 gm/dl (3.4-5.0); CALCIUM 9.7 mg/dl (8.5-10.1); CREATININE 0.62 mg/dl (0.60-1.40)
[2017-07-29 08:23] LABS: TOTAL PROTEIN 6.6 gm/dl (6.4-8.2)
[2017-07-29] MEDS: LEVALBUTEROL 1.25MG/0.5ML NEB INH PRN (09:59)
[2017-07-29] MEDS: IPRATROPIUM BROMIDE NEB SOLN 0.02% 2.5 ML VIAL INH PRN (09:59)
[2017-07-29] MEDS ORDERED: LORAZEPAM 2 MG/ML 1 ML VIAL IV PRN ×2 (10:00→15:45)
[2017-07-29] MEDS ORDERED: MoRPHine SULFATE 2 MG/ML CARP ONE (10:08)
[2017-07-29] MEDS: LORAZEPAM 2 MG/ML 1 ML VIAL IV PRN ×4 (10:12→20:54)
[2017-07-29] MEDS: PANTOprazole INJ 40 MG in SYRINGE 0 ML IV SCH (10:12)
[2017-07-29] MEDS: AZITHROMYCIN IV 500 MG in DEXTROSE 5% 250ML 250 ML IV SCH (11:38)
--- NOTE | 2017-07-29 15:27 | Progress Note ---
Subjective Date of Service: Jul 29, 2017. Subjective Pt evaluation today including: conversation w/ patient, conversation w/ family , physical exam, chart review, lab review, review of inpatient medication list Pain: controlled PO Intake: below average very anxious asked to take the BIPAP off earlier they took the BIPAP and he desaturated to 80s said he is ready to Problem List Medical Problems: (1) COPD exacerbation Status: Acute (2) Hypoxemia Status: Acute (3) Hypoxia Status: Acute (4) Hypoxia Status: Acute (5) Influenza Status: Acute (6) Pneumonia involving right lung Status: Acute (7) Respiratory distress Status: Acute (8) Sepsis Status: Acute (9) Tachycardia Status: Acute Review of Systems Constitutional: + weakness, + fatigue, No see HPI, No fever, No chills, No sweats, No weight loss, No problem reported Eyes: No see HPI, No worsening of vision, No eye pain, No redness, No discharge , No diplopia, No problem reported ENT: No see HPI, No hearing loss, No unusual epistaxis, No nasal symptoms, No sore throat, No tinnitus, No dental problems, No trouble swallowing, No problem reported Respiratory: + cough, + wheezing, + shortness of breath, + dyspnea on exertion , + dyspnea at rest, No see HPI, No sputum, No hemoptysis, No problem reported Cardiac: No see HPI, No chest pain, No orthopnea, No PND, No edema, No claudication, No palpitations, No problem reported Abdomen: No see HPI, No pain, No nausea, No vomiting, No diarrhea, No constipation, No GI bleeding, No problem reported Musculoskeletal: No see HPI, No joint pain, No muscle pain, No swelling, No calf pain, No problem reported Male : No see HPI, No dysuria, No urinary frequency, No incontinence, No nocturia more than once/night, No slowing stream, No hematuria, No sexual dysfunction, No problem reported Neurologic: + weakness, No see HPI, No memory loss, No paralysis, No numbness/ tingling, No vertigo, No balance problems, No problem reported Psychiatric: + depression symptoms Heme: No see HPI, No abnormal bleeding/bruising, No clotting problems, No swollen lymph nodes, No night sweats, No problem reported Endo: + fatigue, No see HPI, No excessive thirst, No excessive urination, No problem reported Skin: No see HPI, No rash, No itch, No new/changing skin lesions, No color change, No bleeding, No problem reported Medications Current Inpatient Medications Medications (Trade) Dose Ordered Sig/[place] Route Start Time Stop Time Status Last Admin Dose Admin Enoxaparin Sodium (Lovenox Inj) 40 mg Q24H SC 07/23/17 09:00 08/22/17 08:59 07/28/17 07:49 40 MG Acetaminophen (Tylenol Tab) 650 mg Q4H PRN PO 07/23/17 01:15 08/22/17 01:14 Al Hydrox/Mg Hydrox/Simethicone (Maalox Max Susp) 15 ml Q4H PRN PO 07/23/17 01:15 08/22/17 01:14 Magnesium Hydroxide (Milk Of Magnesia Susp) 30 ml Q12H PRN PO 07/23/17 01:15 08/22/17 01:14 Polyethylene (Miralax Powder Packet) 17 gm DAILY PRN PO 07/23/17 01:15 08/22/17 01:14 Ondansetron HCl (Zofran Odt) 8 mg Q6H PRN PO 07/23/17 01:15 08/22/17 01:14 Guaifenesin (Organidin Nr Tab) 600 mg BID PO 07/23/17 09:00 08/22/17 08:59 07/28/17 21:27 600 MG Budesonide (Pulmicort Respules 0.5MG/ 2ML Neb Soln) 0.5 mg BIDR INH 07/23/17 08:00 08/22/17 07:59 07/29/17 07:10 0.5 MG Ipratropium [place] (Atrovent 0.02% 0.5MG/2.5ML Neb) 0.5 mg Q6R INH 07/23/17 03:00 08/22/17 02:59 07/29/17 14:15 0.5 MG Levalbuterol (Xopenex 1.25MG/ 0.5ML Neb) 1.25 mg Q6R INH 07/23/17 03:00 08/22/17 02:59 07/29/17 14:15 1.25 MG Ipratropium [place] (Atrovent 0.02% 0.5MG/2.5ML Neb) 0.5 mg Q2H PRN INH 07/23/17 01:30 08/22/17 01:29 07/29/17 09:59 0.5 MG Levalbuterol (Xopenex 1.25MG/ 0.5ML Neb) 1.25 mg Q2H PRN INH 07/23/17 01:30 08/22/17 01:29 07/29/17 09:59 1.25 MG Miscellaneous (Iv Fluids Completed) 1 ea PRN PRN N/A 07/23/17 04:30 07/23/18 04:29 Metoprolol Tartrate (Lopressor Iv) 5 mg Q4 PRN IV 07/23/17 12:00 08/22/17 11:59 Metoprolol Tartrate (Lopressor Tab) 25 mg BID PO 07/24/17 09:00 08/23/17 08:59 07/28/17 21:27 25 MG Lorazepam (Ativan Inj) 0.5 mg HS PRN IV 07/25/17 14:15 08/22/17 11:59 07/29/17 15:14 0.5 MG Lorazepam (Ativan Tab) 0.5 mg HS PRN PO 07/25/17 14:15 08/22/17 10:14 07/28/17 21:27 0.5 MG Methylprednisolone Sodium Succinate 40 mg/Syringe 0.64 ml @ 1.5 mls/min Q6H IV 07/27/17 14:00 08/22/17 15:59 07/29/17 13:27 1.5 MLS/MIN Azithromycin 500 mg/Dextrose 255 ml @ 125 mls/hr DAILY@1200 IV 07/27/17 12:00 08/03/17 11:59 07/29/17 11:38 125 MLS/HR Lactobacillus Acidophilus (Floranex Tab) 4 tab TIDM PO 07/27/17 11:30 08/26/17 11:29 07/28/17 16:31 4 TAB Pantoprazole Sodium 40 mg/ Syringe 10 ml @ 5 mls/min DAILY@11 IV 07/28/17 11:00 08/27/17 10:59 07/29/17 10:12 5 MLS/MIN Furosemide 40 mg/ Syringe 4 ml @ 4 mls/min BID17 IV 07/28/17 21:30 08/27/17 21:29 07/29/17 08:17 4 MLS/MIN Morphine Sulfate (MoRPHine SULFATE INJ) 2 mg Q2H PRN IV 07/29/17 10:00 08/11/17 15:44 07/29/17 15:14 2 MG Lorazepam (Ativan Inj) 0.5 mg Q4H PRN IV 07/29/17 10:00 08/28/17 09:59 Objective Vital Signs Date Time Temp Pulse Resp B/P (MAP) Pulse Ox O2 Delivery O2 Flow Rate FiO2 07/29/17 14:15 119 20 96 Nasal Cannula 50.0 50 07/29/17 12:00 High Flow Oxygen 50.0 50 07/29/17 11:21 36.7 114 20 117/91 (100) 93 High Flow Oxygen 07/29/17 10:00 115 24 97 BiPAP/CPAP 40 07/29/17 08:16 36.7 113 24 153/102 (119) 95 BiPAP 0 07/29/17 08:00 BiPAP 40 07/29/17 07:11 99 20 99 BiPAP/CPAP 50 07/29/17 07:11 99 99 50 07/29/17 04:00 BiPAP 50 07/29/17 03:14 36.5 78 18 131/88 (102) 100 BiPAP 07/29/17 02:44 85 99 50 07/29/17 02:43 81 22 99 BiPAP/CPAP 50 07/29/17 00:01 BiPAP 50 07/28/17 23:38 36.2 83 16 136/88 (104) 100 BiPAP 07/28/17 22:00 36.6 07/28/17 20:00 BiPAP 30 07/28/17 19:19 122 24 158/91 (113) 91 High Flow Oxygen 07/28/17 19:18 113 24 90 Nasal Cannula 50.0 50 07/28/17 16:00 High Flow Oxygen 07/28/17 15:40 91 21 168/96 (120) 94 High Flow Oxygen Physical Exam General Appearance: + severe distress, + thin Eyes: normal inspection, EOMI ENT: normal ENT inspection, hearing grossly normal Neck: supple Respiratory/Chest: + respiratory distress, + decreased breath sounds, + accessory muscle use, + crackles, + rales, + wheezing Cardiovascular: no edema, + tachycardia, + systolic murmur Abdomen: normal bowel sounds, non tender, soft, no organomegaly, no pulsatile mass Extremities: normal range of motion, non-tender, normal inspection, no pedal edema, no calf tenderness 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, no motor/sensory deficits, alert, normal mood/affect, oriented x 3 Skin: normal color, warm/dry, no rash Laboratory Results Last 24 Hours Test 07/29/17 07:01 White Blood Count 15.72 K/uL Red Blood Count 4.79 M/uL Hemoglobin 14.5 g/dL Hematocrit 45.4 % Mean Corpuscular Volume 94.8 fL Mean Corpuscular Hemoglobin 30.3 pg Mean Corpuscular Hemoglobin Concent 31.9 g/dl Platelet Count 216 K/uL Mean Platelet Volume 10.1 fL Neutrophils (%) (Auto) 91.3 % Lymphocytes (%) (Auto) 3.1 % Monocytes (%) (Auto) 5.3 % Eosinophils (%) (Auto) 0.0 % Basophils (%) (Auto) 0.0 % Neutrophils # (Auto) 14.36 K/uL Lymphocytes # (Auto) 0.48 K/uL Monocytes # (Auto) 0.83 K/uL Eosinophils # (Auto) 0.00 K/uL Basophils # (Auto) 0.00 K/uL RDW Standard Deviation 45.9 fL RDW Coefficient of Variation 13.2 % Immature Granulocyte % (Auto) 0.3 % Immature Granulocyte # (Auto) 0.05 K/uL Sodium Level 138 mmol/L Potassium Level 5.0 mmol/L Chloride Level 89 mmol/L Carbon Dioxide Level 45 mmol/L Anion Gap 4.0 mmol/L Blood Urea Nitrogen 30 mg/dl Creatinine 0.62 mg/dl Est Creatinine Clear Calc Drug Dose 83.9 ml/min Estimated GFR () 114.9 Estimated GFR (Non- 99.1 BUN/Creatinine Ratio 47.7 Random Glucose 148 mg/dl Calcium Level 9.7 mg/dl Magnesium Level 2.6 mg/dl Total Bilirubin 0.6 mg/dl Aspartate Amino Transf (AST/SGOT) 9 U/L Alanine Aminotransferase (ALT/SGPT) 29 U/L Alkaline Phosphatase 54 U/L Total Protein 6.6 gm/dl Albumin 3.6 gm/dl Globulin 3.0 gm/dl Albumin/Globulin Ratio 1.2 Assessment and Plan 72-year-old man with 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 presented to the hospital with acute on chronic respiratory failure secondary to COPD exacerbation Assessment Acute on chronic hypoxic hypercapnic respiratory failure secondary to below Severe COPD exacerbation Tobacco abuse SVT secondary to lung disease plus bronchodilators/beta agonist General anxiety disorder Plan I had a long discussion with him then with the family alone , (daugther, and grandson), they agreed to have palliative care consultation , would like to continue current treatment of bronchodilators, steroids and zithromycin Continue patient to telemetry Continue patient on bronchodilators, Xopenex/Atrovent 1.2 inhalation nebulizer 4 times daily Continue patient on steroids, Solu-Medrol 40 mg IV every 6 hours EKG reviewed, no QTc prolongation, will start patient on azithromycin 500 mg IV daily which will have also anti-inflammatory benefit for COPD Add probiotic for C. difficile prevention add lasix 40mg IV BID, calculate I/Os, SOB improved currently off BIPAP Pulmonary consultation appreciated Pepcid for GI prophylaxis Heparin subcu for DVT prophylaxis Beta-mena for SVT Continued [facility] stay due to: multiple IV medications needed, other (condition worsening) Discharge planning: uncertain
--- NOTE | 2017-07-29 18:26 | Pulmonology Progress Note ---
Pulmonary Progress Note Date of Service Jul 29, 2017. Attending Dr. Perez Subjective Patient is severely fatigued and confused unable answer appropriate questions at this time. Per the nursing staff throughout the day when the patient was cognizant he kept reiterating, "I would like to , let me pass." Objective Notably confused male with severe tachypnea using accessory muscles showing signs of respiratory fatigue/pending failure Vital signs: Respiratory rate mid 40s Respiratory: Decreased breath sounds globally Cardiac: Tachypneic S1-S2 unable to auscultate for murmurs rubs or gallops Extremities: Some skin breakdown but no clubbing cyanosis or edema noted at this time CLINIC ASSISTANT: Confused unable only orientated to person Assessment & Plan 72-year-old male with very severe COPD last FEV1 20% 1. Very severe COPD: The patient has received advanced medical care for his current exacerbation and is responding poorly. I placed him on BiPAP to help support his work of breathing. At this time I will discontinue some of his inhalers and just continue BiPAP, his nebulizers as well as IV steroids. 2. End of life care: I had a long discussion with the patient's , daughter and grandson. We had a long discussion about the patient's quality of life in severity of his COPD. We discussed toe COPD is now the 3rd leading cause of world wide and that I believe Mr. Quigley has terminal illness/ COPD. I asked them to decide if they would like to move forward with comfort measures. I did reaffirm that the patient is a DNR/DNI. Data Medications: Current Inpatient Medications Medications (Trade) Dose Ordered Sig/[place] Route Start Time Stop Time Status Last Admin Dose Admin Enoxaparin Sodium (Lovenox Inj) 40 mg Q24H SC 07/23/17 09:00 08/22/17 08:59 07/28/17 07:49 40 MG Acetaminophen (Tylenol Tab) 650 mg Q4H PRN PO 07/23/17 01:15 08/22/17 01:14 Al Hydrox/Mg Hydrox/Simethicone (Maalox Max Susp) 15 ml Q4H PRN PO 07/23/17 01:15 08/22/17 01:14 Magnesium Hydroxide (Milk Of Magnesia Susp) 30 ml Q12H PRN PO 07/23/17 01:15 08/22/17 01:14 Polyethylene (Miralax Powder Packet) 17 gm DAILY PRN PO 07/23/17 01:15 08/22/17 01:14 Ondansetron HCl (Zofran Odt) 8 mg Q6H PRN PO 07/23/17 01:15 08/22/17 01:14 Ipratropium [place] (Atrovent 0.02% 0.5MG/2.5ML Neb) 0.5 mg Q6R INH 07/23/17 03:00 08/22/17 02:59 07/29/17 14:15 0.5 MG Levalbuterol (Xopenex 1.25MG/ 0.5ML Neb) 1.25 mg Q6R INH 07/23/17 03:00 08/22/17 02:59 07/29/17 14:15 1.25 MG Ipratropium [place] (Atrovent 0.02% 0.5MG/2.5ML Neb) 0.5 mg Q2H PRN INH 07/23/17 01:30 08/22/17 01:29 07/29/17 09:59 0.5 MG Levalbuterol (Xopenex 1.25MG/ 0.5ML Neb) 1.25 mg Q2H PRN INH 07/23/17 01:30 08/22/17 01:29 07/29/17 09:59 1.25 MG Miscellaneous (Iv Fluids Completed) 1 ea PRN PRN N/A 07/23/17 04:30 07/23/18 04:29 Metoprolol Tartrate (Lopressor Iv) 5 mg Q4 PRN IV 07/23/17 12:00 08/22/17 11:59 Metoprolol Tartrate (Lopressor Tab) 25 mg BID PO 07/24/17 09:00 08/23/17 08:59 07/28/17 21:27 25 MG Lorazepam (Ativan Inj) 0.5 mg HS PRN IV 07/25/17 14:15 08/22/17 11:59 07/29/17 15:43 1 MG Lorazepam (Ativan Tab) 0.5 mg HS PRN PO 07/25/17 14:15 08/22/17 10:14 07/28/17 21:27 0.5 MG Methylprednisolone Sodium Succinate 40 mg/Syringe 0.64 ml @ 1.5 mls/min Q6H IV 07/27/17 14:00 08/22/17 15:59 07/29/17 13:27 1.5 MLS/MIN Azithromycin 500 mg/Dextrose 255 ml @ 125 mls/hr DAILY@1200 IV 07/27/17 12:00 08/03/17 11:59 07/29/17 11:38 125 MLS/HR Lactobacillus Acidophilus (Floranex Tab) 4 tab TIDM PO 07/27/17 11:30 08/26/17 11:29 07/28/17 16:31 4 TAB Pantoprazole Sodium 40 mg/ Syringe 10 ml @ 5 mls/min DAILY@11 IV 07/28/17 11:00 08/27/17 10:59 07/29/17 10:12 5 MLS/MIN Furosemide 40 mg/ Syringe 4 ml @ 4 mls/min BID17 IV 07/28/17 21:30 08/27/17 21:29 07/29/17 17:21 4 MLS/MIN Morphine Sulfate (MoRPHine SULFATE INJ) 2 mg Q2H PRN IV 07/29/17 10:00 08/11/17 15:44 07/29/17 18:18 2 MG Lorazepam (Ativan Inj) 1 mg Q2H PRN IV 07/29/17 15:45 08/28/17 09:59 I & O: 24-Hour Column 07/30/17 08:00 Intake Total 249 ml Output Total 750 ml Balance -501 ml Vital Signs: Date Time Temp Pulse Resp B/P (MAP) Pulse Ox O2 Delivery O2 Flow Rate FiO2 07/29/17 16:00 High Flow Oxygen 50.0 50 07/29/17 15:47 36.5 124 26 142/87 (105) 91 High Flow Oxygen 07/29/17 14:15 119 20 96 Nasal Cannula 50.0 50 07/29/17 12:00 High Flow Oxygen 50.0 50 07/29/17 11:21 36.7 114 20 117/91 (100) 93 High Flow Oxygen 07/29/17 10:00 115 24 97 BiPAP/CPAP 40 07/29/17 08:16 36.7 113 24 153/102 (119) 95 BiPAP 0 07/29/17 08:00 BiPAP 40 07/29/17 07:11 99 20 99 BiPAP/CPAP 50 07/29/17 07:11 99 99 50 07/29/17 04:00 BiPAP 50 07/29/17 03:14 36.5 78 18 131/88 (102) 100 BiPAP 07/29/17 02:44 85 99 50 07/29/17 02:43 81 22 99 BiPAP/CPAP 50 07/29/17 00:01 BiPAP 50 07/28/17 23:38 36.2 83 16 136/88 (104) 100 BiPAP 07/28/17 22:00 36.6 07/28/17 20:00 BiPAP 30 07/28/17 19:19 122 24 158/91 (113) 91 High Flow Oxygen 07/28/17 19:18 113 24 90 Nasal Cannula 50.0 50 Laboratory Results: Last 24 Hours Test 07/29/17 07:01 White Blood Count 15.72 K/uL Red Blood Count 4.79 M/uL Hemoglobin 14.5 g/dL Hematocrit 45.4 % Mean Corpuscular Volume 94.8 fL Mean Corpuscular Hemoglobin 30.3 pg Mean Corpuscular Hemoglobin Concent 31.9 g/dl Platelet Count 216 K/uL Mean Platelet Volume 10.1 fL Neutrophils (%) (Auto) 91.3 % Lymphocytes (%) (Auto) 3.1 % Monocytes (%) (Auto) 5.3 % Eosinophils (%) (Auto) 0.0 % Basophils (%) (Auto) 0.0 % Neutrophils # (Auto) 14.36 K/uL Lymphocytes # (Auto) 0.48 K/uL Monocytes # (Auto) 0.83 K/uL Eosinophils # (Auto) 0.00 K/uL Basophils # (Auto) 0.00 K/uL RDW Standard Deviation 45.9 fL RDW Coefficient of Variation 13.2 % Immature Granulocyte % (Auto) 0.3 % Immature Granulocyte # (Auto) 0.05 K/uL Sodium Level 138 mmol/L Potassium Level 5.0 mmol/L Chloride Level 89 mmol/L Carbon Dioxide Level 45 mmol/L Anion Gap 4.0 mmol/L Blood Urea Nitrogen 30 mg/dl Creatinine 0.62 mg/dl Est Creatinine Clear Calc Drug Dose 83.9 ml/min Estimated GFR () 114.9 Estimated GFR (Non- 99.1 BUN/Creatinine Ratio 47.7 Random Glucose 148 mg/dl Calcium Level 9.7 mg/dl Magnesium Level 2.6 mg/dl Total Bilirubin 0.6 mg/dl Aspartate Amino Transf (AST/SGOT) 9 U/L Alanine Aminotransferase (ALT/SGPT) 29 U/L Alkaline Phosphatase 54 U/L Total Protein 6.6 gm/dl Albumin 3.6 gm/dl Globulin 3.0 gm/dl Albumin/Globulin Ratio 1.2
[2017-07-30] VITALS (12 sets, daily range): BP systolic 120–146; BP diastolic 77–97; PULSE 107–133; TEMP 36.3–37; O2SAT 91–98
[2017-07-30] MEDS: METHYLPREDNISOLONE IV 40 MG in SYRINGE 0 ML IV SCH ×3 (01:41→14:08)
[2017-07-30] MEDS: MoRPHine SULFATE 2 MG/ML CARP IV PRN ×2 (01:42→04:06)
[2017-07-30] MEDS: LEVALBUTEROL 1.25MG/0.5ML NEB INH SCH ×3 (01:45→14:33)
[2017-07-30] MEDS: IPRATROPIUM BROMIDE NEB SOLN 0.02% 2.5 ML VIAL INH SCH ×3 (01:45→14:33)
[2017-07-30] MEDS: LACTOBACILLUS ACIDOPHILUS (FLORANEX) TAB PO SCH ×3 (07:31→16:23)
[2017-07-30] MEDS: METOPROLOL TARTRATE 25 MG TAB PO SCH (07:32)
[2017-07-30] MEDS: ENOXAPARIN 40 MG/0.4 ML SYR SC SCH (07:44)
[2017-07-30] MEDS: FUROSEMIDE INJ 40 MG in SYRINGE 0 ML IV SCH ×2 (07:56→16:23)
--- NOTE | 2017-07-30 08:38 | Palliative Care Consultation ---
Consultation Date of Consultation: Jul 30, 2017. Requesting Physician: Dr. Dunne Attending Physician: Dr. Dunne Reason for Consultation: Symptom Management- Goals of care History of Present Illness Pt is a 72 male with a history of COPD who presented with SOB despite the 5LNC of O2 that he wears at home. Pt. is currently admitted for an acute on chronic COPD exacerbation and is receiving bronchodilators, steroids, and antibiotics. Pt has had a recent admission July 11. Upon assessment, patient is awake, alert, oriented, and cachectic. Pt is using accessory muscles to breath despit him being on 50% [place] O2. Pt has an audible S1/S2 and (-) M/G/R. He has decreased breath sounds and no edema. He has stated to me numerous times while I am in the room "I am ready to ", " I do not want to live like this". He has stated that he has the support of his (53 years) and his daughter. He states that he does not have a strong will to at home. I spoke with both his and daughter on the phone and they are in support of transitioning to comfort measures without continuing non-essential medications. Case management made aware and the attending physician. Social History Smoking Status: Current Every Day Smoker History of Alcohol Use: No Drug Use: none Marital Status: Housing Status: lives with family Occupation Status: employed Review of Systems Respiratory: + shortness of breath Neurologic: + problem reported (Pt stating "I am ready to " ) Allergies Coded Allergies: No Known Allergies (Unverified , 07/09/17) Medications Current Inpatient Medications Medications (Trade) Dose Ordered Sig/[place] Route Start Time Stop Time Status Last Admin Dose Admin Enoxaparin Sodium (Lovenox Inj) 40 mg Q24H SC 07/23/17 09:00 08/22/17 08:59 07/30/17 07:44 40 MG Acetaminophen (Tylenol Tab) 650 mg Q4H PRN PO 07/23/17 01:15 08/22/17 01:14 Al Hydrox/Mg Hydrox/Simethicone (Maalox Max Susp) 15 ml Q4H PRN PO 07/23/17 01:15 08/22/17 01:14 Magnesium Hydroxide (Milk Of Magnesia Susp) 30 ml Q12H PRN PO 07/23/17 01:15 5/5/18 01:14 Polyethylene (Miralax Powder Packet) 17 gm DAILY PRN PO 07/23/17 01:15 08/22/17 01:14 Ondansetron HCl (Zofran Odt) 8 mg Q6H PRN PO 07/23/17 01:15 08/22/17 01:14 Ipratropium [place] (Atrovent 0.02% 0.5MG/2.5ML Neb) 0.5 mg Q6R INH 07/23/17 03:00 08/22/17 02:59 07/30/17 06:56 0.5 MG Levalbuterol (Xopenex 1.25MG/ 0.5ML Neb) 1.25 mg Q6R INH 07/23/17 03:00 08/22/17 02:59 07/30/17 06:56 1.25 MG Ipratropium [place] (Atrovent 0.02% 0.5MG/2.5ML Neb) 0.5 mg Q2H PRN INH 07/23/17 01:30 08/22/17 01:29 07/29/17 09:59 0.5 MG Levalbuterol (Xopenex 1.25MG/ 0.5ML Neb) 1.25 mg Q2H PRN INH 07/23/17 01:30 08/22/17 01:29 07/29/17 09:59 1.25 MG Miscellaneous (Iv Fluids Completed) 1 ea PRN PRN N/A 07/23/17 04:30 07/23/18 04:29 Metoprolol Tartrate (Lopressor Iv) 5 mg Q4 PRN IV 07/23/17 12:00 08/22/17 11:59 07/30/17 01:43 5 MG Metoprolol Tartrate (Lopressor Tab) 25 mg BID PO 07/24/17 09:00 08/23/17 08:59 07/30/17 07:32 25 MG Lorazepam (Ativan Inj) 0.5 mg HS PRN IV 07/25/17 14:15 08/22/17 11:59 07/29/17 20:54 0.5 MG Lorazepam (Ativan Tab) 0.5 mg HS PRN PO 07/25/17 14:15 08/22/17 10:14 07/28/17 21:27 0.5 MG Methylprednisolone Sodium Succinate 40 mg/Syringe 0.64 ml @ 1.5 mls/min Q6H IV 07/27/17 14:00 08/22/17 15:59 07/30/17 07:32 1.5 MLS/MIN Azithromycin 500 mg/Dextrose 255 ml @ 125 mls/hr DAILY@1200 IV 07/27/17 12:00 08/03/17 11:59 07/29/17 11:38 125 MLS/HR Lactobacillus Acidophilus (Floranex Tab) 4 tab TIDM PO 07/27/17 11:30 08/26/17 11:29 07/30/17 07:31 4 TAB Pantoprazole Sodium 40 mg/ Syringe 10 ml @ 5 mls/min DAILY@11 IV 07/28/17 11:00 08/27/17 10:59 07/29/17 10:12 5 MLS/MIN Furosemide 40 mg/ Syringe 4 ml @ 4 mls/min BID17 IV 07/28/17 21:30 08/27/17 21:29 07/30/17 07:56 4 MLS/MIN Morphine Sulfate (MoRPHine SULFATE INJ) 2 mg Q2H PRN IV 07/29/17 10:00 08/11/17 15:44 07/30/17 04:06 2 MG Lorazepam (Ativan Inj) 1 mg Q2H PRN IV 07/29/17 15:45 08/28/17 09:59 Physical Exam Date Time Temp Pulse Resp B/P (MAP) Pulse Ox O2 Delivery O2 Flow Rate FiO2 07/30/17 08:26 36.5 122 17 121/97 (105) 98 BiPAP 07/30/17 06:56 113 20 97 BiPAP/CPAP 40 07/30/17 04:09 37.0 115 24 123/92 (102) 96 BiPAP 40 07/30/17 04:00 BiPAP 40 07/30/17 02:00 133 96 40 07/30/17 01:43 140 133/91 07/30/17 00:10 37.0 123 20 120/77 (91) 97 BiPAP 07/30/17 00:01 BiPAP 40 07/29/17 20:00 BiPAP 40 07/29/17 19:35 37.3 123 19 131/78 (95) 96 BiPAP 07/29/17 19:35 133 96 40 07/29/17 16:00 High Flow Oxygen 50.0 50 07/29/17 15:47 36.5 124 26 142/87 (105) 91 High Flow Oxygen 07/29/17 14:15 119 20 96 Nasal Cannula 50.0 50 07/29/17 12:00 High Flow Oxygen 50.0 50 07/29/17 11:21 36.7 114 20 117/91 (100) 93 High Flow Oxygen 07/29/17 10:00 115 24 97 BiPAP/CPAP 40 General Appearance: + mild distress, + cachetic Neck: no JVD Respiratory: + pertinent finding (accessory muscles being used. ) Cardiovascular: no edema, no murmur Abdomen: non tender, soft Musculoskeletal: normal Neurologic/Psychiatric: alert, oriented x 3, + pertinent finding (Patient stating "I am ready to ") Skin: warm/dry Assessment & Plan Palliative Performance Scale: 20 % Goals of care Symptom management COPD acute on chronic exacerbation Palliative Care Recommendations: -Pt to remain DNR/DNI -Stop all non essential medications, including bronchodilators -Comfort measures only -Continue Bipap for comfort PRN -Order Morphine gtt 1mg/mL. Titrate/Increase by 1mg Q15 minutes to establish comfort -Order Atropine gtts 1% 4 gtts PO Q1 for secretions -Continue to offer support to the patients , Anni and daughterFatmata -Discuss with case management about moving forward with [facility] for inpatient Hospice Thank you kindly for this consult - we are happy to be involved in this patient' s care and transition to comfort Counseling and Coordination Total time spent 70 minutes with > 50% of that time assessing patient, discussing goals of care with patient at the bedside, and over the phone with daughter and , along with symptom management discussion
[2017-07-30] MEDS ORDERED: MoRPHine SULF/NSS 250MG/250ML 250 ML IV SCH (09:30)
[2017-07-30] MEDS ORDERED: MoRPHine SULFATE 5 MG/0.25 ML UDP PO PRN (09:30)
[2017-07-30] MEDS ORDERED: ATROPINE SULFATE 1% OP SOLN 5 ML BTL OP PRN (09:45)
[2017-07-30] MEDS: PANTOprazole INJ 40 MG in SYRINGE 0 ML IV SCH (10:23)
--- NOTE | 2017-07-30 10:39 | Pulmonology Progress Note ---
Pulmonary Progress Note Date of Service Jul 30, 2017. Attending Dr. Perez Subjective Patient extremely fatigued and notably short of breath at rest Objective Patient orientated times person but showing severe respiratory insufficiency using accessory muscles and notably tachypneic Vital signs: Respiratory rate mid 40s/currently on high-flow oxygen support Respiratory: Decreased breath sounds globally Cardiac: Tachypneic S1-S2 unable to auscultate for murmurs rubs or gallops Extremities: Some skin breakdown but no clubbing cyanosis or edema noted at this time SCULLION CHIEF: Confused unable only orientated to person Assessment & Plan 72-year-old male with very severe COPD last FEV1 20% 1. Very severe COPD: Patient has end-stage COPD. I agree with moving to hospice care at this time and comfort measures. 2. Sign off: This time pulmonary will sign off thank you very much. Data Medications: Current Inpatient Medications Medications (Trade) Dose Ordered Sig/[place] Route Start Time Stop Time Status Last Admin Dose Admin Enoxaparin Sodium (Lovenox Inj) 40 mg Q24H SC 07/23/17 09:00 08/22/17 08:59 07/30/17 07:44 40 MG Acetaminophen (Tylenol Tab) 650 mg Q4H PRN PO 07/23/17 01:15 08/22/17 01:14 Al Hydrox/Mg Hydrox/Simethicone (Maalox Max Susp) 15 ml Q4H PRN PO 07/23/17 01:15 08/22/17 01:14 Magnesium Hydroxide (Milk Of Magnesia Susp) 30 ml Q12H PRN PO 07/23/17 01:15 08/22/17 01:14 Polyethylene (Miralax Powder Packet) 17 gm DAILY PRN PO 07/23/17 01:15 08/22/17 01:14 Ondansetron HCl (Zofran Odt) 8 mg Q6H PRN PO 07/23/17 01:15 08/22/17 01:14 Ipratropium [place] (Atrovent 0.02% 0.5MG/2.5ML Neb) 0.5 mg Q6R INH 07/23/17 03:00 08/22/17 02:59 07/30/17 06:56 0.5 MG Levalbuterol (Xopenex 1.25MG/ 0.5ML Neb) 1.25 mg Q6R INH 07/23/17 03:00 08/22/17 02:59 07/30/17 06:56 1.25 MG Ipratropium [place] (Atrovent 0.02% 0.5MG/2.5ML Neb) 0.5 mg Q2H PRN INH 07/23/17 01:30 08/22/17 01:29 07/29/17 09:59 0.5 MG Levalbuterol (Xopenex 1.25MG/ 0.5ML Neb) 1.25 mg Q2H PRN INH 07/23/17 01:30 08/22/17 01:29 07/29/17 09:59 1.25 MG Miscellaneous (Iv Fluids Completed) 1 ea PRN PRN N/A 07/23/17 04:30 07/23/18 04:29 Metoprolol Tartrate (Lopressor Iv) 5 mg Q4 PRN IV 07/23/17 12:00 08/22/17 11:59 07/30/17 01:43 5 MG Metoprolol Tartrate (Lopressor Tab) 25 mg BID PO 07/24/17 09:00 08/23/17 08:59 07/30/17 07:32 25 MG Lorazepam (Ativan Inj) 0.5 mg HS PRN IV 07/25/17 14:15 08/22/17 11:59 07/29/17 20:54 0.5 MG Lorazepam (Ativan Tab) 0.5 mg HS PRN PO 07/25/17 14:15 08/22/17 10:14 07/28/17 21:27 0.5 MG Methylprednisolone Sodium Succinate 40 mg/Syringe 0.64 ml @ 1.5 mls/min Q6H IV 07/27/17 14:00 08/22/17 15:59 07/30/17 07:32 1.5 MLS/MIN Azithromycin 500 mg/Dextrose 255 ml @ 125 mls/hr DAILY@1200 IV 07/27/17 12:00 08/03/17 11:59 07/29/17 11:38 125 MLS/HR Lactobacillus Acidophilus (Floranex Tab) 4 tab TIDM PO 07/27/17 11:30 08/26/17 11:29 07/30/17 07:31 4 TAB Pantoprazole Sodium 40 mg/ Syringe 10 ml @ 5 mls/min DAILY@11 IV 07/28/17 11:00 08/27/17 10:59 07/30/17 10:23 5 MLS/MIN Furosemide 40 mg/ Syringe 4 ml @ 4 mls/min BID17 IV 07/28/17 21:30 08/27/17 21:29 07/30/17 07:56 4 MLS/MIN Morphine Sulfate (MoRPHine SULFATE INJ) 2 mg Q2H PRN IV 07/29/17 10:00 08/11/17 15:44 07/30/17 04:06 2 MG Lorazepam (Ativan Inj) 1 mg Q2H PRN IV 07/29/17 15:45 08/28/17 09:59 Morphine Sulfate (Roxanol Oral Soln) 5 mg Q4H PRN PO 07/30/17 09:30 08/13/17 09:29 07/30/17 10:27 5 MG Morphine Sulfate/ Dextrose 250 ml @ 1 mls/hr Q24H IV 07/30/17 09:30 08/13/17 09:29 07/30/17 10:21 1 MLS/HR Atropine Sulfate (Atropine Sulfate 1% Oph Soln) 4 drops Q4H PRN OP 07/30/17 09:45 08/29/17 09:44 Vital Signs: Date Time Temp Pulse Resp B/P (MAP) Pulse Ox O2 Delivery O2 Flow Rate FiO2 07/30/17 08:26 36.5 122 17 121/97 (105) 98 BiPAP 07/30/17 07:30 High Flow Oxygen 50.0 50 07/30/17 06:56 113 20 97 BiPAP/CPAP 40 07/30/17 04:09 37.0 115 24 123/92 (102) 96 BiPAP 40 07/30/17 04:00 BiPAP 40 07/30/17 02:00 133 96 40 07/30/17 01:43 140 133/91 07/30/17 00:10 37.0 123 20 120/77 (91) 97 BiPAP 07/30/17 00:01 BiPAP 40 07/29/17 20:00 BiPAP 40 07/29/17 19:35 37.3 123 19 131/78 (95) 96 BiPAP 07/29/17 19:35 133 96 40 07/29/17 16:00 High Flow Oxygen 50.0 50 07/29/17 15:47 36.5 124 26 142/87 (105) 91 High Flow Oxygen 07/29/17 14:15 119 20 96 Nasal Cannula 50.0 50 07/29/17 12:00 High Flow Oxygen 50.0 50 07/29/17 11:21 36.7 114 20 117/91 (100) 93 High Flow Oxygen
[2017-07-30] MEDS: AZITHROMYCIN IV 500 MG in DEXTROSE 5% 250ML 250 ML IV SCH (11:53)
--- NOTE | 2017-07-30 14:28 | Progress Note ---
Subjective Date of Service: Jul 30, 2017. Subjective Pt evaluation today including: conversation w/ patient, physical exam, chart review, lab review, review of inpatient medication list Pain: controlled PO Intake: decreased palliative care discussed the plan with family Problem List Medical Problems: (1) COPD exacerbation Status: Acute (2) Hypoxemia Status: Acute (3) Hypoxia Status: Acute (4) Hypoxia Status: Acute (5) Influenza Status: Acute (6) Pneumonia involving right lung Status: Acute (7) Respiratory distress Status: Acute (8) Sepsis Status: Acute (9) Tachycardia Status: Acute Review of Systems Due to patient mental status review of system was unobtainable/unreliable We'll attempt to obtain review of system as needed from staff and family Objective Vital Signs Date Time Temp Pulse Resp B/P (MAP) Pulse Ox O2 Delivery O2 Flow Rate FiO2 07/30/17 12:02 36.3 115 22 146/85 (105) 97 BiPAP 07/30/17 12:00 High Flow Oxygen 50.0 50 07/30/17 11:35 111 91 40 07/30/17 08:26 36.5 122 17 121/97 (105) 98 BiPAP 07/30/17 07:30 High Flow Oxygen 50.0 50 07/30/17 06:56 113 20 97 BiPAP/CPAP 40 07/30/17 04:09 37.0 115 24 123/92 (102) 96 BiPAP 40 07/30/17 04:00 BiPAP 40 07/30/17 02:00 133 96 40 07/30/17 01:43 140 133/91 07/30/17 00:10 37.0 123 20 120/77 (91) 97 BiPAP 07/30/17 00:01 BiPAP 40 07/29/17 20:00 BiPAP 40 07/29/17 19:35 37.3 123 19 131/78 (95) 96 BiPAP 07/29/17 19:35 133 96 40 07/29/17 16:00 High Flow Oxygen 50.0 50 07/29/17 15:47 36.5 124 26 142/87 (105) 91 High Flow Oxygen Physical Exam General Appearance: + moderate distress Eyes: normal inspection, EOMI ENT: normal ENT inspection Neck: supple Respiratory/Chest: + respiratory distress, + decreased breath sounds, + accessory muscle use, + wheezing Cardiovascular: regular rate, rhythm, + systolic murmur Abdomen: normal bowel sounds, non tender, soft, no organomegaly Extremities: normal range of motion, non-tender, normal inspection Neurologic/Psychiatric: manager contracting II-XII nml as tested, no motor/sensory deficits, alert, normal mood/affect, oriented x 3 Skin: normal color, warm/dry Assessment and Plan 72-year-old man with 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 presented to the hospital with acute on chronic respiratory failure secondary to COPD exacerbation Assessment Acute on chronic hypoxic hypercapnic respiratory failure secondary to below Severe COPD exacerbation Tobacco abuse SVT secondary to lung disease plus bronchodilators/beta agonist General anxiety disorder Plan I had another discussion with the patient, he would like to stop aggressive and heroic measures family are in an agreement to pursue hospice will start him on morphine drip also oral liquid will also add atropine opthalmic solution for secretions as per hospice recommendation If he gets too drowsy, will stop the morphine drip. meanwhile continue bronchodilators and steroids which aims for comfort Continued [facility] stay due to: multiple IV medications needed, other (condition worsening) Discharge planning: uncertain
[2017-07-30] MEDS ORDERED: PRED20TA PO (16:14)
[2017-07-30] MEDS ORDERED: XPNINS1255 INH ×2 (16:14)
[2017-07-30] MEDS ORDERED: ZFRODT/8 PO (16:14)
[2017-07-30] MEDS ORDERED: RXNS10 PO (16:14)
[2017-07-30] MEDS ORDERED: MRPIS2 IV (16:14)
[2017-07-30] MEDS ORDERED: ATRINS INH ×2 (16:14)
[2017-07-30] MEDS ORDERED: MOMLX PO (16:14)
[2017-07-30] MEDS ORDERED: ACET-1047 PO (16:14)
[2017-07-30] MEDS ORDERED: LCTX PO (16:14)
[2017-07-30] MEDS ORDERED: ATVI IV ×2 (16:14)
[2017-07-30] MEDS ORDERED: ATV5 PO (16:14)
--- NOTE | 2017-07-30 16:15 | Discharge Instructions ---
Discharge Instructions Date of Service Jul 30, 2017. Admission Reason for Admission: Acute And Chronic Respiratory Failure With Hypoxi Discharge Discharge Diagnosis / Problem: end stage COPD Discharge Goals Goal(s): Decrease discomfort Activity Recommendations Activity Limitations: resume your previous activity . Current Hospital Diet Patient's current hospital diet: Regular Diet Discharge Diet Recommended Diet: Regular Diet Pending Studies Studies pending at discharge: no Laboratory Results Hemoglobin A1c Test 06/02/17 09:30 Range/Units Estimated Average Glucose 117 mg/dl Hemoglobin A1c 5.7 H 4.5-5.6 % Medical Emergencies . Who to Call and When: Medical Emergencies: If at any time you feel your situation is an emergency, please call 911 immediately. . Non-Emergent Contact Non-Emergency issues call your: Primary Care Provider . . "Provider Documentation" section prepared by Alexandro Anthony. .
[2017-07-30] MEDS: LORAZEPAM 2 MG/ML 1 ML VIAL IV PRN (16:21)
--- NOTE | 2017-07-30 17:29 | Discharge Summary ---
Discharge Summary Date of Service Jul 30, 2017. Discharge Summary Admission Date: Jul 24, 2017 at 10:04 Discharge Date: Jul 30, 2017 Principal Diagnosis: End stage COPD Immunizations: Have You Had Influenza Vaccine: Unknown History of Tetanus Vaccine?: Unknown History of Pneumococcal: Unknown History of Hepatitis B Vaccine: Unknown Medication Reconciliation New Medications: Acetaminophen (Mapap) 325 Mg Tab 650 MG PO Q4H PRN for Pain or Fever for 1 Day, #1 TAB Ipratropium [place] (Ipratropium [place]) 0.5 Mg/2.5 Ml Nebu 0.5 MG INH Q2H PRN for Shortness of Breath for 30 Days, #30 Ipratropium [place] (Ipratropium [place]) 0.5 Mg/2.5 Ml Nebu 0.5 MG INH Q6R for 1 Day, #1 Lactobacillus Acidophilus (Floranex) 1 Tab Tab 4 TAB PO TIDM for 1 Day, #1 TAB Levalbuterol (Levalbuterol) 1.25 Mg/0.5 Ml Nebu 1.25 MG INH Q6R for 1 Day, #1 Levalbuterol (Levalbuterol) 1.25 Mg/0.5 Ml Nebu 1.25 MG INH Q2H PRN for Shortness of Breath for 1 Day, #1 Lorazepam (Lorazepam) 2 Mg/Ml Inj 1 MG IV Q2H PRN for Anxiety for 1 Day, #1 Lorazepam (Lorazepam) 0.5 Mg Tab 0.5 MG PO HS PRN for Anxiety for 1 Day, #1 TAB Lorazepam (Lorazepam) 2 Mg/Ml Inj 0.5 MG IV HS PRN for Anxiety for 1 Day, #1 Magnesium Hydroxide (Milk of Magnesia) 30 Ml Susp 30 ML PO Q12H PRN for Constipation for 1 Day, #1 Morphine Sulfate (Morphine Sulfate) 10 Mg/0.5 Ml Soln 5 MG PO Q4H PRN for Pain for 1 Day, #1 Morphine Sulfate (Morphine Sulfate) 2 Mg/Ml Inj 2 MG IV Q2H PRN for Shortness of Breath/ANXIETY for 1 Day, #1 Ondansetron (Ondansetron Odt) 8 Mg Soltab 8 MG PO Q6H PRN for Nausea for 1 Day, #1 Changed Medications: Prednisone (Prednisone) 20 Mg Tab 60 MG PO DAILY for 1 Day, #1 TAB (Changed from: 20 MG; DAILY/UD; Removed Instructions) Continued Medications: Albuterol Sulfate (Proventil Hfa) 108 Mcg/Act Aer 2 PUFFS INH Q4H PRN for SOB/Wheezing Budesonide/Formoterol Fumarate (Symbicort 160/4.5 Inhaler) 120 Puffs/ Aero 2 PUFFS INH BID, INHALER Escitalopram Oxalate (Lexapro) 20 Mg Tab 20 MG PO DAILY Ipratropium-Albuterol (Duoneb) 3 Ml Nebu 3 ML INH Q4H PRN for SOB/Wheezing, INHA Montelukast Sodium (Singulair) 10 Mg Tab 10 MG PO DAILY, TAB Roflumilast (Daliresp) 500 Mcg Tab 500 MCG PO DAILY Tiotropium [place] (Spiriva Handihaler) 30 Puff/540 Mcg Aerp 1 CAP INH DAILY Discontinued Medications: Cholecalciferol (Vitamin D3) 2,000 Unit Cap 2000 UNITS PO DAILY Multiple Vitamins W/ Minerals (Certavite/Antioxidants) 1 Tab Tab 1 TAB PO DAILY Hospital Course 72-year-old man with 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 he was started on morphine drip also oral liquid morphine also started on atropine opthalmic solution for secretions as per hospice recommendation currently appears comfortable. please refer to my progress note today for ROS and physical exam Total Time Spent: Less than 30 minutes This includes examination of the patient, discharge planning, medication reconciliation, and communication with other providers. Discharge Instructions Please refer to the electronic Patient Visit Report (Discharge Instructions) for additional information.
== END 2017-07-30 17:40 | disposition hospice, inpatient (51) | DRG 189 ==
LOC: EDBD 23:03 → C.EDA 23:06 → C.2E 07-23 01:14 → ENRESERV 07-23 01:27 → C.EDA 07-23 02:10 → OBSVTOIN 07-24 10:04 → EDBEDREQ 07-30 16:53 → ENRESERV 07-30 17:07
PROVIDERS: ADMIT Hospitalist; ATTEND Internal Medicine
DX: J96.21 Acute and chronic respiratory failure with hypoxia (principal); E43 Unspecified severe protein-calorie malnutrition; J44.1 Chronic obstructive pulmonary disease with (acute) exacerbation; I47.1 Supraventricular tachycardia; F32.9 Major depressive disorder, single episode, unspecified; Z51.5 Encounter for palliative care; Z66 Do not resuscitate; I27.81 Cor pulmonale (chronic); F17.200 Nicotine dependence, unspecified, uncomplicated; F41.1 Generalized anxiety disorder; Z87.01 Personal history of pneumonia (recurrent); Z99.81 Dependence on supplemental oxygen

== ENCOUNTER 2017-07-30 17:49 | Inpatient (IN) | payer OTHER ==
[~2017-07-30] VITALS: Ht 175.3 cm; Wt 57.0 kg
[~2017-07-30 17:49] MED LIST changes: +ACET-1047 PO; -ALBU18002 INH; +ALBUAER INH; +ATRINS INH; +ATV5 PO; +ATVI IV; -DXY100 PO; -IBUP-1428 PO; +LCTX PO; +MOMLX PO; +MRPIS2 IV; -OXGN; +PRED20TA PO; -PRED20TA2 PO; +ROFL1TAB5 PO; +RXNS10 PO; +XPNINS1255 INH; +ZFRODT/8 PO
[2017-07-30] MEDS ORDERED: ALUMINUM/MAGNESIUM/SIMETH (MAALOX MAX) 30 ML UDC PO PRN (18:00)
[2017-07-30] MEDS ORDERED: LEVALBUTEROL 1.25MG/0.5ML NEB INH PRN (18:00)
[2017-07-30] MEDS ORDERED: ALBUTEROL HFA 8 GM INHALER INH PRN (18:00)
[2017-07-30] MEDS ORDERED: IPRATROPIUM BROMIDE NEB SOLN 0.02% 2.5 ML VIAL INH PRN (18:00)
[2017-07-30] MEDS ORDERED: ACETAMINOPHEN 325 MG TAB PO PRN ×2 (18:00)
[2017-07-30] MEDS ORDERED: LORAZEPAM 2 MG/ML 1 ML VIAL IV PRN (18:00)
[2017-07-30] MEDS ORDERED: ONDANSETRON INJ 2 MG/ML 2 ML VIAL IV PRN (18:00)
[2017-07-30] MEDS ORDERED: ZOLPIDEM TARTRATE 5 MG TAB PO PRN ×2 (18:00)
[2017-07-30] MEDS ORDERED: ONDANSETRON 8MG OD TAB PO PRN (18:00)
--- NOTE | 2017-07-30 18:05 | History and Physical ---
History & Physical Date & Time of Service: Jul 30, 2017 at 18:04 Chief Complaint: Acute And Chronic Resp Failure W/ Hypoxia-Hospice Primary Care Physician: Bob Duke M.D. History of Present Illness Source: patient, family 72-year-old man with 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 he was discharged and re admitted as hospice Past Medical/Surgical History Medical Problems: (1) Acute and chronic respiratory failure with hypoxia (2) COPD (chronic obstructive pulmonary disease) (3) COPD exacerbation (4) COPD exacerbation (5) Hypoxemia (6) Hypoxia (7) Hypoxia (8) Influenza (9) Pneumonia involving right lung (10) Respiratory distress (11) Respiratory infection (12) Sepsis (13) Tachycardia Family History Patient reports no known family medical history. Social History Smoking Status: Current Every Day Smoker Drug Use: none Marital Status: Housing status: lives with family Occupational Status: employed Immunizations History of Influenza Vaccine: Unknown History of Tetanus Vaccine?: Unknown History of Pneumococcal: Unknown History of Hepatitis B Vaccine: Unknown Allergies Coded Allergies: No Known Allergies (Unverified , 07/09/17) Home Medications Scheduled Budesonide/Formoterol Fumarate (Symbicort 160/4.5 Inhaler), 2 PUFFS INH BID Escitalopram Oxalate (Lexapro), 20 MG PO DAILY Ipratropium [place] (Ipratropium [place]), 0.5 MG INH Q6R Lactobacillus Acidophilus (Floranex), 4 TAB PO TIDM Levalbuterol (Levalbuterol), 1.25 MG INH Q6R Montelukast Sodium (Singulair), 10 MG PO DAILY Prednisone (Prednisone), 60 MG PO DAILY Roflumilast (Daliresp), 500 MCG PO DAILY Tiotropium [place] (Spiriva Handihaler), 1 CAP INH DAILY Scheduled PRN Acetaminophen (Mapap), 650 MG PO Q4H PRN for Pain or Fever Albuterol Sulfate (Proventil Hfa), 2 PUFFS INH Q4H PRN for SOB/Wheezing Ipratropium [place] (Ipratropium [place]), 0.5 MG INH Q2H PRN for Shortness of Breath Ipratropium-Albuterol (Duoneb), 3 ML INH Q4H PRN for SOB/Wheezing Levalbuterol (Levalbuterol), 1.25 MG INH Q2H PRN for Shortness of Breath Lorazepam (Lorazepam), 1 MG IV Q2H PRN for Anxiety Lorazepam (Lorazepam), 0.5 MG PO HS PRN for Anxiety Lorazepam (Lorazepam), 0.5 MG IV HS PRN for Anxiety Magnesium Hydroxide (Milk of Magnesia), 30 ML PO Q12H PRN for Constipation Morphine Sulfate (Morphine Sulfate), 5 MG PO Q4H PRN for Pain Morphine Sulfate (Morphine Sulfate), 2 MG IV Q2H PRN for Shortness of Breath/ ANXIETY Ondansetron (Ondansetron Odt), 8 MG PO Q6H PRN for Nausea Impression Assessment and Plan 72-year-old man with 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 he was started on morphine drip also oral liquid morphine also started on atropine opthalmic solution for secretions as per hospice recommendation currently appears comfortable. please refer to my progress note today for ROS and physical exam Code status DNR/DNI Resuscitation Status VTE Prophylaxis Will order VTE Prophylaxis: Yes
[2017-07-30 18:19] VITALS: BP 122/78; PULSE 105; O2SAT 98; Ht 175.3 cm; Wt 57.0 kg
[2017-07-30] MEDS ORDERED: LORAZEPAM INJ 0.5 MG in SYRINGE 0.75 ML IV PRN (18:45)
[2017-07-30 19:55] VITALS: PULSE 88; O2SAT 92
[2017-07-30] MEDS: IPRATROPIUM BROMIDE NEB SOLN 0.02% 2.5 ML VIAL INH SCH (19:55)
[2017-07-30] MEDS: LEVALBUTEROL 1.25MG/0.5ML NEB INH SCH (19:55)
[2017-07-30] MEDS: BUDESONIDE/FORMOTEROL FUMARATE 160/4.5 60 PUFFS/INHALER INH SCH (21:23)
[2017-07-30] MEDS: LORAZEPAM 0.5 MG TAB PO PRN (21:23)
[2017-07-30 22:09] VITALS: PULSE 91; O2SAT 93
[2017-07-30 23:16] VITALS: BP 120/75; PULSE 112; TEMP 36.2; O2SAT 97
[2017-07-31] MEDS: MoRPHine SULFATE 2 MG/ML CARP IV PRN ×4 (00:29→18:47)
[2017-07-31 01:53] VITALS: PULSE 111; O2SAT 96
[2017-07-31] MEDS: IPRATROPIUM BROMIDE NEB SOLN 0.02% 2.5 ML VIAL INH SCH ×4 (01:53→19:32)
[2017-07-31] MEDS: LEVALBUTEROL 1.25MG/0.5ML NEB INH SCH ×4 (01:53→19:32)
[2017-07-31 01:54] VITALS: PULSE 111; O2SAT 96
[2017-07-31] MEDS: LORAZEPAM INJ 1 MG in SYRINGE 0.5 ML IV PRN ×3 (02:22→18:47)
[2017-07-31 07:08] VITALS: PULSE 107; O2SAT 97
[2017-07-31] MEDS: BUDESONIDE/FORMOTEROL FUMARATE 160/4.5 60 PUFFS/INHALER INH SCH ×2 (08:45→20:02)
[2017-07-31] MEDS: TIOTROPIUM BROMIDE 5 PUFF/90 MCG INH INH SCH (08:45)
[2017-07-31] MEDS ORDERED: AZITHROMYCIN 250 MG TAB PO ONE (10:45)
[2017-07-31] MEDS: ROFLUMILAST 500 MCG TAB PO SCH (10:46)
[2017-07-31] MEDS: ESCITALOPRAM OXALATE 20 MG TAB PO SCH (10:46)
[2017-07-31] MEDS: LACTOBACILLUS ACIDOPHILUS (FLORANEX) TAB PO SCH ×3 (10:47→16:40)
[2017-07-31] MEDS: MoRPHine SULFATE 5 MG/0.25 ML UDP PO PRN (10:56)
[2017-07-31] MEDS: LORAZEPAM 2 MG/ML 1 ML VIAL IV PRN ×2 (11:18→13:49)
[2017-07-31 14:10] VITALS: PULSE 94; O2SAT 92
--- NOTE | 2017-07-31 18:27 | Progress Note ---
Subjective Date of Service: Jul 31, 2017. Subjective Pt evaluation today including: conversation w/ patient, physical exam, chart review, lab review, review of inpatient medication list Pain: Controlled PO Intake: adequate Patient comfortable today no new complaint Morphine drip was stopped yesterday due to lethargy Can be restarted again as needed on a lower dose something like 0.25 mg/h Problem List Medical Problems: (1) COPD exacerbation Status: Acute (2) Hypoxemia Status: Acute (3) Hypoxia Status: Acute (4) Hypoxia Status: Acute (5) Influenza Status: Acute (6) Pneumonia involving right lung Status: Acute (7) Respiratory distress Status: Acute (8) Sepsis Status: Acute (9) Tachycardia Status: Acute Review of Systems Review of system Constitutional: No fever / no chills / no sweats / no weakness / no fatigue Eyes: no blurring of vision / no eye pain / no discharge / no redness ENT: no hearing loss / no epistaxis /no swallowing problems Respiratory: Significant wheezing, decreased air entry and shortness of breath Cardiovascular: no Chest pain / no lower extremity edema / no palpitation Abdomen: no pain / no nausea / no vomiting / no constipation Musculoskeletal: no joint pain / no muscle pain / no joint swelling Genitourinary: no dysuria / no incontinence / no urinary retention Neurologic: no focal weakness / no numbness/tingling / no ataxia Psychiatric: no depression symptoms / no anxiety / no insomnia Endocrine: no excessive thirst / no excessive urination Hematologic: no abnormal bleeding / no bruising / no LN swelling Skin: No rash / no pallor Objective Vital Signs Date Time Temp Pulse Resp B/P (MAP) Pulse Ox O2 Delivery O2 Flow Rate FiO2 07/31/17 16:00 Nasal Cannula 50.0 55 07/31/17 14:10 94 20 92 Nasal Cannula 50.0 55 07/31/17 08:04 BiPAP 07/31/17 07:08 107 97 40 07/31/17 07:08 107 20 97 BiPAP/CPAP 40 07/31/17 01:54 111 96 40 07/31/17 01:53 111 20 96 BiPAP/CPAP 40 07/31/17 00:00 BiPAP 07/30/17 23:16 36.2 112 20 120/75 (90) 97 High Flow Oxygen 07/30/17 22:09 91 93 40 07/30/17 20:33 High Flow Oxygen 5.0 40 07/30/17 19:55 88 20 92 Nasal Cannula 50.0 50 Physical Exam Comments: Physical examination General patient appears to be comfortable, not in acute distress, cachectic with funnel-shaped chest wall HEENT: Atraumatic , normocephalic /no jaundice /no pallor /anicteric /no dry mucous membrane /normal external ear inspection Neck: Supple /no swelling /central trach Heart: S1/S2 normal/regular rate and rhythm/no gallop /no rub /no murmur Lungs: Severe decreased air entry bilaterally, significant wheezing and decreased chest wall expansion Abdomen: Soft/nontender/no guarding/no rebound/no organomegaly/no pulsatile mass Musculoskeletal: No swelling/no edema/no tenderness/normal range of motion Neuro exam: Awake alert oriented 3/cranial nerves II through XII appear to be intact/sensation intact/moves all extremities/no abnormal movements Psychiatric evaluation: No depressed mood/normal affect Skin: No rash on exposed skin area/no erythema Extremity: Normal pulse/no pitting edema/no clubbing or cyanosis Endocrine/lymphatic: No obvious lymphadenopathy /no lymphedema Assessment and Plan 72-year-old man with 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 he was started on morphine drip, which was later stopped due to severe lethargy Started on oral liquid morphine also started on atropine opthalmic solution for secretions as per hospice recommendation currently appears comfortable. No change in plan Code status DNR/DNI
[2017-07-31] MEDS ORDERED: MoRPHine SULF/NSS 250MG/250ML 250 ML IV SCH (19:15)
[2017-07-31] MEDS ORDERED: MoRPHine SULF/NSS INJ 1 MG/ML 250 ML BTL ONE (19:25)
[2017-07-31 19:34] VITALS: PULSE 114; O2SAT 98
[2017-07-31] MEDS: MONTELUKAST SOD 10 MG TAB PO SCH (20:02)
[2017-08-01] VITALS (7 sets, daily range): PULSE 95–125; O2SAT 91–100
[2017-08-01] MEDS: LEVALBUTEROL 1.25MG/0.5ML NEB INH SCH ×4 (01:55→18:53)
[2017-08-01] MEDS: IPRATROPIUM BROMIDE NEB SOLN 0.02% 2.5 ML VIAL INH SCH ×4 (01:55→18:53)
[2017-08-01] MEDS: ROFLUMILAST 500 MCG TAB PO SCH (08:15)
[2017-08-01] MEDS: AZITHROMYCIN 250 MG TAB PO SCH (08:15)
[2017-08-01] MEDS: LACTOBACILLUS ACIDOPHILUS (FLORANEX) TAB PO SCH ×3 (08:16→17:00)
[2017-08-01] MEDS: ESCITALOPRAM OXALATE 20 MG TAB PO SCH (08:17)
[2017-08-01] MEDS: BUDESONIDE/FORMOTEROL FUMARATE 160/4.5 60 PUFFS/INHALER INH SCH ×2 (08:18→19:48)
[2017-08-01] MEDS: TIOTROPIUM BROMIDE 5 PUFF/90 MCG INH INH SCH (08:18)
[2017-08-01] MEDS ORDERED: NURSING VERBAL MED ORDER ONE (10:30)
--- NOTE | 2017-08-01 10:32 | Progress Note ---
Subjective Date of Service: Aug 01, 2017. Subjective Pt evaluation today including: conversation w/ patient, physical exam Patient reports feeling more tired today. Denies any complaints of pain, discomfort at this time. Problem List Medical Problems: (1) COPD exacerbation Status: Acute (2) Hypoxemia Status: Acute (3) Hypoxia Status: Acute (4) Hypoxia Status: Acute (5) Influenza Status: Acute (6) Pneumonia involving right lung Status: Acute (7) Respiratory distress Status: Acute (8) Sepsis Status: Acute (9) Tachycardia Status: Acute Review of Systems Constitutional: No fever / no chills / no sweats / no weakness / no fatigue Eyes: no blurring of vision / no eye pain / no discharge / no redness ENT: no hearing loss / no epistaxis /no swallowing problems Respiratory: Significant wheezing, decreased air entry and shortness of breath Cardiovascular: no Chest pain / no lower extremity edema / no palpitation Abdomen: no pain / no nausea / no vomiting / no constipation Musculoskeletal: no joint pain / no muscle pain / no joint swelling Genitourinary: no dysuria / no incontinence / no urinary retention Neurologic: no focal weakness / no numbness/tingling / no ataxia Psychiatric: no depression symptoms / no anxiety / no insomnia Endocrine: no excessive thirst / no excessive urination Hematologic: no abnormal bleeding / no bruising / no LN swelling Skin: No rash / no pallor All Other Systems: Reviewed and Negative Medications Current Inpatient Medications Medications (Trade) Dose Ordered Sig/[place] Route Start Time Stop Time Status Last Admin Dose Admin Acetaminophen (Tylenol Tab) 650 mg Q4H PRN PO 07/30/17 18:00 08/29/17 17:59 Albuterol (Ventolin Hfa Inhaler) 2 puffs Q4H PRN INH 07/30/17 18:00 08/29/17 17:59 Budesonide/ Formoterol Fumarate (Symbicort 160/ 4.5 Inh) 2 puffs BID INH 07/30/17 20:00 08/29/17 19:59 08/01/17 08:18 2 PUFFS Escitalopram Oxalate (Lexapro Tab) 20 mg DAILY PO 07/31/17 08:00 08/30/17 07:59 08/01/17 08:17 20 MG Ipratropium [place] (Atrovent 0.02% 0.5MG/2.5ML Neb) 0.5 mg Q2H PRN INH 07/30/17 18:00 08/29/17 17:59 Ipratropium [place] (Atrovent 0.02% 0.5MG/2.5ML Neb) 0.5 mg Q6R INH 07/30/17 21:00 08/29/17 20:59 08/01/17 07:11 0.5 MG Lactobacillus Acidophilus (Floranex Tab) 4 tab TIDM PO 07/31/17 08:00 08/30/17 07:59 08/01/17 08:16 4 TAB Levalbuterol (Xopenex 1.25MG/ 0.5ML Neb) 1.25 mg Q2H PRN INH 07/30/17 18:00 08/29/17 17:59 Levalbuterol (Xopenex 1.25MG/ 0.5ML Neb) 1.25 mg Q6R INH 07/30/17 21:00 08/29/17 20:59 08/01/17 07:11 1.25 MG Lorazepam (Ativan Tab) 0.5 mg HS PRN PO 07/30/17 18:00 08/29/17 17:59 07/30/17 21:23 0.5 MG Lorazepam (Ativan Inj) 0.5 mg HS PRN IV 07/30/17 18:00 08/29/17 17:59 Lorazepam (Ativan Inj) 1 mg Q2H PRN IV 07/30/17 18:00 08/29/17 17:59 07/31/17 13:49 1 MG Montelukast Sodium (Singulair Tab) 10 mg HS PO 07/31/17 21:00 08/30/17 20:59 07/31/17 20:02 10 MG Morphine Sulfate (MoRPHine SULFATE INJ) 2 mg Q2H PRN IV 07/30/17 18:00 08/13/17 17:59 07/31/17 18:47 2 MG Morphine Sulfate (Roxanol Oral Soln) 5 mg Q4H PRN PO 07/30/17 18:30 08/13/17 18:29 07/31/17 10:56 5 MG Ondansetron HCl (Zofran Odt) 8 mg Q6H PRN PO 07/30/17 18:00 08/29/17 17:59 Prednisone (PredniSONE TAB) 60 mg DAILY PO 07/31/17 08:00 08/30/17 07:59 08/01/17 08:18 60 MG Roflumilast (Daliresp Tab) 500 mcg DAILY PO 07/31/17 08:00 08/30/17 07:59 08/01/17 08:15 500 MCG Tiotropium [place] (Spiriva Handihaler Inhaler) 1 puff DAILY INH 07/31/17 08:00 08/30/17 07:59 08/01/17 08:18 1 PUFF Al Hydrox/Mg Hydrox/Simethicone (Maalox Max Susp) 15 ml Q4H PRN PO 07/30/17 18:00 08/29/17 17:59 Magnesium Hydroxide (Milk Of Magnesia Susp) 30 ml Q6H PRN PO 07/30/17 18:00 08/29/17 17:59 Zolpidem Tartrate (Ambien Tab) 5 mg HSZ PRN PO 07/30/17 18:00 08/29/17 17:59 Ondansetron HCl (Zofran Inj) 4 mg Q6H PRN IV 07/30/17 18:00 08/29/17 17:59 Zolpidem Tartrate (Ambien Tab) 5 mg HSZ PRN PO 07/30/17 18:00 08/29/17 17:59 Lorazepam 0.5 mg/ Syringe 1 ml @ 1 mls/min HS PRN IV 07/30/17 18:45 08/29/17 18:44 Lorazepam 1 mg/ Syringe 1 ml @ 1 mls/min Q2H PRN IV 07/30/17 18:45 08/29/17 18:44 07/31/17 18:47 1 MLS/MIN Azithromycin (Zithromax Tab) 500 mg QAM PO 08/01/17 08:00 08/04/17 07:59 08/01/17 08:15 500 MG Morphine Sulfate/ Dextrose 250 ml @ 0.2 mls/hr Q24H IV 07/31/17 19:15 08/14/17 19:14 Objective Vital Signs Date Time Temp Pulse Resp B/P (MAP) Pulse Ox O2 Delivery O2 Flow Rate FiO2 08/01/17 07:13 95 20 100 Nasal Cannula 50.0 50 08/01/17 01:55 103 20 99 Nasal Cannula 50.0 50 08/01/17 00:00 100 High Flow Oxygen 07/31/17 19:34 114 24 98 Nasal Cannula 50.0 50 07/31/17 16:00 Nasal Cannula 50.0 55 07/31/17 14:10 94 20 92 Nasal Cannula 50.0 55 Physical Exam Comments: General patient appears to be comfortable, not in acute distress, cachectic with funnel-shaped chest wall HEENT: Atraumatic , normocephalic /no jaundice /no pallor /anicteric /no dry mucous membrane /normal external ear inspection Neck: Supple /no swelling /central trach Heart: S1/S2 normal/regular rate and rhythm/no gallop /no rub /no murmur Lungs: Severe decreased air entry bilaterally, significant wheezing and decreased chest wall expansion Abdomen: Soft/nontender/no guarding/no rebound/no organomegaly/no pulsatile mass Musculoskeletal: No swelling/no edema/no tenderness/normal range of motion Neuro exam: Awake alert oriented 3/cranial nerves II through XII appear to be intact/sensation intact/moves all extremities/no abnormal movements Psychiatric evaluation: No depressed mood/normal affect Skin: No rash on exposed skin area/no erythema Extremity: Normal pulse/no pitting edema/no clubbing or cyanosis Endocrine/lymphatic: No obvious lymphadenopathy /no lymphedema Assessment and Plan 72-year-old man with 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 presented to the hospital with acute on chronic respiratory failure secondary to COPD exacerbation failed to improve on all measures including steroids/bronchodilators/ azithromycin family and patient decided to pursue hospice care. Patient is currently on bronchodilators, and BIPAP on PRN basis. Patient will be on morphine drip for SOB. This was held earlier due to lethargy, however, this will be restarted today and will be slowly titrated if patient becomes SOB. Goal for now is comfort. Patient however, may not pass away in next 48 hours. If this is case, disposition with case management will need to be discussed. Home hospice, facility? Will await input from inpatient hospice team. also will continue on atropine opthalmic solution for secretions as per hospice recommendation currently appears comfortable. Patient is also seeing inpatient hospice team. Code status DNR/DNI Spent 45 minutes in total of patient care this includes but not limited to reviewing chart and discussing management with nursing staff, patient and hospice team.
[2017-08-01] MEDS: LORAZEPAM 2 MG/ML 1 ML VIAL IV PRN (12:05)
[2017-08-01] MEDS ORDERED: MORPHINE SULF/NSS 250MG/250ML IV PRN (18:30)
[2017-08-01] MEDS: LORAZEPAM INJ 1 MG in SYRINGE 0.5 ML IV PRN (19:42)
[2017-08-01] MEDS: MONTELUKAST SOD 10 MG TAB PO SCH (19:52)
[2017-08-02] VITALS (7 sets, daily range): BP systolic 117–119; BP diastolic 70–73; PULSE 94–118; TEMP 36.5; O2SAT 91–100
[2017-08-02] MEDS: IPRATROPIUM BROMIDE NEB SOLN 0.02% 2.5 ML VIAL INH SCH ×4 (01:58→19:08)
[2017-08-02] MEDS: LEVALBUTEROL 1.25MG/0.5ML NEB INH SCH ×4 (01:58→19:08)
[2017-08-02] MEDS: TIOTROPIUM BROMIDE 5 PUFF/90 MCG INH INH SCH (07:49)
[2017-08-02] MEDS: BUDESONIDE/FORMOTEROL FUMARATE 160/4.5 60 PUFFS/INHALER INH SCH ×2 (07:49→20:29)
[2017-08-02] MEDS: AZITHROMYCIN 250 MG TAB PO SCH (07:50)
[2017-08-02] MEDS: ROFLUMILAST 500 MCG TAB PO SCH (07:50)
[2017-08-02] MEDS: ESCITALOPRAM OXALATE 20 MG TAB PO SCH (07:51)
[2017-08-02] MEDS: LACTOBACILLUS ACIDOPHILUS (FLORANEX) TAB PO SCH ×3 (07:51→16:37)
--- NOTE | 2017-08-02 09:56 | Progress Note ---
Subjective Date of Service: Aug 02, 2017. Subjective Pt evaluation today including: conversation w/ patient Patient appears to be resting comfortably. Patient has no complaints at this time. Problem List Medical Problems: (1) COPD exacerbation Status: Acute (2) Hypoxemia Status: Acute (3) Hypoxia Status: Acute (4) Hypoxia Status: Acute (5) Influenza Status: Acute (6) Pneumonia involving right lung Status: Acute (7) Respiratory distress Status: Acute (8) Sepsis Status: Acute (9) Tachycardia Status: Acute Review of Systems Constitutional: No fever / no chills / no sweats / no weakness / no fatigue Eyes: no blurring of vision / no eye pain / no discharge / no redness ENT: no hearing loss / no epistaxis /no swallowing problems Respiratory: Significant wheezing, decreased air entry and shortness of breath Cardiovascular: no Chest pain / no lower extremity edema / no palpitation Abdomen: no pain / no nausea / no vomiting / no constipation Musculoskeletal: no joint pain / no muscle pain / no joint swelling Genitourinary: no dysuria / no incontinence / no urinary retention Neurologic: no focal weakness / no numbness/tingling / no ataxia Psychiatric: no depression symptoms / no anxiety / no insomnia Endocrine: no excessive thirst / no excessive urination Hematologic: no abnormal bleeding / no bruising / no LN swelling Skin: No rash / no pallor All Other Systems: Reviewed and Negative Medications Current Inpatient Medications Medications (Trade) Dose Ordered Sig/[place] Route Start Time Stop Time Status Last Admin Dose Admin Acetaminophen (Tylenol Tab) 650 mg Q4H PRN PO 07/30/17 18:00 08/29/17 17:59 Albuterol (Ventolin Hfa Inhaler) 2 puffs Q4H PRN INH 07/30/17 18:00 08/29/17 17:59 Budesonide/ Formoterol Fumarate (Symbicort 160/ 4.5 Inh) 2 puffs BID INH 07/30/17 20:00 08/29/17 19:59 08/02/17 07:49 2 PUFFS Escitalopram Oxalate (Lexapro Tab) 20 mg DAILY PO 07/31/17 08:00 08/30/17 07:59 08/02/17 07:51 20 MG Ipratropium [place] (Atrovent 0.02% 0.5MG/2.5ML Neb) 0.5 mg Q2H PRN INH 07/30/17 18:00 08/29/17 17:59 Ipratropium [place] (Atrovent 0.02% 0.5MG/2.5ML Neb) 0.5 mg Q6R INH 07/30/17 21:00 08/29/17 20:59 08/02/17 07:02 0.5 MG Lactobacillus Acidophilus (Floranex Tab) 4 tab TIDM PO 07/31/17 08:00 08/30/17 07:59 08/02/17 07:51 4 TAB Levalbuterol (Xopenex 1.25MG/ 0.5ML Neb) 1.25 mg Q2H PRN INH 07/30/17 18:00 08/29/17 17:59 Levalbuterol (Xopenex 1.25MG/ 0.5ML Neb) 1.25 mg Q6R INH 07/30/17 21:00 08/29/17 20:59 08/02/17 07:02 1.25 MG Lorazepam (Ativan Tab) 0.5 mg HS PRN PO 07/30/17 18:00 08/29/17 17:59 07/30/17 21:23 0.5 MG Lorazepam (Ativan Inj) 0.5 mg HS PRN IV 07/30/17 18:00 08/29/17 17:59 Lorazepam (Ativan Inj) 1 mg Q2H PRN IV 07/30/17 18:00 08/29/17 17:59 08/01/17 12:05 1 MG Montelukast Sodium (Singulair Tab) 10 mg HS PO 07/31/17 21:00 08/30/17 20:59 08/01/17 19:52 10 MG Morphine Sulfate (MoRPHine SULFATE INJ) 2 mg Q2H PRN IV 07/30/17 18:00 08/13/17 17:59 07/31/17 18:47 2 MG Morphine Sulfate (Roxanol Oral Soln) 5 mg Q4H PRN PO 07/30/17 18:30 08/13/17 18:29 07/31/17 10:56 5 MG Ondansetron HCl (Zofran Odt) 8 mg Q6H PRN PO 07/30/17 18:00 08/29/17 17:59 Prednisone (PredniSONE TAB) 60 mg DAILY PO 07/31/17 08:00 08/30/17 07:59 08/02/17 07:50 60 MG Roflumilast (Daliresp Tab) 500 mcg DAILY PO 07/31/17 08:00 08/30/17 07:59 08/02/17 07:50 500 MCG Tiotropium [place] (Spiriva Handihaler Inhaler) 1 puff DAILY INH 07/31/17 08:00 08/30/17 07:59 08/02/17 07:49 1 PUFF Al Hydrox/Mg Hydrox/Simethicone (Maalox Max Susp) 15 ml Q4H PRN PO 07/30/17 18:00 08/29/17 17:59 Magnesium Hydroxide (Milk Of Magnesia Susp) 30 ml Q6H PRN PO 07/30/17 18:00 08/29/17 17:59 Zolpidem Tartrate (Ambien Tab) 5 mg HSZ PRN PO 07/30/17 18:00 08/29/17 17:59 Ondansetron HCl (Zofran Inj) 4 mg Q6H PRN IV 07/30/17 18:00 08/29/17 17:59 Zolpidem Tartrate (Ambien Tab) 5 mg HSZ PRN PO 07/30/17 18:00 08/29/17 17:59 Lorazepam 0.5 mg/ Syringe 1 ml @ 1 mls/min HS PRN IV 07/30/17 18:45 08/29/17 18:44 Lorazepam 1 mg/ Syringe 1 ml @ 1 mls/min Q2H PRN IV 07/30/17 18:45 08/29/17 18:44 08/01/17 19:42 1 MLS/MIN Azithromycin (Zithromax Tab) 500 mg QAM PO 08/01/17 08:00 08/04/17 07:59 08/02/17 07:50 500 MG Morphine Sulfate/ Dextrose 250 ml @ 0.2 mls/hr Q24H PRN IV 08/01/17 18:30 08/15/17 18:29 Objective Vital Signs Date Time Temp Pulse Resp B/P (MAP) Pulse Ox O2 Delivery O2 Flow Rate FiO2 08/02/17 07:28 36.5 101 24 119/73 (88) 99 High Flow Oxygen 4.0 08/02/17 07:03 102 20 99 Nasal Cannula 4.0 08/02/17 01:58 118 20 98 Nasal Cannula 4.0 08/02/17 01:12 Nasal Cannula 4.0 Humidified Oxygen 08/01/17 21:00 99 Nasal Cannula 4.0 08/01/17 20:00 91 Oxymask 7.0 08/01/17 18:53 125 20 97 Nasal Cannula 4.0 08/01/17 16:04 Nasal Cannula 4.0 08/01/17 14:29 107 20 91 Nasal Cannula 4.0 Physical Exam Comments: General patient appears to be comfortable, not in acute distress, cachectic with funnel-shaped chest wall HEENT: Atraumatic , normocephalic /no jaundice /no pallor /anicteric /no dry mucous membrane /normal external ear inspection Neck: Supple /no swelling /central trach Heart: S1/S2 normal/regular rate and rhythm/no gallop /no rub /no murmur Lungs: Severe decreased air entry bilaterally, significant wheezing and decreased chest wall expansion Abdomen: Soft/nontender/no guarding/no rebound/no organomegaly/no pulsatile mass Musculoskeletal: No swelling/no edema/no tenderness/normal range of motion Neuro exam: Awake alert oriented 3/cranial nerves II through XII appear to be intact/sensation intact/moves all extremities/no abnormal movements Psychiatric evaluation: No depressed mood/normal affect Skin: No rash on exposed skin area/no erythema Extremity: Normal pulse/no pitting edema/no clubbing or cyanosis Endocrine/lymphatic: No obvious lymphadenopathy /no lymphedema Assessment and Plan 72-year-old man with 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 Patient is currently on bronchodilators, and BIPAP on PRN basis. Patient will be on morphine drip for SOB. This was held earlier due to lethargy, however, this will be restarted today and will be slowly titrated if patient becomes SOB. Goal for now is comfort. Patient however, may not pass away in next 48 hours. If this is case, disposition with case management will need to be discussed. However, inpatient hospice team, states that patient should remain as an inpatient until he passes. Will continue on atropine opthalmic solution for secretions as per hospice recommendation currently appears comfortable. Patient is also seeing inpatient hospice team. Code status DNR/DNI
[2017-08-02] MEDS: LORAZEPAM INJ 1 MG in SYRINGE 0.5 ML IV PRN (19:51)
[2017-08-02] MEDS: MONTELUKAST SOD 10 MG TAB PO SCH (20:29)
[2017-08-03] VITALS (9 sets, daily range): BP systolic 105–139; BP diastolic 57–88; PULSE 86–105; TEMP 36.4–36.8; O2SAT 91–99
[2017-08-03] MEDS: IPRATROPIUM BROMIDE NEB SOLN 0.02% 2.5 ML VIAL INH SCH ×4 (01:55→18:55)
[2017-08-03] MEDS: LEVALBUTEROL 1.25MG/0.5ML NEB INH SCH ×4 (01:55→18:55)
[2017-08-03] MEDS: LACTOBACILLUS ACIDOPHILUS (FLORANEX) TAB PO SCH ×3 (08:00→17:05)
[2017-08-03] MEDS: ESCITALOPRAM OXALATE 20 MG TAB PO SCH (08:00)
[2017-08-03] MEDS: BUDESONIDE/FORMOTEROL FUMARATE 160/4.5 60 PUFFS/INHALER INH SCH ×2 (08:00→19:31)
[2017-08-03] MEDS: TIOTROPIUM BROMIDE 5 PUFF/90 MCG INH INH SCH (08:01)
[2017-08-03] MEDS: AZITHROMYCIN 250 MG TAB PO SCH (08:01)
[2017-08-03] MEDS: ROFLUMILAST 500 MCG TAB PO SCH (08:02)
[2017-08-03] MEDS ORDERED: MoRPHine SULF/NSS 250MG/250ML 250 ML IV PRN (15:00)
--- NOTE | 2017-08-03 15:04 | Progress Note ---
Subjective Date of Service: Aug 03, 2017. Subjective Pt evaluation today including: conversation w/ patient, physical exam, review of inpatient medication list Pain: no pain PO Intake: adequate Voiding: no voiding problems patient is comfortable from breathing perspective as long as he is laying in bed Problem List Medical Problems: (1) COPD exacerbation Status: Acute (2) Hypoxemia Status: Acute (3) Hypoxia Status: Acute (4) Hypoxia Status: Acute (5) Influenza Status: Acute (6) Pneumonia involving right lung Status: Acute (7) Respiratory distress Status: Acute (8) Sepsis Status: Acute (9) Tachycardia Status: Acute Review of Systems Respiratory: + shortness of breath, + dyspnea on exertion All Other Systems: Reviewed and Negative Medications Current Inpatient Medications Medications (Trade) Dose Ordered Sig/[place] Route Start Time Stop Time Status Last Admin Dose Admin Acetaminophen (Tylenol Tab) 650 mg Q4H PRN PO 07/30/17 18:00 08/29/17 17:59 Albuterol (Ventolin Hfa Inhaler) 2 puffs Q4H PRN INH 07/30/17 18:00 08/29/17 17:59 Budesonide/ Formoterol Fumarate (Symbicort 160/ 4.5 Inh) 2 puffs BID INH 07/30/17 20:00 08/29/17 19:59 08/03/17 08:00 2 PUFFS Escitalopram Oxalate (Lexapro Tab) 20 mg DAILY PO 07/31/17 08:00 08/30/17 07:59 08/03/17 08:00 20 MG Ipratropium [place] (Atrovent 0.02% 0.5MG/2.5ML Neb) 0.5 mg Q2H PRN INH 07/30/17 18:00 08/29/17 17:59 Ipratropium [place] (Atrovent 0.02% 0.5MG/2.5ML Neb) 0.5 mg Q6R INH 07/30/17 21:00 08/29/17 20:59 08/03/17 14:05 0.5 MG Lactobacillus Acidophilus (Floranex Tab) 4 tab TIDM PO 07/31/17 08:00 08/30/17 07:59 08/03/17 11:46 4 TAB Levalbuterol (Xopenex 1.25MG/ 0.5ML Neb) 1.25 mg Q2H PRN INH 07/30/17 18:00 08/29/17 17:59 Levalbuterol (Xopenex 1.25MG/ 0.5ML Neb) 1.25 mg Q6R INH 07/30/17 21:00 08/29/17 20:59 08/03/17 14:05 1.25 MG Lorazepam (Ativan Tab) 0.5 mg HS PRN PO 07/30/17 18:00 08/29/17 17:59 07/30/17 21:23 0.5 MG Lorazepam (Ativan Inj) 0.5 mg HS PRN IV 07/30/17 18:00 08/29/17 17:59 Lorazepam (Ativan Inj) 1 mg Q2H PRN IV 07/30/17 18:00 08/29/17 17:59 08/01/17 12:05 1 MG Montelukast Sodium (Singulair Tab) 10 mg HS PO 07/31/17 21:00 08/30/17 20:59 08/02/17 20:29 10 MG Morphine Sulfate (MoRPHine SULFATE INJ) 2 mg Q2H PRN IV 07/30/17 18:00 08/13/17 17:59 07/31/17 18:47 2 MG Morphine Sulfate (Roxanol Oral Soln) 5 mg Q4H PRN PO 07/30/17 18:30 08/13/17 18:29 07/31/17 10:56 5 MG Ondansetron HCl (Zofran Odt) 8 mg Q6H PRN PO 07/30/17 18:00 08/29/17 17:59 Prednisone (PredniSONE TAB) 60 mg DAILY PO 07/31/17 08:00 08/30/17 07:59 08/03/17 08:00 60 MG Roflumilast (Daliresp Tab) 500 mcg DAILY PO 07/31/17 08:00 08/30/17 07:59 08/03/17 08:02 500 MCG Tiotropium [place] (Spiriva Handihaler Inhaler) 1 puff DAILY INH 07/31/17 08:00 08/30/17 07:59 08/03/17 08:01 1 PUFF Al Hydrox/Mg Hydrox/Simethicone (Maalox Max Susp) 15 ml Q4H PRN PO 07/30/17 18:00 08/29/17 17:59 Magnesium Hydroxide (Milk Of Magnesia Susp) 30 ml Q6H PRN PO 07/30/17 18:00 08/29/17 17:59 Zolpidem Tartrate (Ambien Tab) 5 mg HSZ PRN PO 07/30/17 18:00 08/29/17 17:59 Ondansetron HCl (Zofran Inj) 4 mg Q6H PRN IV 07/30/17 18:00 08/29/17 17:59 Zolpidem Tartrate (Ambien Tab) 5 mg HSZ PRN PO 07/30/17 18:00 08/29/17 17:59 Lorazepam 0.5 mg/ Syringe 1 ml @ 1 mls/min HS PRN IV 07/30/17 18:45 08/29/17 18:44 Lorazepam 1 mg/ Syringe 1 ml @ 1 mls/min Q2H PRN IV 07/30/17 18:45 08/29/17 18:44 08/02/17 19:51 1 MLS/MIN Azithromycin (Zithromax Tab) 500 mg QAM PO 08/01/17 08:00 08/04/17 07:59 08/03/17 08:01 500 MG Morphine Sulfate/ Dextrose 250 ml @ 0.2 mls/hr Q24H PRN IV 08/01/17 18:30 08/15/17 18:29 Objective Vital Signs Date Time Temp Pulse Resp B/P (MAP) Pulse Ox O2 Delivery O2 Flow Rate FiO2 08/03/17 14:05 97 18 98 Nasal Cannula 5.0 08/03/17 08:15 Nasal Cannula 4.0 Humidified Oxygen 08/03/17 07:10 36.5 96 18 105/57 (73) 97 4.0 08/03/17 07:10 88 18 98 Nasal Cannula 5.0 08/03/17 04:22 36.5 105 22 112/66 (81) 99 Nasal Cannula 4.0 08/03/17 01:57 93 18 98 Nasal Cannula 5.0 08/03/17 00:00 91 Oxymask 5.0 08/02/17 20:00 91 Oxymask 5.0 08/02/17 19:11 112 22 94 Nasal Cannula 4.0 08/02/17 16:31 Nasal Cannula 4.0 Humidified Oxygen 08/02/17 15:09 36.5 101 20 117/70 (86) 100 Nasal Cannula 4.0 Physical Exam General Appearance: no apparent distress, + cachetic Eyes: normal inspection, EOMI, sclerae normal ENT: normal ENT inspection, hearing grossly normal, pharynx normal Neck: supple, no adenopathy, no JVD, trachea midline Respiratory/Chest: chest non-tender, no respiratory distress, + decreased breath sounds, + accessory muscle use Cardiovascular: regular rate, rhythm, no edema, no gallop, no JVD, no murmur Abdomen: normal bowel sounds, non tender, soft, no organomegaly Extremities: normal range of motion, non-tender, normal inspection, no pedal edema, no calf tenderness, pelvis stable Neurologic/Psychiatric: foreman or supervisor and operator II-XII nml as tested, no motor/sensory deficits, alert, normal mood/affect, oriented x 3 Assessment and Plan 72-year-old man with 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 Patient is currently on bronchodilators, and BIPAP on PRN basis. Patient will be on morphine drip for SOB. 1mg/hr can titrate up by 1mg/hr every 60 minutes as needed Goal for now is comfort. Patient however, may not pass away in next 48 hours. If this is case, disposition with case management will need to be discussed. However, inpatient hospice team, states that patient should remain as an inpatient until he passes. Will continue on atropine opthalmic solution for secretions as per hospice recommendation currently appears comfortable. Patient is also seeing inpatient hospice team. Code status DNR/DNI
[2017-08-03] MEDS: LORAZEPAM 0.5 MG TAB PO PRN (19:30)
[2017-08-03] MEDS: MONTELUKAST SOD 10 MG TAB PO SCH (21:04)
[2017-08-04] VITALS (7 sets, daily range): BP systolic 116–137; BP diastolic 66–72; PULSE 77–99; TEMP 36.6–36.9; O2SAT 96–100
[2017-08-04] MEDS: IPRATROPIUM BROMIDE NEB SOLN 0.02% 2.5 ML VIAL INH SCH ×4 (01:41→19:07)
[2017-08-04] MEDS: LEVALBUTEROL 1.25MG/0.5ML NEB INH SCH ×3 (01:41→19:07)
[2017-08-04] MEDS: LACTOBACILLUS ACIDOPHILUS (FLORANEX) TAB PO SCH ×3 (07:40→17:37)
[2017-08-04] MEDS: ROFLUMILAST 500 MCG TAB PO SCH (07:40)
[2017-08-04] MEDS: ESCITALOPRAM OXALATE 20 MG TAB PO SCH (07:41)
[2017-08-04] MEDS: TIOTROPIUM BROMIDE 5 PUFF/90 MCG INH INH SCH (07:41)
[2017-08-04] MEDS: BUDESONIDE/FORMOTEROL FUMARATE 160/4.5 60 PUFFS/INHALER INH SCH ×2 (07:41→20:45)
[2017-08-04] MEDS ORDERED: NURSING VERBAL MED ORDER ONE (11:30)
[2017-08-04] MEDS: MoRPHine SULFATE 5 MG/0.25 ML UDP PO PRN (12:21)
--- NOTE | 2017-08-04 12:34 | Progress Note ---
Subjective Date of Service: Aug 04, 2017. Subjective Pt evaluation today including: conversation w/ patient, physical exam, review of inpatient medication list Pain: no pain PO Intake: adequate Voiding: no voiding problems patient continues to do well on morphine drip breathing is stable discussed with RN and CM, likely not going to pass away soon, breathing has improved since last week discussed with patient, he would not want to go to SNF, ever if he leaves the hospital it would be to go home needs to be evaluated by hospice, see if he can be managed at home on Roxanol Problem List Medical Problems: (1) COPD exacerbation Status: Acute (2) Hypoxemia Status: Acute (3) Hypoxia Status: Acute (4) Hypoxia Status: Acute (5) Influenza Status: Acute (6) Pneumonia involving right lung Status: Acute (7) Respiratory distress Status: Acute (8) Sepsis Status: Acute (9) Tachycardia Status: Acute Review of Systems Constitutional: + weakness, + fatigue Respiratory: + cough, + shortness of breath All Other Systems: Reviewed and Negative Medications Current Inpatient Medications Medications (Trade) Dose Ordered Sig/Suy[place] Route Start Time Stop Time Status Last Admin Dose Admin Acetaminophen (Tylenol Tab) 650 mg Q4H PRN PO 07/30/17 18:00 08/29/17 17:59 Albuterol (Ventolin Hfa Inhaler) 2 puffs Q4H PRN INH 07/30/17 18:00 08/29/17 17:59 Budesonide/ Formoterol Fumarate (Symbicort 160/ 4.5 Inh) 2 puffs BID INH 07/30/17 20:00 08/29/17 19:59 08/04/17 07:41 2 PUFFS Escitalopram Oxalate (Lexapro Tab) 20 mg DAILY PO 07/31/17 08:00 08/30/17 07:59 08/04/17 07:41 20 MG Ipratropium [place] (Atrovent 0.02% 0.5MG/2.5ML Neb) 0.5 mg Q2H PRN INH 07/30/17 18:00 08/29/17 17:59 Ipratropium [place] (Atrovent 0.02% 0.5MG/2.5ML Neb) 0.5 mg Q6R INH 07/30/17 21:00 08/29/17 20:59 08/04/17 07:23 0.5 MG Lactobacillus Acidophilus (Floranex Tab) 4 tab TIDM PO 07/31/17 08:00 08/30/17 07:59 08/04/17 12:17 4 TAB Levalbuterol (Xopenex 1.25MG/ 0.5ML Neb) 1.25 mg Q2H PRN INH 07/30/17 18:00 08/29/17 17:59 Levalbuterol (Xopenex 1.25MG/ 0.5ML Neb) 1.25 mg Q6R INH 07/30/17 21:00 08/29/17 20:59 08/04/17 07:23 1.25 MG Lorazepam (Ativan Tab) 0.5 mg HS PRN PO 07/30/17 18:00 08/29/17 17:59 08/03/17 19:30 0.5 MG Lorazepam (Ativan Inj) 0.5 mg HS PRN IV 07/30/17 18:00 08/29/17 17:59 Lorazepam (Ativan Inj) 1 mg Q2H PRN IV 07/30/17 18:00 08/29/17 17:59 08/01/17 12:05 1 MG Montelukast Sodium (Singulair Tab) 10 mg HS PO 07/31/17 21:00 08/30/17 20:59 08/03/17 21:04 10 MG Morphine Sulfate (MoRPHine SULFATE INJ) 2 mg Q2H PRN IV 07/30/17 18:00 08/13/17 17:59 07/31/17 18:47 2 MG Morphine Sulfate (Roxanol Oral Soln) 5 mg Q4H PRN PO 07/30/17 18:30 08/13/17 18:29 08/04/17 12:21 5 MG Ondansetron HCl (Zofran Odt) 8 mg Q6H PRN PO 07/30/17 18:00 08/29/17 17:59 Prednisone (PredniSONE TAB) 60 mg DAILY PO 07/31/17 08:00 08/30/17 07:59 08/04/17 07:40 60 MG Roflumilast (Daliresp Tab) 500 mcg DAILY PO 07/31/17 08:00 08/30/17 07:59 08/04/17 07:40 500 MCG Tiotropium [place] (Spiriva Handihaler Inhaler) 1 puff DAILY INH 07/31/17 08:00 08/30/17 07:59 08/04/17 07:41 1 PUFF Al Hydrox/Mg Hydrox/Simethicone (Maalox Max Susp) 15 ml Q4H PRN PO 07/30/17 18:00 08/29/17 17:59 Magnesium Hydroxide (Milk Of Magnesia Susp) 30 ml Q6H PRN PO 07/30/17 18:00 08/29/17 17:59 Zolpidem Tartrate (Ambien Tab) 5 mg HSZ PRN PO 07/30/17 18:00 08/29/17 17:59 Ondansetron HCl (Zofran Inj) 4 mg Q6H PRN IV 07/30/17 18:00 08/29/17 17:59 Zolpidem Tartrate (Ambien Tab) 5 mg HSZ PRN PO 07/30/17 18:00 08/29/17 17:59 Lorazepam 0.5 mg/ Syringe 1 ml @ 1 mls/min HS PRN IV 07/30/17 18:45 08/29/17 18:44 Lorazepam 1 mg/ Syringe 1 ml @ 1 mls/min Q2H PRN IV 07/30/17 18:45 08/29/17 18:44 08/02/17 19:51 1 MLS/MIN Morphine Sulfate/ Dextrose 250 ml @ 2 mls/hr Q24H PRN IV 08/03/17 15:00 08/15/17 18:29 08/03/17 15:14 1 MLS/HR Objective Vital Signs Date Time Temp Pulse Resp B/P (MAP) Pulse Ox O2 Delivery O2 Flow Rate FiO2 08/04/17 08:10 Nasal Cannula 4.0 Humidified Oxygen 08/04/17 07:23 78 18 99 Nasal Cannula 4.0 08/04/17 07:07 36.6 77 22 118/67 (84) 100 Nasal Cannula 4.0 08/04/17 01:41 88 18 96 Nasal Cannula 4.0 08/03/17 23:40 98 Nasal Cannula 4.0 50 08/03/17 23:28 36.4 86 16 139/69 (92) 98 4.0 08/03/17 18:55 92 18 98 Nasal Cannula 4.0 08/03/17 16:00 Nasal Cannula 5.0 08/03/17 15:31 36.8 104 22 127/88 (101) 98 Nasal Cannula 4.0 08/03/17 14:05 97 18 98 Nasal Cannula 5.0 Physical Exam General Appearance: no apparent distress, + cachetic Neck: supple, no adenopathy, no JVD, trachea midline Respiratory/Chest: chest non-tender, no respiratory distress, + decreased breath sounds, + accessory muscle use Cardiovascular: regular rate, rhythm, no edema, no gallop, no JVD, no murmur Abdomen: normal bowel sounds, non tender, soft, no organomegaly Extremities: normal range of motion, non-tender, normal inspection, no pedal edema, no calf tenderness, pelvis stable 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 Patient will be on morphine drip for SOB. 1mg/hr can titrate up by 1mg/hr every 60 minutes as needed Goal for now is comfort. patient's breathing improved or at least remaining stable since last week discussed other options for hospice, may need to consider going home he will not consider SNF, at all, not an option will need to be reassess by hospice Code status DNR/DNI
[2017-08-04] MEDS: MoRPHine SULFATE CR 15 MG TAB (MS CONTIN) PO SCH (14:22)
[2017-08-04] MEDS: MAGNESIUM HYDROXIDE SUSP 30 ML UDC PO PRN (19:08)
[2017-08-04] MEDS: LORAZEPAM 0.5 MG TAB PO PRN (20:06)
[2017-08-04] MEDS: MONTELUKAST SOD 10 MG TAB PO SCH (20:45)
[2017-08-05] VITALS (8 sets, daily range): BP systolic 114–125; BP diastolic 68; PULSE 79–107; TEMP 36.5–36.8; O2SAT 91–100
[2017-08-05] MEDS: MoRPHine SULFATE CR 15 MG TAB (MS CONTIN) PO SCH ×3 (00:40→21:29)
[2017-08-05] MEDS ORDERED: SODIUM CHLORIDE 0.9% 500ML 500 ML IV PRN (01:00)
[2017-08-05] MEDS ORDERED: NURSING VERBAL MED ORDER ONE (01:00)
[2017-08-05] MEDS: IPRATROPIUM BROMIDE NEB SOLN 0.02% 2.5 ML VIAL INH SCH ×4 (01:40→19:24)
[2017-08-05] MEDS: LEVALBUTEROL 1.25MG/0.5ML NEB INH SCH ×4 (01:40→19:24)
[2017-08-05] MEDS: BUDESONIDE/FORMOTEROL FUMARATE 160/4.5 60 PUFFS/INHALER INH SCH ×2 (08:28→21:29)
[2017-08-05] MEDS: LACTOBACILLUS ACIDOPHILUS (FLORANEX) TAB PO SCH ×4 (08:28→17:00)
[2017-08-05] MEDS: ESCITALOPRAM OXALATE 20 MG TAB PO SCH (08:28)
[2017-08-05] MEDS: ROFLUMILAST 500 MCG TAB PO SCH (08:28)
[2017-08-05] MEDS: TIOTROPIUM BROMIDE 5 PUFF/90 MCG INH INH SCH (08:29)
--- NOTE | 2017-08-05 11:22 | Hospitalist Progress Note ---
Hospitalist Progress Note Date of Service Aug 05, 2017. Subjective Pt evaluation today including: conversation w/ patient, physical exam, review of inpatient medication list Voiding: no voiding problems Patient resting in bed comfortably. Denies any needs/concerns at this time. Again, refuses SNF- would go home on hospice. +weakness. +SOB but at baseline/comfortable. Patient denies any fever, chills, sweats, lightheadedness, dizziness, vision changes, CP, palpitations, edema, wheezing, cough, abdominal pain, nausea, vomiting, diarrhea, urinary symptoms, melena, numbness/tingling, muscle/joint pain, anxiety/depression, active bleeding, or new skin discoloration/changes. Medications Current Inpatient Medications Medications (Trade) Dose Ordered Sig/[place] Route Start Time Stop Time Status Last Admin Dose Admin Acetaminophen (Tylenol Tab) 650 mg Q4H PRN PO 07/30/17 18:00 08/29/17 17:59 Albuterol (Ventolin Hfa Inhaler) 2 puffs Q4H PRN INH 07/30/17 18:00 08/29/17 17:59 Budesonide/ Formoterol Fumarate (Symbicort 160/ 4.5 Inh) 2 puffs BID INH 07/30/17 20:00 08/29/17 19:59 08/05/17 08:28 2 PUFFS Escitalopram Oxalate (Lexapro Tab) 20 mg DAILY PO 07/31/17 08:00 08/30/17 07:59 08/05/17 08:28 20 MG Ipratropium [place] (Atrovent 0.02% 0.5MG/2.5ML Neb) 0.5 mg Q2H PRN INH 07/30/17 18:00 08/29/17 17:59 Ipratropium [place] (Atrovent 0.02% 0.5MG/2.5ML Neb) 0.5 mg Q6R INH 07/30/17 21:00 08/29/17 20:59 08/05/17 06:54 0.5 MG Lactobacillus Acidophilus (Floranex Tab) 4 tab TIDM PO 07/31/17 08:00 08/30/17 07:59 08/05/17 08:28 4 TAB Levalbuterol (Xopenex 1.25MG/ 0.5ML Neb) 1.25 mg Q2H PRN INH 07/30/17 18:00 08/29/17 17:59 Levalbuterol (Xopenex 1.25MG/ 0.5ML Neb) 1.25 mg Q6R INH 07/30/17 21:00 08/29/17 20:59 08/05/17 06:54 1.25 MG Lorazepam (Ativan Tab) 0.5 mg HS PRN PO 07/30/17 18:00 08/29/17 17:59 08/04/17 20:06 0.5 MG Lorazepam (Ativan Inj) 0.5 mg HS PRN IV 07/30/17 18:00 08/29/17 17:59 Lorazepam (Ativan Inj) 1 mg Q2H PRN IV 07/30/17 18:00 08/29/17 17:59 08/01/17 12:05 1 MG Montelukast Sodium (Singulair Tab) 10 mg HS PO 07/31/17 21:00 08/30/17 20:59 08/04/17 20:45 10 MG Morphine Sulfate (MoRPHine SULFATE INJ) 2 mg Q2H PRN IV 07/30/17 18:00 08/13/17 17:59 07/31/17 18:47 2 MG Morphine Sulfate (Roxanol Oral Soln) 5 mg Q4H PRN PO 07/30/17 18:30 08/13/17 18:29 08/04/17 12:21 5 MG Ondansetron HCl (Zofran Odt) 8 mg Q6H PRN PO 07/30/17 18:00 08/29/17 17:59 Prednisone (PredniSONE TAB) 60 mg DAILY PO 07/31/17 08:00 08/30/17 07:59 08/05/17 08:28 60 MG Roflumilast (Daliresp Tab) 500 mcg DAILY PO 07/31/17 08:00 08/30/17 07:59 08/05/17 08:28 500 MCG Tiotropium [place] (Spiriva Handihaler Inhaler) 1 puff DAILY INH 07/31/17 08:00 08/30/17 07:59 08/05/17 08:29 1 PUFF Al Hydrox/Mg Hydrox/Simethicone (Maalox Max Susp) 15 ml Q4H PRN PO 07/30/17 18:00 08/29/17 17:59 Magnesium Hydroxide (Milk Of Magnesia Susp) 30 ml Q6H PRN PO 07/30/17 18:00 08/29/17 17:59 08/04/17 19:08 30 ML Zolpidem Tartrate (Ambien Tab) 5 mg HSZ PRN PO 07/30/17 18:00 08/29/17 17:59 Ondansetron HCl (Zofran Inj) 4 mg Q6H PRN IV 07/30/17 18:00 08/29/17 17:59 Zolpidem Tartrate (Ambien Tab) 5 mg HSZ PRN PO 07/30/17 18:00 08/29/17 17:59 Lorazepam 0.5 mg/ Syringe 1 ml @ 1 mls/min HS PRN IV 07/30/17 18:45 08/29/17 18:44 Lorazepam 1 mg/ Syringe 1 ml @ 1 mls/min Q2H PRN IV 07/30/17 18:45 08/29/17 18:44 08/02/17 19:51 1 MLS/MIN Morphine Sulfate/ Dextrose 250 ml @ 2 mls/hr Q24H PRN IV 08/03/17 15:00 08/15/17 18:29 08/03/17 15:14 1 MLS/HR Morphine Sulfate (Oramorph Sr Tab) 15 mg Q12 PO 08/04/17 13:15 08/18/17 13:14 08/05/17 08:27 15 MG Sodium Chloride 500 ml @ 15 mls/hr Q24H PRN IV 08/05/17 01:00 09/04/17 00:59 08/05/17 01:34 15 MLS/HR Objective Vital Signs Date Time Temp Pulse Resp B/P (MAP) Pulse Ox O2 Delivery O2 Flow Rate FiO2 08/05/17 07:16 36.5 92 16 114/68 (83) 100 08/05/17 06:54 90 18 97 Nasal Cannula 4.0 08/05/17 01:41 88 18 96 Nasal Cannula 4.0 08/05/17 00:25 91 Nasal Cannula 4.0 08/04/17 22:34 36.6 97 18 137/72 (93) 99 Nasal Cannula 4.0 08/04/17 19:07 92 18 97 Nasal Cannula 4.0 08/04/17 16:00 Nasal Cannula 5.0 08/04/17 15:34 36.9 99 24 116/66 (83) 96 4.0 08/04/17 14:20 81 18 98 Nasal Cannula 4.0 Physical Exam General Appearance: no apparent distress, + thin Eyes: normal inspection, PERRL ENT: hearing grossly normal Neck: supple Respiratory/Chest: no respiratory distress, no accessory muscle use, + decreased breath sounds (throughout ), + pertinent finding (barrel chest ) Cardiovascular: regular rate, rhythm Abdomen: normal bowel sounds, non tender, soft Extremities: no pedal edema, no calf tenderness Neurologic/Psychiatric: alert, oriented x 3, + depressed affect Skin: normal color, warm/dry, no rash Assessment and Plan 72-year-old man with 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 presented to the hospital with acute on chronic respiratory failure secondary to COPD exacerbation. Advanced end-stage COPD from tobacco abuse- failed medical treatment- COMFORT MEASURES ONLY: - Morphine 15 mg PO BID, Roxanol 5 mg q4hrs PRN, IV Morphine gtt PRN, IV Ativan PRN - O2 for comfort - Continue Lexapro 20 mg daily for anxiety - Continue inhalers and DuoNebs, Prednisone 60 mg daily Code status: LEVEL V, DNR/DNI Dispo: Inpatient hospice care- may transition to home w/ hospice- CM following
[2017-08-05] MEDS: LORAZEPAM 0.5 MG TAB PO PRN (13:54)
[2017-08-05] MEDS: MONTELUKAST SOD 10 MG TAB PO SCH (21:29)
[2017-08-06] VITALS (8 sets, daily range): BP systolic 126–133; BP diastolic 70–71; PULSE 97–105; TEMP 36.5; O2SAT 91–98
[2017-08-06] MEDS: LEVALBUTEROL 1.25MG/0.5ML NEB INH SCH ×4 (02:02→19:19)
[2017-08-06] MEDS: IPRATROPIUM BROMIDE NEB SOLN 0.02% 2.5 ML VIAL INH SCH ×4 (02:02→19:19)
[2017-08-06] MEDS: MoRPHine SULFATE CR 15 MG TAB (MS CONTIN) PO SCH ×2 (07:42→20:43)
[2017-08-06] MEDS: ESCITALOPRAM OXALATE 20 MG TAB PO SCH (07:42)
[2017-08-06] MEDS: ROFLUMILAST 500 MCG TAB PO SCH (07:42)
[2017-08-06] MEDS: LACTOBACILLUS ACIDOPHILUS (FLORANEX) TAB PO SCH ×3 (07:42→17:00)
[2017-08-06] MEDS: BUDESONIDE/FORMOTEROL FUMARATE 160/4.5 60 PUFFS/INHALER INH SCH ×2 (07:43→20:41)
[2017-08-06] MEDS: TIOTROPIUM BROMIDE 5 PUFF/90 MCG INH INH SCH (07:43)
--- NOTE | 2017-08-06 11:45 | Hospitalist Progress Note ---
Hospitalist Progress Note Date of Service Aug 06, 2017. Subjective Pt evaluation today including: conversation w/ patient, physical exam, review of inpatient medication list Voiding: requires PRN straight cath Patient resting in bed. Comfortable. Breathing is stable. Per RN- no acute events. Appears comfortable. Only required straight cath once last evening. Eating and drinking OK. Medications Current Inpatient Medications Medications (Trade) Dose Ordered Sig/[place] Route Start Time Stop Time Status Last Admin Dose Admin Acetaminophen (Tylenol Tab) 650 mg Q4H PRN PO 07/30/17 18:00 08/29/17 17:59 Albuterol (Ventolin Hfa Inhaler) 2 puffs Q4H PRN INH 07/30/17 18:00 08/29/17 17:59 Budesonide/ Formoterol Fumarate (Symbicort 160/ 4.5 Inh) 2 puffs BID INH 07/30/17 20:00 08/29/17 19:59 08/06/17 07:43 2 PUFFS Escitalopram Oxalate (Lexapro Tab) 20 mg DAILY PO 07/31/17 08:00 08/30/17 07:59 08/06/17 07:42 20 MG Ipratropium [place] (Atrovent 0.02% 0.5MG/2.5ML Neb) 0.5 mg Q2H PRN INH 07/30/17 18:00 08/29/17 17:59 Ipratropium [place] (Atrovent 0.02% 0.5MG/2.5ML Neb) 0.5 mg Q6R INH 07/30/17 21:00 08/29/17 20:59 08/06/17 06:52 0.5 MG Lactobacillus Acidophilus (Floranex Tab) 4 tab TIDM PO 07/31/17 08:00 08/30/17 07:59 08/06/17 07:42 4 TAB Levalbuterol (Xopenex 1.25MG/ 0.5ML Neb) 1.25 mg Q2H PRN INH 07/30/17 18:00 08/29/17 17:59 Levalbuterol (Xopenex 1.25MG/ 0.5ML Neb) 1.25 mg Q6R INH 07/30/17 21:00 08/29/17 20:59 08/06/17 06:52 1.25 MG Lorazepam (Ativan Tab) 0.5 mg HS PRN PO 07/30/17 18:00 08/29/17 17:59 08/05/17 13:54 0.5 MG Lorazepam (Ativan Inj) 0.5 mg HS PRN IV 07/30/17 18:00 08/29/17 17:59 Lorazepam (Ativan Inj) 1 mg Q2H PRN IV 07/30/17 18:00 08/29/17 17:59 08/01/17 12:05 1 MG Montelukast Sodium (Singulair Tab) 10 mg HS PO 07/31/17 21:00 08/30/17 20:59 08/05/17 21:29 10 MG Morphine Sulfate (MoRPHine SULFATE INJ) 2 mg Q2H PRN IV 07/30/17 18:00 08/13/17 17:59 07/31/17 18:47 2 MG Morphine Sulfate (Roxanol Oral Soln) 5 mg Q4H PRN PO 07/30/17 18:30 08/13/17 18:29 08/04/17 12:21 5 MG Ondansetron HCl (Zofran Odt) 8 mg Q6H PRN PO 07/30/17 18:00 08/29/17 17:59 Prednisone (PredniSONE TAB) 60 mg DAILY PO 07/31/17 08:00 08/30/17 07:59 08/06/17 07:42 60 MG Roflumilast (Daliresp Tab) 500 mcg DAILY PO 07/31/17 08:00 08/30/17 07:59 08/06/17 07:42 500 MCG Tiotropium [place] (Spiriva Handihaler Inhaler) 1 puff DAILY INH 07/31/17 08:00 08/30/17 07:59 08/06/17 07:43 1 PUFF Al Hydrox/Mg Hydrox/Simethicone (Maalox Max Susp) 15 ml Q4H PRN PO 07/30/17 18:00 08/29/17 17:59 Magnesium Hydroxide (Milk Of Magnesia Susp) 30 ml Q6H PRN PO 07/30/17 18:00 08/29/17 17:59 08/04/17 19:08 30 ML Zolpidem Tartrate (Ambien Tab) 5 mg HSZ PRN PO 07/30/17 18:00 08/29/17 17:59 Ondansetron HCl (Zofran Inj) 4 mg Q6H PRN IV 07/30/17 18:00 08/29/17 17:59 Zolpidem Tartrate (Ambien Tab) 5 mg HSZ PRN PO 07/30/17 18:00 08/29/17 17:59 Lorazepam 0.5 mg/ Syringe 1 ml @ 1 mls/min HS PRN IV 07/30/17 18:45 08/29/17 18:44 Lorazepam 1 mg/ Syringe 1 ml @ 1 mls/min Q2H PRN IV 07/30/17 18:45 08/29/17 18:44 08/02/17 19:51 1 MLS/MIN Sodium Chloride 500 ml @ 15 mls/hr Q24H PRN IV 08/05/17 01:00 09/04/17 00:59 08/05/17 01:34 15 MLS/HR Morphine Sulfate (Oramorph Sr Tab) 30 mg Q12 PO 08/05/17 21:00 08/18/17 13:14 08/06/17 07:42 30 MG Objective Vital Signs Date Time Temp Pulse Resp B/P (MAP) Pulse Ox O2 Delivery O2 Flow Rate FiO2 08/06/17 08:00 97 Nasal Cannula 4.0 08/06/17 07:35 36.5 98 20 133/70 (91) 97 Nasal Cannula 4.0 08/06/17 06:53 97 20 98 Nasal Cannula 4.0 08/06/17 01:59 99 20 95 Nasal Cannula 4.0 08/06/17 00:10 Nasal Cannula 4.0 08/05/17 19:25 100 18 93 Nasal Cannula 4.0 08/05/17 16:00 92 Nasal Cannula 4.0 08/05/17 15:45 36.8 107 16 125/68 (87) 92 4.0 08/05/17 14:16 79 18 98 Nasal Cannula 4.0 Physical Exam General Appearance: no apparent distress, + cachetic, + thin, + pertinent finding (O2 N C) Eyes: PERRL ENT: hearing grossly normal Neck: supple Respiratory/Chest: no respiratory distress, no accessory muscle use, + decreased breath sounds (throughout ), + pertinent finding (barrel chested ) Cardiovascular: regular rate, rhythm Abdomen: normal bowel sounds, non tender, soft Extremities: no pedal edema, no calf tenderness Neurologic/Psychiatric: alert, oriented x 3 Skin: normal color, warm/dry, no rash Assessment and Plan 72-year-old man with 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 presented to the hospital with acute on chronic respiratory failure secondary to COPD exacerbation. Advanced end-stage COPD from tobacco abuse- failed medical treatment- COMFORT MEASURES ONLY: - Morphine 30 mg PO BID, Roxanol 5 mg q4hrs PRN, IV Morphine gtt PRN, IV Ativan PRN - O2 for comfort - Continue Lexapro 20 mg daily for anxiety - Continue inhalers and DuoNebs, Prednisone 60 mg daily Urinary retention: Bladder scan and straight cath PRN Code status: LEVEL V, DNR/DNI Dispo: Inpatient hospice care- may transition to home w/ hospice; meeting this afternoon w/ family- CM following
[2017-08-06] MEDS: MAGNESIUM HYDROXIDE SUSP 30 ML UDC PO PRN (12:46)
[2017-08-06] MEDS: LORAZEPAM 0.5 MG TAB PO PRN (20:40)
[2017-08-06] MEDS: MONTELUKAST SOD 10 MG TAB PO SCH (20:40)
[2017-08-07] VITALS (8 sets, daily range): BP systolic 108–135; BP diastolic 61–75; PULSE 85–101; TEMP 36.6–36.9; O2SAT 93–99
[2017-08-07] MEDS: LEVALBUTEROL 1.25MG/0.5ML NEB INH SCH ×4 (01:48→18:56)
[2017-08-07] MEDS: IPRATROPIUM BROMIDE NEB SOLN 0.02% 2.5 ML VIAL INH SCH ×4 (01:48→18:56)
[2017-08-07] MEDS: MoRPHine SULFATE CR 15 MG TAB (MS CONTIN) PO SCH ×2 (08:39→20:05)
[2017-08-07] MEDS: BUDESONIDE/FORMOTEROL FUMARATE 160/4.5 60 PUFFS/INHALER INH SCH ×2 (08:40→20:06)
[2017-08-07] MEDS: ESCITALOPRAM OXALATE 20 MG TAB PO SCH (08:40)
[2017-08-07] MEDS: TIOTROPIUM BROMIDE 5 PUFF/90 MCG INH INH SCH (08:40)
[2017-08-07] MEDS: ROFLUMILAST 500 MCG TAB PO SCH (08:41)
[2017-08-07] MEDS: LACTOBACILLUS ACIDOPHILUS (FLORANEX) TAB PO SCH ×3 (08:41→16:39)
[2017-08-07] MEDS ORDERED: SENNA 8.6 MG TAB PO PRN (10:15)
[2017-08-07] MEDS ORDERED: POLYETHYLENE (MIRALAX) 17 GM PACK PO PRN (10:15)
--- NOTE | 2017-08-07 11:25 | Hospitalist Progress Note ---
Hospitalist Progress Note Date of Service Aug 07, 2017. Subjective Pt evaluation today including: conversation w/ patient, physical exam, lab review, review of inpatient medication list Voiding: no voiding problems Patient resting in bed. Comfortable. Eating and drinking OK. Comfortable on medications. +constipation- request PRN medications but will ask for when he wants to take them. Planning for home w/ hospice on Thursday or Thursday. Medications Current Inpatient Medications Medications (Trade) Dose Ordered Sig/[place] Route Start Time Stop Time Status Last Admin Dose Admin Acetaminophen (Tylenol Tab) 650 mg Q4H PRN PO 07/30/17 18:00 08/29/17 17:59 Albuterol (Ventolin Hfa Inhaler) 2 puffs Q4H PRN INH 07/30/17 18:00 08/29/17 17:59 Budesonide/ Formoterol Fumarate (Symbicort 160/ 4.5 Inh) 2 puffs BID INH 07/30/17 20:00 08/29/17 19:59 08/07/17 08:40 2 PUFFS Escitalopram Oxalate (Lexapro Tab) 20 mg DAILY PO 07/31/17 08:00 08/30/17 07:59 08/07/17 08:40 20 MG Ipratropium [place] (Atrovent 0.02% 0.5MG/2.5ML Neb) 0.5 mg Q2H PRN INH 07/30/17 18:00 08/29/17 17:59 Ipratropium [place] (Atrovent 0.02% 0.5MG/2.5ML Neb) 0.5 mg Q6R INH 07/30/17 21:00 08/29/17 20:59 08/07/17 07:18 0.5 MG Lactobacillus Acidophilus (Floranex Tab) 4 tab TIDM PO 07/31/17 08:00 08/30/17 07:59 08/06/17 07:42 4 TAB Levalbuterol (Xopenex 1.25MG/ 0.5ML Neb) 1.25 mg Q2H PRN INH 07/30/17 18:00 08/29/17 17:59 Levalbuterol (Xopenex 1.25MG/ 0.5ML Neb) 1.25 mg Q6R INH 07/30/17 21:00 5/12/18 20:59 08/07/17 07:18 1.25 MG Lorazepam (Ativan Tab) 0.5 mg HS PRN PO 07/30/17 18:00 08/29/17 17:59 08/06/17 20:40 0.5 MG Lorazepam (Ativan Inj) 0.5 mg HS PRN IV 07/30/17 18:00 08/29/17 17:59 Lorazepam (Ativan Inj) 1 mg Q2H PRN IV 07/30/17 18:00 08/29/17 17:59 08/01/17 12:05 1 MG Montelukast Sodium (Singulair Tab) 10 mg HS PO 07/31/17 21:00 08/30/17 20:59 08/06/17 20:40 10 MG Morphine Sulfate (MoRPHine SULFATE INJ) 2 mg Q2H PRN IV 07/30/17 18:00 08/13/17 17:59 07/31/17 18:47 2 MG Morphine Sulfate (Roxanol Oral Soln) 5 mg Q4H PRN PO 07/30/17 18:30 08/13/17 18:29 08/04/17 12:21 5 MG Ondansetron HCl (Zofran Odt) 8 mg Q6H PRN PO 07/30/17 18:00 08/29/17 17:59 Prednisone (PredniSONE TAB) 60 mg DAILY PO 07/31/17 08:00 08/30/17 07:59 08/07/17 08:41 60 MG Roflumilast (Daliresp Tab) 500 mcg DAILY PO 07/31/17 08:00 08/30/17 07:59 08/07/17 08:41 500 MCG Tiotropium [place] (Spiriva Handihaler Inhaler) 1 puff DAILY INH 07/31/17 08:00 08/30/17 07:59 08/07/17 08:40 1 PUFF Al Hydrox/Mg Hydrox/Simethicone (Maalox Max Susp) 15 ml Q4H PRN PO 07/30/17 18:00 08/29/17 17:59 Magnesium Hydroxide (Milk Of Magnesia Susp) 30 ml Q6H PRN PO 07/30/17 18:00 08/29/17 17:59 08/06/17 12:46 30 ML Zolpidem Tartrate (Ambien Tab) 5 mg HSZ PRN PO 07/30/17 18:00 08/29/17 17:59 Ondansetron HCl (Zofran Inj) 4 mg Q6H PRN IV 07/30/17 18:00 08/29/17 17:59 Zolpidem Tartrate (Ambien Tab) 5 mg HSZ PRN PO 07/30/17 18:00 08/29/17 17:59 Lorazepam 0.5 mg/ Syringe 1 ml @ 1 mls/min HS PRN IV 07/30/17 18:45 08/29/17 18:44 Lorazepam 1 mg/ Syringe 1 ml @ 1 mls/min Q2H PRN IV 07/30/17 18:45 08/29/17 18:44 08/02/17 19:51 1 MLS/MIN Sodium Chloride 500 ml @ 15 mls/hr Q24H PRN IV 08/05/17 01:00 09/04/17 00:59 08/05/17 01:34 15 MLS/HR Morphine Sulfate (Oramorph Sr Tab) 30 mg Q12 PO 08/05/17 21:00 08/18/17 13:14 08/07/17 08:39 30 MG Docusate Sodium (coLACE CAP) 100 mg BID PRN PO 08/07/17 10:15 09/06/17 10:14 Polyethylene (Miralax Powder Packet) 17 gm DAILY PRN PO 08/07/17 10:15 09/06/17 10:14 Senna (Senokot Tab) 8.6 mg QAM PRN PO 08/07/17 10:15 09/06/17 10:14 Objective Vital Signs Date Time Temp Pulse Resp B/P (MAP) Pulse Ox O2 Delivery O2 Flow Rate FiO2 08/07/17 09:00 Nasal Cannula 4.0 08/07/17 07:22 36.7 92 16 135/75 (95) 97 Nasal Cannula 4.0 08/07/17 07:18 95 18 96 Nasal Cannula 4.0 08/07/17 01:48 97 20 95 Nasal Cannula 4.0 08/07/17 00:25 Nasal Cannula 4.0 08/07/17 00:08 36.9 95 20 108/61 (77) 97 Nasal Cannula 4.0 08/06/17 19:19 98 20 97 Nasal Cannula 4.0 08/06/17 16:00 91 Nasal Cannula 4.0 50 08/06/17 15:39 36.5 100 20 126/71 (89) 91 Nasal Cannula 4.0 08/06/17 14:07 105 18 97 Nasal Cannula 4.0 Physical Exam General Appearance: no apparent distress Eyes: normal inspection, PERRL ENT: hearing grossly normal Neck: supple Respiratory/Chest: no respiratory distress, no accessory muscle use, + decreased breath sounds (throughout ) Cardiovascular: regular rate, rhythm Abdomen: normal bowel sounds, non tender, soft Extremities: no pedal edema, no calf tenderness Neurologic/Psychiatric: alert, normal mood/affect, oriented x 3 Skin: normal color, warm/dry, no rash Assessment and Plan 72-year-old man with 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 presented to the hospital with acute on chronic respiratory failure secondary to COPD exacerbation. Advanced end-stage COPD from tobacco abuse- failed medical treatment- COMFORT MEASURES ONLY- STABLE: - Morphine 30 mg PO BID, Roxanol 5 mg q4hrs PRN, IV Morphine 2mg q2hrs PRN, IV Ativan PRN - O2 for comfort - Continue Lexapro 20 mg daily for anxiety - Continue inhalers and DuoNebs, Prednisone 60 mg daily Urinary retention: Bladder scan and straight cath PRN Constipation: PRN bowel regimen ordered Code status: LEVEL V, DNR/DNI Dispo: Inpatient hospice care- transition to home w/ hospice next Thursday or Thursday- CM following
[2017-08-07] MEDS: MONTELUKAST SOD 10 MG TAB PO SCH (20:05)
[2017-08-07] MEDS: LORAZEPAM 0.5 MG TAB PO PRN (20:05)
[2017-08-08] VITALS (7 sets, daily range): BP systolic 109–151; BP diastolic 65–82; PULSE 88–116; TEMP 36.4–36.8; O2SAT 89–99
[2017-08-08] MEDS: LEVALBUTEROL 1.25MG/0.5ML NEB INH SCH ×4 (02:07→18:57)
[2017-08-08] MEDS: IPRATROPIUM BROMIDE NEB SOLN 0.02% 2.5 ML VIAL INH SCH ×4 (02:07→18:57)
[2017-08-08] MEDS: LACTOBACILLUS ACIDOPHILUS (FLORANEX) TAB PO SCH ×3 (08:00→16:11)
[2017-08-08] MEDS: MoRPHine SULFATE CR 15 MG TAB (MS CONTIN) PO SCH ×2 (08:19→20:30)
[2017-08-08] MEDS: DOCUSATE SODIUM 100 MG CAP PO PRN (08:19)
[2017-08-08] MEDS: TIOTROPIUM BROMIDE 5 PUFF/90 MCG INH INH SCH (08:19)
[2017-08-08] MEDS: BUDESONIDE/FORMOTEROL FUMARATE 160/4.5 60 PUFFS/INHALER INH SCH ×2 (08:19→20:27)
[2017-08-08] MEDS: ROFLUMILAST 500 MCG TAB PO SCH (08:20)
[2017-08-08] MEDS: ESCITALOPRAM OXALATE 20 MG TAB PO SCH (08:20)
[2017-08-08] MEDS: MoRPHine SULFATE 5 MG/0.25 ML UDP PO PRN (09:35)
--- NOTE | 2017-08-08 13:42 | Progress Note ---
Subjective Date of Service: Aug 08, 2017. Subjective Pt evaluation today including: conversation w/ patient, physical exam, lab review, review of inpatient medication list Pain: no pain PO Intake: adequate Voiding: no voiding problems breathing comfortable some anxiety over night, resolved with Ativan Problem List Medical Problems: (1) COPD exacerbation Status: Acute (2) Hypoxemia Status: Acute (3) Hypoxia Status: Acute (4) Hypoxia Status: Acute (5) Influenza Status: Acute (6) Pneumonia involving right lung Status: Acute (7) Respiratory distress Status: Acute (8) Sepsis Status: Acute (9) Tachycardia Status: Acute Review of Systems Respiratory: + dyspnea on exertion Psychiatric: + anxiety All Other Systems: Reviewed and Negative Medications Current Inpatient Medications Medications (Trade) Dose Ordered Sig/[place]uy[place] Route Start Time Stop Time Status Last Admin Dose Admin Acetaminophen (Tylenol Tab) 650 mg Q4H PRN PO 07/30/17 18:00 08/29/17 17:59 Albuterol (Ventolin Hfa Inhaler) 2 puffs Q4H PRN INH 07/30/17 18:00 08/29/17 17:59 Budesonide/ Formoterol Fumarate (Symbicort 160/ 4.5 Inh) 2 puffs BID INH 07/30/17 20:00 08/29/17 19:59 08/08/17 08:19 2 PUFFS Escitalopram Oxalate (Lexapro Tab) 20 mg DAILY PO 07/31/17 08:00 08/30/17 07:59 08/08/17 08:20 20 MG Ipratropium [place] (Atrovent 0.02% 0.5MG/2.5ML Neb) 0.5 mg Q2H PRN INH 07/30/17 18:00 08/29/17 17:59 Ipratropium [place] (Atrovent 0.02% 0.5MG/2.5ML Neb) 0.5 mg Q6R INH 07/30/17 21:00 08/29/17 20:59 08/08/17 07:14 0.5 MG Lactobacillus Acidophilus (Floranex Tab) 4 tab TIDM PO 07/31/17 08:00 08/30/17 07:59 08/07/17 16:39 4 TAB Levalbuterol (Xopenex 1.25MG/ 0.5ML Neb) 1.25 mg Q2H PRN INH 07/30/17 18:00 08/29/17 17:59 Levalbuterol (Xopenex 1.25MG/ 0.5ML Neb) 1.25 mg Q6R INH 07/30/17 21:00 08/29/17 20:59 08/08/17 07:14 1.25 MG Lorazepam (Ativan Tab) 0.5 mg HS PRN PO 07/30/17 18:00 08/29/17 17:59 08/07/17 20:05 0.5 MG Montelukast Sodium (Singulair Tab) 10 mg HS PO 07/31/17 21:00 08/30/17 20:59 08/07/17 20:05 10 MG Morphine Sulfate (MoRPHine SULFATE INJ) 2 mg Q2H PRN IV 07/30/17 18:00 08/13/17 17:59 07/31/17 18:47 2 MG Morphine Sulfate (Roxanol Oral Soln) 5 mg Q4H PRN PO 07/30/17 18:30 08/13/17 18:29 08/08/17 09:35 5 MG Ondansetron HCl (Zofran Odt) 8 mg Q6H PRN PO 07/30/17 18:00 08/29/17 17:59 Roflumilast (Daliresp Tab) 500 mcg DAILY PO 07/31/17 08:00 08/30/17 07:59 08/08/17 08:20 500 MCG Tiotropium [place] (Spiriva Handihaler Inhaler) 1 puff DAILY INH 07/31/17 08:00 08/30/17 07:59 08/08/17 08:19 1 PUFF Al Hydrox/Mg Hydrox/Simethicone (Maalox Max Susp) 15 ml Q4H PRN PO 07/30/17 18:00 08/29/17 17:59 Magnesium Hydroxide (Milk Of Magnesia Susp) 30 ml Q6H PRN PO 07/30/17 18:00 08/29/17 17:59 08/06/17 12:46 30 ML Zolpidem Tartrate (Ambien Tab) 5 mg HSZ PRN PO 07/30/17 18:00 08/29/17 17:59 Zolpidem Tartrate (Ambien Tab) 5 mg HSZ PRN PO 07/30/17 18:00 08/29/17 17:59 Sodium Chloride 500 ml @ 15 mls/hr Q24H PRN IV 08/05/17 01:00 09/04/17 00:59 08/05/17 01:34 15 MLS/HR Morphine Sulfate (Oramorph Sr Tab) 30 mg Q12 PO 08/05/17 21:00 08/18/17 13:14 08/08/17 08:19 30 MG Docusate Sodium (coLACE CAP) 100 mg BID PRN PO 08/07/17 10:15 09/06/17 10:14 08/08/17 08:19 100 MG Polyethylene (Miralax Powder Packet) 17 gm DAILY PRN PO 08/07/17 10:15 09/06/17 10:14 Senna (Senokot Tab) 8.6 mg QAM PRN PO 08/07/17 10:15 09/06/17 10:14 Lorazepam (Ativan Tab) 1 mg Q8 PRN PO 08/08/17 10:30 09/07/17 10:29 Prednisone (PredniSONE TAB) 50 mg DAILY PO 08/09/17 08:00 08/30/17 07:59 Objective Vital Signs Date Time Temp Pulse Resp B/P (MAP) Pulse Ox O2 Delivery O2 Flow Rate FiO2 08/08/17 08:00 Nasal Cannula 4.0 08/08/17 07:14 88 18 99 Nasal Cannula 4.0 08/08/17 06:40 36.4 96 18 151/78 (102) 93 Nasal Cannula 4.0 08/08/17 02:07 96 18 95 Nasal Cannula 4.0 08/08/17 00:20 Nasal Cannula 4.0 08/07/17 23:09 36.6 101 20 129/72 (91) 97 Nasal Cannula 4.0 08/07/17 18:56 92 18 93 Nasal Cannula 4.0 08/07/17 16:23 Nasal Cannula 4.0 08/07/17 14:44 36.7 85 16 133/68 (89) 99 Nasal Cannula 4.0 08/07/17 14:08 99 18 95 Nasal Cannula 4.0 Physical Exam General Appearance: no apparent distress, + thin Eyes: normal inspection, EOMI, sclerae normal ENT: normal ENT inspection, hearing grossly normal, pharynx normal Neck: supple, no adenopathy, no JVD, trachea midline Respiratory/Chest: chest non-tender, no respiratory distress, no accessory muscle use, + respiratory distress Cardiovascular: regular rate, rhythm, no edema, no gallop, no JVD, no murmur Abdomen: normal bowel sounds, non tender, soft, no organomegaly Extremities: normal range of motion, non-tender, normal inspection, no pedal edema, no calf tenderness, pelvis stable 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, no motor/sensory deficits, alert, normal mood/affect, oriented x 3 Skin: normal color, warm/dry, no rash Assessment and Plan 72-year-old man with 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
[2017-08-08] MEDS: LORAZEPAM 1 MG TAB PO PRN (16:03)
[2017-08-08] MEDS: MONTELUKAST SOD 10 MG TAB PO SCH (20:28)
[2017-08-09] MEDS: LEVALBUTEROL 1.25MG/0.5ML NEB INH SCH ×4 (02:42→19:16)
[2017-08-09] MEDS: IPRATROPIUM BROMIDE NEB SOLN 0.02% 2.5 ML VIAL INH SCH ×4 (02:42→19:16)
[2017-08-09 02:43] VITALS: PULSE 108; O2SAT 96
[2017-08-09 07:05] VITALS: PULSE 88; O2SAT 97
[2017-08-09] MEDS: LACTOBACILLUS ACIDOPHILUS (FLORANEX) TAB PO SCH ×2 (08:00→10:54)
[2017-08-09] MEDS: DOCUSATE SODIUM 100 MG CAP PO PRN ×2 (08:22→20:19)
[2017-08-09] MEDS: MoRPHine SULFATE CR 15 MG TAB (MS CONTIN) PO SCH ×2 (08:23→20:22)
[2017-08-09] MEDS: BUDESONIDE/FORMOTEROL FUMARATE 160/4.5 60 PUFFS/INHALER INH SCH ×2 (08:23→20:19)
[2017-08-09] MEDS: TIOTROPIUM BROMIDE 5 PUFF/90 MCG INH INH SCH (08:23)
[2017-08-09] MEDS: ESCITALOPRAM OXALATE 20 MG TAB PO SCH (08:24)
[2017-08-09] MEDS: ROFLUMILAST 500 MCG TAB PO SCH (08:24)
[2017-08-09] MEDS ORDERED: MRPSR15 PO (11:37)
[2017-08-09] MEDS ORDERED: RXNS10 PO (11:37)
[2017-08-09] MEDS ORDERED: AMB5 PO (11:37)
[2017-08-09] MEDS ORDERED: PRED20TA PO (11:37)
[2017-08-09] MEDS ORDERED: ATV1 PO (11:37)
--- NOTE | 2017-08-09 11:54 | Discharge Instructions ---
Discharge Instructions Date of Service Aug 09, 2017. Admission Reason for Admission: Acute And Chronic Resp Failure W/ Hypoxia-Hospice Discharge Discharge Diagnosis / Problem: End stage COPD, chronic hypoxic respiratory failure Discharge Goals Goal(s): Decrease discomfort, Specific goals (hospice care) Activity Recommendations Activity Limitations: per Instructions/Follow-up section Lifting Limitations: none Shower/Bathe: no limitations Driving or Machine Use: do not drive . Instructions / Follow-Up Instructions / Follow-Up Medications: all medications are intended to keep you comfortable and hospice will go over them we will continue your inhaled therapies and nebulizers, again, to keep your breathing comfortable Prednisone, take 40mg daily for the next week and then 20mg daily indefinitely to keep breathing comfortable Morphine sulfate continuous, 30mg twice a day Morphine sulfate (liquid) use intermittently for any increased shortness of breath Ativan to use as needed for anxiety POLST form: completed, indicates intentions to keep comfortable it you get worse , the only reason you would return to the hospital is if you cannot be kept comfortable at home Current Hospital Diet Patient's current hospital diet: Regular Diet Discharge Diet Recommended Diet: Regular Diet Pending Studies Studies pending at discharge: no Laboratory Results Hemoglobin A1c Test 06/02/17 09:30 Range/Units Estimated Average Glucose 117 mg/dl Hemoglobin A1c 5.7 H 4.5-5.6 % Medical Emergencies . Who to Call and When: Medical Emergencies: If at any time you feel your situation is an emergency, please call 911 immediately. . Non-Emergent Contact Non-Emergency issues call your: Primary Care Provider (hospice provider) Call Non-Emergent contact if: you have any medication questions . . "Provider Documentation" section prepared by Tariq Vanessa. . [place] Drug Monitoring Program Search Results: no issues identified
[2017-08-09 14:07] VITALS: PULSE 106; O2SAT 94
--- NOTE | 2017-08-09 14:08 | Progress Note ---
Subjective Date of Service: Aug 09, 2017. Subjective Pt evaluation today including: conversation w/ patient, physical exam, review of inpatient medication list Pain: no pain PO Intake: adequate Voiding: no voiding problems discussed plans to go home tomorrow on hospice, he agreed completed POLST form with patient, details below no complaints, he just wants to go home Problem List Medical Problems: (1) COPD exacerbation Status: Acute (2) Hypoxemia Status: Acute (3) Hypoxia Status: Acute (4) Hypoxia Status: Acute (5) Influenza Status: Acute (6) Pneumonia involving right lung Status: Acute (7) Respiratory distress Status: Acute (8) Sepsis Status: Acute (9) Tachycardia Status: Acute Review of Systems Constitutional: + weakness, + fatigue Respiratory: + cough, + shortness of breath, + dyspnea on exertion Psychiatric: + anxiety, + insomnia All Other Systems: Reviewed and Negative Medications Current Inpatient Medications Medications (Trade) Dose Ordered Sig/[place] Route Start Time Stop Time Status Last Admin Dose Admin Acetaminophen (Tylenol Tab) 650 mg Q4H PRN PO 07/30/17 18:00 08/29/17 17:59 Albuterol (Ventolin Hfa Inhaler) 2 puffs Q4H PRN INH 07/30/17 18:00 08/29/17 17:59 Budesonide/ Formoterol Fumarate (Symbicort 160/ 4.5 Inh) 2 puffs BID INH 07/30/17 20:00 08/29/17 19:59 08/09/17 08:23 2 PUFFS Escitalopram Oxalate (Lexapro Tab) 20 mg DAILY PO 07/31/17 08:00 08/30/17 07:59 08/09/17 08:24 20 MG Ipratropium [place] (Atrovent 0.02% 0.5MG/2.5ML Neb) 0.5 mg Q2H PRN INH 07/30/17 18:00 08/29/17 17:59 Ipratropium [place] (Atrovent 0.02% 0.5MG/2.5ML Neb) 0.5 mg Q6R INH 07/30/17 21:00 08/29/17 20:59 08/09/17 07:04 0.5 MG Levalbuterol (Xopenex 1.25MG/ 0.5ML Neb) 1.25 mg Q2H PRN INH 07/30/17 18:00 08/29/17 17:59 Levalbuterol (Xopenex 1.25MG/ 0.5ML Neb) 1.25 mg Q6R INH 07/30/17 21:00 08/29/17 20:59 08/09/17 07:04 1.25 MG Lorazepam (Ativan Tab) 0.5 mg HS PRN PO 07/30/17 18:00 08/29/17 17:59 08/07/17 20:05 0.5 MG Montelukast Sodium (Singulair Tab) 10 mg HS PO 07/31/17 21:00 08/30/17 20:59 08/08/17 20:28 10 MG Morphine Sulfate (MoRPHine SULFATE INJ) 2 mg Q2H PRN IV 07/30/17 18:00 08/13/17 17:59 07/31/17 18:47 2 MG Morphine Sulfate (Roxanol Oral Soln) 5 mg Q4H PRN PO 07/30/17 18:30 08/13/17 18:29 08/08/17 09:35 5 MG Ondansetron HCl (Zofran Odt) 8 mg Q6H PRN PO 07/30/17 18:00 08/29/17 17:59 Roflumilast (Daliresp Tab) 500 mcg DAILY PO 07/31/17 08:00 08/30/17 07:59 08/09/17 08:24 500 MCG Tiotropium [place] (Spiriva Handihaler Inhaler) 1 puff DAILY INH 07/31/17 08:00 08/30/17 07:59 08/09/17 08:23 1 PUFF Al Hydrox/Mg Hydrox/Simethicone (Maalox Max Susp) 15 ml Q4H PRN PO 07/30/17 18:00 08/29/17 17:59 Magnesium Hydroxide (Milk Of Magnesia Susp) 30 ml Q6H PRN PO 07/30/17 18:00 08/29/17 17:59 08/06/17 12:46 30 ML Zolpidem Tartrate (Ambien Tab) 5 mg HSZ PRN PO 07/30/17 18:00 08/29/17 17:59 Zolpidem Tartrate (Ambien Tab) 5 mg HSZ PRN PO 07/30/17 18:00 08/29/17 17:59 Sodium Chloride 500 ml @ 15 mls/hr Q24H PRN IV 08/05/17 01:00 09/04/17 00:59 08/05/17 01:34 15 MLS/HR Morphine Sulfate (Oramorph Sr Tab) 30 mg Q12 PO 08/05/17 21:00 08/18/17 13:14 08/09/17 08:23 30 MG Docusate Sodium (coLACE CAP) 100 mg BID PRN PO 08/07/17 10:15 09/06/17 10:14 08/09/17 08:22 100 MG Polyethylene (Miralax Powder Packet) 17 gm DAILY PRN PO 08/07/17 10:15 09/06/17 10:14 Senna (Senokot Tab) 8.6 mg QAM PRN PO 08/07/17 10:15 09/06/17 10:14 Lorazepam (Ativan Tab) 1 mg Q8 PRN PO 08/08/17 10:30 09/07/17 10:29 08/08/17 16:03 1 MG Prednisone (PredniSONE TAB) 50 mg DAILY PO 08/09/17 08:00 08/30/17 07:59 08/09/17 08:24 50 MG Objective Vital Signs Date Time Temp Pulse Resp B/P (MAP) Pulse Ox O2 Delivery O2 Flow Rate FiO2 08/09/17 08:00 Nasal Cannula 4.0 08/09/17 07:05 88 18 97 Nasal Cannula 4.0 08/09/17 02:43 108 18 96 Nasal Cannula 4.0 08/09/17 00:00 Nasal Cannula 4.0 08/08/17 23:02 36.8 116 18 141/82 (101) 96 Nasal Cannula 4.0 08/08/17 20:00 Nasal Cannula 4.0 08/08/17 18:58 108 18 89 Nasal Cannula 4.0 08/08/17 15:40 Nasal Cannula 4.0 08/08/17 14:51 36.5 99 18 109/65 (80) 94 Nasal Cannula 4.0 08/08/17 14:11 100 18 98 Nasal Cannula 4.0 Physical Exam General Appearance: no apparent distress, + thin Eyes: normal inspection, EOMI, sclerae normal Neck: supple, no adenopathy, no JVD, trachea midline Respiratory/Chest: chest non-tender, no respiratory distress, no accessory muscle use, + decreased breath sounds Cardiovascular: regular rate, rhythm, no edema, no gallop, no JVD, no murmur Abdomen: normal bowel sounds, non tender, soft, no organomegaly, no pulsatile mass Extremities: normal range of motion, non-tender, normal inspection, no pedal edema, no calf tenderness, pelvis stable 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, alert, normal mood/affect, oriented x 3, + motor weakness Skin: normal color, warm/dry, no rash Assessment and Plan 72-year-old man with 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 presented to the hospital with acute on chronic respiratory failure secondary to COPD exacerbation - End stage COPD: on inpatient hospice, will need to go home on hospice tomorrow MS Contin 30mg BID and Roxanol PRN for shortness of breath, scripts written on chart decrease Prednisone to 40mg for a week, then 20mg, script written - Anxiety: d/c on Ativan PO, q8 PRN, can continue at home, script written - Urinary retention: straight cath q8 PRN for PVR > 300cc no further episodes for 4 days plan: d/c to home tomorrow on Hospice, POLST completed, scripts for new medications written on chart
[2017-08-09 15:10] VITALS: BP 97/58; PULSE 112; TEMP 36.6; O2SAT 90
[2017-08-09] MEDS: LORAZEPAM 1 MG TAB PO PRN (16:59)
[2017-08-09 19:16] VITALS: PULSE 99; O2SAT 94
[2017-08-09] MEDS: MONTELUKAST SOD 10 MG TAB PO SCH (20:20)
[2017-08-09] MEDS: LORAZEPAM 0.5 MG TAB PO PRN (20:22)
[2017-08-09 21:56] VITALS: BP 120/66; PULSE 100; TEMP 36.6; O2SAT 90
[2017-08-10 02:11] VITALS: PULSE 89; O2SAT 96
[2017-08-10] MEDS: LEVALBUTEROL 1.25MG/0.5ML NEB INH SCH ×2 (02:11→07:03)
[2017-08-10] MEDS: IPRATROPIUM BROMIDE NEB SOLN 0.02% 2.5 ML VIAL INH SCH ×2 (02:11→07:03)
[2017-08-10 07:03] VITALS: PULSE 98; O2SAT 90
[2017-08-10 07:22] VITALS: BP 119/61; PULSE 96; TEMP 36.2; O2SAT 90
[2017-08-10] MEDS: BUDESONIDE/FORMOTEROL FUMARATE 160/4.5 60 PUFFS/INHALER INH SCH (07:58)
[2017-08-10] MEDS: DOCUSATE SODIUM 100 MG CAP PO PRN (07:58)
[2017-08-10] MEDS: ROFLUMILAST 500 MCG TAB PO SCH (07:58)
[2017-08-10] MEDS: MoRPHine SULFATE CR 15 MG TAB (MS CONTIN) PO SCH (07:59)
[2017-08-10] MEDS: ESCITALOPRAM OXALATE 20 MG TAB PO SCH (07:59)
[2017-08-10] MEDS: TIOTROPIUM BROMIDE 5 PUFF/90 MCG INH INH SCH (08:32)
[2017-08-10] MEDS ORDERED: HYOS1TAB PO (10:54)
[2017-08-10 12:31] VITALS: BP 119/61; PULSE 96; TEMP 36.2; O2SAT 90
--- NOTE | 2017-08-10 15:49 | Discharge Summary ---
Discharge Summary Date of Service Aug 10, 2017. Discharge Summary Admission Date: Jul 30, 2017 at 17:49 Discharge Date: Aug 10, 2017 Discharge Disposition: Home with services (Home hospice) Principal Diagnosis: Inpatient hospice, acute on chronic respiratory failure due to COPD Problems/Secondary Diagnoses: End-stage COPD, depression/anxiety, GERD Immunizations: Have You Had Influenza Vaccine: Unknown History of Tetanus Vaccine?: Unknown History of Pneumococcal: Unknown History of Hepatitis B Vaccine: Unknown Medication Reconciliation New Medications: Hyoscyamine Sulfate (Levsin) 0.125 Mg Tab 0.125 MG PO Q6H PRN for Secretions for 30 Days, #120 TAB Prednisone (Prednisone) 20 Mg Tab 2 TAB PO DAILY, #40 TAB Lorazepam (Lorazepam) 1 Mg Tab 1 MG PO Q8 PRN for Anxiety, #90 TAB 0 Refills Morphine Sulfate (Morphine Sulfate ER) 15 Mg Tabcr 30 MG PO Q12, #120 TABS 0 Refills Zolpidem Tartrate (Zolpidem Tartrate) 5 Mg Tab 5 MG PO HSZ PRN for Insomnia, #30 TAB 0 Refills Changed Medications: Morphine Sulfate (Morphine Sulfate) 10 Mg/0.5 Ml Soln 5 MG PO Q4H PRN for Shortness of Breath for 30 Days, #50 ML 0 Refills (Changed from: 1; 1; Refills: ) Continued Medications: Acetaminophen (Mapap) 325 Mg Tab 650 MG PO Q4H PRN for Pain or Fever for 1 Day, #1 TAB Budesonide/Formoterol Fumarate (Symbicort 160/4.5 Inhaler) 120 Puffs/ Aero 2 PUFFS INH BID, INHALER Escitalopram Oxalate (Lexapro) 20 Mg Tab 20 MG PO DAILY Ipratropium-Albuterol (Duoneb) 3 Ml Nebu 3 ML INH Q4H PRN for SOB/Wheezing, INHA Magnesium Hydroxide (Milk of Magnesia) 30 Ml Susp 30 ML PO Q12H PRN for Constipation for 1 Day, #1 Montelukast Sodium (Singulair) 10 Mg Tab 10 MG PO DAILY, TAB Ondansetron (Ondansetron Odt) 8 Mg Soltab 8 MG PO Q6H PRN for Nausea for 1 Day, #1 Roflumilast (Daliresp) 500 Mcg Tab 500 MCG PO DAILY Tiotropium [place] (Spiriva Handihaler) 30 Puff/540 Mcg Aerp 1 CAP INH DAILY Discontinued Medications: Albuterol Sulfate (Proventil Hfa) 108 Mcg/Act Aer 2 PUFFS INH Q4H PRN for SOB/Wheezing Ipratropium [place] (Ipratropium [place]) 0.5 Mg/2.5 Ml Nebu 0.5 MG INH Q2H PRN for Shortness of Breath for 30 Days, #30 Ipratropium [place] (Ipratropium [place]) 0.5 Mg/2.5 Ml Nebu 0.5 MG INH Q6R for 1 Day, #1 Lactobacillus Acidophilus (Floranex) 1 Tab Tab 4 TAB PO TIDM for 1 Day, #1 TAB Levalbuterol (Levalbuterol) 1.25 Mg/0.5 Ml Nebu 1.25 MG INH Q6R for 1 Day, #1 Levalbuterol (Levalbuterol) 1.25 Mg/0.5 Ml Nebu 1.25 MG INH Q2H PRN for Shortness of Breath for 1 Day, #1 Lorazepam (Lorazepam) 2 Mg/Ml Inj 1 MG IV Q2H PRN for Anxiety for 1 Day, #1 Lorazepam (Lorazepam) 0.5 Mg Tab 0.5 MG PO HS PRN for Anxiety for 1 Day, #1 TAB Lorazepam (Lorazepam) 2 Mg/Ml Inj 0.5 MG IV HS PRN for Anxiety for 1 Day, #1 Morphine Sulfate (Morphine Sulfate) 2 Mg/Ml Inj 2 MG IV Q2H PRN for Shortness of Breath/ANXIETY for 1 Day, #1 Prednisone (Prednisone) 20 Mg Tab 60 MG PO DAILY for 1 Day, #1 TAB Discharge Exam Patient sleeping upon my arrival, rouses easily. He reports feeling comfortable , denies any complaints currently. The patient denies fevers, chills, sweats, chest pain, palpitations, claudication, cough, wheezing, shortness of breath, nausea, vomiting, abdominal pain, dysuria, hematuria, urinary retention, paralysis, weakness, numbness and tingling. Constitutional: No fever, No chills, No sweats Eyes: No worsening of vision, No eye pain, No diplopia ENT: No hearing loss, No nasal symptoms, No trouble swallowing Respiratory: No cough, No wheezing, No shortness of breath Cardiovascular: No chest pain, No claudication, No palpitations Abdomen: No pain, No nausea, No vomiting Musculoskeletal: No joint pain, No muscle pain, No swelling Genitourinary - Male: No dysuria, No urinary retention, No hematuria Neurologic: No paralysis, No weakness, No numbness/tingling Integumentary: No rash, No itch, No color change General appearance: Well-developed, well-nourished, no apparent distress Head: Normocephalic, atraumatic Eyes: Normal inspection, PERRL, EOMI ENT: Normal ENT inspection, hearing grossly normal, pharynx normal Neck: Supple, no JVD, trachea midline Respiratory/Chest: +4L NC. Decreased breath sounds throughout. Barrel chest. Lungs clear to auscultation, no respiratory distress Cardiovascular: Regular rate & rhythm, no gallop, no murmur Abdomen/GI: Normal bowel sounds, non-tender, soft Extremities/Musculoskeletal: Normal inspection, no calf tenderness, no pedal edema Neurological/Psych: Alert, normal mood/affect, oriented x 3 Skin: Normal color, warm/dry, no rash Hospital Course 72 y/o male with a history of end-stage COPD, depression, anxiety and GERD who presents for inpatient hospice due to acute on chronic respiratory failure secondary to COPD exacerbation. Inpatient hospice--discharging to home for home hospice -MS Contin 30 mg PO BID, Roxanol 5 mg PO q4h prn SOB -Levsin 0.125 mg PO q6h prn secretions -Ativan 1 mg PO q8h prn anxiety -Hospital bed set up at home -POLST completed, only return to hospital if comfort cannot be achieved at home End stage COPD, recent exacerbation -Prednisone 40 mg PO qd x 1 week, then 20 mg daily indefinitely to improve breathing/comfort -Continue Symbicort BID, Spiriva, DuoNebs prn, Singulair, Daliresp 500 mcg PO qd for breathing/comfort Anxiety/depression -Continue Lexapro 20 mg PO qd, Ativan as above Urinary retention: straight cath q8 PRN for PVR > 300cc -Pt has been voiding Code Status -Level V, DO NOT RESUSCITATE Total Time Spent: Less than 30 minutes This includes examination of the patient, discharge planning, medication reconciliation, and communication with other providers. Discharge Instructions Please refer to the electronic Patient Visit Report (Discharge Instructions) for additional information.
== END 2017-08-10 14:38 | disposition hospice, home (50) | DRG 189 ==
LOC: C.4E 17:49 → UNDOADMIN 17:54 → C.4E 17:54
PROVIDERS: ADMIT Internal Medicine; ATTEND Hospitalist
DX: J96.21 Acute and chronic respiratory failure with hypoxia (principal); J44.1 Chronic obstructive pulmonary disease with (acute) exacerbation; Z66 Do not resuscitate; Z51.5 Encounter for palliative care; R33.9 Retention of urine, unspecified; F17.200 Nicotine dependence, unspecified, uncomplicated; K59.00 Constipation, unspecified; F41.9 Anxiety disorder, unspecified; F32.9 Major depressive disorder, single episode, unspecified; K21.9 Gastro-esophageal reflux disease without esophagitis; Z87.01 Personal history of pneumonia (recurrent)